=== PATIENT | female | born 1985 | race Caucasian/White ===

== ENCOUNTER 2023-02-15 17:43 | Emergency (ER) | payer SELFPAY ==
[2023-02-15 18:12] VITALS: BP 106/70; PULSE 81; RESP 18; TEMP 36.6; O2SAT 98; BMI 36.9
--- NOTE | 2023-02-15 18:21 | ED.GENADUL1 ---
HPI - General Adult General Chief complaint: Ear Stated complaint: SIDE OF FACE PAIN, NAUSEA Time Seen by Provider: 02/15/23 18:16 Source: patient Mode of arrival: walk-in Limitations: no limitations History of Present Illness HPI narrative: Patient is a 38-year-old female presents to the emergency department for the evaluation of left ear and left jaw pain for the last three days. She denies any mechanism of injury or trauma. She states pain radiates from the left ear to the left side of the face and head as well as to the left jaw, she is concerned that she may have a dental infection starting. She denies any drainage from the mouth. She has not had any fevers or upper respiratory symptoms. Pain is significantly worse with movement of the jaw, no swelling noted. Related Data Previous Rx's Medication Instructions Recorded amoxicillin 500 mg capsule 500 mg PO TID 10 days #30 caps 02/15/23 hydrocodone 5 mg-acetaminophen 300 1 tab PO Q6H PRN pain #10 tabs 02/15/23 mg tablet methylprednisolone 4 mg tablets in 4 mg PO DAILY #21 ea 02/15/23 a dose pack (Medrol (Ruben)) ondansetron 4 mg disintegrating 4 mg PO Q6H PRN nausea and 02/15/23 tablet vomiting #10 tabs Allergies Allergy/AdvReac Type Severity Reaction Status Date / Time methocarbamol [From Robaxin] Allergy Intermediate Verified 02/15/23 18:17 Review of Systems ROS Constitutional Denies: fever or chills Ears, nose, mouth, and throat Reports: neck pain and ear pain; Denies: throat pain Cardiovascular Denies: chest pain Respiratory Denies: shortness of breath or cough Gastrointestinal Reports: nausea; Denies: vomiting Integumentary/Breast Denies: rash Neurological Reports: headache Exam Narrative Exam Narrative: Gen.: Awake, alert, in no distress Head: Normocephalic, atraumatic ENT: Moist mucous membranes, no dental caries noted, no mandibular maxillary swelling. Left tympanic membrane is clear. Respiratory: No respiratory distress Extremities: Moves extremities equally, no injuries noted Psych: Normal mood and affect Neuro: No focal neuro deficit Skin: Warm, dry, intact Constitutional Vital Signs - 24 hr 02/15/23 18:12 Temperature 98 F Pulse Rate [Monitor] 81 Respiratory Rate 18 Blood Pressure [Left Arm] 106/70 Pulse Oximetry 98 Course Vital Signs Vital signs: Vital Signs Temperature 98 F 02/15/23 18:12 Pulse Rate 81 02/15/23 18:12 Respiratory Rate 18 02/15/23 18:12 Blood Pressure 106/70 02/15/23 18:12 Pulse Oximetry 98 02/15/23 18:12 Temperature 98 F 02/15/23 18:12 Pulse Rate 81 02/15/23 18:12 Respiratory Rate 18 02/15/23 18:12 Blood Pressure 106/70 02/15/23 18:12 Pulse Oximetry 98 02/15/23 18:12 Medical Decision Making MDM Narrative Medical decision making narrative: No evidence of acute infection at this time, patient will be treated for temporomandibular joint versus early dental infection with amoxicillin, Medrol Dosepak, Perdido, Zofran. Follow-up with dentist and PCP and return to the Emergency Room if symptoms change or worsen. She has no visible dental abscess or significant dental caries on exam, but she was instructed to finish the antibiotics as a precaution. Medical Records Medical records reviewed: Yes I reviewed the patient's medical records Discharge Plan Discharge Chief Complaint: Ear Clinical Impression: Atypical face pain Patient Disposition: Home, Self-Care Time of Disposition Decision: 18:21 Condition: Good Mode of Transportation: Private Vehicle Prescriptions / Home Meds: New amoxicillin 500 mg capsule 500 mg PO TID 10 Days Qty: 30 0RF methylprednisolone [Medrol (Ruben)] 4 mg tablets,dose pack 4 mg PO DAILY Qty: 21 0RF hydrocodone-acetaminophen 5-300 mg tablet 1 tab PO Q6H PRN (Reason: pain) Qty: 10 0RF Rx Instructions: Dx: K08.8 ondansetron 4 mg tablet,disintegrating 4 mg PO Q6H PRN (Reason: nausea and vomiting) Qty: 10 0RF Instructions: Atypical Facial Pain (ED) Stand Alone Forms: Portal Instructions Referrals: Physician,Non-Staff, MD [Primary Care Provider] - 1 week Discharge Date/Time: 02/15/23 18:37
--- NOTE | 2023-02-15 18:23 | PC.NURSE ---
Pt has left ear/tooth pain. Unsure what came first. Pt states that it feels more muscular then anything. Unsure if she has teeth grinding at night. Pt was diagnosed with TMJ in the past.
== END 2023-02-15 18:37 | disposition home or self-care (01) ==
PROVIDERS: Emergency Provider Emergency Medicine
DX: G50.1 Atypical facial pain (principal)
CPT/HCPCS: 99281

== ENCOUNTER 2023-06-07 17:36 | Emergency (ER) | payer OTHER, SELFPAY ==
[2023-06-07 17:44] VITALS: BP 144/82; PULSE 79; RESP 18; TEMP 36.8; O2SAT 98; BMI 34.7
--- NOTE | 2023-06-07 17:58 | ED.SKABFB1 ---
Documented by User: RADHIKA Vogel 06/07/23 18:11 HPI - Skin/Abscess/Foreign Bdy General Chief complaint: Skin/Abscess/Foreign Body Stated complaint: LUMP Time Seen by Provider: 06/07/23 17:58 Source: patient Mode of arrival: walk-in Limitations: no limitations History of Present Illness HPI narrative: 38-year-old female presents with a painful lump to her right axilla for the past couple of weeks. She states that it drains clear fluid and sometimes drains green fluid. She states that it comes and goes. Denies RUE swelling, temp or sensation changes. Denies fever, nausea or vomiting Related Data Previous Rx's Medication Instructions Recorded amoxicillin 500 mg capsule 500 mg PO TID 10 days #30 caps 02/15/23 hydrocodone 5 mg-acetaminophen 300 1 tab PO Q6H PRN pain #10 tabs 02/15/23 mg tablet methylprednisolone 4 mg tablets in 4 mg PO DAILY #21 ea 02/15/23 a dose pack (Medrol (Ruben)) ondansetron 4 mg disintegrating 4 mg PO Q6H PRN nausea and 02/15/23 tablet vomiting #10 tabs sulfamethoxazole 800 1 tab PO Q12H 10 days #20 tabs 06/07/23 mg-trimethoprim 160 mg tablet (Bactrim DS) Allergies Allergy/AdvReac Type Severity Reaction Status Date / Time methocarbamol [From Robaxin] Allergy Intermediate Verified 04/21/23 07:51 Review of Systems ROS Status of ROS 10 or more systems reviewed and unremarkable except as noted in history and below PFS PFS Social History (System 04/21/23 @ 07:51 by Lynette Jaramillo) Smoking status: Former smoker Exam Narrative Exam Narrative: General: alert, no distress, talking in full an complete sentences skin: warm, dry, intact, 1 x 1 cm oblong area with minimal induration that is draining minimal sanguinous fluid that is tender, no overlying or surrounding erythema, no fluctuance, no streaking head: normocephalic, atraumatic eyes: EOMI nose: nares patent mouth: mucous membranes moist neck: supple, trachea midline respiratory: non-labored extremities: FROM x 4, strength +5/5, capillary refill intact neuro: A&Ox3 psych: appropriate mood and affect, cooperative Constitutional Vital Signs, click to edit/add: Last Vital Signs Temp 98.2 F 06/07/23 17:44 Pulse 79 06/07/23 17:44 Resp 18 06/07/23 17:44 BP 144/82 H 06/07/23 17:44 Pulse Ox 98 06/07/23 17:44 O2 Del Method Room Air 06/07/23 17:44 Course Vital Signs Vital signs: Vital Signs Temperature 98.2 F 06/07/23 17:44 Pulse Rate 79 06/07/23 17:44 Respiratory Rate 18 06/07/23 17:44 Blood Pressure 144/82 H 06/07/23 17:44 Pulse Oximetry 98 06/07/23 17:44 Oxygen Delivery Method Room Air 06/07/23 17:44 Temperature 98.2 F 06/07/23 17:44 Pulse Rate 79 06/07/23 17:44 Respiratory Rate 18 06/07/23 17:44 Blood Pressure 144/82 H 06/07/23 17:44 Pulse Oximetry 98 06/07/23 17:44 Oxygen Delivery Method Room Air 06/07/23 17:44 MDM - Skin/Abscess/Foreign Bdy MDM Narrative Medical decision making narrative: No indication for I&D today. Nurse took a wound culture and pending. She will be treated for an abscess with Bactrim. F/u with PCP. afebrile, not tachypneic, not tachycardic, tolerating p.o., not hypoxic, non toxic appearing and ambulating at baseline and hemodynamically stable to be d/c. answered all questions. educated on SE of meds. pt in agreement with tx. educated when to return to ER. Discharge Plan Discharge Chief Complaint: Skin/Abscess/Foreign Body Clinical Impression: Abscess of skin or subcutaneous tissue Qualifiers: Site of cutaneous abscess: extremity Site of cutaneous abscess of extremity: axilla Laterality: right Qualified Code(s): L02.411 - Cutaneous abscess of right axilla Patient Disposition: Home, Self-Care Time of Disposition Decision: 17:59 Condition: Good Mode of Transportation: Private Vehicle Prescriptions / Home Meds: New sulfamethoxazole-trimethoprim [Bactrim DS] 800-160 mg tablet 1 tab PO Q12H 10 Days Qty: 20 0RF No Action amoxicillin 500 mg capsule 500 mg PO TID 10 Days Qty: 30 0RF methylprednisolone [Medrol (Ruben)] 4 mg tablets,dose pack 4 mg PO DAILY Qty: 21 0RF hydrocodone-acetaminophen 5-300 mg tablet 1 tab PO Q6H PRN (Reason: pain) Qty: 10 0RF Rx Instructions: Dx: K08.8 ondansetron 4 mg tablet,disintegrating 4 mg PO Q6H PRN (Reason: nausea and vomiting) Qty: 10 0RF Instructions: Abscess (ED) Stand Alone Forms: Portal Instructions Referrals: Physician,Non-Staff, [Primary Care Provider] - 1 week Discharge Date/Time: 06/07/23 18:23 Documented by User: Isael Escalona MD 06/07/23 18:31 HPI - Skin/Abscess/Foreign Bdy General Chief complaint: Skin/Abscess/Foreign Body Stated complaint: LUMP Time Seen by Provider: 06/07/23 17:58 Related Data Previous Rx's Medication Instructions Recorded amoxicillin 500 mg capsule 500 mg PO TID 10 days #30 caps 02/15/23 hydrocodone 5 mg-acetaminophen 300 1 tab PO Q6H PRN pain #10 tabs 02/15/23 mg tablet methylprednisolone 4 mg tablets in 4 mg PO DAILY #21 ea 02/15/23 a dose pack (Medrol (Ruben)) ondansetron 4 mg disintegrating 4 mg PO Q6H PRN nausea and 02/15/23 tablet vomiting #10 tabs sulfamethoxazole 800 1 tab PO Q12H 10 days #20 tabs 06/07/23 mg-trimethoprim 160 mg tablet (Bactrim DS) Allergies Allergy/AdvReac Type Severity Reaction Status Date / Time methocarbamol [From Robaxin] Allergy Intermediate Verified 04/21/23 07:51 PFSH PFSH Social History (System 04/21/23 @ 07:51 by Lynette Jaramillo) Smoking status: Former smoker Exam Narrative Exam Narrative: General: alert, no distress, talking in full an complete sentences skin: warm, dry, intact, 1 x 1 cm oblong area with minimal induration that is draining minimal sanguinous fluid that is tender, no overlying or surrounding erythema, no fluctuance, no streaking, No signs of cellulitis or secondary infection. head: normocephalic, atraumatic eyes: EOMI nose: nares patent mouth: mucous membranes moist neck: supple, trachea midline respiratory: non-labored extremities: FROM x 4, strength +5/5, capillary refill intact neuro: A&Ox3 psych: appropriate mood and affect, cooperative Constitutional Vital Signs, click to edit/add: Last Vital Signs Temp 98.2 F 06/07/23 17:44 Pulse 79 06/07/23 17:44 Resp 18 06/07/23 17:44 BP 144/82 H 06/07/23 17:44 Pulse Ox 98 06/07/23 17:44 O2 Del Method Room Air 06/07/23 17:44 Course Vital Signs Vital signs: Vital Signs Temperature 98.2 F 06/07/23 17:44 Pulse Rate 79 06/07/23 17:44 Respiratory Rate 18 06/07/23 17:44 Blood Pressure 144/82 H 06/07/23 17:44 Pulse Oximetry 98 06/07/23 17:44 Oxygen Delivery Method Room Air 06/07/23 17:44 Temperature 98.2 F 06/07/23 17:44 Pulse Rate 79 06/07/23 17:44 Respiratory Rate 18 06/07/23 17:44 Blood Pressure 144/82 H 06/07/23 17:44 Pulse Oximetry 98 06/07/23 17:44 Oxygen Delivery Method Room Air 06/07/23 17:44 MDM - Skin/Abscess/Foreign Bdy MDM Narrative Medical decision making narrative: No indication for I&D today. Nurse took a wound culture and pending. She will be treated for an abscess with Bactrim. F/u with PCP. afebrile, not tachypneic, not tachycardic, tolerating p.o., not hypoxic, non toxic appearing and ambulating at baseline and hemodynamically stable to be d/c. answered all questions. educated on SE of meds. pt in agreement with tx. educated when to return to ER. I, Dr Escalona, have reviewed the above progress note and course of action in the ER; agree with the above. I have personally seen and evaluated this patient, gone over history and physical, and discussed disposition and treatment plan with the patient. Discharge Plan Discharge Chief Complaint: Skin/Abscess/Foreign Body Clinical Impression: Abscess of skin or subcutaneous tissue Qualifiers: Site of cutaneous abscess: extremity Site of cutaneous abscess of extremity: axilla Laterality: right Qualified Code(s): L02.411 - Cutaneous abscess of right axilla Patient Disposition: Home, Self-Care Time of Disposition Decision: 17:59 Condition: Good Mode of Transportation: Private Vehicle Prescriptions / Home Meds: New sulfamethoxazole-trimethoprim [Bactrim DS] 800-160 mg tablet 1 tab PO Q12H 10 Days Qty: 20 0RF No Action amoxicillin 500 mg capsule 500 mg PO TID 10 Days Qty: 30 0RF methylprednisolone [Medrol (Ruben)] 4 mg tablets,dose pack 4 mg PO DAILY Qty: 21 0RF hydrocodone-acetaminophen 5-300 mg tablet 1 tab PO Q6H PRN (Reason: pain) Qty: 10 0RF Rx Instructions: Dx: K08.8 ondansetron 4 mg tablet,disintegrating 4 mg PO Q6H PRN (Reason: nausea and vomiting) Qty: 10 0RF Instructions: Abscess (ED) Stand Alone Forms: Portal Instructions Referrals: Physician,Non-Staff, MD [Primary Care Provider] - 1 week Discharge Date/Time: 06/07/23 18:23
== END 2023-06-07 18:23 | disposition home or self-care (01) ==
PROVIDERS: Emergency Provider Emergency Medicine
DX: L02.411 Cutaneous abscess of right axilla (principal); Z87.891 Personal history of nicotine dependence
CPT/HCPCS: 87070; 87150; 87186; 99283

== ENCOUNTER 2023-06-21 17:17 | Emergency (ER) | payer OTHER, SELFPAY ==
[2023-06-21 17:23] VITALS: BP 154/78; PULSE 80; RESP 16; TEMP 37.8; O2SAT 97; BMI 34.7
--- NOTE | 2023-06-21 17:51 | ED.GENADUL1 ---
HPI - General Adult General Chief complaint: Upper Respiratory Infection Stated complaint: prob covid Time Seen by Provider: 06/21/23 17:24 Source: patient Mode of arrival: walk-in History of Present Illness HPI narrative: Patient is a 38yo Who is presenting with flulike symptoms since yesterday. 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 Patient has been exposed to COVID and pneumonia. Patient started with symptoms yesterday of myalgia, arthralgia, chills, fever, headache, nausea. Patient's had no vomiting or diarrhea. No chest pain or shortness of breath. Patient is concerned for cocaine. Patient also has a history of headaches. Patient says she typically takes Tylenol at home for headaches and migraines. Patient's had a persistent headache since yesterday. Patient was brought to the Emergency Room by her . Patient states that she got , does not want to be checked, she due for her next menses in a week. 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 No acute complaints. . All systems are negative except as noted/marked. All systems reviewed and otherwise negative. . Nurses note and vital signs reviewed and patient is not hypoxic. General: The patient Looks ill, not toxic.. Patient is resting uncomfortably on cart. Patient is not toxic, lethargic, or listless Skin: Warm, dry, no pallor noted. There is no rash noted. No petechiae, purpura. Head: Normocephalic, atraumatic, No midline or paracervical tenderness to palpation. No nuchal rigidity, no meningeal signs or symptoms. Eye: Normal conjunctiva, no drainage, EOMI. PERRL Ears, Nose, Mouth, and Throat: oral mucosa is moist. Nares patent. Mouth without vesicles. Cardiovascular: Regular Rate and Rhythm, no murmur, gallop, rub Respiratory: Patient is in no distress, no accessory muscle use, lungs are clear to auscultation, no wheezing, rales or rhonchi Back: non-tender, no CVA tenderness bilaterally to percussion. No CT LS midline pain GI: soft, no tenderness to palpation, no masses appreciated. No rebound, guarding, or rigidity noted. No flank pain bilateral, No distention Musculoskeletal: Patient has full range of motion of all of the extremities, no motor, sensory, or focal neurological deficits Neurological: A&O x3, normal speech Psychiatric: Cooperative Related Data Previous Rx's Medication Instructions Recorded [id number] 1 cap PO Q8H PRN pain/headache #7 06/21/23 50 mg-300 mg-40 mg capsule caps (Fioricet) ondansetron 4 mg disintegrating 4 mg PO Q4H PRN nausea and 06/21/23 tablet vomiting 3 days #6 tabs Allergies Allergy/AdvReac Type Severity Reaction Status Date / Time methocarbamol [From Robaxin] Allergy Intermediate Verified 06/21/23 17:23 PFSH PFS Social History (System 04/21/23 @ 07:51 by Lynette Jaramillo) Smoking status: Former smoker Exam Constitutional Vital Signs, click to edit/add: Last Vital Signs Temp 100.1 F 06/21/23 17:23 Pulse 80 06/21/23 17:23 Resp 16 06/21/23 17:23 BP 154/78 H 06/21/23 17:23 Pulse Ox 97 06/21/23 17:23 O2 Del Method Room Air 06/21/23 17:23 Course Vital Signs Vital signs: Vital Signs Temperature 100.1 F 06/21/23 17:23 Pulse Rate 80 06/21/23 17:23 Respiratory Rate 16 06/21/23 17:23 Blood Pressure 154/78 H 06/21/23 17:23 Pulse Oximetry 97 06/21/23 17:23 Oxygen Delivery Method Room Air 06/21/23 17:23 Temperature 100.1 F 06/21/23 17:23 Pulse Rate 80 06/21/23 17:23 Respiratory Rate 16 06/21/23 17:23 Blood Pressure 154/78 H 06/21/23 17:23 Pulse Oximetry 97 06/21/23 17:23 Oxygen Delivery Method Room Air 06/21/23 17:23 Medical Decision Making MDM Narrative Medical decision making narrative: Patient's COVID test is positive. Patient Was given IV, 1 L of IV fluids and IV medication to help with her headaches. Patient feels better at discharge. Patient is discharged with medication to help with her symptoms at home. Patient will follow-up with PCP. Work note has been given as well. Education on COVID was done at bedside and on discharge paperwork. Lab Data Lab results reviewed: Yes I reviewed the patient's lab results Labs: Lab Results 06/21/23 Range/Units 17:40 SARS-CoV-2 (PCR) Positive A (NEGATIVE) Discharge Plan Discharge Chief Complaint: Upper Respiratory Infection Clinical Impression: COVID, Headache Patient Disposition: Home, Self-Care Time of Disposition Decision: 18:45 Condition: Fair Prescriptions / Home Meds: New ondansetron 4 mg tablet,disintegrating 4 mg PO Q4H PRN (Reason: nausea and vomiting) 3 Days Qty: 6 0RF [id number] [Fioricet] 50-300-40 mg capsule 1 cap PO Q8H PRN (Reason: pain/headache) Qty: 7 0RF Instructions: General Headache (ED) Additional Instructions: Increase fluids. Use DayQuil, NyQuil, Flonase as needed. Alternate Tylenol and Motrin every 4 hours to help with myalgia, arthralgia aches and pains. Use nausea medication if needed to help increase fluids. Work note has been given. Follow-up with PCP for any additional questions. Stand Alone Forms: Work/School Release, Portal Instructions Referrals: Physician,Non-Staff, MD [Primary Care Provider] - 1 week
[2023-06-21 18:05] LABS: SARS-CoV-2 Ag POSITIVE (NEGATIVE)
[2023-06-21] MEDS: ACETAMINOPHEN 325 MG TABLET 650 MG PO (18:46)
[2023-06-21] MEDS: 0.9 % SODIUM CHLORIDE 1,000 ML 999 ML IV (18:47)
[2023-06-21] MEDS: KETOROLAC TROMETHAMINE 30 MG/ML VIAL 15 MG IVP (18:47)
[2023-06-21] MEDS: PROCHLORPERAZINE 10 MG/2 ML VIAL IV (18:47)
== END 2023-06-21 19:42 | disposition home or self-care (01) ==
PROVIDERS: Emergency Provider Emergency Medicine
DX: U07.1 COVID-19 (principal); R50.9 Fever, unspecified; Z87.891 Personal history of nicotine dependence
CPT/HCPCS: 87811; 96374; 96375; 99284

== ENCOUNTER 2023-08-19 21:26 | Emergency (ER) | payer OTHER, SELFPAY ==
[2023-08-19] VITALS (12 sets, daily range): BP systolic 119–159; BP diastolic 70–106; PULSE 84–125; RESP 13–27; TEMP 37.3; O2SAT 99
--- OUTSIDE RECORDS SUMMARY | 2023-08-19 21:32 | XMS_ITS | CCD ---
Author Name Unknown Address [address] [place] [address] Organization [facility] Care Team Providers Care Limousine Driver Name Role Phone Ramone Franco Unavailable Blair Jordan [facility]ending [facility] DO Omar Pham Emergency Provider DANIEL Contreras Attending Unavailable MURPHY .RADHIKA Consulting Unavailabl e MISC, DR CORDOVA Primary Care Unavailable DANIEL VILLAGOMEZ Admitting Unavailable JENI CORDERO Consulting Unavailable KEVIN MCLAUGHLIN Consulting Unavailable BIA ., FRANK Attending Unavailable BIA ., FRANK Admitting Unavailable MISC, DR CORDOVA Primary Care Unavailable LEONA DICKENS Consulting Unavailable PAY ., DR SILVER Admitting Unavailable AGUIRRE ., MR MILLS Consulting Unavailable PAY ., DR SILVER Attending Unavailable MISC, DR CORDOVA Primary Care Unavailable BIA ., FRANK Admitting Unavailable BIA ., FRANK Consulting Unavailable BIA ., FRANK Attending Unavailable MISC, DR CORDOVA Primary Care Unavailable CRISTIANA .DAVE Consulting Unavailable BIA ., FRANK Admitting Unavailable BIA ., FRANK Attending Unavailable MISC, DR CORDOVA Primary Care Unavailable MISC, DR CORDOVA Primary Care Unavailable DIAB ., JUAN Consulting Unavailable DIAB ., JUAN Attending Unavailable DIAB ., JUAN Admitting Unavailable Blair Jordan Attending Provider [phone] [facility] Provider XIOMARA Montero Emergency Provider [phone] [facility] Unavailable Omar Pham Admitting Unavailable Omar Pham Attending Unavailable [facility] Unavailable Kimberly Rubio Admitting Unavailable Kimberly Rubio Attending Unavailable Joao oMntero Admitting Unavailable Joao Montero Attending Unavailable [facility] Unavailable Allergies Allergy Classification Reported Allergen(s) Allergy Type Date of Onset Reaction(s) Facility (4 sources) Adhesive Tape; Translations: [Adhesive tape] Allergy to substance [facility] (1 source) Methocarbamol Drug Allergy [facility] Repository Medications Current Medications Medication Drug Class(es) Dates Sig (Normalized) Sig (Original) naproxen 500 mg oral tablet (5 sources) Nonsteroidal Anti-inflammatory Drug Start: 07-10-2022 End: 04-16-2023 take 1 tablet by mouth twice daily Naproxen (Naprosyn) 500 mg tablet Active 500 MG PO Twice daily 10 April 16, 2023 12:00am take 1 tablet by mouth every twe lve hours Naproxen 250 MG 1 tablet with food or milk Orally Twice a day Active oxyCODONE hydrochloride 5 mg oral tablet (1 source) Opioid Agonist Start: 04-16-2023 take 5 mg by mouth once daily Oxycodone Active 5 MG PO Daily 5 April 16, 2023 Start: 04-16-2023 take 5 mg by mouth once daily Oxycodone Active 5 MG PO Daily 01 01April 16, 2023 predniSONE 50 mg oral tablet (13 sources) Start: 04-16-2023 take 50 mg by mouth once daily Prednisone Active 50 MG PO Daily 01 01April 16, 2023 12:00am Start: 01-30-2022 End: 02-26-2022 Prednisone Discontinued 0 MG .ROUTE .COMPLEX 39 January 30, 2022 12:00am February 26, 2022 12:26pm 6 tabs for 3 days 4 tabs for 3 days 2 tabs for 3 days 1 tabs for 3 days Start: 02-03-2021 End: 02-25-2021 take 60 mg by mouth once daily Prednisone Discontinued 60 MG PO Daily 12 February 03, 2021 12:00am February 25, 2021 1:25pm Start: 12-19-2020 End: 10-14-2021 take 40 mg by mouth once daily Prednisone Discontinued 40 MG PO Daily 10 February 25, 2021 12:00am October 14, 2021 7:51pm Start: 07-16-2019 End: 11-06-2019 take 40 mg by mouth once daily, then take 20 mg by mouth once daily, then take 10 mg by mouth once daily Prednisone Discontinued 20 MG PO Daily July 16, 2019 1:00am November 06, 2019 4:43pm 40mg orally daily for 3 days then 20mg daily for 3 days then 10mg daily for 3 days Start: 11-07-2018 End: 07-14-2019 take 40 mg by mouth once daily Prednisone Discontinued 40 MG PO Daily November 07, 2018 12:00am July 14, 2019 2:15pm Completed/Discontinued Medications Medication Drug Class(es) Dates Sig (Normalized) Sig (Original) acetaminophen 500 mg oral tablet (2 sources) Start: 09-04-2018 End: 07-14-2019 take 1000 mg by mouth every four hours Acetaminophen Discontinued 1000 MG PO Q4H September 04, 2018 1:00am July 14, 2019 2:15pm acetaminophen 325 mg / HYDROcodone bitartrate 5 mg oral tablet (4 sources) Opioid Agonist Start: 09-04-2018 End: 09-09-2018 take 1 tablet by mouth every six hours Hydrocodone-Acetami nophen ([place]) 5-325 mg tablet Discontinued 1 TAB PO Q6H 20 September 04, 2018 September 09, 2018 1:02am Start: 12-02-2017 End: 12-07-2017 take 1 tablet by mouth four times daily Hydrocodone-Acetaminophen ([place]) 5-325 mg tablet Discontinued 1 TAB PO Four times daily 14 December 02, 2017 December 07, 2017 12:01am albuterol 0.417 mg/ml inhalation solution (8 sources) beta2-Adrenergic Agonist Start: 07-16-2019 End: 02-25-2021 Albuterol Sulfate Discontinued 1 INH INHALATION EVERY 4-6 HOURS July 16, 2019 1:00am February 25, 2021 1:24pm Start: 11-07-2018 End: 02-25-2021 take 1.25 mg by inhalation every four hours Albuterol Sulfate Discontinued 1.25 MG INHALATION Q4H 75 July 16, 2019 4:23pm February 25, 2021 1:24pm Start: 01-26-2018 End: 02-08-2018 Albuterol Sulfate (Ventolin Hfa) 90 mcg/actuation HFA aerosol inhaler Discontinued 2 INH INHALATION Four times daily January 26, 2018 12:00am February 08, 2018 12:13am azithromycin 250 mg oral tablet (2 sources) Macrolide Antimicrobial Start: 07-16-2019 End: 11-06-2019 take 500 mg by mouth once daily Azithromycin Discontinued 500 MG PO Daily 4 2 July 16, 2019 1:00am November 06, 2019 4:43pm cephalexin 500 mg oral capsule (5 sources) Cephalosporin Antibacterial Start: 01-09-2023 End: 04-16-2023 take 500 mg by mouth every six hours Cephalexin Discontinued 500 MG PO Q6H 40 January 09, 2023 12:00am April 16, 2023 1:49am Start: 08-19-2018 End: 08-26-2018 take 500 mg by mouth twice daily Cephalexin Discontinu ed 500 MG PO Twice daily 14 August 19, 2018 1:00am August 26, 2018 1:01am Start: 02-08-2018 End: 03-06-2018 take 2 capsules by mouth every twelve hours Cephalexin (Keflex) 500 mg Capsule Discontinued 1000 MG PO Q12H 40 February 08, 2018 12:00am March 06, 2018 4:41pm diphenhydrAMINE hydrochloride 25 mg oral capsule (2 sources) Histamine-1 Receptor Antagonist Start: 01-30-2022 End: 02-26-2022 Diphenhydramine Hcl Discontinued 50 MG PO every 6 to 8 hours January 30, 2022 12:00am February 26, 2022 12:26pm docusate sodium 100 mg oral capsule (2 sources) Start: 09-04-2018 End: 11-07-2018 take 100 mg by mouth once daily at bedtime Docusate Sodium Discontinued 100 MG PO Daily at bedtime September 04, 2018 1:00am November 07, 2018 3:36pm doxycycline hyclate 100 mg oral tablet (2 sources) Tetracycline-clas s Drug Start: 02-02-2022 End: 02-26-2022 take 100 mg by mouth twice daily Doxycycline Hyclate Discontinued 100 MG PO Twice daily February 02, 2022 12:00am February 26, 2022 12:26pm ferrous sulfate 325 mg oral tablet (2 sources) Start: 07-26-2018 End: 11-07-2018 take 325 mg by mouth once daily Ferrous Sulfate Discontinued 325 MG PO Daily July 26, 2018 1:00am November 07, 2018 3:36pm ibuprofen 600 mg oral tablet (4 sources) Nonsteroidal Anti-inflammatory Drug Start: 09-04-2018 End: 07-14-2019 take 600 mg by mouth every six hours Ibuprofen Discontinued 600 MG PO Every 6 hours 60 September 04, 2018 1:00am July 14, 2019 2:15pm Start: 12-02-2017 End: 02-08-2018 take 800 mg by mouth three times daily Ibuprofen Discontinued 800 MG PO Three times daily December 02, 2017 1:40pm February 08, 2018 12:13am loratadine 10 mg oral tablet (2 sources) Start: 10-14-2021 End: 01-30-2022 take 1 tablet by mouth once daily Loratadine (Claritin) 10 mg tablet Discontinued 10 MG PO Daily October 14, 2021 1:00am January 30, 2022 5:46pm methocarbamol 750 mg oral tablet (2 sources) Muscle Relaxant Start: 02-25-2021 End: 10-14-2021 take 750 mg by mouth every eight hours Methocarbamol Discontinued 750 MG PO Q8H 11 01February 25, 2021 12:00am October 14, 2021 7:51pm metoclopramide 10 mg oral tablet (2 sources) Dopamine-2 Receptor Antagonist Start: 02-08-2018 End: 03-06-2018 take 10 mg by mouth every eight hours Metoclopramide Hcl Discontinued 10 MG PO Q8H February 08, 2018 12:00am March 06, 2018 4:41pm ondansetron 4 mg disintegrating oral tablet (2 sources) Serotonin-3 Receptor Antagonist Start: 01-26-2018 End: 02-08-2018 take 1 tablet by mouth three times daily Ondansetron (Zofran Odt) 4 mg tablet,disintegratin g Discontinued 4 MG PO Three times daily January 26, 2018 12:00am February 08, 2018 12:13am [id number] Fumarate-Fa () 28-800 mg-mcg Tablet (2 sources) Start: 01-26-2018 End: 11-07-2018 take 1 tablet by mouth once daily [id number]-Naokguu Fumarate-Fa () 28-800 mg-mcg Tablet Discontinued 1 TAB PO Daily January 26, 2018 12:00am November 07, 2018 3:36pm Start: 01-26-2018 End: 11-07-2018 take 1 tablet by mouth once daily [id number] Fumarate-Fa () 28-800 mg-mcg Tablet Discontinued 1 TAB PO Daily January 25, 2018 11:00pm November 07, 2018 2:36pm promethazine hydrochloride 25 mg oral tablet (4 sources) Phenothiazine Start: 03-03-2020 End: 12-19-2020 take 25 mg by mouth three times daily Promethazine Discontinued 25 MG PO Three times daily March 03, 2020 12:00am December 19, 2020 4:06pm Start: 01-26-2018 End: 02-08-2018 take 25 mg by mouth three times daily Promethazine Discontinued 25 MG PO Three times daily January 26, 2018 12:00am February 08, 2018 12:13am topiramate 50 mg oral tablet (2 sources) Start: 07-14-2019 End: 12-19-2020 take 1 tablet by mouth twice daily Topiramate (Topamax) 50 mg Tablet Discontinued 50 MG PO Twice daily July 14, 2019 1:00am December 19, 2020 4:06pm traMADol hydrochloride 50 mg oral tablet (2 sources) Opioid Agonist take 1 tablet by mouth every twenty-four hours traMADol HCl 50 MG 1 tablet as needed Orally Once a day Not-Taking Problems Active Problems Problem Classification Problem Date Documented Da te Episodic/Chronic Allergic reactions (2 sources) Contact dermatitis due to poison ofzia; Translations: [Allergic contact dermatitis due to plants, except food] 01-30-2022 Episodic Asthma (2 sources) Asthma 07-14-2019 Chronic obstructive pulmonary disease and bronchiectasis (2 sources) Bronchitis; Translations: [Bronchitis, not specified as acute or chronic] 02-03-2021 Episodic Fluid and electrolyte disorders (4 sources) Metabolic acidosis; Translations: [Metabolic acidosis] 07-14-2019 Episodic Headache; including migraine (3 sources) Migraine; Translations: [Migraine, unspecified, not intractable, without status migrainosus] Onset: 3 12-19-2020 Chronic Headache; including migraine (2 sources) Headache; Translations: [Headache] 03-03-2020 Episodic Headache; including migraine (3 sources) Headache; including migraine; Translations: [HEADACHE UNSPECIFIED] Onset: 3 Other gastrointestinal disorders (1 source) Constipation; Translations: [Constipation, unspecified] 01-09-2023 Episodic Other nervous system disorders (2 sources) Chronic pain; Translations: [Other chronic pain] Chronic Other nervous system disorders (1 source) Other chronic pain; Translations: [Chronic pain G89.29] Onset: 1 Resolved: 1 Chronic Other non-traumatic joint disorders (2 sources) Pain in unspecified knee; Translations: [Acute knee pain] 12-02-2017 Episodic Other skin disorders (2 sources) Eruption; Translations: [Rash and other nonspecific skin eruption] 02-02-2022 Episodic Other upper respiratory infections (3 sources) Upper respiratory infection; Translations: [Acute upper respiratory infection, unspecified] Onset: 3 01-23-2020 Episodic Phlebitis; thrombophlebitis and thromboembolism (2 sources) Superficial thrombophlebitis; Translations: [Phlebitis and thrombophlebitis of unspecified site] 11-06-2019 Episodic Spondylosis; intervertebral disc disorders; other back problems (10 sources) Solitary sacroiliitis; Translations: [Sacroiliitis, not elsewhere classified] Onset: 1 Resolved: 1 Chronic Spondylosis; intervertebral disc disorders; other back problems (1 source) Backache; Translations: [Dorsalgia, unspecified] 04-16-2023 Episodic Sprains and strains (5 sources) Sprain of knee; Translations: [Sprain of unspecified site of unspecified knee, initial encounter] Onset: 2 12-07-2017 Episodic Substance-related disorders (1 source) Nicotine dependence, cigarettes, uncomplicated; Translations: [NICOTINE DEPEND CIGARETTES UNCOMP] Onset: 3 Chronic Superficial injury; contusion (3 sources) Contusion of hand; Translations: [Contusion of unspecified hand, initial encounter] Onset: 2 07-10-2022 Episodic Unclassified (3 sources) COUGH, UNSPECIFIED; Translations: [COUGH, UNSPECIFIED] Onset: 3 Unclassified (1 source) CONTACT W/AND (SUSP) EXPOS COVID-19; Translations: [CONTACT W/AND (SUSP) EXPOS COVID-19] Onset: 3 Unclassified (1 source) Low back pain, unspecified; Translations: [Low back pain, unspecified] Onset: 3 Unclassified (1 source) Pain in right hand; Translations: [Pain in right hand] Onset: 2 Urinary tract infections (1 source) Urinary tract infectious disease; Translations: [Urinary tract infection, site not specified] 01-09-2023 Episodic Viral infection (4 sources) Viral disease; Translations: [Viral infection, unspecified] 02-26-2022 Episodic Past or Other Problems Problem Classification Problem Date Documented Da te Episodic/Chronic Abdominal pain (1 source) Unspecified abdominal pain; Translations: [Unspecified abdominal pain] Onset: 01-09-2023 Episodic E Codes: Struck by; against (1 source) Walked into wall, initial encounter; Translations: [WALKED INTO WALL INITIAL ENCOUNTER] Onset: 07-27-2022 Episodic Inflammation; infection of eye (except that caused by tuberculosis or sexually transmitteddisease) (1 source) Unspecified conjunctivitis; Translations: [UNSPECIFIED CONJUNCTIVITIS] Onset: 07-01-2022 Episodic Other aftercare (1 source) Other superintendent [employer] (current) drug therapy; Translations: [OTH MCC CURRENT DRUG THERAPY] Onset: 02-18-2022 Episodic Other connective tissue disease (3 sources) Pain in right hand; Translations: [PAIN IN RIGHT HAND] Onset: 07-21-2022 Episodic Other eye disorders (3 sources) Other specified disorders of eye and adnexa; Translations: [OTHER SPEC DISORDERS EYE AND ADNEXA] Onset: 06-30-2022 Episodic Screening and history of mental health and substance abuse codes (1 source) Personal history of nicotine dependence; Translations: [PERSONAL HISTORY OF NICOTINE DEPEND] Onset: 02-18-2022 Episodic Unclassified (1 source) COUGH, UNSPECIFIED; Translations: [COUGH, UNSPECIFIED] Onset: 09-21-2022 Results Test Name Value Interpretation Reference Range Facility Basic Metabolic Panelon 03-30 Anion gap [Moles/Vol] 11.9 mmol/L Normal 6.0-15.0 [facility] Comment on above: Performed By: #### C BC, BMP ####[facility] [place] [address] [facility] Calcium [Mass/Vol] 9.4 mg/dL Normal 8.6-10.3 [facility] Comment on above: Performed By: #### C BC, BMP ####[facility] [place] [address] [facility] Chloride [Moles/Vol] 104 mmol/L Normal 98-[address] [facility] Comment on above: Performed By: #### C BC, BMP ####[place] [address] [place] [address] [facility] CO2 [Moles/Vol] 27.7 mmol/L Normal 21.0-31.0 [facility] Comment on above: Performed By: #### C BC, BMP ####[place] [id number] [place] [id number] [facility] Creatinine [Mass/Vol] 0.78 mg/dL Normal 0.60-1.20 [facility] Comment on above: Performed By: #### C BC, BMP ####[place] [id number] [place] [id number] [place] Creatinine Clr Calc Pharmacy 130.11 [facility] Comment on above: Result Comment: PERF ORMED BY: [facility] [address] [place] [id number] PATHOLOGIST SAP TECHNICAL ARCHITECT MCKENZIE HERNÁNDEZ M.D. Performed By: #### C BC, BMP ####[place] [address] [place] [id number] [facility] GFR/1.73 sq M.predicted MDRD (S/P/Bld) [Vol rate/Area] mL/min/{1.73_m2} [facility] Comment on above: Performed By: #### C BC, BMP ####[place] [address] [place] [id number] [facility] Glucose [Mass/Vol] 104 mg/dL High 70-100 [facility] Comment on above: Result Comment: [place] Glucose Reference Range is dependent on time and content of last meal. Glucose of more than 200 mg/dL in a nonstressed, ambulatory subject supports the diagnosis of Diabetes Mellitus. ADA recommended reference range Performed By: #### C BC, BMP ####[facility] [id number] [place] [id number] [facility] Potassium [Moles/Vol] 3.6 mmol/L Normal 3.5-5.1 [facility] Comment on above: Performed By: #### C BC, BMP ####[facility] [id number] [place] [id number] [facility] Sodium [Moles/Vol] 140 mmol/L Normal 136-145 [facility] Comment on above: Performed By: #### C BC, BMP ####[facility] [id number] Urea nitrogen [Mass/Vol] 12 mg/dL Normal 7-25 [facility] Comment on above: Performed By: #### C BC, BMP ####[facility] Basophils Auto (Bld) [#/Vol] Ordered By: Omar Pham on 04-16-2023 Basophils (Bld) [#/Vol] 0.0 10*3/uL 0.0-0.2 [facility] Basophils/100 WBC Auto (Bld) Ordered By: Omar Pham on 04-16-2023 Basophils/100 WBC (Bld) 0.5 % . F [facility] CT lumbar spine wo conon CT lumbar spine wo con [facility] [address] [place] [address] [place] [address] CT Scan Report Signed Patient: Hellen Bledsoe MR#: [id number] : 1985 Acct:[id number] Age/Sex: 38 / F ADM Date: 04/15/23 Loc: ER Room: Type: [facility] ER Attending Dr: Copies to: Joao Montero PA-C Ordering Provider: Joao Montero PA-C Date of Service: 04/15/23 CT/CT lumbar spine wo con: back CT LUMBAR SPINE WITHOUT CONTRAST WITH 3-D RECONSTRUCTIONS COMPARISON: CT abdomen 01/09/2023 CLINICAL DATA: Low back pain radiating down the legs. No injury. Spiral axial unenhanced images were obtained through the lumbar spine. Sagittal, coronal and 3-D volume rendered reconstructions were reviewed. This CT exam was performed using one or more following dose reduction techniques: Automated exposure control, adjustment of the mA and/or kV according to patient size, or use of iterative reconstruction technique. There is partial lumbarization of S1 on the right. There is slight levoscoliotic curvature. There is subtle retrolisthesis of L5 on the transitional vertebra where there is also slight disc space narrowing. There are no acute compression fractures. There are tiny thoracolumbar endplate spurs. Short pedicles are seen. There is mild annular disc bulging at L4-5 with mild inferior foraminal encroachment. There is a central/left parasagittal broad-based disc protrusion at L5 - transitional with mild associated thecal sac effacement. Mild facet disease is also seen. There is moderate left and mild to moderate right foraminal impingement. No paraspinal soft tissue abnormalities are identified. There are no contributory findings involving the imaged portions of the abdomen or pelvis. CT/CT lumbar spine wo con IMPRESSION: MILD DEXTROSCOLIOTIC CURVATURE. NO ACUTE COMPRESSION FRACTURES. TRANSITIONAL VERTEBRA. DISC PROTRUSION AT L5 - TRANSITIONAL WITH ASSOCIATED CENTRAL AND FORAMINAL STENOSIS, DESCRIBED. Impression dictated by: Rebecca Medley M.D.04/16/2023 9:11 AM Dictation Location: [place] [address] Transcribed By: [facility] 04/16/23 0911 Dictated By: Rebecca Medley MD 04/16/23 0902 Signed By: 04/16/23 09 Normal [facility] Calcium [Mass/volume] in Ser um or PlasmaOrdered By: Omar Pham on 04-16-2023 Calcium [Mass/Vol] 9.4 mg/dL 8.6-10.3 [facility] Carbon dioxide, total [Moles /volume] in Serum or PlasmaOrdered By: Omar Pham on 04-16-2023 CO2 [Moles/Vol] 27.7 mmol/L 21.0-31.0 [facility] Chloride [Moles/volume] in S lupe or PlasmaOrdered By: Omar Pham on 04-16-2023 Chloride [Moles/Vol] 104 mmol/L 98-[address] [facility] Complete Blood Count Auto Di ffon 04-16-2023 Basophils (Bld) [#/Vol] 0.0 10*3/uL Normal 0.0-0.2 [facility] Comment on above: Result Comment: PERF ORMED BY: [place] [address] PATHOLOGIST SAP TECHNICAL ARCHITECT MCKENZIE HERNÁNDEZ M.D. Performed By: #### C BC, BMP #### [facility] [address] Basophils/100 WBC (Bld) 0.5 % Normal . F [facility] Comment on above: Performed By: #### C BC, BMP #### [facility] [address] Eosinophils (Bld) [#/Vol] 0.1 10*3/uL Normal 0.0-0.45 [facility] Comment on above: Performed By: #### C BC, BMP #### [facility] [address] Eosinophils/100 WBC (Bld) 1.5 % Normal . [facility] Comment on above: Performed By: #### C BC, BMP #### [facility] [address] Erythrocyte distribution width (RBC) [Ratio] 13.8 % Normal 11.9-15.3 [facility] Comment on above: Performed By: #### C BC, BMP #### [facility] [address] [place] [address] [place] Hematocrit (Bld) [Volume fraction] 37.5 % Normal 34.0-46.4 [facility] Comment on above: Performed By: #### C BC, BMP #### [facility] [address] Hemoglobin (Bld) [Mass/Vol] 12.9 g/dL Normal 11.8-15.4 [facility] Comment on above: Performed By: #### C BC, BMP #### [facility] [address] [place] [address] [place] Lymphocytes (Bld) [#/Vol] 1.3 10*3/uL Normal 1.00-4.8 [facility] Comment on above: Performed By: #### C BC, BMP #### [facility] [address] Lymphocytes/100 WBC (Bld) 14.8 % Normal . [facility] Comment on above: Performed By: #### C BC, BMP #### [facility] [address] MCH (RBC) [Entitic mass] 30.8 pg Normal 24.7-34.3 [facility] Comment on above: Performed By: #### C BC, BMP #### [address] MCV (RBC) [Entitic vol] 89.5 fL Normal 80-100 F [facility] Comment on above: Performed By: #### C BC, BMP #### [address] Mean Corpuscular HGB Conc 34.4 g/dL Normal 32.0-35.0 [facility] Comment on above: Performed By: #### C BC, BMP #### [address] Monocytes (Bld) [#/Vol] 0.5 10*3/uL Normal 0.0-0.8 [facility] Comment on above: Performed By: #### C BC, BMP #### [place] [address] [place] Monocytes/100 WBC (Bld) 17.20 % Normal 0.00-20.00 F [facility] Comment on above: Performed By: #### C BC, BMP #### [address] Monocytes/100 WBC (Bld) 6.0 % Normal . F [facility] Comment on above: Performed By: #### C BC, BMP #### [place] [id number] [place] Neutrophils (Bld) [#/Vol] 7.0 10*3/uL Normal 1.8-7.7 [facility] Comment on above: Performed By: #### C BC, BMP #### [address] Neutrophils/100 WBC (Bld) 77.2 % Normal . [facility] Comment on above: Performed By: #### C BC, BMP #### [facility] [address] NRBC% 0.2 /100{WBC} Normal 0-0.5 [facility] Comment on above: Performed By: #### C DANE, BMP #### [address] Platelet mean volume (Bld) [Entitic vol] 8.0 fL Normal 6.3-10.7 [facility] Comment on above: Performed By: #### C DANE, BMP #### [address] Platelets (Bld) [#/Vol] 200 10*3/uL Normal 150-450 [facility] Comment on above: Performed By: #### C DANE, BMP #### [address] RBC (Bld) [#/Vol] 4.19 10*6/uL Normal 3.60-5.00 [facility] Comment on above: Performed By: #### C DANE, BMP #### [address] WBC (Bld) [#/Vol] 9.1 10*3/uL Normal 3.8-11.6 [facility] Comment on above: Performed By: #### C DANE, BMP #### [address] Creatinine [Mass/volume] in Serum or PlasmaOrdered By: Omar Pham on 04-16-2023 Creatinine [Mass/Vol] 0.78 mg/dL 0.60-1.20 [facility] ECG 12 lead ECGon 04-16-2023 ECG 12 lead ECG [facility] [address] Electrocardiograph Report Signed Patient: Hellen Bledsoe MR#: [id number] : 1985 Acct:[id number] Age/Sex: 38 / F ADM Date: 04/15/23 Loc: ER Room: Type: [facility] ER Attending Dr: Ordering Provider: Joao Montero PA-C Date of Service: 04/16/23 ECG/ECG 12 lead ECG: Back Pain/Injury Copies to: Test Reason : Blood Pressure : 110/062 mmHG Vent. Rate : 040 BPM Atrial Rate : 040 BPM P-R Int : 124 ms QRS Dur : 088 ms QT Int : 566 ms P-R-T Axes : 019 063 030 degrees QTc Int : 461 ms Marked sinus bradycardia Abnormal ECG nonspecific ST findings Confirmed by Omar Pham DO ([id number]) on 04/16/2023 7:10:39 AM Referred By: Electronically Signed By:Omar Pham DO Transcribed By: MUS Signed By Omar Pham DO 0710 [facility] Eosinophils Auto (Bld) [#/Vo l]Ordered By: Omar Pham on 04-16-2023 Eosinophils (Bld) [#/Vol] 0.1 10*3/uL 0.0-0.45 [facility] Eosinophils/100 WBC Auto (Bl d)Ordered By: Omar Pham on 04-16-2023 Eosinophils/100 WBC (Bld) 1.5 % . [facility] Erythrocyte distribution wid th Auto (RBC) [Ratio]Ordered By: Omar Pham on 04-16-2023 Erythrocyte distribution width (RBC) [Ratio] 13.8 % 11.9-15.3 [facility] Glucose [Mass/volume] in Ser um or PlasmaOrdered By: Omar Pham on 04-16-2023 Glucose [Mass/Vol] 104 mg/dL 70-100 [facility] Comment on above: ADA recommended refe rence rangeRandom Glucose Reference Range is dependent on time and content of last meal. Glucose of more than 200 mg/dL in a nonstressed, ambulatory subject supports the diagnosis of Diabetes Mellitus. Hematocrit Auto (Bld) [Volum e fraction]Ordered By: Omar Pham on 04-16-2023 Hematocrit (Bld) [Volume fraction] 37.5 % 34.0-46.4 [facility] Hemoglobin [Mass/volume] in BloodOrdered By: Omar Pham on 04-16-2023 Hemoglobin (Bld) [Mass/Vol] 12.9 g/dL 11.8-15.4 [facility] Leukocytes [#/volume] correc jose francisco for nucleated erythrocytes in Blood by Automated counOrdered By: Omar Pham on 04-16-2023 WBC corrected for nucl RBC Auto (Bld) [#/Vol] 9.1 10*3/uL 3.8-11.6 [facility] Lymphocytes Auto (Bld) [#/Vo l]Ordered By: Omar Pham on 04-16-2023 Lymphocytes (Bld) [#/Vol] 1.3 10*3/uL 1.00-4.8 [facility] Lymphocytes/100 WBC Auto (Bl d)Ordered By: Omar Pham on 04-16-2023 Lymphocytes/100 WBC (Bld) 14.8 % . [facility] MCH Auto (RBC) [Entitic mass ]Ordered By: Omar Pham on 04-16-2023 MCH (RBC) [Entitic mass] 30.8 pg 24.7-34.3 [facility] MCHC Auto (RBC) [Mass/Vol]Or dered By: Omar Pham on 04-16-2023 MCHC (RBC) [Mass/Vol] 34.4 g/dL 32.0-35.0 [facility] MCV Auto (RBC) [Entitic vol] Ordered By: Omar Pham on 04-16-2023 MCV (RBC) [Entitic vol] 89.5 fL 80-100 [facility] Monocyte distribution width [Entitic volume] in Blood by AutomatedOrdered By: Omar Pham on 04-16-2023 Monocyte distribution width Auto (Bld) [Entitic vol] 17.20 % 0.00-20.00 [facility] Monocytes Auto (Bld) [#/Vol] Ordered By: Omar Pham on 04-16-2023 Monocytes (Bld) [#/Vol] 0.5 10*3/uL 0.0-0.8 [facility] Monocytes/100 WBC Auto (Bld) Ordered By: Omar Pham on 04-16-2023 Monocytes/100 WBC (Bld) 6.0 % . [facility] Neutrophils Auto (Bld) [#/Vo l]Ordered By: Omar Pham on 04-16-2023 Neutrophils (Bld) [#/Vol] 7.0 10*3/uL 1.8-7.7 [facility] Neutrophils/100 WBC Auto (Bl d)Ordered By: Omar Pham on 04-16-2023 Neutrophils/100 WBC (Bld) 77.2 % . [facility] No Panel InformationOrdered By: Omar Pham on 04-16-2023 Estimated GFR (CKD-EPI) > 60.0 mL/Min [facility] Creatinine Clearance (Chem 130.11 [facility] Nucleated erythrocytes [Pres ence] in Blood by Automated countOrdered By: Omar Pham on 04-16-2023 Nucleated RBC Auto Ql (Bld) 0.2 /100{WBC} 0-0.5 [facility] Platelet mean volume Auto (B ld) [Entitic vol]Ordered By: Omar Pham on 04-16-2023 Platelet mean volume (Bld) [Entitic vol] 8.0 fL 6.3-10.7 [facility] Platelets Auto (Bld) [#/Vol] Ordered By: Omar Pham on 04-16-2023 Platelets (Bld) [#/Vol] 200 10*3/uL 150-450 [facility] Potassium [Moles/volume] in Serum or PlasmaOrdered By: Omar Pham on 04-16-2023 Potassium [Moles/Vol] 3.6 mmol/L 3.5-5.1 [facility] RBC Auto (Bld) [#/Vol]Ordere d By: Omar Pham on 04-16-2023 RBC (Bld) [#/Vol] 4.19 10*6/uL 3.60-5.00 [facility] Serum or plasma anion gap de terminationOrdered By: Omar Pham on 04-16-2023 Anion gap [Moles/Vol] 11.9 mmol/L 6.0-15.0 [facility] Sodium [Moles/volume] in Ser um or PlasmaOrdered By: Omar Pham on 04-16-2023 Sodium [Moles/Vol] 140 mmol/L 136-145 [facility] Urea nitrogen [Mass/volume] in Serum or PlasmaOrdered By: Omar Pham on 04-16-2023 Urea nitrogen [Mass/Vol] 12 mg/dL 7-25 [facility] WBC Auto (Bld) [#/Vol]Ordere d By: Oamr Pham on 04-16-2023 WBC (Bld) [#/Vol] 9.1 10*3/uL 3.8-11.6 [facility] CT abdomen pelvis w conon CT abdomen pelvis w con [facility] [place] [address] CT Scan Report Signed Patient: Hellen Bledsoe MR#: [id number] : 1985 Acct:[id number] Age/Sex: 37 / F ADM Date: 01/09/23 Loc: ER Room: Type: [facility] ER Attending Dr: Copies to: Kimberly Rubio APRN Ordering Provider: Kimberly Rubio APRN Date of Service: 01/09/23 CT/CT abdomen pelvis w con: Abdominal Pain CT abdomen pelvis w con 01/09/2023 7:54 PM SIGNS AND SYMPTOMS: Generalized weakness, fever, chills, abdominal pain, nausea and vomiting TECHNIQUE: Multidetector ct axial images of the abdomen and pelvis were obtained with IV contrast. Multiplanar reformats were performed and reviewed to further define anatomy and possible pathology. CT was performed with one or more of the following dose reduction techniques: Automated exposure control, adjustment of the mA and/or kV according to patient size, or use of iterative reconstruction technique. COMPARISON: None. FINDINGS: Lower Chest: Within normal limits. ABDOMEN: Liver: Within normal limits. Bile Ducts: Normal caliber. Gallbladder: Previously removed Pancreas: Within normal limits. Spleen: Within normal limits. Adrenals: Within normal limits. Kidneys: Within normal limits. Pelvis: Reproductive Organs: No pelvic masses. Ureters: Within normal limits. Bladder: Within normal limits. Bowel: Normal caliber. Mesenteric Lymph Nodes: No enlarged mesenteric lymph nodes. Peritoneum: No ascites or free air, no fluid collection. Vessels: within normal limits Retroperitoneum: Within normal limits. Abdominal Wall: Within normal limits. Bones: Degenerative changes are noted in the sacroiliac joints. CT/CT abdomen pelvis w con IMPRESSION: No acute intra-abdominal pathology. No bowel obstruction or obstructive uropathy. Impression dictated by: Marcio Garces M.D.01/10/2023 10:28 AM Dictation Location: [place] [address] Transcribed By: [facility] 01/10/23 1028 Dictated By: Marcio Garces II, MD 01/10/23 1024 Signed By: 01/10/23 1028 [facility] Basic Metabolic Panelon 05- Anion gap [Moles/Vol] 8.9 mmol/L Normal 6.0-15.0 [facility] Comment on above: Performed By: #### B MP, LIPASE, CBC, HEPATIC ####[facility] [id number] [place] [address] [facility] Calcium [Mass/Vol] 8.6 mg/dL Normal 8.6-10.3 [facility] Comment on above: Performed By: #### B MP, LIPASE, CBC, HEPATIC ####[facility] [address] [place] [address] [place] Chloride [Moles/Vol] 105 mmol/L Normal 98-[address] [facility] Comment on above: Performed By: #### B MP, LIPASE, CBC, HEPATIC ####[facility] [address] [place] [address] [facility] CO2 [Moles/Vol] 24.7 mmol/L Normal 21.0-31.0 [facility] Comment on above: Performed By: #### B MP, LIPASE, CBC, HEPATIC ####[facility] [place] [address] [facility] Creatinine [Mass/Vol] 0.64 mg/dL Normal 0.60-1.20 [facility] Comment on above: Performed By: #### B MP, LIPASE, CBC, HEPATIC ####[place] [address] [place] [address] [facility] Creatinine Clr Calc Pharmacy 163.85 [facility] Comment on above: Performed By: #### B MP, LIPASE, CBC, HEPATIC ####[place] [address] [place] [id number] [facility] GFR/1.73 sq M.predicted MDRD (S/P/Bld) [Vol rate/Area] mL/min/{1.73_m2} [facility] Comment on above: Performed By: #### B MP, LIPASE, CBC, HEPATIC ####[address] Glucose [Mass/Vol] 89 mg/dL Normal 70-100 [facility] Comment on above: Result Comment: [facility] Glucose Reference Range is dependent on time and content of last meal. Glucose of more than 200 mg/dL in a nonstressed, ambulatory subject supports the diagnosis of Diabetes Mellitus. ADA recommended reference range Performed By: #### B MP, LIPASE, CBC, HEPATIC ####[place] [id number] [facility] Potassium [Moles/Vol] 3.6 mmol/L Normal 3.5-5.1 [facility] Comment on above: Performed By: #### B MP, LIPASE, CBC, HEPATIC ####[place] [id number] [facility] Sodium [Moles/Vol] 135 mmol/L Low 136-145 [facility] Comment on above: Performed By: #### B MP, LIPASE, CBC, HEPATIC ####[place] [address] [place] [id number] [facility] Urea nitrogen [Mass/Vol] 10 mg/dL Normal 7-25 [facility] Comment on above: Performed By: #### B MP, LIPASE, CBC, HEPATIC ####[facility] [address] [place] [id number] [facility] COVID-19 / Flu A/B / RSV PCR on 01-09-2023 SARS-CoV-2 (COVID-19) RNA AFSHAN+probe Ql (Unsp spec) COVID-19 Cepheid Result Negative for SARS-CoV-2 RNA by RT-PCR Flu A Cepheid Result Negative for Flu A RNA by RT-PCR Flu B Cepheid Result Negative for Flu B RNA by RT-PCR RSV Cepheid Result Negative for RSV RNA by RT-PCR COVID19 Blank Space Reference: Negative COVID19 Blank Space Cepheid Disclaimer The Cepheid Xpert Xpress CoV-2/Flu/RSV Plus has Cepheid Disclaimer not been FDA cleared or approved; this test has Cepheid Disclaimer been authorized by FDA under an EUA for use by Cepheid Disclaimer authorized laboratories; this test has been Cepheid Disclaimer authorized only for the simultaneous qualitative Cepheid Disclaimer detection and differentiation of nucleic acids from Cepheid Disclaimer SARS-CoV-2, influenza A, influenza B, and Cepheid Disclaimer respiratory syncytial virus (RSV), and not for any Cepheid Disclaimer other viruses or pathogens; and this test is only Cepheid Disclaimer authorized for the duration of the declaration that Cepheid Disclaimer circumstances exist justifying the authorization of Cepheid Disclaimer emergency use of in vitro diagnostic tests for Cepheid Disclaimer detection and/or diagnosis of COVID-19 under Cepheid Disclaimer Section 564(b)(1) of the Act, 21 U.S.C. 360bbb- Cepheid Disclaimer 3(b)(1), unless the authorization is terminated or Cepheid Disclaimer revoked sooner. PERFORMED BY: [place] [address] PATHOLOGIST SAP TECHNICAL ARCHITECT MCKENZIE HERNÁNDEZ M.D. [facility] Comment on above: Performed By: #### C OVID19 FLU RSV, CEPHEID NEG #### [address] Cepheid COVID PCR Negativeon 01-09-2023 SARS-CoV-2 (COVID-19) RNA AFSHAN+probe Ql (Unsp spec) Negative Normal Negative [facility] Comment on above: Result Comment: This is a duplicate Cepheid Xpert Xpress CoV-2/Flu/RSV Plus RNA by RT-PCR result to be used for statistical tracking purpose only. PERFORMED BY: [place] [address] PATHOLOGIST SAP TECHNICAL ARCHITECT MCKENZIE HERNÁNDEZ M.D. Performed By: #### C OVID19 FLU RSV, CEPHEID NEG #### [address] Complete Blood Count Auto Di ffon 01-09-2023 Basophils (Bld) [#/Vol] 0.0 10*3/uL Normal 0.0-0.2 [facility] Comment on above: Result Comment: PERF ORMED BY: [place] [address] PATHOLOGIST SAP TECHNICAL ARCHITECT MCKENZIE HERNÁNDEZ M.D. Performed By: #### B MP, LIPASE, CBC, HEPATIC ####[address] Basophils/100 WBC (Bld) 0.2 % Normal . [facility] Comment on above: Performed By: #### B MP, LIPASE, CBC, HEPATIC ####[address] Eosinophils (Bld) [#/Vol] 0.1 10*3/uL Normal 0.0-0.45 [facility] Comment on above: Performed By: #### B MP, LIPASE, CBC, HEPATIC ####[address] Eosinophils/100 WBC (Bld) 1.5 % Normal . [facility] Comment on above: Performed By: #### B MP, LIPASE, CBC, HEPATIC ####[address] Erythrocyte distribution width (RBC) [Ratio] 13.9 % Normal 11.9-15.3 [facility] Comment on above: Performed By: #### B MP, LIPASE, CBC, HEPATIC ####[address] Hematocrit (Bld) [Volume fraction] 38.6 % Normal 34.0-46.4 [facility] Comment on above: Performed By: #### B MP, LIPASE, CBC, HEPATIC ####[address] Hemoglobin (Bld) [Mass/Vol] 13.1 g/dL Normal 11.8-15.4 [facility] Comment on above: Performed By: #### B MP, LIPASE, CBC, HEPATIC ####[address] Lymphocytes (Bld) [#/Vol] 0.8 10*3/uL Low 1.00-4.8 [facility] Comment on above: Performed By: #### B MP, LIPASE, CBC, HEPATIC ####[address] Lymphocytes/100 WBC (Bld) 9.5 % Normal . [facility] Comment on above: Performed By: #### B MP, LIPASE, CBC, HEPATIC ####[address] MCH (RBC) [Entitic mass] 30.7 pg Normal 24.7-34.3 [facility] Comment on above: Performed By: #### B MP, LIPASE, CBC, HEPATIC ####[place] [id number] [facility] MCV (RBC) [Entitic vol] 90.7 fL Normal 80-100 F [facility] Comment on above: Performed By: #### B MP, LIPASE, CBC, HEPATIC ####[address] Mean Corpuscular HGB Conc 33.8 g/dL Normal 32.0-35.0 [facility] Comment on above: Performed By: #### B MP, LIPASE, CBC, HEPATIC ####[address] Monocytes (Bld) [#/Vol] 0.4 10*3/uL Normal 0.0-0.8 [facility] Comment on above: Performed By: #### B MP, LIPASE, CBC, HEPATIC ####[address] Monocytes/100 WBC (Bld) 18.87 % Normal 0.00-20.00 [facility] Comment on above: Performed By: #### B MP, LIPASE, CBC, HEPATIC ####[address] Monocytes/100 WBC (Bld) 5.1 % Normal . [facility] Comment on above: Performed By: #### B MP, LIPASE, CBC, HEPATIC ####[address] Neutrophils (Bld) [#/Vol] 7.0 10*3/uL Normal 1.8-7.7 [facility] Comment on above: Performed By: #### B MP, LIPASE, CBC, HEPATIC ####[address] Neutrophils/100 WBC (Bld) 83.7 % Normal . [facility] Comment on above: Performed By: #### B MP, LIPASE, CBC, HEPATIC ####[address] NRBC% 0.0 /100{WBC} Normal 0-0.5 [facility] Comment on above: Performed By: #### B MP, LIPASE, CBC, HEPATIC ####[place] [address] [place] Platelet mean volume (Bld) [Entitic vol] 7.7 fL Normal 6.3-10.7 [facility] Comment on above: Performed By: #### B MP, LIPASE, CBC, HEPATIC ####[facility] Platelets (Bld) [#/Vol] 225 10*3/uL Normal 150-450 [facility] Comment on above: Performed By: #### B MP, LIPASE, CBC, HEPATIC ####[facility] RBC (Bld) [#/Vol] 4.25 10*6/uL Normal 3.60-5.00 [facility] Comment on above: Performed By: #### B MP, LIPASE, CBC, HEPATIC ####[address] WBC (Bld) [#/Vol] 8.3 10*3/uL Normal 3.8-11.6 [facility] Comment on above: Performed By: #### B MP, LIPASE, CBC, HEPATIC ####[place] [id number] Dipstick and Microscopicon 0 01-09-2023 Appearance (U) Cloudy Critically abnormal Clear [facility] Comment on above: Order Comment: Name Collection Type:: Clean-Voided Midstream Performed By: #### C UU, ADDONUAPLUS, UHCG #### [facility] [address] Bacteria,Urine 2+ High None Seen [facility] Comment on above: Order Comment: Name Collection Type:: Clean-Voided Midstream Performed By: #### C UU, ADDONUAPLUS, UHCG #### [facility] [address] Bilirubin,Urine Negative Normal Negative [facility] Comment on above: Order Comment: Name Collection Type:: Clean-Voided Midstream Performed By: #### C UU, ADDONUAPLUS, UHCG #### [facility] [address] [place] [address] Color (U) [place] Critically abnormal Yellow [facility] Comment on above: Order Comment: Name Collection Type:: Clean-Voided Midstream Performed By: #### C UU, ADDONUAPLUS, UHCG #### [facility] [address] [place] [address] Glucose Ql (U) Normal Normal Normal [facility] Comment on above: Order Comment: Name Collection Type:: Clean-Voided Midstream Performed By: #### C UU, ADDONUAPLUS, UHCG #### [facility] [address] [place] [address] Hyaline Casts,Urine 10-19 Normal 0-8 [facility] Comment on above: Order Comment: Name Collection Type:: Clean-Voided Midstream Performed By: #### C UU, ADDONUAPLUS, UHCG #### [facility] [address] [place] [address] Ketones Ql (U) Trace High Negative [facility] Comment on above: Order Comment: Name Collection Type:: Clean-Voided Midstream Performed By: #### C UU, ADDONUAPLUS, UHCG #### [facility] [address] [place] [address] Leukocyte esterase Test strip Ql (U) 1+ High Negative [facility] Comment on above: Order Comment: Name Collection Type:: Clean-Voided Midstream Performed By: #### C UU, ADDONUAPLUS, UHCG #### [facility] [address] [place] [address] [place] Nitrite,Urine Negative Normal Negative [facility] Comment on above: Order Comment: Name Collection Type:: Clean-Voided Midstream Performed By: #### C UU, ADDONUAPLUS, UHCG #### [facility] [address] [place] [address] [place] Occult Blood,Urine Negative Normal Negative [facility] Comment on above: Order Comment: Name Collection Type:: Clean-Voided Midstream Performed By: #### C UU, ADDONUAPLUS, UHCG #### [facility] [address] [place] [address] Other Casts,Urine None Seen Normal None Seen [facility] Comment on above: Order Comment: Name Collection Type:: Clean-Voided Midstream Performed By: #### C UU, ADDONUAPLUS, UHCG #### [facility] [address] [place] [address] pH (U) 8.0 [pH] Normal 5.0-9.0 [facility] Comment on above: Order Comment: Name Collection Type:: Clean-Voided Midstream Performed By: #### C UU, ADDONUAPLUS, UHCG #### [facility] [address] [place] [address] Protein,Urine Trace High Negative [facility] Comment on above: Order Comment: Name Collection Type:: Clean-Voided Midstream Performed By: #### C UU, ADDONUAPLUS, UHCG #### [address] RBC,Urine 10-19 High 0-4 [facility] Comment on above: Order Comment: Name Collection Type:: Clean-Voided Midstream Performed By: #### C UU, ADDONUAPLUS, UHCG #### [address] Specificy [place],Urine 1.026 Normal 1.001-1.030 [facility] Comment on above: Order Comment: Name Collection Type:: Clean-Voided Midstream Performed By: #### C UU, ADDONUAPLUS, UHCG #### [facility] [address] [place] [address] Squamous Epithelial Cell,Urine Innumerable High 0-2 [facility] Comment on above: Order Comment: Name Collection Type:: Clean-Voided Midstream Performed By: #### C UU, ADDONUAPLUS, UHCG #### [facility] [address] [place] [address] Urobilinogen,Urine >=2 High Normal [facility] Comment on above: Order Comment: Name Collection Type:: Clean-Voided Midstream Performed By: #### C UU, ADDONUAPLUS, UHCG #### [facility] [address] [place] [address] WBC,Urine 5-9 High 0-4 [facility] Comment on above: Order Comment: Name Collection Type:: Clean-Voided Midstream Performed By: #### C UU, ADDONUAPLUS, UHCG #### [facility] [address] [place] [address] HCG,Urineon 01-09-2023 Beta HCG ( test) Ql (U) Negative Normal [facility] Comment on above: Order Comment: Name Collection Type:: Clean-Voided Midstream Result Comment: PERF ORMED BY: [place] [address] PATHOLOGIST SAP TECHNICAL ARCHITECT MCKENZIE HERNÁNDEZ M.D. Performed By: #### C UU, ADDONUAPLUS, UHCG #### [facility] [address] [place] [address] Hepatic Panelon 01-09-2023 Albumin [Mass/Vol] 3.9 g/dL Normal 3.5-5.7 [facility] Comment on above: Performed By: #### B MP, LIPASE, CBC, HEPATIC ####[address] Albumin/Globulin [Mass ratio] 1.3 {ratio} [facility] Comment on above: Performed By: #### B MP, LIPASE, CBC, HEPATIC ####[address] ALP [Catalytic activity/Vol] 56 U/L Normal 34-104 [facility] Comment on above: Performed By: #### B MP, LIPASE, CBC, HEPATIC ####[address] ALT [Catalytic activity/Vol] 13 U/L Normal 7-52 [facility] Comment on above: Performed By: #### B MP, LIPASE, CBC, HEPATIC ####[address] [place] [address] [facility] AST [Catalytic activity/Vol] 14 U/L Normal 13-39 [facility] Comment on above: Performed By: #### B MP, LIPASE, CBC, HEPATIC ####[place] [id number] [facility] Bilirubin [Mass/Vol] 0.9 mg/dL Normal 0.3-1.[address] [facility] Comment on above: Performed By: #### B MP, LIPASE, CBC, HEPATIC ####[address] Bilirubin,Indirect 0.7 mg/dL Normal [facility] Comment on above: Performed By: #### B MP, LIPASE, CBC, HEPATIC ####[address] Bilirubin.indirect [Mass/Vol] 0.20 mg/dL High 0.03-0.18 [facility] Comment on above: Performed By: #### B MP, LIPASE, CBC, HEPATIC ####[address] Globulin (S) [Mass/Vol] 3.0 g/dL Normal [facility] Comment on above: Performed By: #### B MP, LIPASE, CBC, HEPATIC ####[address] Protein [Mass/Vol] 6.9 g/dL Normal 6.4-8.9 [facility] Comment on above: Performed By: #### B MP, LIPASE, CBC, HEPATIC ####[place] [id number] [facility] Lipaseon 01-09-2023 Lipase [Catalytic activity/Vol] 5.0 U/L Low 11.0-82.0 [facility] Comment on above: Result Comment: PERF ORMED BY: [facility] [address] [place] [address] PATHOLOGIST SAP TECHNICAL ARCHITECT MCKENZIE HERNÁNDEZ M.D. Performed By: #### B MP, LIPASE, CBC, HEPATIC ####[address] [place] [address] [facility] Urine Cultureon 01-09-2023 Bacteria identified Cx Nom (U) 25,000 colonies/ml mixed bacterial skin contaminants 2 Days PERFORMED BY: [facility] [address] [place] [address] PATHOLOGIST SAP TECHNICAL ARCHITECT MCKENZIE HERNÁNDEZ M.D. [facility] Comment on above: Performed By: #### C UU, JUANITA CG #### [facility] [address] [place] [id number] [facility] Covid-19 PCR (CVDTBH)on 08-31 SARS-CoV-2 (COVID-19) RNA AFSHAN+probe Ql (Unsp spec) Not detected Normal NOT DETECTED [facility] Comment on above: Result Comment: When diagnostic testing is negative, the possibility of a false negative should be considered in the context of a patient's recent exposures and the presence of clinical signs and symptoms consistent with SARS-CoV-2. This test is not yet approved or cleared by the [place] FDA. When there are no FDA-approved or cleared tests available, and other criteria are met, FDA can make tests available under an emergency access mechanism called an Emergency Use Authorization (EUA). The EUA for this test is supported by the [place] of Health and Human Service's declaration that circumstances exist to justify the emergency use of in vitro diagnostics for the detection and/or diagnosis of the virus that causes COVID-19. This EUA will remain in effect for the duration of the COVID-19 declaration justifying emergency of IVDs, unless it is terminated or revoked by the FDA (after which the test may no longer be used). Performed By: #### C VDTBH #### [facility] [address] [place] [address] Dr. Ping Hernandez GROUP A STREP CULTUREon 08-31 S. pyogenes Ag Ql (Unsp spec) Culture Observations: NEGATIVE FOR GROUP A STREPTOCOCCUS. Normal [facility] Comment on above: Performed By: #### S SCRN, GRASTCX #### [facility] [address] [address] [address] Ping Hernandez INFLUENZA A AND B AGon 09-21 INFLUANEGH SEE BELOW Normal [facility] Comment on above: Result Comment: Nega tive for Flu A protein angiten. Infection due to Flu A cannot be ruled out. Flu A angiten in the sample may be below the detection limit of the test. Performed By: #### I NFLUAB #### [facility] [address] [place] [address] Dr. Ping Hernandez INFLUBNEGH SEE BELOW Normal [facility] Comment on above: Result Comment: Nega tive for Flu B protein antigen. Infection due to Flu B cannot be ruled out. Flu B antigen in the sample may be below the detection limit of the test. Performed By: #### I NFLUAB #### [facility] [address] [place] [address] Dr. Ping Hernandez INFLUENZA A AG Negative Normal NEGATIVE SEE COMMENT [facility] Comment on above: Performed By: #### I NFLUAB #### [facility] [address] [place] [address] Dr. Ping Hernandez INFLUENZA B AG Negative Normal NEGATIVE SEE COMMENT [facility] Comment on above: Performed By: #### I NFLUAB #### [facility] [address] [place] [address] Dr. Ping Hernandez STREPT SCREENon 09-21-2022 STREP SCREEN A Negative Normal NEGATIVE [facility] Comment on above: Performed By: #### S SCRN, GRASTCX #### [facility] [address] [place] [address] Dr. Ping Hernandez XR CHEST 1 Von 09-21-2022 XR CHEST 1 V EXAM: XR CHEST 1 V at 1919 hours HISTORY: COUGH COMPARISON: None. TECHNIQUE: AP upright portable chest x-ray FINDINGS: The heart is not enlarged and the vasculature is not distended. No acute infiltrate, effusion or pneumothorax is identified. The osseous structures are grossly intact. IMPRESSION: No acute infiltrate or evidence of cardiac decompensation. Direct comparison with a previous study would be helpful in determining the chronicity of these findings. Electronically authenticated by: JENI CORDERO Date: 2022-09-21 19:[address] [facility] XR HAND RT MIN 3Von 07-21-20 22 XR HAND RT MIN 3V IMAGES REVIEWED: XR HAND RT MIN 3V COMPARISON: None available. CLINICAL INDICATION: Acute pain due to injury FINDINGS/IMPRESSION : Questionable small focus of intramedullary curvilinear lucency overlying the proximal fifth metacarpal shaft on the frontal view without cortical breakthrough, and with no adjacent periosteal reaction to suggest fracture healing given that the injury was 7-10 days ago, favor bony vascular channel as opposed to nondisplaced fracture. No definite evidence of acute osseous abnormality of the right hand. Electronically authenticated by: LEONA DICKENS Date: 2022-07-21 19:26 Normal [facility] Automated erythrocytes count in urine sediment (number/area)Ordered By: Omar Pham on 07-10-2022 RBC Auto (Urine sed) [#/Area] 10-19 [HPF] 0-4 [facility] Automated leukocytes count i n urine sediment (number/area)Ordered By: Omar Pham on 07-10-2022 WBC Auto (Urine sed) [#/Area] 10-19 [HPF] 0-4 [facility] Bilirubin Test strip Ql (U)O rdered By: Omar Pham on 07-10-2022 Bilirubin Ql (U) Negative Negative [facility] Color Auto (U)Ordered By: Mandy Pham on 07-10-2022 Color (U) Yellow Yellow [facility] Dipstick and Microscopicon 1 09-09-2021 Appearance (U) Cloudy Critically abnormal Clear [facility] Comment on above: Order Comment: Name Collection Type:: Clean-Voided Midstream Performed By: #### U HCG, CUU, ADDONUAPLUS ####[facility] [id number] [place] [address] [facility] Bacteria,Urine 1+ High None Seen [facility] Comment on above: Order Comment: Name Collection Type:: Clean-Voided Midstream Performed By: #### U HCG, CUU, ADDONUAPLUS ####[facility] [id number] [place] [address] [place] Bilirubin,Urine Negative Normal Negative [facility] Comment on above: Order Comment: Name Collection Type:: Clean-Voided Midstream Performed By: #### U HCG, CUU, ADDONUAPLUS ####[address] [address] [facility] Color (U) Yellow Normal Yellow [facility] Comment on above: Order Comment: Name Collection Type:: Clean-Voided Midstream Performed By: #### U HCG, CUU, ADDONUAPLUS ####[address] [address] [facility] Glucose Ql (U) Normal Normal Normal [facility] Comment on above: Order Comment: Name Collection Type:: Clean-Voided Midstream Performed By: #### U HCG, CUU, ADDONUAPLUS ####[id number] [facility] Hyaline Casts,Urine 0-8 Normal 0-8 [facility] Comment on above: Order Comment: Name Collection Type:: Clean-Voided Midstream Performed By: #### U HCG, CUU, ADDONUAPLUS ####[address] Ketones Ql (U) Negative Normal Negative [facility] Comment on above: Order Comment: Name Collection Type:: Clean-Voided Midstream Performed By: #### U HCG, CUU, ADDONUAPLUS ####[id number] [facility] Leukocyte esterase Test strip Ql (U) 1+ High Negative [facility] Comment on above: Order Comment: Name Collection Type:: Clean-Voided Midstream Performed By: #### U HCG, CUU, ADDONUAPLUS ####[id number] [facility] Nitrite,Urine Negative Normal Negative [facility] Comment on above: Order Comment: Name Collection Type:: Clean-Voided Midstream Performed By: #### U HCG, CUU, ADDONUAPLUS ####[id number] [facility] Occult Blood,Urine 3+ High Negative [facility] Comment on above: Order Comment: Name Collection Type:: Clean-Voided Midstream Performed By: #### U HCG, CUU, ADDONUAPLUS ####[address] [address] [facility] pH (U) 5.5 [pH] Normal 5.0-9.0 [facility] Comment on above: Order Comment: Name Collection Type:: Clean-Voided Midstream Performed By: #### U HCG, CUU, ADDONUAPLUS ####[address] [address] [facility] Protein,Urine Negative Normal Negative [facility] Comment on above: Order Comment: Name Collection Type:: Clean-Voided Midstream Performed By: #### U HCG, CUU, ADDONUAPLUS ####[address] [address] [facility] RBC,Urine 10-19 High 0-4 [facility] Comment on above: Order Comment: Name Collection Type:: Clean-Voided Midstream Performed By: #### U HCG, CUU, ADDONUAPLUS ####[id number] [facility] Specificy [place],Urine 1.010 Normal 1.001-1.030 [facility] Comment on above: Order Comment: Name Collection Type:: Clean-Voided Midstream Performed By: #### U HCG, CUU, ADDONUAPLUS ####[address] [address] [facility] Squamous Epithelial Cell,Urine 10-19 High 0-2 [facility] Comment on above: Order Comment: Name Collection Type:: Clean-Voided Midstream Performed By: #### U HCG, CUU, ADDONUAPLUS ####[address] [address] [facility] Urobilinogen,Urine Normal Normal Normal [facility] Comment on above: Order Comment: Name Collection Type:: Clean-Voided Midstream Performed By: #### U HCG, CUU, ADDONUAPLUS ####[address] [address] [facility] WBC,Urine 10-19 High 0-4 [facility] Comment on above: Order Comment: Name Collection Type:: Clean-Voided Midstream Performed By: #### U HCG, CUU, ADDONUAPLUS ####[id number] [place] [address] [facility] HCG ( test) IA.rapi d Ql (U)Ordered By: Omar Pham on 07-10-2022 HCG ( test) Ql (U) Negative [facility] HCG,Urineon 07-10-2022 Beta HCG ( test) Ql (U) Negative Normal [facility] Comment on above: Order Comment: Name Collection Type:: Clean-Voided Midstream Result Comment: PERF ORMED BY: [facility] [address] [place] [id number] PATHOLOGIST [employer] TECHNICAL ARCHITECT MCKENZIE HERNÁNDEZ M.D. Performed By: #### U HCG, CUU, ADDONUAPLUS ####[id number] [place] [address] [facility] Ketones Auto test strip (U) [Mass/Vol]Ordered By: Omar Pham on 07-10-2022 Ketones (U) [Mass/Vol] Negative Negative [facility] - UrinalysisOrder ed By: Omar Pham on 07-10-2022 Hyaline casts LM Ql (Urine sed) 0-8 [LPF] 0-8 [facility] Nitrite Test strip Ql (U)Ord ered By: Omar Pham on 07-10-2022 Nitrite Ql (U) Negative Negative [facility] Protein Auto test strip (U) [Mass/Vol]Ordered By: Omar Pham on 07-10-2022 Protein (U) [Mass/Vol] Negative Negative [facility] Specific gravity Auto test s trip (U) [Rel density]Ordered By: Omar Pham on 07-10-2022 Specific gravity (U) [Rel density] 1.010 1.001-1.030 [facility] Squamous epithelial cells de tection in urine sediment by light microscopyOrdered By: Omar Pham on 07-10-2022 Epithelial cells.squamous LM Ql (Urine sed) 10-19 [HPF] 0-2 [facility] Urine Cultureon 07-10-2022 Bacteria identified Cx Nom (U) >100,000 colonies/ml mixed bacterial skin contaminants 2 Days PERFORMED BY: [place] [address] PATHOLOGIST [employer] TECHNICAL ARCHITECT MCKENZIE HERNÁNDEZ M.D. [facility] Comment on above: Performed By: #### U HCG, CUU, ADDONUAPLUS ####[facility] [id number] [facility] Urine bacteria detection by automated methodOrdered By: Omar Pham on 07-10-2022 Bacteria Auto Ql (U) 1+ None Seen [facility] Urine clarity by refractomet ry automatedOrdered By: Omar Pham on 07-10-2022 Clarity Refractometry automated (U) Cloudy Clear [facility] Urine glucose measurement by automated test strip (mass/volume)Ordered By: Omar Pham on 07-10-2022 Glucose Auto test strip (U) [Mass/Vol] Normal mg/dL Normal [facility] Urine hemoglobin detection b y automated test stripOrdered By: Omar Pham on 07-10-2022 Hemoglobin Auto test strip Ql (U) 3+ Negative [facility] Urine leukocyte esterase det ection by automated test stripOrdered By: Omar Pham on 07-10-2022 Leukocyte esterase Auto test strip Ql (U) 1+ Negative [facility] Urobilinogen Auto test strip (U) [Mass/Vol]Ordered By: Omar Pham on 07-10-2022 Urobilinogen (U) [Mass/Vol] Normal mg/dL Normal [facility] XR hand RT 2Von 07-10-2022 XR hand RT 2V [facility] [id number] XRay Report Signed Patient: Hellen Bledsoe MR#: [id number] : 1985 Acct:[id number] Age/Sex: 37 / F ADM Date: 07/10/22 Loc: ER Room: Type: [facility] ER Attending Dr: Copies to: Omar Pham DO Ordering Provider: Omar Pham DO Date of Service: 07/10/22 XR/XR hand RT 2V: Extremity Injury, Upper RIGHT HAND - 2 views REASON FOR EXAM: Right hand and wrist pain after punching a wall today. COMPARISON: None FINDINGS: Suboptimal positioning. No focal soft tissue abnormality is seen. No acute fracture. No significant degenerative change. No bony erosions. XR/XR hand RT 2V IMPRESSION: NO ACUTE BONY PROCESS. Impression dictated by: Mannie Franco Jr., Ap07/10/2022 8:40 AM Dictation Location: [place] [address] Transcribed By: [facility] 07/10/22839 Dictated By: Mannie Franco Jr DO 07/10/22837 Signed By: 07/10/22839 Normal [facility] pH Auto test strip (U)Ordere d By: Omar Pham on 07-10-2022 pH (U) 5.5 [pH] 5.0-9.0 [facility] ER URINE PROFILEon Bilirubin Ql (U) Negative Normal NEGATIVE [facility] Comment on above: Performed By: #### U MICRO, PREGU, ERUR #### [facility] [address] [place] [address] Dr. Ping Hernandez Clarity (U) CLEAR Normal CLEAR [facility] Comment on above: Performed By: #### U MICRO, PREGU, ERUR #### [facility] [address] [address] [address] Ping Hernandez Color (U) YELLOW Normal YELLOW [facility] Comment on above: Performed By: #### U MICRO, PREGU, ERUR #### [facility] [address] [address] [address] Ping MANN A micrscopic examination will be performed if indicated. Normal [facility] Comment on above: Performed By: #### U MICRO, PREGU, ERUR #### [facility] [address] [address] [address] Ping Hernandez Glucose Ql (U) Negative Normal NEGATIVE [facility] Comment on above: Performed By: #### U MICRO, PREGU, ERUR #### [facility] [address] [address] [address] Ping Hernandez Hemoglobin Ql (U) TRACE-INTACT Abnormal NEGATIVE [facility] Comment on above: Performed By: #### U MICRO, PREGU, ERUR #### [facility] [address] [place] [address] Dr. Ping Hernandez Ketones Ql (U) Negative Normal NEGATIVE [facility] Comment on above: Performed By: #### U MICRO, PREGU, ERUR #### [facility] [address] [address] [address] Ping Hernandez LEUKOCYTES Negative Normal NEGATIVE [facility] Comment on above: Performed By: #### U MICRO, PREGU, ERUR #### [facility] [address] [address] [address] Ping Hernandez Nitrite Ql (U) Negative Normal NEGATIVE [facility] Comment on above: Performed By: #### U MICRO, PREGU, ERUR #### [facility] [address] [address] [address] Ping Hernandez pH (U) 6.5 [pH] Normal 5-9 [facility] Comment on above: Performed By: #### U MICRO, PREGU, ERUR #### [facility] [address] [place] [address] Dr. Ping Hernandez SPEC GRAVITY 1.020 Normal 1.005-<=1.02 5 [facility] Comment on above: Performed By: #### U MICRO, PREGU, ERUR #### [facility] [address] [address] [address] Ping Hernandez UA PROTEIN Negative Normal NEGATIVE/ TRACE [facility] Comment on above: Performed By: #### U MICRO, PREGU, ERUR #### [facility] [address] [place] [address] Dr. Ping Hernandez UR MICRO IND INDICATED Normal [facility] Comment on above: Performed By: #### U MICRO, PREGU, ERUR #### [facility] [address] [place] [address] Dr. Ping Hernandez Urobilinogen Qn (U) 0.2 {Brian'U}/dL Normal 0.2 - 1. [address] [facility] Comment on above: Performed By: #### U MICRO, PREGU, ERUR #### [facility] [address] [address] [address] Ping Hernandez URon 02-16-2022 , QUAL Negative Normal NEGATIVE [facility] Comment on above: Performed By: #### U MICRO, PREGU, ERUR #### [facility] [address] [address] [address] Ping Hernandez URINE MICROSCOPIC ONLYon BACTERIA TRACE Abnormal NONE SEEN [facility] Comment on above: Performed By: #### U MICRO, PREGU, ERUR #### [facility] [address] [address] [address] Ping Hernandez Bacteria identified Cx Nom (U) NOT INDICATED Normal [facility] Comment on above: Performed By: #### U MICRO, PREGU, ERUR #### [facility] [address] [address] [address] Ping Hernandez CAST NONE SEEN Normal NONE SEEN [facility] Comment on above: Performed By: #### U MICRO, PREGU, ERUR #### [facility] [address] [address] [address] Ping Hernandez Crystals LM Nom (Urine sed) SEEN Abnormal NONE SEEN [facility] Comment on above: Performed By: #### U MICRO, PREGU, ERUR #### [facility] [address] [address] [address] Ping Hernandez Epithelial cells LM Ql (Urine sed) RARE Normal NONE SEEN /RARE [facility] Comment on above: Performed By: #### U MICRO, PREGU, ERUR #### [facility] [address] [address] [address] Ping Hernandez MUCOUS TRACE Abnormal NONE SEEN [facility] Comment on above: Performed By: #### U MICRO, PREGU, ERUR #### [facility] [address] [place] [address] Dr. Ping Hernandez RBC 0-2 Normal 0-[address] [facility] Comment on above: Performed By: #### U MICRO, PREGU, ERUR #### [facility] [address] [address] [address] Ping Hernandez WBC NONE SEEN Normal NONE SEEN [facility] Comment on above: Performed By: #### U MICRO, PREGU, ERUR #### [facility] [address] [address] [address] Ping Hernandez Vital Signs Date Time Vital Sign Value Performing Clinician Facility 04-16-2023 05:00-0400 Diastolic blood pressure 56 mm[Hg] [facility] Work Phone: [facility] 04-16-2023 05:00-0400 Heart rate 51 /min [facility] Work Phone: [phone] [place] [address] 04-16-2023 05:00-0400 Respiratory rate 19 /min [facility] Work Phone: [facility] 04-16-2023 05:00-0400 SaO2% (BldA) [Mass fraction] 97 % [facility] Work Phone: [facility] 04-16-2023 05:00-0400 Systolic blood pressure 100 mm[Hg] [facility] Work Phone: [facility] 04-15-2023 21:02-0400 Body height 175.26 cm [facility] Work Phone: [facility] 04-15-2023 21:02-0400 Body temperature 98.2 [degF] [facility] Work Phone: [facility] 04-15-2023 21:02-0400 Body weight 111.4 kg [facility] Work Phone: [facility] 07-10-2022 00:48-0500 Body height 175.26 cm [facility] Work Phone: [facility] 07-10-2022 00:48-0500 Body weight 120.2 kg [facility] Work Phone: [facility] 07-10-2022 00:47-0500 Body temperature 98.4 [degF] [facility] Work Phone: [facility] 07-10-2022 00:47-0500 Diastolic blood pressure 100 mm[Hg] [facility] Work Phone: [facility] 07-10-2022 00:47-0500 Heart rate 131 /min [facility] Work Phone: [facility] 07-10-2022 00:47-0500 Respiratory rate 20 /min [facility] Work Phone: [facility] 07-10-2022 00:47-0500 SaO2% (BldA) [Mass fraction] 99 % [facility] Work Phone: [facility] 07-10-2022 00:47-0500 Systolic blood pressure 138 mm[Hg] [facility] Work Phone: [facility] 05-26-2021 14:00-0400 Body height Ramone Franco Other [facility] [employer] Other 05-26-2021 14:00-0400 Body mass index (BMI) [Ratio] 42.17 kg/m2 Ramone Franco Other [employer] Other 05-26-2021 14:00-0400 Body weight 129.55 kg Ramone Franco Other [employer] Other 05-26-2021 14:00-0400 Diastolic blood pressure 64 mm[Hg] Ramone Franco Other [employer] Other 05-26-2021 14:00-0400 SaO2% (BldA) [Mass fraction] 98 % Ramone Franco Other [email or web address] [facility] [employer] Other 05-26-2021 14:00-0400 Systolic blood pressure 116 mm[Hg] Ramone Franco Other [facility] [employer] Other Encounters Encounter Date Encounter Type Care Provider Facility Start: 04-15-2023 End: 04-16-2023 Emergency department patient visit Joao Montero [facility] Start: 04-15-2023 End: 04-16-2023 Emergency department patient visit [facility] Work Phone: [facility] Work Phone: Start: 01-09-2023 End: 01-10-2023 [facility] Start: 12-05-2022 End: 12-05-[address] DOCTOR LOCKE Facility:[facility] Start: 09-21-2022 End: 09-21-2022 ambulatory DANIEL VILLAGOMEZ Facility:[facility] Start: 07-21-2022 End: 07-21-2022 ambulatory KEVIN MCLAUGHLIN Facility:[facility] Start: 07-10-2022 End: 07-10-[address] NADEEM THURMAN . Facility:[facility] Start: 07-10-2022 End: 07-10-2022 [facility] Start: 07-10-2022 End: 07-10-2022 Emergency department patient visit [facility] Work Phone: [facility] Start: 06-30-2022 End: 06-30-2022 ambulatory FRANK AMEZQUITA . Facility:[facility] Start: 02-16-2022 End: 02-16-2022 ambulatory DAVE ZENDEJAS . Facility:[facility] Start: 06-02-2021 Telephone encounter Ramone Franco [facility] Start: 05-26-2021 Office consultation new/estab patient 60 min Ramone Franco [facility] Start: 01-25-2004 Evaluation and management of inpatient [facility] Work Phone: [facility] [address] Procedures Date Procedure Procedure Detail Performing Clinician H/O: section Status post cesarea n delivery [facility] Work Phone: Plan of Treatment Date Care Activity Detail Author Start: 04-15-2023 CT Lumbar spine WO contrast [facility] Start: 04-15-2023 CT of lumbar spine without contrast CT lumbar spine wo con [facility] Start: 07-10-2022 Plain X-ray of right hand XR hand RT 2V [facility] Start: 07-10-2022 XR Hand - right 2 Views [facility] Bacteria identified in Urine by Culture Urine Culture [facility] Patient Education [facility] Work Phone: Patient referral [facility] Work Phone: Payers Date Payer Category Payer Unknown [id number] 1985 Unknown [id number] 1985 Unknown [id number] 1985 Unknown [id number] 1985 Unknown [id number] 1985 Unknown [id number] 1959 Self-pay [id number] 1959 Self-pay [id number] Private Health Insurance [facility] [id number] Unknown [id number] Unknown [id number] Unknown [id number] Unknown [id number] Social History Date Type Detail Facility Unknown if ever smoked [facility] [employer] Other Sex Assigned At Sex Assigned At Bir th [employer] Other Start: 07-10-2022 Tobacco smoking status [facility] Sm[facility]finding) [facility] Start: 1985 Sex Assigned At Female F [facility] Start: 04-15-2023 Tobacco smoking status [facility] Ex-smoker (finding) [facility] Evaluation note 05-26-2021 Note Date & Type Note Facility 05-26-2021 Evaluation note Encounter Date Diagnosis Assessment Notes Apr, Degenerative lumbar disc (ICD-10 - M51.36) 36 year old female presents with complaints of low back pain with radiation down the posterior aspect of bilateral lower extremities to the feet. She also voices complaints of numbness/tingling to the bilateral lower extremities. She states pain has been a present for 2-3 months and is a constant aching pain. She notes previous physical therapy with minimal relief, but states she continues exercises learned at home. She feels pain can negatively impact her ADLs and sleeping pattern. Prior to examining the patient, I reviewed her progress notes from her referring physician Dr Celeste. I also independently reviewed previous imaging of the lumbar spine and agree with radiology interpretation. Anatomy of spine discussed in detail with patient in regards to patients condition. Patient is a candidate for a L5-S1 epidural steroid injection under fluoroscopic guidance. Risks and benefits of procedure explained to patient; patient verbalizes understanding. Apr, Sacroiliitis (ICD-10 - M46.1) If her pain persists or worsens, we can consider proceeding with a sacroiliac joint injection under fluoroscopic guidance in the future Apr, Chronic pain (ICD-10 - G89.29) Patient is encouraged to hold Naproxen/Ibuprofe n for 5 days prior to injection. Continue all other injections as prescribed Apr, Other Medical decision making shows a new problem to me with further workup planned or suggested with the potential for extensive treatment options that were considered with the most applicable given this patient's situation as noted above. Treatment options considered include a combination of physical therapy approaches, pharmacologic management, and interventional procedures. Those most applicable to the patient were discussed at this time. Risk of complications and/or morbidity and mortality is high given that acute and chronic pain poses a threat to life and bodily function if undertreated, poorly treated or with failure to maintain adequate treatment and timely followup. Given the serious and fluctuating nature of pain with extensive consideration for whenever pain changes, there always remains the possibility of prolonged functional impairment requiring constant patient reassessment and high-level medical decision making. The amount and complexity of data reviewed is high given that patient labs, radiology reports, and other test were obtained, reviewed and summarized as applicable from the physician portal and/or outside medical records. Pertinent positive and negative findings were considered in medical decision-making. [employer] Other Evaluation note Note Date & Type Note Facility Evaluation note No Information [employer] Other Evaluation note Note Date & Type Note Facility Evaluation note No assessment information availa ble [facility] Work Phone: History general Narrative - Reported Note Date & Type Note Facility History general Narrative - Reported Type Medical History asthma Surgical History gall bladder removal 2010 Surgical History c Section 2008 Surgical History bellybutton 2002 [employer] Other Hospital Discharge instructions Note Date & Type Note Facility Hospital Discharge instructions Additional Instructions Take Naprosyn as prescribed for mild to moderate pain. Take oxycodone as prescribed for severe pain. Take prednisone daily for your radiculopathy. Follow-up with the neurosurgeon listed below for ongoing management. [facility] Work Phone: Chief Complaint and Reason for Visit Chief Complaint ^ Rt hand/wrist injury Chief Complaint ^ Back pain NKI Advance Directives No Advanced Directives Records Found Advance Directive Response Recorded Date/ Time Advance Directives No June 8:55pm Advance Directive Response Recorded Date/ Time Advance Directives No June 9:55pm Summary Purpose Family History No Family History Records Found Additional Source Comments REASON FOR VISIT (unrecogniz ed section and content) REF BY DR CELESTE FOR LUMBAR DEGENERATIVE DISCPain management consult Care Teams (unrecognized sec tion and content) Team Status: Inactive Member Role Status Dates [facility] Dept Primary Care Provider Active Diogenes Sanchez , DO Family Provider Active Omar Pham , DO Emergency Provider Active Team Status: Active Member Role Status Dates [facility] Jordan Attending Provider Active Team Status: Active Member Role Status Dates Diogenes Sanchez , DO Family Provider [facility] Active Team Status: Inactive Member Role Status Dates [facility] Active Diogenes Sanchez , DO Family Provider Active Joao Montero PA-C Emergency Provider Active Goals (unrecognized section and content) Goals may be documented in a n alternate section INFORMATION SOURCE (unrecogn ized section and content) DATE CREATED AUTHOR 12/08/2022 [facility] DATE CREATED AUTHOR AUTHOR'S ORGANIZ ATION 04/27/2023 [facility] FOR RECORDS PERTAINING TO PATIENTS WHO ARE OR HAVE BEEN ENROLLED IN A CHEMICAL DEPENDENCY/SUBSTANCEABUSE PROGRAM, SOME INFORMATION MAY BE OMITTED. This clinical summary was aggregated from multiple sources. Caution should be exercised in using it in the provision of clinical care. This summary normalizes information from multiple sources, and as a consequence, information in this document may materially change the coding, format and clinical context of patient data. In addition, data may be omitted in some cases. CLINICAL DECISIONS SHOULD BE BASED ON THE PRIMARY CLINICAL RECORDS. [employer] provides no warranty or guarantee of the accuracy or completeness of information in this document.
--- NOTE | 2023-08-19 21:41 | ECG_ITS ---
[facility] Test Date: 2023-08-19 Pat Name: ALICJA HANSEN Department: Room: - Gender: Female Cra Officer: : 1985 Requested By: Charles Carrasco Order Number: [id number] Reading MD: ARTEM ZAVALETA Measurements Intervals [place] Rate: 113 P: 72 AL: 136 QRS: 68 QRSD: 84 T: 61 QT: 338 QTc: 405 Interpretive Statements 1120 Sinus tachycardia 9140 abnormal rhythm ECG No previous ECG available for comparison Electronically Signed On 08-20-2023 7:11:54 EST by ARTEM ZAVALETA
--- NOTE | 2023-08-19 21:42 | ED_ITS ---
HPI - General Adult General Chief complaint: Extremity Injury, Lower Stated complaint: R LEG 2X SIZE OF LEFT WITH BLOTCHES Time Seen by Provider: 08/19/23 21:27 Source: patient Mode of arrival: walk-in Limitations: no limitations History of Present Illness HPI narrative: Over the last few days the patient developed swelling to the right lower leg - it is almost twice the size of the left lower leg. The patient admits to dull, achy pain to the right lower leg including the calf and popliteal areas. She also developed some areas of ecchymosis which she described as blotches . No recent injury to the right LE. On questioning she said that she previously had been diagnosed with areas of superficial thrombophlebitis but never with DVT or PE. She denied any kidney or liver failure history. She was diagnosed with Covid in May 2023. No current or recent chest pain or shortness of breath. No redness to the right LE ti suggest cellulitis. No systemic symptoms such as fever or vomiting. Related Data Previous Rx's Medication Instructions Recorded fztrixjiob-oewyyhfnhxtsn-gdyohkfi 1 cap PO Q8H PRN pain/headache #7 06/21/23 50 mg-300 mg-40 mg capsule caps (Fioricet) ondansetron 4 mg disintegrating 4 mg PO Q4H PRN nausea and 06/21/23 tablet vomiting 3 days #6 tabs apixaban 5 mg (74 tabs) tablets in 5 mg PO BID DVT #74 ea 08/19/23 a dose pack (Eliquis DVT-PE Treat 30D Start) Allergies Allergy/AdvReac Type Severity Reaction Status Date / Time methocarbamol [From Robaxin] Allergy Intermediate Verified 08/19/23 21:[address] [facility] Social History (System 04/21/23 @ 07:51 by Lynette Jaramillo) Smoking status: Former smoker Exam Narrative Exam Narrative: Nurses notes and vital signs reviewed and patient is not hypoxic. afebrile General: Well-appearing and in no apparent distress. Skin: Warm, dry, no pallor noted. No diffuse rash. Eye: Pupils are equal, round and EOMI. No scleral icterus. Ears, Nose, Mouth, and Throat: Oral mucosa is moist Cardiovascular: Tachycardia. Respiratory: No accessory muscle use or respiratory distress. Lungs are clear to auscultation, no wheezing, rales or rhonchi Musculoskeletal: Right LE with normal right thigh but marked swelling of the right lower leg. She has associated popliteal and right calf tenderness. Juliet's negative. Left LE with anteromedial thigh tenderness without palpable mass, with normal ROM, no left calf or popliteal tenderness, no left lower extremity edema/swelling Neurological: A&O x4. No cranial nerve dysfunction observed. No truncal ataxia. Moves all extremities. Sensation intact. Psychiatric: Cooperative and interactive. Normal mood and affect. Constitutional Vital Signs, click to edit/add: Last Vital Signs Temp 99.2 F 08/19/23 21:36 Pulse 94 H 08/19/23 22:20 Resp 19 08/19/23 22:20 BP 159/106 H 08/19/23 21:36 Pulse Ox 99 08/19/23 21:36 O2 Del Method Room Air 08/19/23 21:36 Course Vital Signs Vital signs: Vital Signs Temperature 99.2 F 08/19/23 21:36 Pulse Rate 125 H 08/19/23 21:36 Respiratory Rate 20 08/19/23 21:36 Blood Pressure 159/106 H 08/19/23 21:36 Pulse Oximetry 99 08/19/23 21:36 Oxygen Delivery Method Room Air 08/19/23 21:36 Temperature 99.2 F 08/19/23 21:36 Pulse Rate 94 H 08/19/23 22:20 Respiratory Rate 19 08/19/23 22:20 Blood Pressure 159/106 H 08/19/23 21:36 Pulse Oximetry 99 08/19/23 21:36 Oxygen Delivery Method Room Air 08/19/23 21:36 Medical Decision Making [facility] Narrative Medical decision making narrative: Patient was placed on engine monitor and EKG obtained. Blood drawn and sent for evaluation, including d-dimer. Patient is tachycardic. NS IVF bolus given. I called radiology suite and the US tech is not in-house at this time. EKG does not have [id number] pattern. The patient's d-dimer is elevated at 1.57 Normal WBC. Negative coags. CMP notable for normal renal function and slightly elevated LFTs. Patient given SQ dose of Lovenox tonight and scheduled for right LE Venous Doppler US tomorrow at 8am at [facility]. I suspect she has a DVT and prescribed Eliquis starter pack for her but want her to get the confirmatory US before starting that. She will get information on DVT and I encouraged her to contact her PCP for vascular referral in [place] or call [facility] to schedule follow up. Lab Data Lab results reviewed: Yes I reviewed the patient's lab results Labs: Lab Results 08/19/23 Range/Units 21:51 WBC 7.6 (4.0-11.0) 10^3/uL RBC 3.44 L (4.20-5.40) 10^6/uL Hgb 10.4 L (12.0-16.0) g/dL Hct 31.4 L (36.0-48.0) % MCV 91.3 (81.0-99.0) fL MCH 30.2 (26.7-34.0) pg MCHC 33.1 (29.9-35.2) g/dL RDW 13.9 (11.0-15.0) % Plt Count 137 L (150-450) 10^3/uL MPV 10.0 (9.5-13.5) fL Neut % (Auto) 27.1 L (43.0-75.0) % Lymph % (Auto) 64.2 H (20.5-60.0) % Ellis % (Auto) 5.4 (1.7-12.0) % Eos % (Auto) 2.1 (0.9-7.0) % Baso % (Auto) 0.9 (0.2-2.0) % Neut # (Auto) 2.0 (1.4-6.5) 10^3/uL Lymph # (Auto) 4.9 H (1.2-3.8) 10^3/uL Ellis # (Auto) 0.4 (0.3-0.8) 10^3/uL Eos # (Auto) 0.2 (0.0-0.7) 10^3/uL Baso # (Auto) 0.1 (0.0-0.1) 10^3/uL Abs Immat Gran (auto) 0.02 (0.00-0.03) 10^3/uL Imm/Tot Granulo (auto) 0.3 (0.0-0.5) % PT 11.6 (9.0-11.6) sec INR 1.10 APTT 31.9 (22.3-36.2) sec D-Dimer 1.57 H* (<=0.59) mg/L FEU Sodium 134 L (136-145) mmol/L Potassium 3.7 (3.5-5.1) mmol/L Chloride 101 (98-107) mmol/L Carbon Dioxide 29.0 (21.0-32.0) mmol/L Anion Gap 7.7 BUN 14.0 (7.0-18.0) mg/dL Creatinine 0.88 (0.55-1.02) mg/dL Est GFR ( Amer) >60 (>=60) Est GFR (Non-Af Amer) >60 (>=60) BUN/Creatinine Ratio 15.9 Glucose 105 (74-106) mg/dL Calcium 8.9 (8.5-10.1) mg/dL Total Bilirubin 0.8 (0.2-1.0) mg/dL AST 61 H (15-37) U/L ALT 84 H (14-59) U/L Alkaline Phosphatase 105 (46-116) U/L Total Protein 7.1 (6.4-8.2) g/dL Albumin 3.1 L (3.4-5.0) g/dL Globulin 4.0 g/dL Albumin/Globulin Ratio 0.8 ECG Data Attestation: I personally reviewed and interpreted this ECG as follows: Interpretation: EKG interpretation: Emergency Department physician interpretation. Sinus tachycardia at 113bpm. Normal axis, normal intervals and no ST segment elevation or depression. Discharge Plan Discharge Chief Complaint: Extremity Injury, Lower Clinical Impression: Deep venous thrombosis Patient Disposition: Home, Self-Care Time of Disposition Decision: 23:05 Prescriptions / Home Meds: Benedict Green DVT-PE Treat 30D Start 5 mg (74 tabs) tablets,dose pack 5 mg PO BID Qty: 74 0RF Rx Instructions: 10mg PO BID for 7 days then 5mg PO BID after that No Action ondansetron 4 mg tablet,disintegrating 4 mg PO Q4H PRN (Reason: nausea and vomiting) 3 Days Qty: 6 0RF upthpxxjjb-hlarotbzeakxv-xbzs [Fioricet] 50-300-40 mg capsule 1 cap PO Q8H PRN (Reason: pain/headache) Qty: 7 0RF Instructions: Deep Vein Thrombosis (ED) Additional Instructions: Patient is scheduled for right LE venous US to rule out DVT on 08/20/23 at 8am at [facility] radiology Stand Alone Forms: Portal Instructions Referrals: [facility] [Outside] - As soon as possible Physician,Non-Staff, MD [Primary Care Provider] - 1 week
--- NOTE | 2023-08-19 22:05 | PC.NURSE ---
Pt reports RLE edema x3 days. Denies hx blood clots. RLE swelling, redness, warmth, splotchy skin pattern noted.
[2023-08-19 22:06] LABS: Basophils Absolute Auto 0.1 10^3/uL (0.0-0.1); Basophils Percent Auto 0.9 % (0.2-2.0); Eosinophils Absolute Auto 0.2 10^3/uL (0.0-0.7); Eosinophils Percent Auto 2.1 % (0.9-7.0); Hematocrit 31.4 % (36.0-48.0); Hemoglobin 10.4 g/dL (12.0-16.0); Immature Granulocytes Abs Auto 0.02 10^3/uL (0.00-0.03); Immature Granulocytes Pct Auto 0.3 % (0.0-0.5); Lymphocytes Absolute Auto 4.9 10^3/uL (1.2-3.8); Lymphocytes Percent Auto 64.2 % (20.5-60.0); Mean Corpuscular HGB Conc 33.1 g/dL (29.9-35.2); Mean Corpuscular Hemoglobin 30.2 pg (26.7-34.0); Mean Corpuscular Volume 91.3 fL (81.0-99.0); Monocytes Absolute Auto 0.4 10^3/uL (0.3-0.8); Monocytes Percent Auto 5.4 % (1.7-12.0); Neutrophils Percent Auto 27.1 % (43.0-75.0); Platelet Count 137 10^3/uL (150-450); Red Blood Count 3.44 10^6/uL (4.20-5.40); Red Cell Distribution Width 13.9 % (11.0-15.0); White Blood Count 7.6 10^3/uL (4.0-11.0)
[2023-08-19] MEDS: 0.9 % SODIUM CHLORIDE 1,000 ML 999 ML IV (22:12)
[2023-08-19 22:20] LABS: Partial Thromboplastin Time 31.9 sec (22.3-36.2); Prothrombin Time 11.6 sec (9.0-11.6)
[2023-08-19 22:22] LABS: Alanine Aminotransferase 84 U/L (14-59); Albumin Globulin Ratio 0.8; Albumin Level 3.1 g/dL (3.4-5.0); Alkaline Phosphatase 105 U/L (46-116); Anion Gap 7.7; Aspartate Amino Transferase 61 U/L (15-37); BUN Creatinine Ratio 15.9; Bilirubin Total 0.8 mg/dL (0.2-1.0); Calcium 8.9 mg/dL (8.5-10.1); Chloride 101 mmol/L (98-107); Estimated GFR (African America >60 (>=60); Estimated GFR (Non-African Ame >60 (>=60); Glucose 105 mg/dL (74-106); Potassium 3.7 mmol/L (3.5-5.1); Sodium 134 mmol/L (136-145); Total Protein 7.1 g/dL (6.4-8.2)
[2023-08-19 22:26] LABS: D Dimer 1.57 mg/L FEU (<=0.59)
[2023-08-19] MEDS: ENOXAPARIN SODIUM 100 MG/ML SYRINGE SUBQ (23:17)
--- NOTE | 2023-08-20 12:42 | CM.DCFOLLOWU ---
Person spoke with: How are you feeling? How is your pain? Did you understand your discharge instructions? Do you have any questions about your discharge instructions? Were you given any prescriptions at discharge? Were you able to get your prescriptions filled? Do you understand how to take your medications as ordered? Do you have any questions about your follow up appointment and do you plan to keep your follow up appointment? Is there anything else that you would like to discuss? Questions/Comments/Concerns/Other: Patient was called by dr. Carrasco and given her ultrasound results negative for DVT. patient also instructed by Dr. Escalona to stop the oral blood thinner that was started. patient instructed to follow up with her family doctor.
== END 2023-08-19 23:22 | disposition home or self-care (01) ==
PROVIDERS: Emergency Provider Emergency Medicine
DX: I82.401 Acute embolism and thrombosis of unspecified deep veins of right lower extremity (principal); Z86.16 Personal history of COVID-19; Z87.891 Personal history of nicotine dependence
CPT/HCPCS: 36415; 80053; 85025; 85378; 85610; 85730; 93005; 96372; 99285

== ENCOUNTER 2023-08-20 07:43 | Outpatient (OUT) | payer OTHER, SELFPAY ==
--- OUTSIDE RECORDS SUMMARY | 2023-08-20 07:46 | XMS_ITS | CCD ---
Author Name Unknown Address [address] [facility] [address] [place] [address] Organization [facility] Care Team Providers Care Scowman Name Role Phone Ramone Franco Unavailable Blair Jordan Attending Provider [facility] DO Omar Pham [...] JUAN Admitting Unavailable Blair Jordan Attending Provider [phone] [facility] Provider XIOMARA Montero Emergency Provider [facility] Unavailable Omar Pham Admitting Unavailable Omar Pham Attending Unavailable [facility] Unavailable Kimberly Rubio Admitting Unavailable Kimberly Rubio Attending Unavailable Joao Montero Admitting Unavailable Joao Montero Attending [facility]available [facility] Unavailable Allergies Allergy Classification Reported Allergen(s) Allergy Type Date of Onset Reaction(s) Facility (4 sources) Adhesive Tape; Translations: [Adhesive tape] Allergy to substance [facility] (1 source) Methocarbamol Drug Allergy [facility] Repository Medications Current Medications Medication Drug Class(es) [...] by mouth every six hours Hydrocodone-Acetami nophen ([place]) 5-325 mg tablet Discontinued 1 TAB PO Q6H 20 September 04, 2018 September 09, 2018 1:02am Start: 12-02-2017 End: 12-07-2017 take 1 tablet by mouth four times daily Hydrocodone-Acetaminophen ([place]) 5-325 mg tablet Discontinued 1 TAB PO [...] 26, 2018 12:00am February 08, 2018 12:13am Chs265-Rupvaxo Fumarate-Fa () 28-800 mg-mcg Tablet (2 sources) Start: 01-26-2018 End: 11-07-2018 take 1 tablet by mouth once daily Xgh903-Zsqnhpf Fumarate-Fa () 28-800 mg-mcg Tablet Discontinued 1 TAB PO Daily January 26, 2018 12:00am November 07, 2018 3:36pm Start: 01-26-2018 End: 11-07-2018 take 1 tablet by mouth once daily Tan487-Wefwwvo Fumarate-Fa () 28-800 mg-mcg Tablet Discontinued 1 [...] (2 sources) Contact dermatitis due to poison fozia; Translations: [Allergic contact dermatitis due to plants, [...] 07-01-2022 Episodic Other aftercare (1 source) Other long term acute care registered nurse (current) drug therapy; Translations: [OTH HALF-WAY CURRENT DRUG THERAPY] Onset: 02-18-2022 Episodic Other [...] Anion gap [Moles/Vol] 11.9 mmol/L Normal 6.0-15.0 [facility] Comment on above: Performed By: #### C BC, BMP ####[facility] [place] [address] [facility] Calcium [Mass/Vol] 9.4 mg/dL Normal 8.6-10.3 [facility] Comment on above: Performed By: #### C BC, BMP ####[facility] [place] [address] [facility] Chloride [Moles/Vol] 104 mmol/L Normal 98-107 [facility] Comment on above: Performed By: #### C BC, BMP ####[place] [address] [place] [address] [facility] CO2 [Moles/Vol] 27.7 mmol/L Normal 21.0-31.0 [facility] Comment on above: Performed By: #### C BC, BMP ####[place] [address] [place] [phone] [facility] Creatinine [Mass/Vol] 0.78 mg/dL Normal 0.60-1.20 [facility] Comment on above: Performed By: #### C BC, BMP ####[place] [address] [place] [phone] [place] Creatinine Clr Calc Pharmacy 130.11 [facility] Comment on above: Result Comment: PERF ORMED BY: [facility] [address] [place] [id number] PATHOLOGIST CRAB PICKER MCKENZIE HERNÁNDEZ M.D. Performed By: #### C BC, BMP ####[place] [address] [place] [phone] [facility] GFR/1.73 sq M.predicted MDRD (S/P/Bld) [Vol rate/Area] mL/min/{1.73_m2} [facility] Comment on above: Performed By: #### C BC, BMP ####[place] [address] [place] [phone] [facility] Glucose [Mass/Vol] 104 mg/dL High 70-100 [facility] Comment on above: Result Comment: [place] Glucose Reference Range is dependent on time and content of last meal. Glucose of more than 200 mg/dL in a nonstressed, ambulatory subject supports the diagnosis of Diabetes Mellitus. ADA recommended reference range Performed By: #### C BC, BMP ####[facility] [id number] [place] [phone] [facility] Potassium [Moles/Vol] 3.6 mmol/L Normal 3.5-5.1 [facility] Comment on above: Performed By: #### C BC, BMP ####[facility] [id number] [place] [phone] [facility] Sodium [Moles/Vol] 140 mmol/L Normal 136-145 [facility] Comment on above: Performed By: #### C BC, BMP ####[facility] [id number] Urea nitrogen [Mass/Vol] 12 mg/dL Normal 7-25 [facility] Comment on above: Performed By: #### C BC, BMP ####[facility] Basophils Auto (Bld) [#/Vol] Ordered By: Omar Pham on 04-16-2023 Basophils (Bld) [#/Vol] 0.0 10*3/uL 0.0-0.2 [facility] Basophils/100 WBC Auto (Bld) Ordered By: Omar Pham on 04-16-2023 Basophils/100 WBC (Bld) 0.5 % . F [facility] CT lumbar spine wo conon CT lumbar spine wo con [facility] Main [place] [address] [place] [address] CT Scan Report Signed Patient: Hellen Bledsoe MR#: [id number] : 1985 Acct:[id number] Age/Sex: 38 / F ADM Date: 04/15/23 Loc: ER Room: Type: [facility] ER Attending Dr: Copies to: [...] Rebecca Medley M.D.04/16/2023 9:11 AM Dictation Location: [place] [address] Transcribed By: [facility] 04/16/23 0911 Dictated By: Rebecca Medley MD 04/16/23 0902 Signed By: 04/16/23 09 Normal [facility] Calcium [Mass/volume] in Ser um or PlasmaOrdered By: Omar Pham on 04-16-2023 Calcium [Mass/Vol] 9.4 mg/dL 8.6-10.3 [facility] Carbon dioxide, total [Moles /volume] in Serum or PlasmaOrdered By: Omar Pham on 04-16-2023 CO2 [Moles/Vol] 27.7 mmol/L 21.0-31.0 [facility] Chloride [Moles/volume] in S lupe or PlasmaOrdered By: Omar Pham on 04-16-2023 Chloride [Moles/Vol] 104 mmol/L 98-107 [facility] Complete Blood Count Auto Di ffon 04-16-2023 Basophils (Bld) [#/Vol] 0.0 10*3/uL Normal 0.0-0.2 [facility] Comment on above: Result Comment: PERF ORMED BY: [place] [address] PATHOLOGIST CRAB PICKER MCKENZIE HERNÁNDEZ M.D. Performed By: #### C BC, BMP #### [facility] [address] Basophils/100 WBC (Bld) 0.5 % Normal . [facility] Comment on above: Performed By: #### C BC, BMP #### [facility] [address] Eosinophils (Bld) [#/Vol] 0.1 10*3/uL Normal 0.0-0.45 [facility] Comment on above: Performed By: #### C BC, BMP #### [facility] [address] Eosinophils/100 WBC (Bld) 1.5 % Normal . [facility] Comment on above: Performed By: #### C BC, BMP #### [facility] [address] Erythrocyte distribution width (RBC) [Ratio] 13.8 % Normal 11.9-15.3 [facility] Comment on above: Performed By: #### C BC, BMP #### [facility] [address] [place] [address] [place] Hematocrit (Bld) [Volume fraction] 37.5 % Normal 34.0-46.4 [facility] Comment on above: Performed By: #### C BC, BMP #### [facility] [address] Hemoglobin (Bld) [Mass/Vol] 12.9 g/dL Normal 11.8-15.4 [facility] Comment on above: Performed By: #### C BC, BMP #### [facility] [address] [place] [address] [place] Lymphocytes (Bld) [#/Vol] 1.3 10*3/uL Normal 1.00-4.8 [facility] Comment on above: Performed By: #### C BC, BMP #### [facility] [address] Lymphocytes/100 WBC (Bld) 14.8 % Normal . [facility] Comment on above: Performed By: #### C BC, BMP #### [facility] [address] MCH (RBC) [Entitic mass] 30.8 pg Normal 24.7-34.3 [facility] Comment on above: Performed By: #### C BC, BMP #### [address] MCV (RBC) [Entitic vol] 89.5 fL Normal 80-100 [facility] Comment on above: Performed By: #### C BC, BMP #### [address] Mean Corpuscular HGB Conc 34.4 g/dL Normal 32.0-35.0 [facility] Comment on above: Performed By: #### C BC, BMP #### [address] Monocytes (Bld) [#/Vol] 0.5 10*3/uL Normal 0.0-0.8 [facility] Comment on above: Performed By: #### C BC, BMP #### [place] [address] [place] Monocytes/100 WBC (Bld) 17.20 % Normal 0.00-20.00 [facility] Comment on above: Performed By: #### C BC, BMP #### [address] Monocytes/100 WBC (Bld) 6.0 % Normal . [facility] Comment on above: Performed By: #### C BC, BMP #### [place] [phone] [place] Neutrophils (Bld) [#/Vol] 7.0 10*3/uL Normal 1.8-7.7 [facility] Comment on above: Performed By: #### C BC, BMP #### [address] Neutrophils/100 WBC (Bld) 77.2 % Normal . [facility] Comment on above: Performed By: #### C BC, BMP #### [facility] [address] NRBC% 0.2 /100{WBC} Normal 0-0.5 [facility] Comment on above: Performed By: #### C DANE, BMP #### [address] Platelet mean volume (Bld) [Entitic vol] 8.0 fL Normal 6.3-10.7 [facility] Comment on above: Performed By: #### C DANE, BMP #### [address] Platelets (Bld) [#/Vol] 200 10*3/uL Normal 150-450 [facility] Comment on above: Performed By: #### C DANE, BMP #### [address] RBC (Bld) [#/Vol] 4.19 10*6/uL Normal 3.60-5.00 [facility] Comment on above: Performed By: #### C DANE, BMP #### [address] WBC (Bld) [#/Vol] 9.1 10*3/uL Normal 3.8-11.6 [facility] Comment on above: Performed By: #### C DANE, BMP #### [address] Creatinine [Mass/volume] in Serum or PlasmaOrdered By: Omar Pham on 04-16-2023 Creatinine [Mass/Vol] 0.78 mg/dL 0.60-1.20 [facility] ECG 12 lead ECGon 04-16-2023 ECG 12 lead ECG [place] [address] Electrocardiograph Report Signed Patient: Hellen Bledsoe MR#: [id number] : 1985 Acct:[id number] Age/Sex: 38 / F ADM Date: 04/15/23 Loc: ER Room: Type: [facility] ER Attending Dr: Ordering Provider: [...] ST findings Confirmed by Omar Pham DO ([id number]) on 04/16/2023 7:10:39 AM Referred By: Electronically Signed By:Omar Pham DO Transcribed By: MUS Signed By Omar Pham DO 0710 Normal [facility] Eosinophils Auto (Bld) [#/Vo l]Ordered By: Omar Pham on 04-16-2023 Eosinophils (Bld) [#/Vol] 0.1 10*3/uL 0.0-0.45 [facility] Eosinophils/100 WBC Auto (Bl d)Ordered By: Omar Pham on 04-16-2023 Eosinophils/100 WBC (Bld) 1.5 % . [facility] Erythrocyte distribution wid th Auto (RBC) [Ratio]Ordered By: Omar Pham on 04-16-2023 Erythrocyte distribution width (RBC) [Ratio] 13.8 % 11.9-15.3 [facility] Glucose [Mass/volume] in Ser um or PlasmaOrdered By: Omar Pham on 04-16-2023 Glucose [Mass/Vol] 104 mg/dL 70-100 [facility] Comment on above: ADA recommended refe rence rangeRandom Glucose Reference Range is dependent on time and content of last meal. Glucose of more than 200 mg/dL in a nonstressed, ambulatory subject supports the diagnosis of Diabetes Mellitus. Hematocrit Auto (Bld) [Volum e fraction]Ordered By: Omar Pham on 04-16-2023 Hematocrit (Bld) [Volume fraction] 37.5 % 34.0-46.4 [facility] Hemoglobin [Mass/volume] in BloodOrdered By: Omar Pham on 04-16-2023 Hemoglobin (Bld) [Mass/Vol] 12.9 g/dL 11.8-15.4 [facility] Leukocytes [#/volume] correc jose francisco for nucleated erythrocytes in Blood by Automated counOrdered By: Omar Pham on 04-16-2023 WBC corrected for nucl RBC Auto (Bld) [#/Vol] 9.1 10*3/uL 3.8-11.6 [facility] Lymphocytes Auto (Bld) [#/Vo l]Ordered By: Omar Pham on 04-16-2023 Lymphocytes (Bld) [#/Vol] 1.3 10*3/uL 1.00-4.8 [facility] Lymphocytes/100 WBC Auto (Bl d)Ordered By: Omar Pham on 04-16-2023 Lymphocytes/100 WBC (Bld) 14.8 % . [facility] MCH Auto (RBC) [Entitic mass ]Ordered By: Omar Pham on 04-16-2023 MCH (RBC) [Entitic mass] 30.8 pg 24.7-34.3 [facility] MCHC Auto (RBC) [Mass/Vol]Or dered By: Omar Pham on 04-16-2023 MCHC (RBC) [Mass/Vol] 34.4 g/dL 32.0-35.0 [facility] MCV Auto (RBC) [Entitic vol] Ordered By: Omar Pham on 04-16-2023 MCV (RBC) [Entitic vol] 89.5 fL 80-100 [facility] Monocyte distribution width [Entitic volume] in Blood by AutomatedOrdered By: Omar Pham on 04-16-2023 Monocyte distribution width Auto (Bld) [Entitic vol] 17.20 % 0.00-20.00 [facility] Monocytes Auto (Bld) [#/Vol] Ordered By: Omar Pham on 04-16-2023 Monocytes (Bld) [#/Vol] 0.5 10*3/uL 0.0-0.8 [facility] Monocytes/100 WBC Auto (Bld) Ordered By: Omar Pham on 04-16-2023 Monocytes/100 WBC (Bld) 6.0 % . F [facility] Neutrophils Auto (Bld) [#/Vo l]Ordered By: Omar Pham on 04-16-2023 Neutrophils (Bld) [#/Vol] 7.0 10*3/uL 1.8-7.7 [facility] Neutrophils/100 WBC Auto (Bl d)Ordered By: Omar Pham on 04-16-2023 Neutrophils/100 WBC (Bld) 77.2 % . [facility] No Panel InformationOrdered By: Omar Pham on 04-16-2023 Estimated GFR (CKD-EPI) > 60.0 mL/Min [facility] Pharmacy Creatinine Clearance (Chem 130.11 [facility] Nucleated erythrocytes [Pres ence] in Blood by Automated countOrdered By: Omar Pham on 04-16-2023 Nucleated RBC Auto Ql (Bld) 0.2 /100{WBC} 0-0.5 [facility] Platelet mean volume Auto (B ld) [Entitic vol]Ordered By: Omar Pham on 04-16-2023 Platelet mean volume (Bld) [Entitic vol] 8.0 fL 6.3-10.7 [facility] Platelets Auto (Bld) [#/Vol] Ordered By: Omar Pham on 04-16-2023 Platelets (Bld) [#/Vol] 200 10*3/uL 150-450 [facility] Potassium [Moles/volume] in Serum or PlasmaOrdered By: Omar Pham on 04-16-2023 Potassium [Moles/Vol] 3.6 mmol/L 3.5-5.1 [facility] RBC Auto (Bld) [#/Vol]Ordere d By: Omar Pham on 04-16-2023 RBC (Bld) [#/Vol] 4.19 10*6/uL 3.60-5.00 [facility] Serum or plasma anion gap de terminationOrdered By: Omar Pham on 04-16-2023 Anion gap [Moles/Vol] 11.9 mmol/L 6.0-15.0 [facility] Sodium [Moles/volume] in Ser um or PlasmaOrdered By: Omar Pham on 04-16-2023 Sodium [Moles/Vol] 140 mmol/L 136-145 [facility] Urea nitrogen [Mass/volume] in Serum or PlasmaOrdered By: Omar Pham on 04-16-2023 Urea nitrogen [Mass/Vol] 12 mg/dL 7-25 [facility] WBC Auto (Bld) [#/Vol]Ordere d By: Omar Pham on 04-16-2023 WBC (Bld) [#/Vol] 9.1 10*3/uL 3.8-11.6 [facility] CT abdomen pelvis w conon CT abdomen pelvis w con [facility] [address] CT Scan Report Signed Patient: Hellen Bledsoe MR#: [id number] 695 : 1985 Acct:[id number] Age/Sex: 37 / F ADM Date: 01/09/23 Loc: ER Room: Type: [facility] ER Attending Dr: Copies to: [...] Marcio Garces M.D.01/10/2023 10:28 AM Dictation Location: [place] [address] Transcribed By: [facility] 01/10/23 1028 Dictated By: Marcio Garces II, MD 01/10/23 1024 Signed By: 01/10/23 1028 [facility] Basic Metabolic Panelon 05- Anion gap [Moles/Vol] 8.9 mmol/L Normal 6.0-15.0 [facility] Comment on above: Performed By: #### B MP, LIPASE, CBC, HEPATIC ####[facility] [id number] [place] [address] [facility] Calcium [Mass/Vol] 8.6 mg/dL Normal 8.6-10.3 [facility] Comment on above: Performed By: #### B MP, LIPASE, CBC, HEPATIC ####[facility] [id number] [place] [address] [place] Chloride [Moles/Vol] 105 mmol/L Normal 98-107 [facility] Comment on above: Performed By: #### B MP, LIPASE, CBC, HEPATIC ####[facility] [id number] [place] [address] [facility] CO2 [Moles/Vol] 24.7 mmol/L Normal 21.0-31.0 [facility] Comment on above: Performed By: #### B MP, LIPASE, CBC, HEPATIC ####[facility] [place] [address] [facility] Creatinine [Mass/Vol] 0.64 mg/dL Normal 0.60-1.20 [facility] Comment on above: Performed By: #### B MP, LIPASE, CBC, HEPATIC ####[place] [address] [place] [address] [facility] Creatinine Clr Calc Pharmacy 163.85 [facility] Comment on above: Performed By: #### B MP, LIPASE, CBC, HEPATIC ####[place] [address] [place] [phone] [facility] GFR/1.73 sq M.predicted MDRD (S/P/Bld) [Vol rate/Area] mL/min/{1.73_m2} [facility] Comment on above: Performed By: #### B MP, LIPASE, CBC, HEPATIC ####[address] Glucose [Mass/Vol] 89 mg/dL Normal 70-100 [facility] Comment on above: Result Comment: [facility] Glucose Reference Range is dependent on time and content of last meal. Glucose of more than 200 mg/dL in a nonstressed, ambulatory subject supports the diagnosis of Diabetes Mellitus. ADA recommended reference range Performed By: #### B MP, LIPASE, CBC, HEPATIC ####[place] [id number] [facility] Potassium [Moles/Vol] 3.6 mmol/L Normal 3.5-5.1 [facility] Comment on above: Performed By: #### B MP, LIPASE, CBC, HEPATIC ####[place] [id number] [facility] Sodium [Moles/Vol] 135 mmol/L Low 136-145 [facility] Comment on above: Performed By: #### B MP, LIPASE, CBC, HEPATIC ####[place] [address] [place] [phone] [facility] Urea nitrogen [Mass/Vol] 10 mg/dL Normal 7-25 [facility] Comment on above: Performed By: #### B MP, LIPASE, CBC, HEPATIC ####[facility] [id number] [place] [phone] [facility] COVID-19 / Flu A/B / RSV PCR [...] or Cepheid Disclaimer revoked sooner. PERFORMED BY: [place] [address] PATHOLOGIST CRAB PICKER MCKENZIE HERNÁNDEZ M.D. Normal [facility] Comment on above: Performed By: #### C OVID19 FLU RSV, CEPHEID NEG #### [address] Cepheid COVID PCR Negativeon 01-09-2023 SARS-CoV-2 (COVID-19) RNA AFSHAN+probe Ql (Unsp spec) Negative Normal Negative [facility] Comment on above: Result Comment: This is a duplicate Cepheid Xpert Xpress CoV-2/Flu/RSV Plus RNA by RT-PCR result to be used for statistical tracking purpose only. PERFORMED BY: [place] [address] PATHOLOGIST CRAB PICKER MCKENZIE HERNÁNDEZ M.D. Performed By: #### C OVID19 FLU RSV, CEPHEID NEG #### [address] Complete Blood Count Auto Di ffon 01-09-2023 Basophils (Bld) [#/Vol] 0.0 10*3/uL Normal 0.0-0.2 [facility] Comment on above: Result Comment: PERF ORMED BY: [place] [address] PATHOLOGIST CRAB PICKER MCKENZIE HERNÁNDEZ M.D. Performed By: #### B MP, LIPASE, CBC, HEPATIC ####[address] Basophils/100 WBC (Bld) 0.2 % Normal . [facility] Comment on above: Performed By: #### B MP, LIPASE, CBC, HEPATIC ####[address] Eosinophils (Bld) [#/Vol] 0.1 10*3/uL Normal 0.0-0.45 [facility] Comment on above: Performed By: #### B MP, LIPASE, CBC, HEPATIC ####[address] Eosinophils/100 WBC (Bld) 1.5 % Normal . [facility] Comment on above: Performed By: #### B MP, LIPASE, CBC, HEPATIC ####[address] Erythrocyte distribution width (RBC) [Ratio] 13.9 % Normal 11.9-15.3 [facility] Comment on above: Performed By: #### B MP, LIPASE, CBC, HEPATIC ####[address] Hematocrit (Bld) [Volume fraction] 38.6 % Normal 34.0-46.4 [facility] Comment on above: Performed By: #### B MP, LIPASE, CBC, HEPATIC ####[address] Hemoglobin (Bld) [Mass/Vol] 13.1 g/dL Normal 11.8-15.4 [facility] Comment on above: Performed By: #### B MP, LIPASE, CBC, HEPATIC ####[address] Lymphocytes (Bld) [#/Vol] 0.8 10*3/uL Low 1.00-4.8 [facility] Comment on above: Performed By: #### B MP, LIPASE, CBC, HEPATIC ####[address] Lymphocytes/100 WBC (Bld) 9.5 % Normal . [facility] Comment on above: Performed By: #### B MP, LIPASE, CBC, HEPATIC ####[address] MCH (RBC) [Entitic mass] 30.7 pg Normal 24.7-34.3 [facility] Comment on above: Performed By: #### B MP, LIPASE, CBC, HEPATIC ####[place] [phone] [facility] MCV (RBC) [Entitic vol] 90.7 fL Normal 80-100 F [facility] Comment on above: Performed By: #### B MP, LIPASE, CBC, HEPATIC ####[address] Mean Corpuscular HGB Conc 33.8 g/dL Normal 32.0-35.0 [facility] Comment on above: Performed By: #### B MP, LIPASE, CBC, HEPATIC ####[address] Monocytes (Bld) [#/Vol] 0.4 10*3/uL Normal 0.0-0.8 [facility] Comment on above: Performed By: #### B MP, LIPASE, CBC, HEPATIC ####[address] Monocytes/100 WBC (Bld) 18.87 % Normal 0.00-20.00 [facility] Comment on above: Performed By: #### B MP, LIPASE, CBC, HEPATIC ####[address] Monocytes/100 WBC (Bld) 5.1 % Normal . [facility] Comment on above: Performed By: #### B MP, LIPASE, CBC, HEPATIC ####[address] Neutrophils (Bld) [#/Vol] 7.0 10*3/uL Normal 1.8-7.7 [facility] Comment on above: Performed By: #### B MP, LIPASE, CBC, HEPATIC ####[address] Neutrophils/100 WBC (Bld) 83.7 % Normal . [facility] Comment on above: Performed By: #### B MP, LIPASE, CBC, HEPATIC ####[address] NRBC% 0.0 /100{WBC} Normal 0-0.5 [facility] Comment on above: Performed By: #### B MP, LIPASE, CBC, HEPATIC ####[place] [address] [place] Platelet mean volume (Bld) [Entitic vol] 7.7 fL Normal 6.3-10.7 [facility] Comment on above: Performed By: #### B MP, LIPASE, CBC, HEPATIC ####[facility] Platelets (Bld) [#/Vol] 225 10*3/uL Normal 150-450 [facility] Comment on above: Performed By: #### B MP, LIPASE, CBC, HEPATIC ####[facility] RBC (Bld) [#/Vol] 4.25 10*6/uL Normal 3.60-5.00 [facility] Comment on above: Performed By: #### B MP, LIPASE, CBC, HEPATIC ####[address] WBC (Bld) [#/Vol] 8.3 10*3/uL Normal 3.8-11.6 [facility] Comment on above: Performed By: #### B MP, LIPASE, CBC, HEPATIC ####[place] [id number] [address] Dipstick and Microscopicon 0 01-09-2023 Appearance (U) Cloudy Critically abnormal Clear [facility] Comment on above: Order Comment: Name Collection Type:: Clean-Voided Midstream Performed By: #### C UU, ADDONUAPLUS, UHCG #### [facility] [address] Bacteria,Urine 2+ High None Seen [facility] Comment on above: Order Comment: Name Collection Type:: Clean-Voided Midstream Performed By: #### C UU, ADDONUAPLUS, UHCG #### [facility] [address] Bilirubin,Urine Negative Normal Negative [facility] Comment on above: Order Comment: Name Collection Type:: Clean-Voided Midstream Performed By: #### C UU, ADDONUAPLUS, UHCG #### [facility] [address] [place] [address] Color (U) [place] Critically abnormal Yellow [facility] Comment on above: Order Comment: Name Collection Type:: Clean-Voided Midstream Performed By: #### C UU, ADDONUAPLUS, UHCG #### [facility] [address] [place] [address] Glucose Ql (U) Normal Normal Normal [facility] Comment on above: Order Comment: Name Collection Type:: Clean-Voided Midstream Performed By: #### C UU, ADDONUAPLUS, UHCG #### [facility] [address] [place] [address] Hyaline Casts,Urine 10-19 Normal 0-8 [facility] Comment on above: Order Comment: Name Collection Type:: Clean-Voided Midstream Performed By: #### C UU, ADDONUAPLUS, UHCG #### [facility] [address] [place] [address] Ketones Ql (U) Trace High Negative [facility] Comment on above: Order Comment: Name Collection Type:: Clean-Voided Midstream Performed By: #### C UU, ADDONUAPLUS, UHCG #### [facility] [address] [place] [address] Leukocyte esterase Test strip Ql (U) 1+ High Negative [facility] Comment on above: Order Comment: Name Collection Type:: Clean-Voided Midstream Performed By: #### C UU, ADDONUAPLUS, UHCG #### [facility] [address] [place] [address] [place] Nitrite,Urine Negative Normal Negative [facility] Comment on above: Order Comment: Name Collection Type:: Clean-Voided Midstream Performed By: #### C UU, ADDONUAPLUS, UHCG #### [facility] [address] [place] [address] [place] Occult Blood,Urine Negative Normal Negative [facility] Comment on above: Order Comment: Name Collection Type:: Clean-Voided Midstream Performed By: #### C UU, ADDONUAPLUS, UHCG #### [facility] [address] [place] [address] Other Casts,Urine None Seen Normal None Seen [facility] Comment on above: Order Comment: Name Collection Type:: Clean-Voided Midstream Performed By: #### C UU, ADDONUAPLUS, UHCG #### [facility] [address] [place] [address] pH (U) 8.0 [pH] Normal 5.0-9.0 [facility] Comment on above: Order Comment: Name Collection Type:: Clean-Voided Midstream Performed By: #### C UU, ADDONUAPLUS, UHCG #### [facility] [address] [place] [address] Protein,Urine Trace High Negative [facility] Comment on above: Order Comment: Name Collection Type:: Clean-Voided Midstream Performed By: #### C UU, ADDONUAPLUS, UHCG #### [address] RBC,Urine 10-19 High 0-4 [facility] Comment on above: Order Comment: Name Collection Type:: Clean-Voided Midstream Performed By: #### C UU, ADDONUAPLUS, UHCG #### [address] Specificy [place],Urine 1.026 Normal 1.001-1.030 [facility] Comment on above: Order Comment: Name Collection Type:: Clean-Voided Midstream Performed By: #### C UU, ADDONUAPLUS, UHCG #### [facility] [address] [place] [address] Squamous Epithelial Cell,Urine Innumerable High 0-2 [facility] Comment on above: Order Comment: Name Collection Type:: Clean-Voided Midstream Performed By: #### C UU, ADDONUAPLUS, UHCG #### [facility] [address] [place] [address] Urobilinogen,Urine >=2 High Normal [facility] Comment on above: Order Comment: Name Collection Type:: Clean-Voided Midstream Performed By: #### C UU, ADDONUAPLUS, UHCG #### [facility] [address] [place] [address] WBC,Urine 5-9 High 0-4 [facility] Comment on above: Order Comment: Name Collection Type:: Clean-Voided Midstream Performed By: #### C UU, ADDONUAPLUS, UHCG #### [facility] [address] [place] [address] HCG,Urineon 01-09-2023 Beta HCG ( test) Ql (U) Negative Normal [facility] Comment on above: Order Comment: Name Collection Type:: Clean-Voided Midstream Result Comment: PERF ORMED BY: [place] [address] PATHOLOGIST CRAB PICKER MCKENZIE HERNÁNDEZ M.D. Performed By: #### C UU, ADDONUAPLUS, UHCG #### [facility] [address] [place] [address] Hepatic Panelon 01-09-2023 Albumin [Mass/Vol] 3.9 g/dL Normal 3.5-5.7 [facility] Comment on above: Performed By: #### B MP, LIPASE, CBC, HEPATIC ####[address] Albumin/Globulin [Mass ratio] 1.3 {ratio} [facility] Comment on above: Performed By: #### B MP, LIPASE, CBC, HEPATIC ####[address] ALP [Catalytic activity/Vol] 56 U/L Normal 34-104 [facility] Comment on above: Performed By: #### B MP, LIPASE, CBC, HEPATIC ####[address] ALT [Catalytic activity/Vol] 13 U/L Normal 7-52 [facility] Comment on above: Performed By: #### B MP, LIPASE, CBC, HEPATIC ####[address] [place] [address] [facility] AST [Catalytic activity/Vol] 14 U/L Normal 13-39 [facility] Comment on above: Performed By: #### B MP, LIPASE, CBC, HEPATIC ####[place] [id number] [facility] Bilirubin [Mass/Vol] 0.9 mg/dL Normal 0.3-1.0 [facility] Comment on above: Performed By: #### B MP, LIPASE, CBC, HEPATIC ####[address] Bilirubin,Indirect 0.7 mg/dL Normal [facility] Comment on above: Performed By: #### B MP, LIPASE, CBC, HEPATIC ####[address] Bilirubin.indirect [Mass/Vol] 0.20 mg/dL High 0.03-0.18 [facility] Comment on above: Performed By: #### B MP, LIPASE, CBC, HEPATIC ####[address] Globulin (S) [Mass/Vol] 3.0 g/dL Normal [facility] Comment on above: Performed By: #### B MP, LIPASE, CBC, HEPATIC ####[address] Protein [Mass/Vol] 6.9 g/dL Normal 6.4-8.9 [facility] Comment on above: Performed By: #### B MP, LIPASE, CBC, HEPATIC ####[place] [id number] [facility] Lipaseon 01-09-2023 Lipase [Catalytic activity/Vol] 5.0 U/L Low 11.0-82.0 [facility] Comment on above: Result Comment: PERF ORMED BY: [facility] [address] [place] [address] PATHOLOGIST CRAB PICKER MCKENZIE HERNÁNDEZ M.D. Performed By: #### B MP, LIPASE, CBC, HEPATIC ####[address] [place] [address] [facility] Urine Cultureon 01-09-2023 Bacteria identified Cx Nom (U) 25,000 colonies/ml mixed bacterial skin contaminants 2 Days PERFORMED BY: [facility] [address] [place] [address] PATHOLOGIST CRAB PICKER MCKENZIE HERNÁNDEZ M.D. Normal [facility] Comment on above: Performed By: #### C UU, JUANITA CG #### [facility] [address] [place] [id number] [facility] Covid-19 PCR (CVDTBH)on 08-31 SARS-CoV-2 (COVID-19) RNA AFSHAN+probe Ql (Unsp spec) Not detected Normal NOT DETECTED [facility] Comment on above: Result Comment: When diagnostic [...] for this test is supported by the Grants of [employer] and Human Service's declaration that [...] used). Performed By: #### C VDTBH #### [facility] [address] [place] [address] Dr. Ping Hernandez GROUP A STREP CULTUREon 08-31 S. pyogenes Ag Ql (Unsp spec) Culture Observations: NEGATIVE FOR GROUP A STREPTOCOCCUS. Normal [facility] Comment on above: Performed By: #### S SCRN, GRASTCX #### [facility] [address] [place] [address] [address] Ping Hernandez INFLUENZA A AND B AGon 09-21 INFLUANEGH SEE BELOW Normal [facility] Comment on above: Result Comment: Nega tive for Flu A protein angiten. Infection due to Flu A cannot be ruled out. Flu A angiten in the sample may be below the detection limit of the test. Performed By: #### I NFLUAB #### [facility] [address] [place] [address] Dr. Ping Hernandez INFLUBNEGH SEE BELOW Normal [facility] Comment on above: Result Comment: Nega tive for Flu B protein antigen. Infection due to Flu B cannot be ruled out. Flu B antigen in the sample may be below the detection limit of the test. Performed By: #### I NFLUAB #### [facility] [address] [place] [address] Dr. Ping Hernandez INFLUENZA A AG Negative Normal NEGATIVE SEE COMMENT [facility] Comment on above: Performed By: #### I NFLUAB #### [facility] [address] [place] [address] Dr. Ping Hernandez INFLUENZA B AG Negative Normal NEGATIVE SEE COMMENT [facility] Comment on above: Performed By: #### I NFLUAB #### [facility] [address] [place] [address] Dr. Ping Hernandez STREPT SCREENon 09-21-2022 STREP SCREEN A Negative Normal NEGATIVE [facility] Comment on above: Performed By: #### S SCRN, GRASTCX #### [facility] [address] [place] [address] Dr. Ping Hernandez XR CHEST 1 Von [...] JENI CORDERO Date: 2022-09-21 19:52 Normal [facility] XR HAND RT MIN 3Von 07-21-20 22 [...] by: LEONA DICKENS Date: 2022-07-21 19:26 Normal [facility] Automated erythrocytes count in urine sediment (number/area)Ordered By: Omar Pham on 07-10-2022 RBC Auto (Urine sed) [#/Area] 10-19 [HPF] 0-4 [facility] Automated leukocytes count i n urine sediment (number/area)Ordered By: Omar Pham on 07-10-2022 WBC Auto (Urine sed) [#/Area] 10-19 [HPF] 0-4 [facility] Bilirubin Test strip Ql (U)O rdered By: Omar Pham on 07-10-2022 Bilirubin Ql (U) Negative Negative [facility] Color Auto (U)Ordered By: Mandy Pham on 07-10-2022 Color (U) Yellow Yellow [facility] Dipstick and Microscopicon 1 09-09-2021 Appearance (U) Cloudy Critically abnormal Clear [facility] Comment on above: Order Comment: Name Collection Type:: Clean-Voided Midstream Performed By: #### U HCG, CUU, ADDONUAPLUS ####[facility] [id number] [place] [address] [facility] Bacteria,Urine 1+ High None Seen [facility] Comment on above: Order Comment: Name Collection Type:: Clean-Voided Midstream Performed By: #### U HCG, CUU, ADDONUAPLUS ####[facility] [id number] [place] [address] [place] Bilirubin,Urine Negative Normal Negative [facility] Comment on above: Order Comment: Name Collection Type:: Clean-Voided Midstream Performed By: #### U HCG, CUU, ADDONUAPLUS ####[address] [address] [facility] Color (U) Yellow Normal Yellow [facility] Comment on above: Order Comment: Name Collection Type:: Clean-Voided Midstream Performed By: #### U HCG, CUU, ADDONUAPLUS ####[address] [address] [facility] Glucose Ql (U) Normal Normal Normal [facility] Comment on above: Order Comment: Name Collection Type:: Clean-Voided Midstream Performed By: #### U HCG, CUU, ADDONUAPLUS ####[place] [id number] [facility] Hyaline Casts,Urine 0-8 Normal 0-8 [facility] Comment on above: Order Comment: Name Collection Type:: Clean-Voided Midstream Performed By: #### U HCG, CUU, ADDONUAPLUS ####[address] Ketones Ql (U) Negative Normal Negative [facility] Comment on above: Order Comment: Name Collection Type:: Clean-Voided Midstream Performed By: #### U HCG, CUU, ADDONUAPLUS ####[place] [id number] [facility] Leukocyte esterase Test strip Ql (U) 1+ High Negative [facility] Comment on above: Order Comment: Name Collection Type:: Clean-Voided Midstream Performed By: #### U HCG, CUU, ADDONUAPLUS ####[place] [id number] [facility] Nitrite,Urine Negative Normal Negative [facility] Comment on above: Order Comment: Name Collection Type:: Clean-Voided Midstream Performed By: #### U HCG, CUU, ADDONUAPLUS ####[place] [id number] [facility] Occult Blood,Urine 3+ High Negative [facility] Comment on above: Order Comment: Name Collection Type:: Clean-Voided Midstream Performed By: #### U HCG, CUU, ADDONUAPLUS ####[address] [address] [facility] pH (U) 5.5 [pH] Normal 5.0-9.0 [facility] Comment on above: Order Comment: Name Collection Type:: Clean-Voided Midstream Performed By: #### U HCG, CUU, ADDONUAPLUS ####[address] [address] [facility] Protein,Urine Negative Normal Negative [facility] Comment on above: Order Comment: Name Collection Type:: Clean-Voided Midstream Performed By: #### U HCG, CUU, ADDONUAPLUS ####[address] [address] [facility] RBC,Urine 10-19 High 0-4 [facility] Comment on above: Order Comment: Name Collection Type:: Clean-Voided Midstream Performed By: #### U HCG, CUU, ADDONUAPLUS ####[place] [id number] [facility] Specificy [place],Urine 1.010 Normal 1.001-1.030 [facility] Comment on above: Order Comment: Name Collection Type:: Clean-Voided Midstream Performed By: #### U HCG, CUU, ADDONUAPLUS ####[address] [address] [facility] Squamous Epithelial Cell,Urine 10-19 High 0-2 [facility] Comment on above: Order Comment: Name Collection Type:: Clean-Voided Midstream Performed By: #### U HCG, CUU, ADDONUAPLUS ####[address] [address] [facility] Urobilinogen,Urine Normal Normal Normal [facility] Comment on above: Order Comment: Name Collection Type:: Clean-Voided Midstream Performed By: #### U HCG, CUU, ADDONUAPLUS ####[address] [address] [facility] WBC,Urine 10-19 High 0-4 [facility] Comment on above: Order Comment: Name Collection Type:: Clean-Voided Midstream Performed By: #### U HCG, CUU, ADDONUAPLUS ####[place] [address] [place] [address] [facility] HCG ( test) IA.rapi d Ql (U)Ordered By: Omar Pham on 07-10-2022 HCG ( test) Ql (U) Negative [facility] HCG,Urineon 07-10-2022 Beta HCG ( test) Ql (U) Negative Normal [facility] Comment on above: Order Comment: Name Collection Type:: Clean-Voided Midstream Result Comment: PERF ORMED BY: [facility] [address] [place] [id number] PATHOLOGIST CRAB PICKER MCKENZIE HERNÁNDEZ M.D. Performed By: #### U HCG, CUU, ADDONUAPLUS ####[place] [address] [place] [address] [facility] Ketones Auto test strip (U) [Mass/Vol]Ordered By: Omar Pham on 07-10-2022 Ketones (U) [Mass/Vol] Negative Negative [facility] - UrinalysisOrder ed By: Omar Pham on 07-10-2022 Hyaline casts LM Ql (Urine sed) 0-8 [LPF] 0-8 [facility] Nitrite Test strip Ql (U)Ord ered By: Omar Pham on 07-10-2022 Nitrite Ql (U) Negative Negative [facility] Protein Auto test strip (U) [Mass/Vol]Ordered By: Omar Pham on 07-10-2022 Protein (U) [Mass/Vol] Negative Negative [facility] Specific gravity Auto test s trip (U) [Rel density]Ordered By: Omar Pham on 07-10-2022 Specific gravity (U) [Rel density] 1.010 1.001-1.030 [facility] Squamous epithelial cells de tection in urine sediment by light microscopyOrdered By: Omar Pham on 07-10-2022 Epithelial cells.squamous LM Ql (Urine sed) 10-19 [HPF] 0-2 [facility] Urine Cultureon 07-10-2022 Bacteria identified Cx Nom (U) >100,000 colonies/ml mixed bacterial skin contaminants 2 Days PERFORMED BY: [place] [address] PATHOLOGIST CRAB PICKER MCKENZIE HERNÁNDEZ M.D. [facility] Comment on above: Performed By: #### U HCG, CUU, ADDONUAPLUS ####[facility] [id number] [place] [id number] [facility] Urine bacteria detection by automated methodOrdered By: Omar Pham on 07-10-2022 Bacteria Auto Ql (U) 1+ None Seen [facility] Urine clarity by refractomet ry automatedOrdered By: Omar Pham on 07-10-2022 Clarity Refractometry automated (U) Cloudy Clear [facility] Urine glucose measurement by automated test strip (mass/volume)Ordered By: Omar Pham on 07-10-2022 Glucose Auto test strip (U) [Mass/Vol] Normal mg/dL Normal [facility] Urine hemoglobin detection b y automated test stripOrdered By: Omar Pham on 07-10-2022 Hemoglobin Auto test strip Ql (U) 3+ Negative [facility] Urine leukocyte esterase det ection by automated test stripOrdered By: Omar Pham on 07-10-2022 Leukocyte esterase Auto test strip Ql (U) 1+ Negative [facility] Urobilinogen Auto test strip (U) [Mass/Vol]Ordered By: Omar Pham on 07-10-2022 Urobilinogen (U) [Mass/Vol] Normal mg/dL Normal [facility] XR hand RT 2Von 07-10-2022 XR hand RT 2V [facility] [place] [id number] XRay Report Signed Patient: Hellen Bledsoe MR#: [id number] : 1985 Acct:[id number] Age/Sex: 37 / F ADM Date: 07/10/22 Loc: ER Room: Type: [facility] ER Attending Dr: Copies to: [...] Franco Jr., Ap07/10/2022 8:40 AM Dictation Location: [place] [address] Transcribed By: [facility] 07/10/22839 Dictated By: Mannie Franco Jr DO 07/10/22837 Signed By: 07/10/22839 Normal [facility] pH Auto test strip (U)Ordere d By: Omar Pham on 07-10-2022 pH (U) 5.5 [pH] 5.0-9.0 [facility] ER URINE PROFILEon Bilirubin Ql (U) Negative Normal NEGATIVE [facility] Comment on above: Performed By: #### U MICRO, PREGU, ERUR #### [facility] [address] [place] [address] Dr. Ping Hernandez Clarity (U) CLEAR Normal CLEAR [facility] Comment on above: Performed By: #### U MICRO, PREGU, ERUR #### [facility] [address] [place] [address] [address] Ping Hernandez Color (U) YELLOW Normal YELLOW [facility] Comment on above: Performed By: #### U MICRO, PREGU, ERUR #### [facility] [address] [place] [address] [address] Ping MANN A micrscopic examination will be performed if indicated. Normal [facility] Comment on above: Performed By: #### U MICRO, PREGU, ERUR #### [facility] [address] [place] [address] [address] Ping Hernandez Glucose Ql (U) Negative Normal NEGATIVE [facility] Comment on above: Performed By: #### U MICRO, PREGU, ERUR #### [facility] [address] [place] [address] [address] Ping Hernandez Hemoglobin Ql (U) TRACE-INTACT Abnormal NEGATIVE [facility] Comment on above: Performed By: #### U MICRO, PREGU, ERUR #### [facility] [address] [place] [address] Dr. Ping Hernandez Ketones Ql (U) Negative Normal NEGATIVE [facility] Comment on above: Performed By: #### U MICRO, PREGU, ERUR #### [facility] [address] [place] [address] [address] Ping Hernandez LEUKOCYTES Negative Normal NEGATIVE [facility] Comment on above: Performed By: #### U MICRO, PREGU, ERUR #### [facility] [address] [place] [address] [address] Ping Hernandez Nitrite Ql (U) Negative Normal NEGATIVE [facility] Comment on above: Performed By: #### U MICRO, PREGU, ERUR #### [facility] [address] [address] [address] Ping Hernandez pH (U) 6.5 [pH] Normal 5-9 [facility] Comment on above: Performed By: #### U MICRO, PREGU, ERUR #### [facility] [address] [place] [address] Dr. Ping Hernandez SPEC GRAVITY 1.020 Normal 1.005-<=1.02 5 [facility] Comment on above: Performed By: #### U MICRO, PREGU, ERUR #### [facility] [address] [address] [address] Ping Hernandez UA PROTEIN Negative Normal NEGATIVE/ TRACE [facility] Comment on above: Performed By: #### U MICRO, PREGU, ERUR #### [facility] [address] [place] [address] Dr. Ping Hernandez UR MICRO IND INDICATED Normal [facility] Comment on above: Performed By: #### U MICRO, PREGU, ERUR #### [facility] [address] [place] [address] Dr. Ping Hernandez Urobilinogen Qn (U) 0.2 {Brian'U}/dL Normal 0.2 - 1. 0 [facility] Comment on above: Performed By: #### U MICRO, PREGU, ERUR #### [facility] [address] [address] [address] Ping Hernandez URon 02-16-2022 , QUAL Negative Normal NEGATIVE [facility] Comment on above: Performed By: #### U MICRO, PREGU, ERUR #### [facility] [address] [address] [address] Ping Hernandez URINE MICROSCOPIC ONLYon BACTERIA TRACE Abnormal NONE SEEN [facility] Comment on above: Performed By: #### U MICRO, PREGU, ERUR #### [facility] [address] [address] [address] Ping Hernandez Bacteria identified Cx Nom (U) NOT INDICATED Normal [facility] Comment on above: Performed By: #### U MICRO, PREGU, ERUR #### [facility] [address] [address] [address] Ping Hernandez CAST NONE SEEN Normal NONE SEEN [facility] Comment on above: Performed By: #### U MICRO, PREGU, ERUR #### [facility] [address] [address] [address] Ping Hernandez Crystals LM Nom (Urine sed) SEEN Abnormal NONE SEEN [facility] Comment on above: Performed By: #### U MICRO, PREGU, ERUR #### [facility] [address] [address] [address] Ping Hernandez Epithelial cells LM Ql (Urine sed) RARE Normal NONE SEEN /RARE [facility] Comment on above: Performed By: #### U MICRO, PREGU, ERUR #### [facility] [address] [address] [address] Ping Hernandez MUCOUS TRACE Abnormal NONE SEEN [facility] Comment on above: Performed By: #### U MICRO, PREGU, ERUR #### [facility] [address] [place] [address] Dr. Ping Hernandez RBC 0-2 Normal 0-2 [facility] Comment on above: Performed By: #### U MICRO, PREGU, ERUR #### [facility] [address] [address] [address] Ping Hernandez WBC NONE SEEN Normal NONE SEEN [facility] [facility] Comment on above: Performed By: #### U MICRO, PREGU, ERUR #### [facility] [address] [address] [address] Ping Hernandez Vital Signs Date Time Vital Sign Value Performing Clinician Facility 04-16-2023 05:00-0400 Diastolic blood pressure 56 mm[Hg] [facility] Work Phone: [facility] 04-16-2023 05:00-0400 Heart rate 51 /min [facility] Work Phone: [phone] [place] [address] 04-16-2023 05:00-0400 Respiratory rate 19 /min [facility] Work Phone: [facility] 04-16-2023 05:00-0400 SaO2% (BldA) [Mass fraction] 97 % [facility] Work Phone: [facility] 04-16-2023 05:00-0400 Systolic blood pressure 100 mm[Hg] [facility] Work Phone: [facility] 04-15-2023 21:02-0400 Body height 175.26 cm [facility] Work Phone: [facility] 04-15-2023 21:02-0400 Body temperature 98.2 [degF] [facility] Work Phone: [facility] 04-15-2023 21:02-0400 Body weight 111.4 kg [facility] Work Phone: [facility] 07-10-2022 00:48-0500 Body height 175.26 cm [facility] Work Phone: [facility] 07-10-2022 00:48-0500 Body weight 120.2 kg [facility] Work Phone: [facility] 07-10-2022 00:47-0500 Body temperature 98.4 [degF] [facility] Work Phone: [facility] 07-10-2022 00:47-0500 Diastolic blood pressure 100 mm[Hg] [facility] Work Phone: [facility] 07-10-2022 00:47-0500 Heart rate 131 /min [facility] Work Phone: [facility] 07-10-2022 00:47-0500 Respiratory rate 20 /min [facility] Work Phone: [facility] 07-10-2022 00:47-0500 SaO2% (BldA) [Mass fraction] 99 % [facility] Work Phone: [facility] 07-10-2022 00:47-0500 Systolic blood pressure 138 mm[Hg] [facility] Work Phone: [facility] 05-26-2021 14:00-0400 Body height Ramone Franco Other [facility] Other 05-26-2021 14:00-0400 Body mass index (BMI) [Ratio] 42.17 kg/m2 Ramone Franco Other [facility] Other 05-26-2021 14:00-0400 Body weight 129.55 kg Ramone Franco Other [facility] Other 05-26-2021 14:00-0400 Diastolic blood pressure 64 mm[Hg] Ramone Franco Other [facility] Other 05-26-2021 14:00-0400 SaO2% (BldA) [Mass fraction] 98 % Ramone Franco Other [facility] Other 05-26-2021 14:00-0400 Systolic blood pressure 116 mm[Hg] Ramone Franco Other [facility] Other Encounters Encounter Date Encounter Type Care Provider Facility Start: 04-15-2023 End: 04-16-2023 Emergency department patient visit Joao Montero Facility:[facility] Start: 04-15-2023 End: 04-16-2023 Emergency department patient visit [facility] Work Phone: [facility] Work Phone: Start: 01-09-2023 End: 01-10-2023 [facility] Start: 12-05-2022 End: 12-05-[address] DOCTOR LOCKE Facility:[facility] Start: 09-21-2022 End: 09-21-2022 ambulatory DANIEL VILLAGOMEZ Facility:[facility] Start: 07-21-2022 End: 07-21-2022 ambulatory KEVIN MCLAUGHLIN Facility:[facility] Start: 07-10-2022 End: 07-10-[address] NADEEM THURMAN . Facility:[facility] Start: 07-10-2022 End: 07-10-2022 [facility] Start: 07-10-2022 End: 07-10-2022 Emergency department patient visit [facility] Work Phone: [facility] Start: 06-30-2022 End: 06-30-2022 ambulatory FRANK AMEZQUITA . Facility:[facility] Start: 02-16-2022 End: 02-16-2022 ambulatory DAVE ZENDEJAS . Facility:[facility] Start: 06-02-2021 Telephone encounter Ramone Franco [facility] Start: 05-26-2021 Office consultation new/estab patient 60 min Ramone Franco [facility] Start: 01-25-2004 Evaluation and management of inpatient [facility] Work Phone: [facility] [address] Procedures Date Procedure Procedure Detail Performing Clinician H/O: section Status post cesarea n delivery [facility] Work Phone: Plan of Treatment Date Care Activity Detail Author Start: 04-15-2023 CT Lumbar spine WO contrast [facility] Start: 04-15-2023 CT of lumbar spine without contrast CT lumbar spine wo con [facility] Start: 07-10-2022 Plain X-ray of right hand XR hand RT 2V [facility] Start: 07-10-2022 XR Hand - right 2 Views [facility] Bacteria identified in Urine by Culture Urine Culture [facility] Patient Education [facility] Work Phone: Patient referral [facility] Work Phone: Payers Date Payer Category Payer Unknown [id number] 1985 Unknown [id number] 1985 Unknown [id number] 1985 Unknown [id number] 1985 Unknown [id number] 1985 Unknown [id number] 1959 Self-pay [id number] 1959 Self-pay [id number] Private Health Insurance [facility] [id number] Unknown [id number] Unknown [id number] Unknown [id number] Unknown [id number] Social History Date Type Detail Facility Unknown if ever smoked [facility] Other Sex Assigned At Sex Assigned At Bir th [facility] Other Start: 07-10-2022 Tobacco smoking status [facility] Smoker (finding) [facility] Start: 1985 Sex Assigned At Female F [facility] Start: 04-15-2023 Tobacco smoking status [facility] Ex-smoker (finding) [facility] Evaluation note 05-26-2021 Note Date & [...] negative findings were considered in medical decision-making. [facility] Other Evaluation note Note Date & Type Note Facility Evaluation note No Information [facility] Other Evaluation note Note Date & Type Note Facility Evaluation note No assessment information availa ble [facility] Work Phone: History general Narrative - Reported Note Date & Type Note Facility History general Narrative - Reported Type Medical History asthma Surgical History gall bladder removal 2010 Surgical History c Section 2008 Surgical History bellybutton 2002 [facility] Other Hospital Discharge instructions Note Date & Type Note Facility Hospital Discharge instructions Additional Instructions Take Naprosyn as prescribed for mild to moderate pain. Take oxycodone as prescribed for severe pain. Take prednisone daily for your radiculopathy. Follow-up with the neurosurgeon listed below for ongoing management. [facility] Work Phone: Chief Complaint and [...] Team Status: Inactive Member Role Status Dates [facility] Primary Care Provider Active Diogenes Sanchez , DO Family Provider Active Omar Pham , DO Emergency Provider Active Team Status: Active Member Role Status Dates [facility] Jordan Attending Provider Active Team Status: Active Member Role Status Dates Diogenes Sanchez , DO Family Provider Active [facility] Active Team Status: Inactive Member Role Status Dates [facility] Primary [facility] Provider Active Diogenes Sanchez , DO Family Provider Active Joao Montero PA-C Emergency Provider Active Goals (unrecognized section and content) Goals may be documented in a n alternate section INFORMATION SOURCE (unrecogn ized section and content) DATE CREATED AUTHOR 12/08/2022 [facility] DATE CREATED AUTHOR AUTHOR'S ORGANIZ ATION 04/27/2023 [facility] FOR RECORDS PERTAINING TO PATIENTS WHO [...] BE BASED ON THE PRIMARY CLINICAL RECORDS. [employer] provides no warranty or guarantee of the accuracy or completeness of information in this document.
--- NOTE | 2023-08-20 07:49 | US_ITS ---
The [address] [address] Patient Name: ALICJA HANSEN MRN: [id number] date: 1985 Sex: F Assigned Patient Location: Current Patient Location: Accession/Order Number: [id number] Exam Date: 08/20/2023 08:00 Report Date: 08/20/2023 09:53 At the request of: ALONSO MCCULLOUGH Procedure: US venous doppler LE RT EXAMINATION: US venous doppler LE RT HISTORY: right le dvt COMPARISON: No relevant comparison available. FINDINGS: REGION: Right lower extremity THROMBI: None. COMPRESSIBILITY: Normal compressibility. FLOW: Normal waveform and antegrade flow between 5 and 20 cm/s. OTHER: None. US/US venous doppler LE RT IMPRESSION: 1. No deep vein thrombus within the right lower extremity. Electronically authenticated by: IVANIA WESTFALL Date: 08/20/2023 09:53
== END 2023-08-20 07:44 | disposition home or self-care (01) ==
LOC: US 07:44
PROVIDERS: Visit Provider Emergency Medicine
DX: I82.491 Acute embolism and thrombosis of other specified deep vein of right lower extremity (principal)
CPT/HCPCS: 93971

== ENCOUNTER 2024-07-31 08:16 | Emergency (ER) | payer OTHER, SELFPAY ==
[2024-07-31 08:20] VITALS: BP 146/73; PULSE 72; TEMP 36.4; O2SAT 100; BMI 35.2
--- NOTE | 2024-07-31 08:35 | XR_ITS ---
The [address] [address] Patient Name: ALICJA HANSEN MRN: [id number] date: 1985 Sex: F Assigned Patient Location: ER Current Patient Location: ER Accession/Order Number: [id number] Exam Date: 07/31/2024 08:45 Report Date: 07/31/2024 09:25 At the request of: FRANKLIN AMBROSIO Procedure: XR lumbar spine 2-3V EXAMINATION: XR thoracic spine 2V, XR lumbar spine 2-3V HISTORY: fall COMPARISON: No relevant comparison available. FINDINGS: BONES: Slight left convex curvature lumbar spine. No fracture, spondylolisthesis, bone lesion. Mild degenerative facet arthropathy L4-5, L5-S1. DISC SPACES: Marked narrowing L5-S1. Mild narrowing L4-5. PARASPINOUS: Negative. No paraspinous abnormality is seen. OTHER: Negative. XR/XR lumbar spine 2-3V IMPRESSION: 1. No acute abnormality the thoracic or lumbar spine. 2. Degenerative disc disease of lower lumbar spine; marked at L5-S1. Electronically authenticated by: IVANIA WESTFALL Date: 07/31/2024 09:25
--- NOTE | 2024-07-31 08:35 | XR_ITS ---
The [address] [address] Patient Name: ALICJA HANSEN MRN: [id number] date: 1985 Sex: F Assigned Patient Location: ER Current Patient Location: ER Accession/Order Number: [id number] Exam Date: 07/31/2024 08:45 Report Date: 07/31/2024 09:25 At the request of: FRANKLIN AMBROSIO Procedure: XR thoracic spine 2V EXAMINATION: XR thoracic spine 2V, XR lumbar spine 2-3V HISTORY: fall COMPARISON: No relevant comparison available. FINDINGS: BONES: Slight left convex curvature lumbar spine. No fracture, spondylolisthesis, bone lesion. Mild degenerative facet arthropathy L4-5, L5-S1. DISC SPACES: Marked narrowing L5-S1. Mild narrowing L4-5. PARASPINOUS: Negative. No paraspinous abnormality is seen. OTHER: Negative. XR/XR thoracic spine 2V IMPRESSION: 1. No acute abnormality the thoracic or lumbar spine. 2. Degenerative disc disease of lower lumbar spine; marked at L5-S1. Electronically authenticated by: IVANIA WESTFALL Date: 07/31/2024 09:25
--- NOTE | 2024-07-31 08:36 | ED.BACK1 ---
HPI HPI - Back Pain/Injury General Chief Complaint: Back Pain/Injury Stated Complaint: BACK PAIN/FALL Time Seen by Provider: 07/31/24 08:33 Source: patient Mode of arrival: Wheelchair Limitations: no limitations History of Present Illness HPI Narrative: 39-year-old female presents for lower back pain. 2 days ago she fell and landed on her lower back when she lost her balance. She does not seem to have hit her head. No weakness or numbness in her legs. The pain is moderate and worse when she moves. Related Data Previous Rx's ?Medication ?Instructions ?Recorded acetaminophen 300 mg-codeine 30 mg 1 tab PO Q6H PRN pain 5 days #20 07/31/24 tablet tabs ibuprofen 800 mg tablet 800 mg PO Q8H PRN pain #20 tabs 07/31/24 Allergies Allergy/AdvReac Type Severity Reaction Status Date / Time methocarbamol (From Robaxin) Allergy Intermediate Verified 08/19/23 21:42 Opioid HPI Opioid Management Most Recent Opioid Data: No Data to Display Review of Systems ROS Narrative A ten point review of systems is negative except as noted above. PFSH PFSH Social History (System 04/21/23 @ 07:51 by Lynette Jaramillo) Smoking status: Former smoker Little interest or pleasure in doing things: not at all Feeling down, depressed, or hopeless: not at all Exam Narrative Exam Narrative: Nurses note and vital signs reviewed and patient is not hypoxic. General: The patient appears well and in no apparent distress. Skin: Warm, dry, no pallor noted. There is no rash noted. Head: Normocephalic, atraumatic Eye: Normal conjunctiva, no drainage Ears, Nose, Mouth, and Throat: oral mucosa is moist. Nares patent. Cardiovascular: Regular Rate and Rhythm Respiratory: Patient is in no distress, no accessory muscle use, lungs are clear to auscultation, no wheezing, rales or rhonchi Back: No bruise or rash. She has tenderness from the lower thoracic area through the lumbar spine region. GI: Soft and nontender Musculoskeletal: The patient has no evidence of calf tenderness, no pitting edema, symmetrical pulses noted bilaterally Neurological: A&O, normal speech Psychiatric: Cooperative Constitutional Vital Signs, click to edit/add: Last Vital Signs Temp 97.6 F 07/31/24 08:20 Pulse 72 07/31/24 08:20 Resp 18 07/31/24 08:20 BP 146/73 H 07/31/24 08:20 Pulse Ox 100 07/31/24 08:20 O2 Del Method Room Air 07/31/24 08:20 Course Vital Signs Vital signs: Vital Signs Temperature 97.6 F 07/31/24 08:20 Pulse Rate 72 07/31/24 08:20 Respiratory Rate 18 07/31/24 08:20 Blood Pressure 146/73 H 07/31/24 08:20 Pulse Oximetry 100 07/31/24 08:20 Oxygen Delivery Method Room Air 07/31/24 08:20 Temperature 97.6 F 07/31/24 08:20 Pulse Rate 72 07/31/24 08:20 Respiratory Rate 18 07/31/24 08:20 Blood Pressure 146/73 H 07/31/24 08:20 Pulse Oximetry 100 07/31/24 08:20 Oxygen Delivery Method Room Air 07/31/24 08:20 MDM - Back Pain/Injury MDM Narrative Medical decision making narrative: X-rays are negative per radiologist and she is being treated symptomatically. Treatment diagnosis and follow-up were discussed with the patient. Differential Diagnosis Differential diagnosis: Likely other (Fall, contusion, fracture) Imaging Data Thoracic and lumbar x-rays: Radiologist's impression: ITS Impressions Lumbar Spine X-Ray 07/31/24 08:35 IMPRESSION: 1. No acute abnormality the thoracic or lumbar spine. 2. Degenerative disc disease of lower lumbar spine; marked at L5-S1. Electronically authenticated by: IVANIA WESTFALL Date: 07/31/2024 09:25 Thoracic Spine X-Ray 07/31/24 08:35 IMPRESSION: 1. No acute abnormality the thoracic or lumbar spine. 2. Degenerative disc disease of lower lumbar spine; marked at L5-S1. Electronically authenticated by: IVANIA WESTFALL Date: 07/31/2024 09:25 Discharge Plan Discharge Chief Complaint: Back Pain/Injury Clinical Impression: Back contusion Patient Disposition: Home, Self-Care Time of Disposition Decision: 09:45 Condition: Good Mode of Transportation: Private Vehicle Prescriptions / Home Meds: New acetaminophen-codeine 300-30 mg tablet 1 tab PO Q6H PRN (Reason: pain) 5 Days Qty: 20 0RF ibuprofen 800 mg tablet 800 mg PO Q8H PRN (Reason: pain) Qty: 20 0RF Print Language: Yoruba Instructions: Contusion in Adults (ED) Referrals: Physician,Non-Staff, MD [Primary Care Provider] - 1 week
--- OUTSIDE RECORDS SUMMARY | 2024-07-31 08:49 | XMS_ITS | CCD ---
Author Organization [facility] Care Team Providers Care Clerk Supervisor Name Role Phone Ramone Franco Unavailable Blair Jordan Attending Provider [phone] [facility], [facility] Primary Care Provider [phone] DO Omar Pham Emergency Provider UnaDANIEL Meehan Attending Unavailable MURPHY .RADHIKA Consulting Unavailabl e [...] JUAN Admitting Unavailable Blair Jordan Attending Provider [facility] Primary Care Provider XIOMARA [facility]tero [facility] [phone] MD Milana Gonazlez Jr Emergency Provider [facility] Primary Care Provider MD Milana Gonzalez Jr Emergency Provider DO Juan Angelo Attending Provider [phone] [facility], [facility] Primary Care Provider [phone] [facility] Primary Care Provider DO Pinky Bocanegra Emergency Provider XIOMARA Montero Emergency Provider Joao Montero Admitting Unavailable Joao Montero Attending Unavailable [facility], [facility] Unavailable Juan Angelo Admitting Unavailable Juan Angelo Attending Unavailable [facility], [facility] Unavailable Milana Gonzalez Jr Admitting Unavailable Milana Gonzalez Jr Attending Unavailable [facility], [facility] Unavailable Milana Gonzalez Jr Admitting Unavailable Milana Gonzalez Jr Attending Unavailable [facility], [facility] Unavailable Pinky Bocanegra Admitting Unavailable Pinky Bocanegra Attending Unavailable [facility], [facility] Unavailable Allergies Allergy Classification Reported Allergen(s) Allergy Type Date of Onset Reaction(s) Facility (4 sources) Adhesive Tape; Translations: [Adhesive tape] Allergy to substance 2 [facility] (1 source) Methocarbamol Drug Allergy [facility] Medications Current Medications Medication Drug Class(es) Dates Sig (Normalized) Sig (Original) azithromycin 250 mg oral tablet (9 sources) Macrolide Antimicrobial Start: 06-06-2024 Azithromycin Active 0 PO .COMPLEX June 06, 2024 12:00am take 500 mg today (day 1), then 250 mg for 4 days (days 2-5) Start: 07-16-2019 End: 11-06-2019 take 500 mg by mouth once daily Azithromycin Discontinued 500 MG PO Daily 4 2 July 16, 2019 1:00am November 06, 2019 4:43pm benzonatate 200 mg oral capsule (1 source) Non-narcotic Antitussive Start: 06-06-2024 take 200 mg by mouth three times daily Benzonatate Active 200 MG PO Three times daily June 06, 2024 12:00am brompheniramine maleate 0.4 mg/ml / dextromethorphan hydrobromide 2 mg/ml / pseudoephedrine hydrochloride 6 mg/ml oral solution (1 source) alpha-Adrenergic Agonist, Uncompetitive T-nmhnio-O-aspartat e Receptor Antagonist, Sigma-1 Agonist Start: 06-06-2024 take 1 mL by mouth four times daily Brompheniramine-P seudoeph-Dm (Bromfed Dm) 2-30-10 mg/5 mL syrup Active 5 ML PO Four times daily June 06, 2024 12:00am ondansetron 4 mg oral tablet (10 sources) Serotonin-3 Receptor Antagonist Start: 06-05-2024 take 4 mg by mouth every eight hours Ondansetron Hcl Active 4 MG PO Q8H 15 June 05, 2024 12:00am Start: 01-26-2018 End: 02-08-2018 take 1 tablet by mouth three times daily Ondansetron (Zofran Odt) 4 mg tablet,disintegrating Discontinued 4 MG PO Three times daily January 26, 2018 12:00am February 08, 2018 12:13am predniSONE 20 mg oral tablet (20 sources) Start: 06-06-2024 Prednisone Act dania 0 .ROUTE .COMPLEX 18 9 June 06, 2024 12:00am 3 tabs a day for 3 days, 2 tabs a day for 3 days, 1 tab a day for 3 days Start: 10-28-2023 End: 03-23-2024 take 40 mg by mouth once daily in the morning Prednisone Discontinued 40 MG PO Every morning 6 3 December 19, 2023 12:00am March 23, 2024 1:32pm Start: 04-16-2023 End: 10-28-2023 take 50 mg by mouth once daily Prednisone Discontinued 50 MG PO Daily 5 5 April 16, 2023 12:00am October 28, 2023 3:53am Start: 01-30-2022 End: 02-26-2022 Prednisone Discontinued 0 MG .ROUTE .COMPLEX 39 January 30, 2022 12:00am February 26, 2022 12:26pm 6 tabs for 3 days 4 tabs for 3 days 2 tabs for 3 days 1 tabs for 3 days Start: 02-03-2021 End: 02-25-2021 take 60 mg by mouth once daily Prednisone Discontinued 60 MG PO Daily 12 4 February 03, 2021 12:00am February 25, 2021 1:25pm Start: 12-19-2020 End: 10-14-2021 take 40 mg by mouth once daily Prednisone Discontinued 40 MG PO Daily 06 03February 25, 2021 12:00am October 14, 2021 7:51pm [...] Sig (Original) acetaminophen 500 mg oral tablet (8 sources) Start: 09-04-2018 End: 07-14-2019 take 1000 mg by mouth every four hours Acetaminophen Discontinued 1000 MG PO Q4H September 04, 2018 1:00am July 14, 2019 2:15pm acetaminophen 325 mg / HYDROcodone bitartrate 5 mg oral tablet (16 sources) Opioid Agonist Start: 09-04-2018 End: 09-09-2018 take 1 tablet by mouth every six hours Hydrocodone-Acetami nophen ([place]) 5-325 mg tablet Discontinued 1 TAB PO Q6H 20 September 04, 2018 September 09, 2018 1:02am Start: 12-02-2017 End: 12-07-2017 take 1 tablet by mouth four times daily Hydrocodone-Acetaminophen ([place]) 5-325 mg tablet Discontinued 1 TAB PO Four times daily 14 December 02, 2017 December 07, 2017 12:01am acetaminophen 325 mg / oxyCODONE hydrochloride 5 mg oral tablet (6 sources) Opioid Agonist Start: 12-19-2023 End: 06-05-2024 take 1 tablet by mouth every six hours Oxycodone-Acetaminophen (Percocet) 5-325 mg tablet Discontinued 1 - 2 TAB PO Every 6 hours 21 01December 19, 2023 June 05, 2024 7:25am [id number] 200 actuat albuterol 0.09 mg/actuat metered dose inhaler (20 sources) beta2-Adrene rgic Agonist Start: 10-28-2023 End: 06-05-2024 Albuterol Sulfate Discontinued 2 INH INHALATION EVERY 4-6 HOURS October 28, 2023 1:00am June 05, 2024 7:25am administer with spacer Start: 07-16-2019 End: 02-25-2021 Albuterol Sulfate Discontinu ed 1 INH INHALATION EVERY 4-6 HOURS July [...] 26, 2018 12:00am February 08, 2018 12:13am cephalexin 500 mg oral capsule (20 sources) Cephalosporin Antibacterial Start: 01-09-2023 End: 04-16-2023 [...] 4:41pm diphenhydrAMINE hydrochloride 25 mg oral capsule (8 sources) Histamine-1 Receptor Antagonist Start: 01-30-2022 End: 02-26-2022 Diphenhydramine Hcl Discontinued 50 MG PO every 6 to 8 hours January 30, 2022 12:00am February 26, 2022 12:26pm docusate sodium 100 mg oral capsule (8 sources) Start: 09-04-2018 End: 11-07-2018 take 100 mg by mouth once daily at bedtime Docusate Sodium Discontinued 100 MG PO Daily at bedtime September 04, 2018 1:00am November 07, 2018 3:36pm docusate sodium 50 mg / sennosides, penitent[facility] 8.6 mg oral tablet (6 sources) Start: 12-19-2023 End: 06-05-2024 take 2 tablets by mouth once daily at bedtime Sennosides-Docusate Sodium (Senna Plus) 8.6-50 mg tablet Discontinued 2 TAB PO Daily at bedtime December 19, 2023 12:00am June 05, 2024 7:25am doxycycline hyclate 100 mg oral tablet (8 sources) Tetracycline-clas s Drug Start: 02-02-2022 End: 02-26-2022 take 100 mg by mouth twice daily Doxycycline Hyclate Discontinued 100 MG PO Twice daily February 02, 2022 12:00am February 26, 2022 12:26pm ferrous sulfate 325 mg oral tablet (8 sources) Start: 07-26-2018 End: 11-07-2018 take 325 mg by mouth once daily Ferrous Sulfate Discontinued 325 MG PO Daily July 26, 2018 1:00am November 07, 2018 3:36pm ibuprofen 600 mg oral tablet (16 sources) Nonsteroidal Anti-inflammatory Drug Start: 09-04-2018 End: 07-14-2019 take 600 mg by mouth every six hours Ibuprofen Discontinued 600 MG PO Every 6 hours September 04, 2018 1:00am July 14, 2019 2:15pm Start: 12-02-2017 End: 02-08-2018 take 800 mg by mouth three times daily Ibuprofen Discontinued 800 MG PO Three times daily December 02, 2017 1:40pm February 08, 2018 12:13am loratadine 10 mg oral tablet (8 sources) Start: 10-14-2021 End: 01-30-2022 take 1 tablet by mouth once daily Loratadine (Claritin) 10 mg tablet Discontinued 10 MG PO Daily October 14, 2021 1:00am January 30, 2022 5:46pm meloxicam 7.5 mg oral tablet (6 sources) Nonsteroidal Anti-inflammatory Drug Start: 12-19-2023 End: 06-05-2024 take 7.5 mg by mouth once daily Meloxicam Discontinued 7.5 MG PO Daily December 19, 2023 12:00am June 05, 2024 7:25am methocarbamol 750 mg oral tablet (8 sources) Muscle Relaxant Start: 02-25-2021 End: 10-14-2021 take 750 mg by mouth every eight hours Methocarbamol Discontinued 750 MG PO Q8H 15 February 25, 2021 12:00am October 14, 2021 7:51pm metoclopramide 10 mg oral tablet (8 sources) Dopamine-2 Receptor Antagonist Start: 02-08-2018 End: 03-06-2018 take 10 mg by mouth every eight hours Metoclopramide Hcl Discontinued 10 MG PO Q8H February 08, 2018 12:00am March 06, 2018 4:41pm naproxen 500 mg oral tablet (17 sources) Nonsteroidal Anti-inflammatory Drug Start: 07-10-2022 End: 10-28-2023 take 1 tablet by mouth twice daily Naproxen (Naprosyn) 500 mg tablet Discontinued 500 MG PO Twice daily 10 April 16, 2023 12:00am October 28, 2023 3:52am take 1 tablet by mouth every twe lve hours Naproxen 250 MG 1 tablet with food or milk Orally Twice a day Active oseltamivir 75 mg oral capsule (6 sources) Neuraminidase Inhibitor Start: 10-28-2023 End: 12-19-2023 take 1 capsule by mouth every twelve hours Oseltamivir (Tamiflu) 75 mg capsule Discontinued 75 MG PO Q12H 10 October 28, 2023 1:00am December 19, 2023 11:13pm oxyCODONE hydrochloride 5 mg oral tablet (7 sources) Opioid Agonist Start: 04-16-2023 End: 10-28-2023 take 5 mg by mouth once daily Oxycodone Discontinued 5 MG PO Daily 5 April 16, 2023 October 28, 2023 3:52am [id number] Fumarate-Fa () 28-800 mg-mcg Tablet (8 sources) Start: 01-26-2018 End: 11-07-2018 take 1 tablet by mouth once daily [id number] Fumarate-Fa () 28-800 mg-mcg Tablet Discontinued 1 TAB PO Daily January 26, 2018 12:00am November 07, 2018 3:36pm Start: 01-26-2018 End: 11-07-2018 take 1 tablet by mouth once daily [id number] Fumarate-Fa () 28-800 mg-mcg Tablet Discontinued 1 TAB PO Daily January 25, 2018 11:00pm November 07, 2018 2:36pm promethazine hydrochloride 25 mg oral tablet (16 sources) Phenothiazine Start: 03-03-2020 End: 12-19-2020 take 25 mg by mouth three times daily Promethazine Discontinued 25 MG PO Three times daily March 03, 2020 12:00am December 19, 2020 4:06pm Start: 01-26-2018 End: 02-08-2018 take 25 mg by mouth three times daily Promethazine Discontinued 25 MG PO Three times daily January 26, 2018 12:00am February 08, 2018 12:13am topiramate 50 mg oral tablet (8 sources) Start: 07-14-2019 End: 12-19-2020 take 1 [...] Da te Episodic/Chronic Abdominal pain (1 source) Epigastric pain; Translations: [Epigastric pain] Onset: 4 Episodic Allergic reactions (8 sources) Contact dermatitis due to poison fozia; Translations: [Allergic contact dermatitis due to plants, except food] 01-30-2022 Episodic Asthma (8 sources) Asthma 07-14-2019 Chronic obstructive pulmonary disease and bronchiectasis (8 sources) Bronchitis; Translations: [Bronchitis, not specified as acute or chronic] 02-03-2021 Episodic Fluid and electrolyte disorders (16 sources) Metabolic acidosis; Translations: [Metabolic acidosis] 07-14-2019 Episodic Headache; including migraine (9 sources) Migraine; Translations: [Migraine, unspecified, not intractable, without status migrainosus] Onset: 3 12-19-2020 Chronic Headache; including migraine (8 sources) Headache; Translations: [Headache] 03-03-2020 Episodic Headache; including migraine (3 sources) Headache; including migraine; Translations: [HEADACHE UNSPECIFIED] Onset: 3 Influenza (6 sources) Influenza due to Influenza B virus; Translations: [Influenza due to other identified influenza virus with other respiratory manifestations] 11-05-2023 Episodic Nausea and vomiting (2 sources) Nausea and vomiting; Translations: [Nausea with vomiting, unspecified] 06-05-2024 Episodic Other gastrointestinal disorders (7 sources) Constipation; Translations: [Constipation, unspecified] 01-09-2023 Episodic Other lower respiratory disease (1 source) Wheezing; Translations: [Wheezing] Onset: 4 Episodic Other nervous system disorders (2 sources) Chronic pain; Translations: [Other chronic pain] Chronic Other nervous system disorders (1 source) Other chronic pain; Translations: [Chronic pain G89.29] Onset: 1 Resolved: 1 Chronic Other non-traumatic joint disorders (8 sources) Pain in unspecified knee; Translations: [Acute knee pain] 12-02-2017 Episodic Other skin disorders (8 sources) Eruption; Translations: [Rash and other nonspecific skin eruption] 02-02-2022 Episodic Other upper respiratory infections (1 source) Sinusitis; Translations: [Chronic sinusitis, unspecified] 06-06-2024 Chronic Other upper respiratory infections (9 sources) Upper respiratory infection; Translations: [Acute upper respiratory infection, unspecified] Onset: 3 01-23-2020 Episodic Phlebitis; thrombophlebitis and thromboembolism (8 sources) Superficial thrombophlebitis; Translations: [Phlebitis and thrombophlebitis of unspecified site] 11-06-2019 Episodic Spondylosis; intervertebral disc disorders; other back problems (20 sources) Solitary sacroiliitis; Translations: [Sacroiliitis, not elsewhere classified] Onset: 1 Resolved: 1 Chronic Sprains and strains (17 sources) Sprain of knee; Translations: [Sprain of unspecified site of unspecified knee, initial encounter] Onset: 2 12-07-2017 Episodic Substance-related disorders (1 source) Nicotine dependence, cigarettes, uncomplicated; Translations: [NICOTINE DEPEND CIGARETTES UNCOMP] Onset: 3 Chronic Superficial injury; contusion (9 sources) Contusion of hand; Translations: [Contusion of unspecified hand, initial encounter] Onset: 2 07-10-2022 Episodic Unclassified (3 sources) COUGH, UNSPECIFIED; Translations: [COUGH, UNSPECIFIED] Onset: 3 Unclassified (1 source) CONTACT W/AND (SUSP) EXPOS COVID-19; Translations: [CONTACT W/AND (SUSP) EXPOS COVID-19] Onset: 3 Urinary tract infections (7 sources) Urinary tract infectious disease; Translations: [Urinary tract infection, site not specified] 01-09-2023 Episodic Viral infection (16 sources) Viral disease; Translations: [Viral infection, unspecified] 02-26-2022 Episodic Past or Other Problems Problem Classification Problem Date Documented Da te Episodic/Chronic E Codes: Struck by; against (1 source) Walked into wall, initial encounter; Translations: [WALKED INTO WALL INITIAL ENCOUNTER] Onset: 07-27-2022 Episodic Inflammation; infection of eye (except that caused by tuberculosis or sexually transmitteddisease) (1 source) Unspecified conjunctivitis; Translations: [UNSPECIFIED CONJUNCTIVITIS] Onset: 07-01-2022 Episodic Other aftercare (1 source) Other senior care (current) drug therapy; Translations: [OTH FCI CURRENT DRUG THERAPY] Onset: 02-18-2022 Episodic Other connective tissue disease (3 sources) Pain in right hand; Translations: [PAIN IN RIGHT HAND] Onset: 07-21-2022 Episodic Other eye disorders (3 sources) Other specified disorders of eye and adnexa; Translations: [OTHER SPEC DISORDERS EYE AND ADNEXA] Onset: 06-30-2022 Episodic Other lower respiratory disease (1 source) Shortness of breath; Translations: [Shortness of breath] Onset: 10-28-2023 Episodic Screening and history of mental health and substance abuse codes (1 source) Personal history of nicotine dependence; Translations: [PERSONAL HISTORY OF NICOTINE DEPEND] Onset: 02-18-2022 Episodic Spondylosis; intervertebral disc disorders; other back problems (20 sources) Backache; Translations: [Dorsalgia, unspecified] Onset: 12-19-2023 04-16-2023 Episodic Unclassified (1 source) COUGH, UNSPECIFIED; Translations: [COUGH, UNSPECIFIED] Onset: 09-21-2022 Results Test Name Value Interpretation Reference Range Facility COVID CepheidOrdered By: Chad Montero on 06-06-2024 SARS-CoV-2 (COVID-19) Ab IA Ql Negative Negative [facility] Comment on above: This is a duplicate Cepheid Xpert Xpress CoV-2/Flu/RSV Plus RNA by RT-PCR result to be used for statistical tracking purpose only. SARS-CoV-2 (COVID-19) RNA AFSHAN+probe Ql (Unsp spec) [facility] COVID-19 / Flu A/B / RSV PCR on 06-06-2024 SARS-CoV-2 (COVID-19) RNA AFSHAN+probe Ql (Unsp spec) [...] or Cepheid Disclaimer revoked sooner. PERFORMED BY: [place] [address] PATHOLOGIST MEDICAL RECORDS CODER MCKENZIE HERNÁNDEZ M.D. Normal [facility] Comment on above: Performed By: #### C EPHEID NEG, COVID19 FLU RSV #### [address] [address] [facility] Cepheid COVID PCR Negativeon 06-06-2024 SARS-CoV-2 (COVID-19) RNA AFSHAN+probe Ql (Unsp spec) Negative Normal Negative [facility] Comment on above: Result Comment: This is a duplicate Cepheid Xpert Xpress CoV-2/Flu/RSV Plus RNA by RT-PCR result to be used for statistical tracking purpose only. PERFORMED BY: [place] [address] PATHOLOGIST MEDICAL RECORDS CODER MCKENZIE HERNÁNDEZ M.D. Performed By: #### C EPHEID NEG, COVID19 FLU RSV #### [place] [id number] [facility] Alanine aminotransferase [En zymatic activity/volume] in Serum or PlasmaOrdered By: Pinky Bocanegra on 06-05-2024 ALT [Catalytic activity/Vol] 53 U/L High 7-52 [facility] Comment on above: Performed By: #### L IPASE, CMP, CBC, HCGQUAL #### [facility] [address] [place] [id number] [place] Albumin [Mass/volume] in Ser um or Plasma by Bromocresol green (BCG) dye binding methoOrdered By: Pinky Bocanegra on 06-05-2024 Albumin BCG dye [Mass/Vol] 3.9 g/dL 3.5-5.7 [facility] Alkaline phosphatase [Enzyma tic activity/volume] in Serum or PlasmaOrdered By: Pinky Bocanegra on 06-05-2024 ALP [Catalytic activity/Vol] 48 U/L Normal 34-104 [facility] Comment on above: Performed By: #### L IPASE, CMP, CBC, HCGQUAL #### [address] Aspartate aminotransferase [ Enzymatic activity/volume] in Serum or PlasmaOrdered By: Pinky Bocanegra on 06-05-2024 AST [Catalytic activity/Vol] 55 U/L High 13-39 [facility] Comment on above: Performed By: #### L IPASE, CMP, CBC, HCGQUAL #### [address] Automated basophil %Ordered By: Pinky Bocanegra on 06-05-2024 Basophils/100 WBC (Bld) 0.5 % Normal . [facility] Comment on above: Performed By: #### L IPASE, CMP, CBC, HCGQUAL #### [address] Automated basophil countOrde red By: Pinky Bocanegra on 06-05-2024 Basophils (Bld) [#/Vol] 0.0 10*3/uL Normal 0.0-0.2 [facility] Comment on above: Result Comment: PERF ORMED BY: [address] [place] [address] PATHOLOGIST MEDICAL RECORDS CODER MCKENZIE HERNÁNDEZ M.D. Performed By: #### L IPASE, CMP, CBC, HCGQUAL #### [address] Automated blood monocyte cou ntOrdered By: Pinky Bocanegra on 06-05-2024 Monocytes (Bld) [#/Vol] 0.3 10*3/uL Normal 0.0-0.8 [facility] Comment on above: Performed By: #### L IPASE, CMP, CBC, HCGQUAL #### [address] Automated eosinophil %Ordere d By: Pinky Bocanegra on 06-05-2024 Eosinophils/100 WBC (Bld) 1.4 % Normal . [facility] Comment on above: Performed By: #### L IPASE, CMP, CBC, HCGQUAL #### [facility] [address] [place] [address] [place] Automated eosinophil countOr dered By: Pinky Bocanegra on 06-05-2024 Eosinophils (Bld) [#/Vol] 0.1 10*3/uL Normal 0.0-0.45 [facility] Comment on above: Performed By: #### L IPASE, CMP, CBC, HCGQUAL #### [address] Automated monocyte %Ordered By: Pinky Bocanegra on 06-05-2024 Monocytes/100 WBC (Bld) 5.5 % Normal . [facility] Comment on above: Performed By: #### L IPASE, CMP, CBC, HCGQUAL #### [address] Automated neutrophil %Ordere d By: Pinky Bocanegra on 06-05-2024 Neutrophils/100 WBC (Bld) 67.6 % Normal . [facility] Comment on above: Performed By: #### L IPASE, CMP, CBC, HCGQUAL #### [address] Bacteria [Presence] in Urine by AutomatedOrdered By: Pinky Bocanegra on 06-05-2024 Bacteria Auto Ql (U) None seen [HPF] None Seen [facility] Bilirubin Test strip Ql (U)O rdered By: Pinky Bocanegra on 06-05-2024 Bilirubin Ql (U) Negative Negative [facility] Bilirubin.total [Mass/volume ] in Serum or PlasmaOrdered By: Pinky Bocanegra on 06-05-2024 Bilirubin [Mass/Vol] 0.4 mg/dL Normal 0.3-1.0 [facility] Comment on above: Performed By: #### L IPASE, CMP, CBC, HCGQUAL #### [facility] [address] [place] [address] [place] Calcium [Mass/volume] in Ser um or PlasmaOrdered By: Pinky Bocanegra on 06-05-2024 Calcium [Mass/Vol] 8.7 mg/dL Normal 8.6-10.3 [facility] Comment on above: Performed By: #### L IPASE, CMP, CBC, HCGQUAL #### [facility] [address] Carbon dioxide, total [Moles /volume] in Serum or PlasmaOrdered By: Pinky Bocanegra on 06-05-2024 CO2 [Moles/Vol] 27.4 mmol/L Normal 21.0-31.0 [facility] Comment on above: Performed By: #### L IPASE, CMP, CBC, HCGQUAL #### [facility] [address] [place] [address] [place] Chloride [Moles/volume] in S lupe or PlasmaOrdered By: Pinky Bocanegra on 06-05-2024 Chloride [Moles/Vol] 108 mmol/L High 98-107 [facility] Comment on above: Performed By: #### L IPASE, CMP, CBC, HCGQUAL #### [address] Choriogonadotropin.beta subu nit [Units/volume] in Serum or PlasmaOrdered By: Pinky Bocanegra on 06-05-2024 HCG.beta subunit Qn Negative [facility] Color of Urine by AutoOrdere d By: Pinky Bocanegra on 06-05-2024 Color (U) Yellow Normal Yellow [facility] Comment on above: Order Comment: Name Collection Type:: Clean-Voided Midstream Performed By: #### C EPHEID NEG, COVID19 FLU RSV #### [place] [address] [place] Complete Blood Count Auto Di ffon 06-05-2024 Mean Corpuscular HGB Conc 35.1 g/dL High 32.0-35.0 [facility] Comment on above: Performed By: #### L IPASE, CMP, CBC, HCGQUAL #### [facility] [address] [place] [address] [place] Monocytes/100 WBC (Bld) 15.64 % Normal 0.00-20.00 [facility] Comment on above: Performed By: #### L IPASE, CMP, CBC, HCGQUAL #### [address] NRBC% 0.0 /100{WBC} Normal 0-0.5 [facility] Comment on above: Performed By: #### L IPASE, CMP, CBC, HCGQUAL #### [address] Comprehensive Metabolic Pane jaylin 06-05-2024 Albumin [Mass/Vol] 3.9 g/dL Normal 3.5-5.7 [facility] Comment on above: Performed By: #### L IPASE, CMP, CBC, HCGQUAL #### [address] Creatinine Clr Calc Pharmacy 133.29 Normal [facility] Comment on above: Performed By: #### L IPASE, CMP, CBC, HCGQUAL #### [address] GFR/1.73 sq M.predicted MDRD (S/P/Bld) [Vol rate/Area] mL/min/{1.73_m2} Normal [facility] Comment on above: Performed By: #### L IPASE, CMP, CBC, HCGQUAL #### [address] Creatinine [Mass/volume] in Serum or PlasmaOrdered By: Pinky Bocanegra on 06-05-2024 Creatinine [Mass/Vol] 0.74 mg/dL Normal 0.60-1.20 [facility] Comment on above: Performed By: #### L IPASE, CMP, CBC, HCGQUAL #### [address] Dipstick and Microscopicon 1 Bacteria,Urine None Seen Normal None Seen [facility] Comment on above: Order Comment: Name Collection Type:: Clean-Voided Midstream Performed By: #### C EPHEID NEG, COVID19 FLU RSV #### [address] Bilirubin,Urine Negative Normal Negative [facility] Comment on above: Order Comment: Name Collection Type:: Clean-Voided Midstream Performed By: #### C EPHEID NEG, COVID19 FLU RSV #### [address] Glucose Ql (U) Normal Normal Normal [facility] Comment on above: Order Comment: Name Collection Type:: Clean-Voided Midstream Performed By: #### C EPHEID NEG, COVID19 FLU RSV #### [place] [address] [place] Hyaline Casts,Urine None Normal 0-8 [facility] Comment on above: Order Comment: Name Collection Type:: Clean-Voided Midstream Performed By: #### C EPHEID NEG, COVID19 FLU RSV #### [place] [address] [place] Mucus,Urine Rare Normal [facility] Comment on above: Order Comment: Name Collection Type:: Clean-Voided Midstream Result Comment: PERF ORMED BY: [place] [address] PATHOLOGIST MEDICAL RECORDS CODER MCKENZIE HERNÁNDEZ M.D. Performed By: #### C EPHEID NEG, COVID19 FLU RSV #### [address] Nitrite,Urine Negative Normal Negative [facility] Comment on above: Order Comment: Name Collection Type:: Clean-Voided Midstream Performed By: #### C EPHEID NEG, COVID19 FLU RSV #### [place] [address] [place] Occult Blood,Urine 3+ High Negative [facility] Comment on above: Order Comment: Name Collection Type:: Clean-Voided Midstream Result Comment: PERF ORMED BY: [place] [address] PATHOLOGIST MEDICAL RECORDS CODER MCKENZIE HERNÁNDEZ M.D. Performed By: #### C EPHEID NEG, COVID19 FLU RSV #### [address] RBC,Urine Innumerable High 0-4 [facility] Comment on above: Order Comment: Name Collection Type:: Clean-Voided Midstream Performed By: #### C EPHEID NEG, COVID19 FLU RSV #### [address] Specificy [place],Urine 1.023 Normal 1.001-1.030 [facility] Comment on above: Order Comment: Name Collection Type:: Clean-Voided Midstream Performed By: #### C EPHEID NEG, COVID19 FLU RSV #### [address] Squamous Epithelial Cell,Urine 10-19 High 0-2 [facility] Comment on above: Order Comment: Name Collection Type:: Clean-Voided Midstream Performed By: #### C EPHEID NEG, COVID19 FLU RSV #### [address] Urobilinogen,Urine 4 mg/dL High Normal [facility] Comment on above: Order Comment: Name Collection Type:: Clean-Voided Midstream Performed By: #### C EPHEID NEG, COVID19 FLU RSV #### [address] WBC [place], Urine Occasional High None Seen [facility] Comment on above: Order Comment: Name Collection Type:: Clean-Voided Midstream Performed By: #### C EPHEID NEG, COVID19 FLU RSV #### [address] WBC,Urine 20-49 High 0-4 [facility] Comment on above: Order Comment: Name Collection Type:: Clean-Voided Midstream Performed By: #### C EPHEID NEG, COVID19 FLU RSV #### [address] ECG 12 lead ECGon 06-05-2024 ECG 12 lead ECG [facility] Main [place] [address] [place] [address] Electrocardiograph Report Signed Patient: Hellen Mcgill MR#: [id number] 5 : 1985 Acct:[id number] Age/Sex: 39 / F ADM Date: 06/05/24 Loc: ER Room: Type: [facility] ER Attending Dr: Ordering Provider: Pinky Bocanegra DO Date of Service: 06/05/2403/22/811 ECG/ECG 12 lead ECG: Nausea/Vomiting/Lissette rrhea Copies to: Test Reason : Blood Pressure : 151/81 mmHG Vent. Rate : 42 BPM Atrial Rate : 42 BPM P-R Int : 140 ms QRS Dur : 76 ms QT Int : 496 ms P-R-T Axes : 27 67 54 degrees QTcB Int : 414 ms Marked sinus bradycardia Confirmed by Omar Pham DO ([id number]) on 06/05/2024 8:26:52 PM Referred By: Electronically Signed By: Omar Pham DO Transcribed By: MUS Signed By Omar Pham DO 2025 Normal [facility] Epithelial cells.squamous [# /area] in Urine sediment by Automated countOrdered By: Pinky Bocanegra on 06-05-2024 Epithelial cells.squamous Auto (Urine sed) [#/Area] 10-19 [HPF] High 0-2 [facility] Erythrocyte distribution wid th [Ratio] by Automated countOrdered By: Pinky Bocanegra on 06-05-2024 Erythrocyte distribution width (RBC) [Ratio] 13.6 % Normal 11.9-15.3 [facility] Comment on above: Performed By: #### L IPASE, CMP, CBC, HCGQUAL #### [facility] [address] [place] [address] Erythrocytes [#/area] in Uri ne sediment by Automated countOrdered By: Pinky Bocanegra on 06-05-2024 RBC Auto (Urine sed) [#/Area] Innumerable [HPF] High 0-4 [facility] Erythrocytes [#/volume] in B lood by Automated countOrdered By: Pinky Bocanegra on 06-05-2024 RBC (Bld) [#/Vol] 3.88 10*6/uL Normal 3.60-5.00 [facility] Comment on above: Performed By: #### L IPASE, CMP, CBC, HCGQUAL #### [facility] [address] [place] [address] [place] Glucose [Mass/volume] in Ser um or PlasmaOrdered By: Pinky Bocanegra on 06-05-2024 Glucose [Mass/Vol] 99 mg/dL Normal 70-100 [facility] Comment on above: ADA recommended refe rence rangeRandom Glucose Reference Range is dependent on time and content of last meal. Glucose of more than 200 mg/dL in a nonstressed, ambulatory subject supports the diagnosis of Diabetes Mellitus. Result Comment: [place] om Glucose Reference Range is dependent on time and content of last meal. Glucose of more than 200 mg/dL in a nonstressed, ambulatory subject supports the diagnosis of Diabetes Mellitus. ADA recommended reference range Performed By: #### L IPASE, CMP, CBC, HCGQUAL #### [place] [address] [place] Glucose [Mass/volume] in Uri ne by Test stripOrdered By: Pinky Bocanegra on 06-05-2024 Glucose Test strip (U) [Mass/Vol] Normal mg/dL Normal [facility] HCG,Qualitative Serumon HCG,Qualitative Serum Negative Normal [facility] Comment on above: Result Comment: PERF ORMED BY: [place] [address] PATHOLOGIST MEDICAL RECORDS CODER MCKENZIE HERNÁNDEZ M.D. Performed By: #### C EPHEID NEG, COVID19 FLU RSV #### [place] [address] [place] Hematocrit [Volume Fraction] of Blood by Automated countOrdered By: Pinky Bocanegra on 06-05-2024 Hematocrit (Bld) [Volume fraction] 35.3 % Normal 34.0-46.4 [facility] Comment on above: Performed By: #### L IPASE, CMP, CBC, HCGQUAL #### [address] Hemoglobin Test strip Ql (U) Ordered By: Pinky Bocanegra on 06-05-2024 Hemoglobin Ql (U) 3+ High Negative [facility] Hemoglobin [Mass/volume] in BloodOrdered By: Pinky Bocanegra on 06-05-2024 Hemoglobin (Bld) [Mass/Vol] 12.4 g/dL Normal 11.8-15.4 [facility] Comment on above: Performed By: #### L IPASE, CMP, CBC, HCGQUAL #### [facility] [address] [place] [address] [place] Hyaline casts [#/area] in Ur ine sediment by Automated countOrdered By: Pinky Bocanegra on 06-05-2024 Hyaline casts Auto (Urine sed) [#/Area] None [LPF] 0-8 [facility] Ketones [Presence] in Urine by Test stripOrdered By: Pinky Bocanegra on 06-05-2024 Ketones Ql (U) Negative Normal Negative [facility] Comment on above: Order Comment: Name Collection Type:: Clean-Voided Midstream Performed By: #### C EPHEID NEG, COVID19 FLU RSV #### [place] [address] [place] Leukocyte clumps [Presence] in Urine by AutomatedOrdered By: Pinky Bocanegra on 06-05-2024 Leukocyte clumps Auto Ql (U) Occasional [LPF] High None Seen [facility] Leukocyte esterase [Presence ] in Urine by Test stripOrdered By: Pinky Bocanegra on 06-05-2024 Leukocyte esterase Test strip Ql (U) 2+ High Negative [facility] Comment on above: Order Comment: Name Collection Type:: Clean-Voided Midstream Performed By: #### C EPHEID NEG, COVID19 FLU RSV #### [place] [address] [place] Leukocytes [#/area] in Urine sediment by Automated countOrdered By: Pinky Bocanegra on 06-05-2024 WBC Auto (Urine sed) [#/Area] 20-49 [HPF] High 0-4 [facility] Leukocytes [#/volume] correc jose francisco for nucleated erythrocytes in Blood by Automated counOrdered By: Pinky Bocanegra on 06-05-2024 WBC corrected for nucl RBC Auto (Bld) [#/Vol] 5.9 10*3/uL 3.8-11.6 [facility] Leukocytes [#/volume] in Blo od by Automated countOrdered By: Pinky Bocanegra on 06-05-2024 WBC (Bld) [#/Vol] 5.9 10*3/uL Normal 3.8-11.6 [facility] Comment on above: Performed By: #### L IPASE, CMP, CBC, HCGQUAL #### [facility] [address] [place] [address] [place] Lipase [Enzymatic activity/v olume] in Serum or PlasmaOrdered By: Pinky Bocanegra on 06-05-2024 Lipase [Catalytic activity/Vol] 18.0 U/L Normal 11.0-82.0 [facility] Comment on above: Performed By: #### C EPHEID NEG, COVID19 FLU RSV #### [facility] [address] [place] [address] [place] Lymphocytes [#/volume] in Bl ood by Automated countOrdered By: Pinky Bocanegra on 06-05-2024 Lymphocytes (Bld) [#/Vol] 1.5 10*3/uL Normal 1.00-4.8 [facility] Comment on above: Performed By: #### L IPASE, CMP, CBC, HCGQUAL #### [place] [address] [place] Lymphocytes/100 leukocytes i n Blood by Automated countOrdered By: Pinky Bocanegra on 06-05-2024 Lymphocytes/100 WBC (Bld) 25.0 % Normal . [facility] Comment on above: Performed By: #### L IPASE, CMP, CBC, HCGQUAL #### [facility] [address] [place] [address] [place] MCH [Entitic mass] by Automa jose francisco countOrdered By: Pinky Bocanegra on 06-05-2024 MCH (RBC) [Entitic mass] 31.9 pg Normal 24.7-34.3 [facility] Comment on above: Performed By: #### L IPASE, CMP, CBC, HCGQUAL #### [place] [id number] [place] MCHC Auto (RBC) [Mass/Vol]Or dered By: Pinky Bocanegra on 06-05-2024 MCHC (RBC) [Mass/Vol] 35.1 g/dL High 32.0-35.0 [facility] MCV [Entitic volume] by Auto mated countOrdered By: Pinky Bocanegra on 06-05-2024 MCV (RBC) [Entitic vol] 91.0 fL Normal 80-100 [facility] Comment on above: Performed By: #### L IPASE, CMP, CBC, HCGQUAL #### [facility] [address] [place] [address] Monocyte distribution width [Entitic volume] in Blood by AutomatedOrdered By: Pinky Bocanegra on 06-05-2024 Monocyte distribution width Auto (Bld) [Entitic vol] 15.64 % 0.00-20.00 [facility] Mucus [Presence] in Urine by AutomatedOrdered By: Pinky Bocanegra on 06-05-2024 Mucus Auto Ql (U) Rare [LPF] [facility] Neutrophils [#/volume] in Bl ood by Automated countOrdered By: Pinky Bocanegra on 06-05-2024 Neutrophils (Bld) [#/Vol] 4.0 10*3/uL Normal 1.8-7.7 [facility] Comment on above: Performed By: #### L IPASE, CMP, CBC, HCGQUAL #### [facility] [address] [place] [address] Nitrite Test strip Ql (U)Ord ered By: Pinky Bocanegra on 06-05-2024 Nitrite Ql (U) Negative Negative [facility] No Panel InformationOrdered By: Pinky Bocanegra on 06-05-2024 Estimated GFR (CKD-EPI) > 60.0 mL/Min [facility] Creatinine Clearance (Chem 133.29 [facility] Nucleated erythrocytes [Pres ence] in Blood by Automated countOrdered By: Pinky Bocanegra on 06-05-2024 Nucleated RBC Auto Ql (Bld) 0.0 /100{WBC} 0-0.5 [facility] Platelet mean volume [Entiti c volume] in Blood by Automated countOrdered By: Pinky Bocanegra on 06-05-2024 Platelet mean volume (Bld) [Entitic vol] 7.7 fL Normal 6.3-10.7 [facility] Comment on above: Performed By: #### L IPASE, CMP, CBC, HCGQUAL #### [facility] [address] [place] [address] [place] Platelets [#/volume] in Bloo d by Automated countOrdered By: Pinky Bocanegra on 06-05-2024 Platelets (Bld) [#/Vol] 201 10*3/uL Normal 150-450 [facility] Comment on above: Performed By: #### L IPASE, CMP, CBC, HCGQUAL #### [place] [address] [place] Potassium [Moles/volume] in Serum or PlasmaOrdered By: Pinky Bocanegra on 06-05-2024 Potassium [Moles/Vol] 4.0 mmol/L Normal 3.5-5.1 [facility] Comment on above: Performed By: #### L IPASE, CMP, CBC, HCGQUAL #### [place] [address] [place] Protein [Mass/volume] in Ser um or PlasmaOrdered By: Pinky Bocanegra on 06-05-2024 Protein [Mass/Vol] 6.8 g/dL Normal 6.4-8.9 [facility] Comment on above: Performed By: #### L IPASE, CMP, CBC, HCGQUAL #### [place] [address] [place] Protein [Mass/volume] in Uri ne by Test stripOrdered By: Pinky Bocanegra on 06-05-2024 Protein (U) [Mass/Vol] 20 mg/dL High Negative [facility] Comment on above: Order Comment: Name Collection Type:: Clean-Voided Midstream Performed By: #### C EPHEID NEG, COVID19 FLU RSV #### [address] Serum globulin measurement b y calculation (mass/volume)Ordered By: Pinky Bocanegra on 06-05-2024 Globulin (S) [Mass/Vol] 2.9 g/dL Normal [facility] Comment on above: Performed By: #### L IPASE, CMP, CBC, HCGQUAL #### [facility] [address] Serum or plasma albumin/glob ulin mass ratioOrdered By: Pinky Boacnegra on 06-05-2024 Albumin/Globulin [Mass ratio] 1.3 {ratio} Normal [facility] Comment on above: Performed By: #### L IPASE, CMP, CBC, HCGQUAL #### [facility] [address] [place] [address] Serum or plasma anion gap de terminationOrdered By: Pinky Bocanegra on 06-05-2024 Anion gap [Moles/Vol] 8.6 mmol/L Normal 6.0-15.0 [facility] Comment on above: Performed By: #### L IPASE, CMP, CBC, HCGQUAL #### [facility] [address] [place] [address] Sodium [Moles/volume] in Ser um or PlasmaOrdered By: Pinky Bocanegra on 06-05-2024 Sodium [Moles/Vol] 140 mmol/L Normal 136-145 [facility] Comment on above: Performed By: #### L IPASE, CMP, CBC, HCGQUAL #### [facility] [address] [place] [address] Specific gravity Test strip (U) [Rel density]Ordered By: Pinky Bocanegra on 06-05-2024 Specific gravity (U) [Rel density] 1.023 1.001-1.030 [facility] Urea nitrogen [Mass/volume] in Serum or PlasmaOrdered By: Pinky Bocanegra on 06-05-2024 Urea nitrogen [Mass/Vol] 17 mg/dL Normal 7-25 [facility] Comment on above: Performed By: #### L IPASE, CMP, CBC, HCGQUAL #### [facility] [address] [place] [address] Urine Cultureon 10-07-2024 Bacteria identified Cx Nom (U) 75,000 colonies/ml mixed bacterial skin contaminants 2 Days PERFORMED BY: [place] [address] PATHOLOGIST MEDICAL RECORDS CODER MCKENZIE HERNÁNDEZ M.D. Normal [facility] Comment on above: Performed By: #### C EPHEID NEG, COVID19 FLU RSV #### [facility] [address] [place] [address] Urine appearanceOrdered By: Pinky Bocanegra on 06-05-2024 Appearance (U) Cloudy Critically abnormal Clear [facility] Comment on above: Order Comment: Name Collection Type:: Clean-Voided Midstream Performed By: #### C EPHEID NEG, COVID19 FLU RSV #### [address] Urobilinogen Test strip (U) [Mass/Vol]Ordered By: Pinky Bocanegra on 06-05-2024 Urobilinogen (U) [Mass/Vol] 4 mg/dL High Normal [facility] pH of Urine by Test stripOrd ered By: Pinky Bocanegra on 06-05-2024 pH (U) 8.0 [pH] Normal 5.0-9.0 [facility] Comment on above: Order Comment: Name Collection Type:: Clean-Voided Midstream Performed By: #### C EPHEID NEG, COVID19 FLU RSV #### [address] MR lumbar spine wo conon MR lumbar spine wo con [facility] [place] [address] MRI Report Signed Patient: Hellen Mcgill MR#: [id number] 5 : 1985 Acct:[id number] Age/Sex: 39 / F ADM Date: 02/16/24 Loc: Room: Type: [facility] Attending Dr: Juan Angelo DO Copies to: Juan Angelo DO Ordering Provider: Juan Angelo DO Date of Service: 02/16/24 MR/MR lumbar spine wo con: M51.06 MRI lumbar spine without IV contrast. Reason for exam: Low back pain for one year with bilateral leg pain. COMPARISON: CT lumbar spine 04/15/2023. TECHNIQUE: Multisequence, multiplanar imaging of the lumbar spine was obtained without the use of IV contrast. FINDINGS: Vertebral body heights appear maintained. Scattered presumed hemangiomas are seen. Spinal cord terminates in normal position. No abnormal cord signal is seen. No paraspinal mass. Because retroperitoneum demonstrates no acute findings. Next L1-L2: Facet joint degenerative changes. No posterior disc pathology. No significant canal or neural foraminal stenosis. L2-L3: Facet joint degenerative changes. No posterior disc pathology. Findings are causing mild canal and left-sided mild foraminal stenosis. L3-L4: Facet joint degenerative changes. Mild broad-based disc bulge. Findings are causing mild canal and bilateral neural foraminal stenosis. L4-L5: Facet joint degenerative changes. Diffuse broad-based disc bulge with focal protrusion-type disc herniation present. Findings are causing mild canal as well as mild right and moderate left- sided neural foraminal stenosis. L5-S1: Facet joint degenerative changes. No posterior disc pathology. No canal or neural foraminal stenosis. MR/MR lumbar spine wo con Impression: Multilevel degenerative disease as described above worst at L4-L5. Impression dictated by: Mannie Franco Jr., D.O.02/16/2024 8:55 PM Dictation Location: [place] [address] Transcribed By: [facility] 02/16/242054 Dictated By: Mannie Franco Jr, DO 02/16/242049 Signed By: 02/16/242054 Normal [facility] COVID CepheidOrdered By: Arya Gonzalez on 10-28-2023 SARS-CoV-2 (COVID-19) Ab IA Ql Negative Negative [facility] Comment on above: This is a duplicate Cepheid Xpert Xpress CoV-2/Flu/RSV Plus RNA by RT-PCR result to be used for statistical tracking purpose only. SARS-CoV-2 (COVID-19) RNA AFSHAN+probe Ql (Unsp spec) [facility] COVID-19 / Flu A/B / RSV PCR on 10-28-2023 SARS-CoV-2 (COVID-19) RNA AFSHAN+probe Ql (Unsp spec) COVID-19 Cepheid Result Negative for SARS-CoV-2 RNA by RT-PCR Flu A Cepheid Result Negative for Flu A RNA by RT-PCR Flu B Cepheid Result Positive for Flu B RNA by RT-PCR RSV [...] or Cepheid Disclaimer revoked sooner. PERFORMED BY: [facility] [place] [address] PATHOLOGIST MEDICAL RECORDS CODER MCKENZIE HERNÁNDEZ M.D. Normal [facility] Comment on above: Performed By: #### C EPHEID NEG, COVID19 FLU RSV #### [facility] [address] [place] [address] Cepheid COVID PCR Negativeon 10-28-2023 SARS-CoV-2 (COVID-19) RNA AFSHAN+probe Ql (Unsp spec) Negative Normal Negative [facility] Comment on above: Result Comment: This is a duplicate Cepheid Xpert Xpress CoV-2/Flu/RSV Plus RNA by RT-PCR result to be used for statistical tracking purpose only. PERFORMED BY: [place] [address] PATHOLOGIST MEDICAL RECORDS CODER MCKENZIE HERNÁNDEZ M.D. Performed By: #### C EPHEID NEG, COVID19 FLU RSV #### [address] ECG 12 lead ECGon 10-28-2023 ECG 12 lead ECG [facility] [place] [address] [place] [address] Electrocardiograph Report Signed Patient: Hellen Mcgill MR#: [id number] 5 : 1985 Acct:[id number] Age/Sex: 38 / F ADM Date: 10/28/23 Loc: ER Room: Type: [facility] ER Attending Dr: Ordering Provider: Milana Gonzalez Jr, MD Date of Service: 10/28/23 ECG/ECG 12 lead ECG: Shortness of Breath/Dyspnea Copies to: Test Reason : Blood Pressure : 156/078 mmHG Vent. Rate : 092 BPM Atrial Rate : 092 BPM P-R Int : 148 ms QRS Dur : 082 ms QT Int : 384 ms P-R-T Axes : 074 068 038 degrees QTc Int : 474 ms Normal sinus rhythm Nonspecific ST abnormality Abnormal ECG When compared with ECG of 16-APR-2023 02:06, Vent. rate has increased BY 52 BPM Confirmed by MILANA GONZALEZ MD ([id number]) on 10/28/2023 5:27:33 AM Referred By: Electronically Signed By:MILANA GONZALEZ MD Transcribed By: MUS Signed By Milana Gonzalez Jr, MD 0527 Normal [facility] XR chest 1V portableon XR chest 1V portable [facility] [place] [address] XRay Report Signed Patient: Hellen Mcgill MR#: [id number] 5 : 1985 Acct:[id number] Age/Sex: 38 / F ADM Date: 10/28/23 Loc: ER Room: Type: [facility] Attending Dr: Copies to: Milana Gonzalez Jr, MD Ordering Provider: Milana Gonzalez Jr, MD Date of Service: 10/28/23 XR/XR chest 1V portable: Shortness of Breath/Dyspnea XR chest 1V portable 10/28/2023 2:03 AM SIGNS AND SYMPTOMS: Cough, shortness of breath PROTOCOL: Frontal radiograph of the chest COMPARISON: 02/03/2021 FINDINGS: The trachea is midline. The heart and mediastinal structures are within normal limits. The lung parenchyma is clear. The bony thorax is intact. Degenerative changes are noted in the shoulders. XR/XR chest 1V portable IMPRESSION: No acute cardiopulmonary pathology. Impression dictated by: Marcio Garces M.D.10/28/2023 9:05 AM Dictation Location: [place] [address] Transcribed By: [facility] 10/28/23904 Dictated By: Marcio Garces II, MD 10/28/23903 Signed By: 10/28/23904 Normal [facility] Basophils Auto (Bld) [#/Vol] Ordered By: Omar Pham on 04-16-2023 Basophils (Bld) [#/Vol] 0.0 10*3/uL 0.0-0.2 [facility] Basophils/100 WBC Auto (Bld) Ordered By: Omar Pham on 04-16-2023 Basophils/100 WBC (Bld) 0.5 % . [facility] Calcium [Mass/volume] in Ser um or PlasmaOrdered By: Omar Pham on 04-16-2023 Calcium [Mass/Vol] 9.4 mg/dL 8.6-10.3 [facility] Carbon dioxide, total [Moles /volume] in Serum or PlasmaOrdered By: Omar Pham on 04-16-2023 CO2 [Moles/Vol] 27.7 mmol/L 21.0-31.0 [facility] Chloride [Moles/volume] in S lupe or PlasmaOrdered By: Omar Pham on 04-16-2023 Chloride [Moles/Vol] 104 mmol/L 98-107 [facility] Creatinine [Mass/volume] in Serum or PlasmaOrdered By: Omar Pham on 04-16-2023 Creatinine [Mass/Vol] 0.78 mg/dL 0.60-1.20 [facility] Eosinophils Auto (Bld) [#/Vo l]Ordered By: Omar Pham on 04-16-2023 Eosinophils (Bld) [#/Vol] 0.1 10*3/uL 0.0-0.45 [facility] Eosinophils/100 WBC Auto (Bl d)Ordered By: Omar Pham on 04-16-2023 Eosinophils/100 WBC (Bld) 1.5 % . [facility] Erythrocyte distribution wid th Auto (RBC) [Ratio]Ordered By: Omar Pham on 04-16-2023 Erythrocyte distribution width (RBC) [Ratio] 13.8 % 11.9-15.3 [facility] Glucose [Mass/volume] in Ser um or PlasmaOrdered By: Omar Pham on 04-16-2023 Glucose [Mass/Vol] 104 mg/dL 70-100 [facility] Comment on above: ADA recommended refe rence rangeRandom Glucose Reference Range is dependent on time and content of last meal. Glucose of more than 200 mg/dL in a nonstressed, ambulatory subject supports the diagnosis of Diabetes Mellitus. Hematocrit Auto (Bld) [Volum e fraction]Ordered By: Omar Pham on 04-16-2023 Hematocrit (Bld) [Volume fraction] 37.5 % 34.0-46.4 [facility] Hemoglobin [Mass/volume] in BloodOrdered By: Omar Pham on 04-16-2023 Hemoglobin (Bld) [Mass/Vol] 12.9 g/dL 11.8-15.4 [facility] Leukocytes [#/volume] correc jose francisco for nucleated erythrocytes in Blood by Automated counOrdered By: Omar Pham on 04-16-2023 WBC corrected for nucl RBC Auto (Bld) [#/Vol] 9.1 10*3/uL 3.8-11.6 [facility] Lymphocytes Auto (Bld) [#/Vo l]Ordered By: Omar Pham on 04-16-2023 Lymphocytes (Bld) [#/Vol] 1.3 10*3/uL 1.00-4.8 [facility] Lymphocytes/100 WBC Auto (Bl d)Ordered By: Omar Pham on 04-16-2023 Lymphocytes/100 WBC (Bld) 14.8 % . [facility] MCH Auto (RBC) [Entitic mass ]Ordered By: Omar Pham on 04-16-2023 MCH (RBC) [Entitic mass] 30.8 pg 24.7-34.3 [facility] MCHC Auto (RBC) [Mass/Vol]Or dered By: Omar Pham on 04-16-2023 MCHC (RBC) [Mass/Vol] 34.4 g/dL 32.0-35.0 [facility] MCV Auto (RBC) [Entitic vol] Ordered By: Omar Pham on 04-16-2023 MCV (RBC) [Entitic vol] 89.5 fL 80-100 [facility] Monocyte distribution width [Entitic volume] in Blood by AutomatedOrdered By: Omar Pham on 04-16-2023 Monocyte distribution width Auto (Bld) [Entitic vol] 17.20 % 0.00-20.00 [facility] Monocytes Auto (Bld) [#/Vol] Ordered By: Omar Pham on 04-16-2023 Monocytes (Bld) [#/Vol] 0.5 10*3/uL 0.0-0.8 [facility] Monocytes/100 WBC Auto (Bld) Ordered By: Omar Pham on 04-16-2023 Monocytes/100 WBC (Bld) 6.0 % . [facility] Neutrophils Auto (Bld) [#/Vo l]Ordered By: Omar Pham on 04-16-2023 Neutrophils (Bld) [#/Vol] 7.0 10*3/uL 1.8-7.7 [facility] Neutrophils/100 WBC Auto (Bl d)Ordered By: Omar Pham on 04-16-2023 Neutrophils/100 WBC (Bld) 77.2 % . [facility] No Panel InformationOrdered By: Omar Pham on 04-16-2023 Estimated GFR (CKD-EPI) > 60.0 mL/Min [facility] Creatinine Clearance (Chem 130.11 [facility] Nucleated erythrocytes [Pres ence] in Blood by Automated countOrdered By: Omar Pham on 04-16-2023 Nucleated RBC Auto Ql (Bld) 0.2 /100{WBC} 0-0.5 [facility] Platelet mean volume Auto (B ld) [Entitic vol]Ordered By: Omar Pham on 04-16-2023 Platelet mean volume (Bld) [Entitic vol] 8.0 fL 6.3-10.7 [facility] Platelets Auto (Bld) [#/Vol] Ordered By: Omar Pham on 04-16-2023 Platelets (Bld) [#/Vol] 200 10*3/uL 150-450 [facility] Potassium [Moles/volume] in Serum or PlasmaOrdered By: Omar Pham on 04-16-2023 Potassium [Moles/Vol] 3.6 mmol/L 3.5-5.1 [facility] RBC Auto (Bld) [#/Vol]Ordere d By: Omar Pham on 04-16-2023 RBC (Bld) [#/Vol] 4.19 10*6/uL 3.60-5.00 [facility] Serum or plasma anion gap de terminationOrdered By: Omar Pham on 04-16-2023 Anion gap [Moles/Vol] 11.9 mmol/L 6.0-15.0 [facility] Sodium [Moles/volume] in Ser um or PlasmaOrdered By: Omar Pham on 04-16-2023 Sodium [Moles/Vol] 140 mmol/L 136-145 [facility] Urea nitrogen [Mass/volume] in Serum or PlasmaOrdered By: Omar Pham on 04-16-2023 Urea nitrogen [Mass/Vol] 12 mg/dL 03-23 [facility] WBC Auto (Bld) [#/Vol]Ordere d By: Omar Pham on 04-16-2023 WBC (Bld) [#/Vol] 9.1 10*3/uL 3.8-11.6 [facility]31 SARS-CoV-2 (COVID-19) RNA AFSHAN+probe Ql (Unsp spec) Not detected Normal NOT DETECTED [facility] Comment on above: Result Comment: When diagnostic [...] for this test is supported by the Bul[employer] of Health and Human Service's declaration that [...] used). Performed By: #### C VDTBH #### [facility] [address] [place] [address] Dr. Ping Hernandez GROUP A STREP CULTUREon 08-31 S. pyogenes Ag Ql (Unsp spec) Culture Observations: NEGATIVE FOR GROUP A STREPTOCOCCUS. Normal [facility] Comment on above: Performed By: #### S SCRN, GRASTCX #### [facility] [address] [place] [address] Dr. Ping Hernandez INFLUENZA A AND B AGon 09-21 INFLUANEGH SEE BELOW Normal [facility] Comment on above: Result Comment: Nega tive for Flu A protein angiten. Infection due to Flu A cannot be ruled out. Flu A angiten in the sample may be below the detection limit of the test. Performed By: #### I NFLUAB #### [facility] [address] [place] [address] Dr. Ping Hernandez INFLUBNEGH SEE BELOW Normal [facility] Comment on above: Result Comment: Nega tive for Flu B protein antigen. Infection due to Flu B cannot be ruled out. Flu B antigen in the sample may be below the detection limit of the test. Performed By: #### I NFLUAB #### [facility] [address] [place] [address] Dr. Ping Hernandez INFLUENZA A AG Negative Normal NEGATIVE SEE COMMENT [facility] Comment on above: Performed By: #### I NFLUAB #### [facility] [address] [place] [address] Dr. Ping Hernandez INFLUENZA B AG Negative Normal NEGATIVE SEE COMMENT [place] Comment on above: Performed By: #### I NFLUAB #### [facility] [address] [place] [address] Dr. Ping Hernandez STREPT SCREENon 09-21-2022 STREP SCREEN A Negative Normal NEGATIVE [facility] Comment on above: Performed By: #### S SCRN, GRASTCX #### [facility] [address] [place] [address] Dr. Ping Hernandez XR CHEST 1 Von [...] JENI CORDERO Date: 2022-09-21 19:52 Normal [facility] XR HAND RT MIN 3Von 07-21-20 22 [...] LEONA DICKENS Date: 2022-07-21 19:26 Normal [facility] Automated erythrocytes count in urine sediment (number/area)Ordered By: Omar Pham on 07-10-2022 RBC Auto (Urine sed) [#/Area] 10-19 [HPF] 0-4 [facility] Automated leukocytes count i n urine sediment (number/area)Ordered By: Omar Pham on 07-10-2022 WBC Auto (Urine sed) [#/Area] 10-19 [HPF] 0-4 [facility] Bilirubin Test strip Ql (U)O rdered By: Omar Pham on 07-10-2022 Bilirubin Ql (U) Negative Negative [facility] Color Auto (U)Ordered By: Mandy Pham on 07-10-2022 Color (U) Yellow Yellow [facility] HCG ( test) IA.rapi d Ql (U)Ordered By: Omar Pham on 07-10-2022 HCG ( test) Ql (U) Negative [facility] Ketones Auto test strip (U) [Mass/Vol]Ordered By: Omar Pham on 07-10-2022 Ketones (U) [Mass/Vol] Negative Negative [facility] - UrinalysisOrder ed By: Omar Pham on 07-10-2022 Hyaline casts LM Ql (Urine sed) 0-8 [LPF] 0-8 [facility] Nitrite Test strip Ql (U)Ord ered By: Omar Pham on 07-10-2022 Nitrite Ql (U) Negative Negative [facility] Protein Auto test strip (U) [Mass/Vol]Ordered By: Omar Pham on 07-10-2022 Protein (U) [Mass/Vol] Negative Negative [facility] Specific gravity Auto test s trip (U) [Rel density]Ordered By: Omar Pham on 07-10-2022 Specific gravity (U) [Rel density] 1.010 1.001-1.030 [facility] Squamous epithelial cells de tection in urine sediment by light microscopyOrdered By: Omar Pham on 07-10-2022 Epithelial cells.squamous LM Ql (Urine sed) 10-19 [HPF] 0-2 [facility] Urine bacteria detection by automated methodOrdered By: Omar Pham on 07-10-2022 Bacteria Auto Ql (U) 1+ None Seen [facility] Urine clarity by refractomet ry automatedOrdered By: Omar Pham on 07-10-2022 Clarity Refractometry automated (U) Cloudy Clear [facility] Urine glucose measurement by automated test strip (mass/volume)Ordered By: Omar Pham on 07-10-2022 Glucose Auto test strip (U) [Mass/Vol] Normal mg/dL Normal [facility] Urine hemoglobin detection b y automated test stripOrdered By: Omar Pham on 07-10-2022 Hemoglobin Auto test strip Ql (U) 3+ Negative [facility] Urine leukocyte esterase det ection by automated test stripOrdered By: Omar Pham on 07-10-2022 Leukocyte esterase Auto test strip Ql (U) 1+ Negative [facility] Urobilinogen Auto test strip (U) [Mass/Vol]Ordered By: mOar Pham on 07-10-2022 Urobilinogen (U) [Mass/Vol] Normal mg/dL Normal [facility] pH Auto test strip (U)Ordere d By: Omar Pham on 07-10-2022 pH (U) 5.5 [pH] 5.0-9.0 [facility] ER URINE PROFILEon 2 Bilirubin Ql (U) Negative Normal NEGATIVE [facility] Comment on above: Performed By: #### U MICRO, PREGU, ERUR #### [facility] [address] [place] [address] Dr. Ping Hernandez Clarity (U) CLEAR Normal CLEAR [facility] Comment on above: Performed By: #### U MICRO, PREGU, ERUR #### [facility] [address] [address] [address] Ping Hernandez Color (U) YELLOW Normal YELLOW [facility] Comment on above: Performed By: #### U MICRO, PREGU, ERUR #### [facility] [address] [address] [address] Ping MANN A micrscopic examination will be performed if indicated. Normal [place] Comment on above: Performed By: #### U MICRO, PREGU, ERUR #### [facility] [address] [address] [address] Ping Hernandez Glucose Ql (U) Negative Normal NEGATIVE [facility] Comment on above: Performed By: #### U MICRO, PREGU, ERUR #### [facility] [address] [address] [address] Ping Hernandez Hemoglobin Ql (U) TRACE-INTACT Abnormal NEGATIVE [facility] Comment on above: Performed By: #### U MICRO, PREGU, ERUR #### [facility] [address] [address] [address] Ping Hernandez Ketones Ql (U) Negative Normal NEGATIVE [facility] Comment on above: Performed By: #### U MICRO, PREGU, ERUR #### [facility] [address] [address] [address] Ping Hernandez LEUKOCYTES Negative Normal NEGATIVE [place] Comment on above: Performed By: #### U MICRO, PREGU, ERUR #### [facility] [address] [address] [address] Ping Hernandez Nitrite Ql (U) Negative Normal NEGATIVE [facility] Comment on above: Performed By: #### U MICRO, PREGU, ERUR #### [facility] [address] [address] [address] Ping Hernandez pH (U) 6.5 [pH] Normal 5-9 [place] Comment on above: Performed By: #### U MICRO, PREGU, ERUR #### [facility] [address] [address] [address] Ping Hernandez SPEC GRAVITY 1.020 Normal 1.005-<=1.02 5 [place] Comment on above: Performed By: #### U MICRO, PREGU, ERUR #### [facility] [address] [address] [address] Ping Hernandez UA PROTEIN Negative Normal NEGATIVE/ TRACE [facility] Comment on above: Performed By: #### U MICRO, PREGU, ERUR #### [facility] [address] [address] [address] Ping Hernandez UR MICRO IND INDICATED Normal [facility] Comment on above: Performed By: #### U MICRO, PREGU, ERUR #### [facility] [address] [address] [address] Ping Hernandez Urobilinogen Qn (U) 0.2 {Brian'U}/dL Normal 0.2 - 1. 0 [facility] Comment on above: Performed By: #### U MICRO, PREGU, ERUR #### [facility] [address] [place] [address] Dr. Ping Hernandez URon 02-16-2022 , QUAL Negative Normal NEGATIVE [facility] Comment on above: Performed By: #### U MICRO, PREGU, ERUR #### [facility] [address] [address] [address] Ping Hernandez URINE MICROSCOPIC ONLYon BACTERIA TRACE Abnormal NONE SEEN [facility] Comment on above: Performed By: #### U MICRO, PREGU, ERUR #### [facility] [address] [address] [address] Ping Hernandez Bacteria identified Cx Nom (U) NOT INDICATED Normal [facility] Comment on above: Performed By: #### U MICRO, PREGU, ERUR #### [facility] [address] [address] [address] Ping Hernandez CAST NONE SEEN Normal NONE SEEN [facility] Comment on above: Performed By: #### U MICRO, PREGU, ERUR #### [facility] [address] [address] [address] Ping Hernandez Crystals LM Nom (Urine sed) SEEN Abnormal NONE SEEN [facility] Comment on above: Performed By: #### U MICRO, PREGU, ERUR #### [facility] [address] [address] [address] Ping Hernandez Epithelial cells LM Ql (Urine sed) RARE Normal NONE SEEN /RARE [facility] Comment on above: Performed By: #### U MICRO, PREGU, ERUR #### [facility] [address] [address] [address] Ping Hernandez MUCOUS TRACE Abnormal NONE SEEN [facility] Comment on above: Performed By: #### U MICRO, PREGU, ERUR #### [facility] [address] [address] [address] Ping Hernandez RBC 0-2 Normal 0-2 [facility] Comment on above: Performed By: #### U MICRO, PREGU, ERUR #### [facility] [address] [address] [address] Ping Hernandez WBC NONE SEEN Normal NONE SEEN [facility] Comment on above: Performed By: #### U MICRO, PREGU, ERUR #### [facility] [address] [address] [address] Ping Hernandez Vital Signs Date Time Vital Sign Value Performing Clinician Facility 06-06-2024 20:14-0400 Diastolic blood pressure 71 mm[Hg] [facility] Work Phone: [facility] 06-06-2024 20:14-0400 Heart rate 50 /min [facility] Work Phone: [facility] 06-06-2024 20:14-0400 Respiratory rate 16 /min [facility] Work Phone: [facility] 06-06-2024 20:14-0400 SaO2% (BldA) [Mass fraction] 99 % [facility] Work Phone: [facility] 06-06-2024 20:14-0400 Systolic blood pressure 125 mm[Hg] [employer] Work Phone: [facility] 06-06-2024 18:02-0400 Body height 175.26 cm [facility] Work Phone: [facility] 06-06-2024 18:02-0400 Body temperature 98.1 [degF] [facility] Work Phone: [facility] 06-06-2024 18:02-0400 Body weight 109 kg [facility] Work Phone: [facility] 06-05-2024 09:33-0400 Diastolic blood pressure 81 mm[Hg] [facility] Work Phone: [facility] 06-05-2024 09:33-0400 Heart rate 60 /min [facility] Work Phone: [facility] 06-05-2024 09:33-0400 Respiratory rate 14 /min [facility] Work Phone: [facility] 06-05-2024 09:33-0400 SaO2% (BldA) [Mass fraction] 97 % [facility] Work Phone: [facility] 06-05-2024 09:33-0400 Systolic blood pressure 151 mm[Hg] [facility] Work Phone: [facility] 06-05-2024 07:27-0400 Body height 175.26 cm [facility] Work Phone: [facility] 06-05-2024 07:27-0400 Body temperature 97.8 [degF] [facility] Work Phone: [facility] 06-05-2024 07:27-0400 Body weight 107.5 kg [facility] Work Phone: [facility] 04-20-2024 09:29-0400 Body height 175.26 cm [facility] Work Phone: [facility] 04-20-2024 09:29-0400 Body mass index (BMI) [Ratio] 32.5 kg/m2 [facility] Work Phone: [facility] 04-20-2024 09:29-0400 Body weight 99.9 kg [facility] Work Phone: [facility] 03-23-2024 13:28-0400 Body weight 102.96 kg [facility] Work Phone: [facility] 12-19-2023 22:43-0400 Body height 175.26 cm [facility] Work Phone: [facility] 12-19-2023 22:43-0400 Body weight 107.2 kg [facility] Work Phone: [facility] 12-19-2023 22:40-0400 Body temperature 97.8 [degF] [facility] Work Phone: [facility] 12-19-2023 22:40-0400 Diastolic blood pressure 87 mm[Hg] [facility] Work Phone: [facility] 12-19-2023 22:40-0400 Heart rate 84 /min [facility] Work Phone: [facility] 12-19-2023 22:40-0400 Respiratory rate 18 /min [facility] Work Phone: [facility] 12-19-2023 22:40-0400 SaO2% (BldA) [Mass fraction] 97 % [facility] Work Phone: [facility] 12-19-2023 22:40-0400 Systolic blood pressure 149 mm[Hg] [facility] Work Phone: [facility] 10-28-2023 02:42-0500 Heart rate 108 /min [facility] Work Phone: [facility] 10-28-2023 02:42-0500 Respiratory rate 26 /min [facility] Work Phone: [facility] 10-28-2023 02:42-0500 SaO2% (BldA) [Mass fraction] 98 % [facility] Work Phone: [facility] 10-28-2023 01:25-0500 Body height 175.26 cm [facility] Work Phone: [facility] 10-28-2023 01:25-0500 Body temperature 98 [degF] [facility] Work Phone: [facility] 10-28-2023 01:25-0500 Body weight 106.7 kg [facility] Work Phone: [facility] 10-28-2023 01:25-0500 Diastolic blood pressure 78 mm[Hg] [facility] Work Phone: [facility] 10-28-2023 01:25-0500 Systolic blood pressure 156 mm[Hg] [facility] Work Phone: [facility] 04-16-2023 05:00-0400 Diastolic blood pressure 56 mm[Hg] [facility] Work Phone: [facility] 04-16-2023 05:00-0400 Heart rate 51 /min [facility] Work Phone: [facility] 04-16-2023 05:00-0400 Respiratory rate 19 /min [facility] Work Phone: [facility] 04-16-2023 05:00-0400 SaO2% (BldA) [Mass fraction] 97 % [facility] Work Phone: [facility] 04-16-2023 05:00-0400 Systolic blood pressure 100 mm[Hg] [facility] Work Phone: [facility] 04-15-2023 21:02-0400 Body height 175.26 cm [facility] Work Phone: [facility] 04-15-2023 21:02-0400 Body temperature 98.2 [degF] [facility] Work Phone: [facility] 04-15-2023 21:02-0400 Body weight 111.4 kg [facility] Work Phone: [facility] 07-10-2022 00:48-0500 Body height 175.26 cm [facility] Work Phone: [facility] 07-10-2022 00:48-0500 Body weight 120.2 kg [facility] Work Phone: [facility] 07-10-2022 00:47-0500 Body temperature 98.4 [degF] [facility] Work Phone: [facility] 07-10-2022 00:47-0500 Diastolic blood pressure 100 mm[Hg] [facility] Work Phone: [facility] 07-10-2022 00:47-0500 Heart rate 131 /min [facility] Work Phone: [facility] 07-10-2022 00:47-0500 Respiratory rate 20 /min [facility] Work Phone: [facility] 07-10-2022 00:47-0500 SaO2% (BldA) [Mass fraction] 99 % [facility] Work Phone: [facility] 07-10-2022 00:47-0500 Systolic blood pressure 138 mm[Hg] [facility] Work Phone: [facility] 05-26-2021 14:00-0400 Body height Ramone Franco Other [facility] Other 05-26-2021 14:00-0400 Body mass index (BMI) [Ratio] 42.17 kg/m2 Ram[facility] Other [facility] Other 05-26-2021 14:00-0400 Body weight 129.55 kg Ramone Franco Other [facility] Other 05-26-2021 14:00-0400 Diastolic blood pressure 64 mm[Hg] Ramone Franco Other [facility] Other 05-26-2021 14:00-0400 SaO2% (BldA) [Mass fraction] 98 % Ramone Franco Other [facility] Other 05-26-2021 14:00-0400 Systolic blood pressure 116 mm[Hg] Ramone Franco Other [facility] Other Encounters Encounter Date Encounter Type Care Provider Facility Start: 06-06-2024 End: 06-06-2024 Emergency department patient visit [facility] Work Phone: [facility] Work Phone: Start: 06-05-2024 End: 06-05-2024 Emergency department patient visit [facility] Work Phone: [facility] Work Phone: Start: 04-20-2024 End: 04-20-2024 ambulatory [facility] Work Phone: [facility] Work Phone: Start: 04-20-2024 End: 04-20-2024 Patient encounter procedure [facility] Work Phone: [facility] Work Phone: Start: 03-23-2024 End: 03-23-2024 ambulatory [facility] Work Phone: [facility] Work Phone: Start: 03-23-2024 End: 03-23-2024 Patient encounter procedure [facility] Work Phone: [facility] Work Phone: Start: 02-16-2024 End: 02-16-2024 Patient encounter procedure [facility] Work Phone: [facility] [place] Work Phone: Start: 02-16-2024 End: 02-16-2024 ambulatory [facility] Work Phone: [facility] Work Phone: Start: 12-19-2023 End: 12-19-2023 Emergency department patient visit [facility] Work Phone: [facility] Work Phone: Start: 10-28-2023 End: 10-28-2023 Emergency department patient visit [facility] Work Phone: [facility] Work Phone: Start: 04-15-2023 End: 04-16-2023 Emergency department patient visit [facility] Work Phone: [facility] Work Phone: Start: 12-05-2022 End: 12-05-[address] DOCTOR LOCKE Facility:[facility] Start: 09-21-2022 End: 09-21-2022 ambulatory DANIEL VILLAGOMEZ Facility:[facility] Start: 07-21-2022 End: 07-21-2022 ambulatory KEVIN MCLAUGHLIN Facility:[facility] Start: 07-10-2022 End: 07-10-[address] NADEEM Myers Facility:[facility] Start: 07-10-2022 End: 07-10-2022 Emergency department patient visit [facility] Work Phone: [facility] Start: 06-30-2022 End: 06-30-2022 ambulatory FRANK AMEZQUITA . Facility:[facility] Start: 02-16-2022 End: 02-16-2022 ambulatory DAVE ZENDEJAS . Facility:[facility] Start: 06-02-2021 Telephone encounter Ramone Franco [facility] Start: 05-26-2021 Office consultation new/estab patient 60 min Ramone Franco [facility] Start: 01-25-2004 Evaluation and management of inpatient [facility] Work Phone: [facility] [place] Procedures Date Procedure Procedure Detail Performing Clinician Start: 06-06-2024 SARS-CoV-2, Influenz a & RSV (PCR) [facility] Work Phone: Start: 02-16-2024 MR lumbar spine wo con [facility] Work Phone: Start: 10-28-2023 SARS-CoV-2, Influenz a & RSV (PCR) [facility] Work Phone: Start: 10-28-2023 Plain [facility]-ray [facility] Work Phone: H/O: section Status pos t delivery [facility] Work Phone: Plan of Treatment Date Care Activity Detail Author Start: 06-05-2024 Bacteria identified in Urine by Culture Urine Culture [facility] Start: 06-05-2024 Urine culture [facility] Start: 03-23-2024 Patient referral [facility] Work Phone: Start: 04-15-2023 CT Lumbar spine WO contrast [facility] Start: 04-15-2023 CT of lumbar spine without contrast CT lumbar spine wo con [facility] Start: 07-10-2022 Plain X-ray of right hand XR hand RT 2V [facility] Start: 07-10-2022 XR Hand - right 2 Views [facility] Bacteria identified in Urine by Culture Urine Culture [facility] Patient Education [facility] Work Phone: Patient referral [facility] Work Phone: XR Lumbar spine 4 Views [facility] Payers Date Payer Category Payer Unknown [id number] 1985 Unknown [id number] 2.16.84 [id number] 1985 Unknown [id number] 2.16.84 [id number] 1985 Unknown [id number] 2.16.84 [id number] 1985 Unknown [id number] [id number] 1985 Unknown [id number] 2.16.84 [id number] 1985 Unknown [id number] 2.16.84 [id number] 1959 Self-pay [id number] 1959 Self-pay [id number] Private Health Insurance [id number] Unknown [id number] Unknown [id number] 2.16.8 [id number] Unknown [id number] 2.16.8 [id number] Unknown [id number] 2.16.8 [id number] Unknown [id number] 2.16.8 [id number] Unknown [id number] 2.16.8 [id number] Social History Date Type Detail Facility Unknown if ever smoked [facility] [employer] Other Sex Assigned At Sex Assigned At [facility] Other Start: 07-10-2022 End: 06-06-2024 Tobacco smoking status [facility] Smoker (finding) [facility] Start: 1985 Sex Assigned At Female [facility] Start: 04-15-2023 Tobacco smoking status [facility] Ex-smoker (finding) [facility] NEGATED: Highlighted row [facility] Evaluation note 05-26-2021 Note Date & [...] negative findings were considered in medical decision-making. [facility] Other Evaluation note Note Date & Type Note Facility Evaluation note No Information [employer] Other Evaluation note Note Date & Type Note Facility Evaluation note No assessment information availa ble [facility] Work Phone: Evaluation note Note Date & Type Note Facility Evaluation note Diagnosis Onset Date Left lumbar radiculopathy ac soumya Degenerative disc disease, lumbar acute Low back pain acute [facility] Work Phone: History general Narrative - Reported Note Date & Type Note Facility History general Narrative - Reported Type Medical History asthma Surgical History gall bladder removal 2010 Surgical History c Section 2008 Surgical History bellybutton 2001 [facility] Other Hospital Discharge instructions Note Date & Type Note Facility Hospital Discharge instructions Additional Instructions Take Naprosyn as prescribed for mild to moderate pain. Take oxycodone as prescribed for severe pain. Take prednisone daily for your radiculopathy. Follow-up with the neurosurgeon listed below for ongoing management. [facility] Work Phone: Hospital Discharge instructions Note Date & Type Note Facility Hospital Discharge instructions Additional Instructions As we discussed, Dr. Varner would like your primary care doctor to order a new MRI. He wants to make sure there is no new or worsening problem other than the known herniated disc. It may be sometime before he can see you, as he is the only neurosurgeon at [facility] right now. He would like to get the MRI done before he sees you so it does not delay treatment once you are seen. I am going to prescribe steroids as well as pain medicine and muscle relaxers. Follow-up with your doctor in the next week. We are happy to see you anytime if there are significant problems or concerns. The meloxicam is a strong NSAID. You should not take Motrin, Aleve, or other similar medications. Tylenol is fine, though if you take the Percocet there is Tylenol in that, and you should not take additional Tylenol with Percocet. Gentle laxative has been prescribed because opiate pain medicines like Percocet can be constipating. [facility] Work Phone: Hospital Discharge instructions Note Date & Type Note Facility Hospital Discharge instructions Ambulatory OrdersReferral to Speech/PT/OT (PT/OT/SP) Location: None Selected [facility] Work Phone: Hospital Discharge instructions Note Date & Type Note Facility Hospital Discharge instructions Additional Instructions We evaluated you for your symptoms. Your workup here was unremarkable, you felt much improved. Please use the Zofran as needed for nausea. These follow closely with your primary doctor. Please return to the emergency department if you develop any worsening or concerning symptoms. [facility] Work Phone: Chief Complaint and Reason for Visit Chief Complaint ^ Rt hand/wrist injury Chief Complaint ^ Back pain NKI Chief Complaint ^ Cough Lower Back Pain, NKI Chief Complaint ^ Lower Back Pain, NKI m51.06 Chief Complaint ^ m51.06 mri in chart Chief Complaint ^ m51.06 mri in chart surgical consult Reason for Visit Left lumbar radiculo joe Degenerative disc disease, lumbar Low back pain Chief Complaint ^ mri in chart surgical consult vomiting, abd pain Reason for Visit Left lumbar radiculo joe Degenerative disc disease, lumbar Low back pain Chief Complaint ^ mri in chart surgical consult vomiting, abd pain body aches, coughing Reason for Visit Left lumbar radiculo joe Degenerative disc disease, lumbar Low back pain Advance Directives No Advanced Directives Records Found Advance Directive Response Recorded Date/ Time Advance Directives No June 8:55pm Advance Directive Response Recorded Date/ Time Advance Directives No June 9:55pm Summary Purpose Family History Relationship Condition Age at Onset Recorded Date/T bonnie Not Specified Asthma Unknown father Unknown grandparent Diabetes mellitus Unknown Not Specified Diabetes mellitus Unknown No Family History Records Found Additional Source Comments REASON FOR VISIT (unrecogniz ed section and content) REF BY DR CELESTE FOR LUMBAR DEGENERATIVE DISCPain management consult Care Teams (unrecognized sec tion and content) Team Status: Inactive Member Role Status Dates [facility] Active Diogenes Sanchez DO Family Provider Active Omar Pham DO Emergency Provider Active Team Status: Active Member Role Status Dates Blair Jordan Attending Provider Active Team Status: Active Member Role Status Dates Diogenes Sanchez , Family Provider [facility] Active Team Status: Inactive Member Role Status Dates [facility] Active Diogenes Sanchez DO Family Provider Active Joao Montero PA-C Emergency Provider Active Team Status: Active Member Role Status Dates Blair Jordan Attending Provider Active Start : January 25, 2004 Team Status: Inactive Member Role Status Dates [facility] Active Start: October 28, 2023 End: October 28, 2023 Milana Gonzalez Jr, MD Emergency Provider Active Start: October 28, 2023 End: October 28, 2023 Team Status: Inactive Member Role Status Dates [facility] Primary Care Provider Active Start: December 19, 2023 End: December 19, 2023 Milana Gonzalez Jr, MD Emergency Provider Active Start: December 19, 2023 End: December 19, 2023 Team Status: Inactive Member Role Status Dates [facility] Primary Care Provider Active Start: February 16, 2024 End: February 16, 2024 Juan Angelo DO Attending Provider Active Sta rt: February 16, 2024 End: February 16, 2024 Team Status: Inactive Member Role Status Dates [facility] Active Start: March 23, 2024 End: March 23, 2024 Dolly Flowers APRN Attending Provider Active Start: March 23, 2024 End: March 23, 2024 Team Status: Inactive Member Role Status Dates [facility] Primary Care Provider Active Start: April 20, 2024 End: April 20, 2024 Rom Varner MD Attending Provider Active Star t: April 20, 2024 End: April 20, 2024 Team Status: Inactive Member Role Status Dates [facility] Primary Care Provider Active Start: June 05, 2024 End: June 05, 2024 Pinky Bocanegra DO Emergency Provider Active Start: June 05, 2024 End: June 05, 2024 Team Status: Inactive Member Role Status Dates [facility] Primary Care Provider Active Start: June 06, 2024 End: June 06, 2024 Joao Montero PA-C Emergency Provider Active Start: June 06, 2024 End: June 06, 2024 Goals (unrecognized section and content) Goals may be documented in a n alternate section INFORMATION SOURCE (unrecogn ized section and content) DATE CREATED AUTHOR 12/08/2022 [facility] DATE CREATED AUTHOR 'S YAHAIRA CASTRO 06/18/2024 [facility] FOR RECORDS PERTAINING TO PATIENTS WHO ARE [...] BE BASED ON THE PRIMARY CLINICAL RECORDS. [facility] [employer] provides no warranty or guarantee of the accuracy or completeness of information in this document.
[2024-07-31] MEDS: KETOROLAC TROMETHAMINE 60 MG/2 ML VIAL IM (09:51)
== END 2024-07-31 09:57 | disposition home or self-care (01) ==
PROVIDERS: Emergency Provider Emergency Medicine
DX: S30.0XXA Contusion of lower back and pelvis, initial encounter (principal); W19.XXXA Unspecified fall, initial encounter; M51.379 Other intervertebral disc degeneration, lumbosacral region without mention of lumbar back pain or lower extremity pain; Z87.891 Personal history of nicotine dependence
CPT/HCPCS: 72070; 72100; 96372; 99284; J1885

== ENCOUNTER 2024-08-06 16:16 | Emergency (ER) | payer OTHER, SELFPAY ==
[2024-08-06 16:29] VITALS: BP 110/70; PULSE 99; TEMP 36.7; O2SAT 100; BMI 33.2
[2024-08-06] MEDS: ORPHENADRINE 60 MG/ 2 ML VIAL IM (17:00)
[2024-08-06] MEDS: KETOROLAC TROMETHAMINE 60 MG/2 ML VIAL IM (17:01)
--- NOTE | 2024-08-06 17:13 | ED_ITS ---
HPI HPI - Back Pain/Injury General Chief Complaint: Back Pain/Injury Stated Complaint: BACK PAIN Time Seen by Provider: 08/06/24 16:29 Source: patient Mode of arrival: walk-in Limitations: no limitations History of Present Illness HPI Narrative: 39-year-old female presents for lower back pain. She had fallen about a week ago and she was here few days later. She had negative x-rays and was prescribed Tylenol 3. She continues to have pain in the lower back, mostly to the right of midline. No weakness or numbness in her legs. No new injury. Related Data Previous Rx's ?Medication ?Instructions ?Recorded acetaminophen 300 mg-codeine 30 mg 1 tab PO Q6H PRN pain 5 days #20 07/31/24 tablet tabs ibuprofen 800 mg tablet 800 mg PO Q8H PRN pain #20 tabs 07/31/24 oxycodone-acetaminophen 5 mg-325 1 tab PO Q6H PRN pain 5 days #20 08/06/24 mg tablet (Percocet) tabs Allergies Allergy/AdvReac Type Severity Reaction Status Date / Time methocarbamol (From Robaxin) Allergy Severe Swelling Verified 08/06/24 16:29 of Lip/Tongue/Throat Opioid HPI Opioid Management Most Recent Opioid Data: Last Pain Scale 8 07/31/24 09:51 07/31/24 Review of Systems ROS Narrative A ten point review of systems is negative except as noted above. PFSH PFSH Social History (System 04/21/23 @ 07:51 by Lynette Jaramillo) Smoking status: Former smoker Little interest or pleasure in doing things: not at all Feeling down, depressed, or hopeless: not at all Exam Narrative Exam Narrative: Nurses note and vital signs reviewed and patient is not hypoxic. General: The patient appears well and in no apparent distress. Patient is resting comfortably on cart. Skin: Warm, dry, no pallor noted. There is no rash noted. Head: Normocephalic, atraumatic Eye: Normal conjunctiva, no drainage Ears, Nose, Mouth, and Throat: oral mucosa is moist. Nares patent. Cardiovascular: Regular Rate and Rhythm Respiratory: Patient is in no distress, no accessory muscle use, lungs are tarik ar to auscultation, no wheezing, rales or rhonchi Back: Yellow bruising present in the very low back right of the midline. GI: Soft and nontender Musculoskeletal: The patient has no evidence of calf tenderness, no pitting edema, symmetrical pulses noted bilaterally Neurological: Awake and alert. Lower extremity strength intact Psychiatric: Cooperative Constitutional Vital Signs, click to edit/add: Last Vital Signs Temp 98.1 F 08/06/24 16:29 Pulse 99 H 08/06/24 16:29 Resp 16 08/06/24 16:29 BP 110/70 08/06/24 16:29 Pulse Ox 100 08/06/24 16:29 O2 Del Method Room Air 08/06/24 16:29 Course Vital Signs Vital signs: Vital Signs Temperature 98.1 F 08/06/24 16:29 Pulse Rate 99 H 08/06/24 16:29 Respiratory Rate 16 08/06/24 16:29 Blood Pressure 110/70 08/06/24 16:29 Pulse Oximetry 100 08/06/24 16:29 Oxygen Delivery Method Room Air 08/06/24 16:29 Temperature 98.1 F 08/06/24 16:29 Pulse Rate 99 H 08/06/24 16:29 Respiratory Rate 16 08/06/24 16:29 Blood Pressure 110/70 08/06/24 16:29 Pulse Oximetry 100 08/06/24 16:29 Oxygen Delivery Method Room Air 08/06/24 16:29 MDM - Back Pain/Injury MDM Narrative Medical decision making narrative: X-rays were reviewed and are negative. She was given IM Toradol and Norflex here and prescribed Percocet. Treatment diagnosis and follow-up were discussed with the patient Differential Diagnosis Differential diagnosis: Likely other (Fracture, contusion) Discharge Plan Discharge Chief Complaint: Back Pain/Injury Clinical Impression: Back contusion Patient Disposition: Home, Self-Care Time of Disposition Decision: 17:30 Condition: Good Mode of Transportation: Private Vehicle Prescriptions / Home Meds: New oxycodone-acetaminophen [Percocet] 5-325 mg tablet 1 tab PO Q6H PRN (Reason: pain) 5 Days Qty: 20 0RF No Action acetaminophen-codeine 300-30 mg tablet 1 tab PO Q6H PRN (Reason: pain) 5 Days Qty: 20 0RF ibuprofen 800 mg tablet 800 mg PO Q8H PRN (Reason: pain) Qty: 20 0RF Print Language: Amharic Instructions: Contusion in Adults (ED) Referrals: Physician,Non-Staff, MD [Primary Care Provider] - 1 week
== END 2024-08-06 17:48 | disposition home or self-care (01) ==
PROVIDERS: Emergency Provider Emergency Medicine
DX: S30.0XXA Contusion of lower back and pelvis, initial encounter (principal); W19.XXXA Unspecified fall, initial encounter; Z87.891 Personal history of nicotine dependence
CPT/HCPCS: 96372; 99284; J1885; J2360

== ENCOUNTER 2024-08-28 17:27 | Emergency (ER) | payer OTHER, SELFPAY ==
[2024-08-28 17:41] VITALS: BP 130/100; PULSE 98; O2SAT 97; BMI 34.0
[2024-08-28] MEDS: ONDANSETRON 4 MG RAPDIS TABLET SL (17:45)
[2024-08-28 17:48] VITALS: TEMP 36.8
[2024-08-28] MEDS: 0.9 % SODIUM CHLORIDE 1,000 ML 1000 ML IV (18:04)
[2024-08-28 18:18] LABS: Basophils Percent Auto 0.5 % (0.2-2.0); Eosinophils Absolute Auto 0.2 10^3/uL (0.0-0.7); Eosinophils Percent Auto 2.7 % (0.9-7.0); Hematocrit 39.7 % (36.0-48.0); Hemoglobin 13.8 g/dL (12.0-16.0); Immature Granulocytes Abs Auto 0.02 10^3/uL (0.00-0.03); Immature Granulocytes Pct Auto 0.3 % (0.0-0.5); Lymphocytes Absolute Auto 3.3 10^3/uL (1.2-3.8); Lymphocytes Percent Auto 43.7 % (20.5-60.0); Mean Corpuscular HGB Conc 34.8 g/dL (29.9-35.2); Mean Corpuscular Hemoglobin 31.7 pg (26.7-34.0); Mean Corpuscular Volume 91.3 fL (81.0-99.0); Mean Platelet Volume 9.5 fL (9.5-13.5); Monocytes Absolute Auto 0.5 10^3/uL (0.3-0.8); Monocytes Percent Auto 6.4 % (1.7-12.0); Neutrophils Absolute Auto 3.5 10^3/uL (1.4-6.5); Neutrophils Percent Auto 46.4 % (43.0-75.0); Platelet Count 230 10^3/uL (150-450); Red Blood Count 4.35 10^6/uL (4.20-5.40); Red Cell Distribution Width 12.9 % (11.0-15.0); White Blood Count 7.5 10^3/uL (4.0-11.0)
[2024-08-28 18:28] LABS: HCG Qualitative NEGATIVE (NEGATIVE); Internal Control Within Normal Limits
--- NOTE | 2024-08-28 18:30 | CT_ITS ---
The [address] [address] Patient Name: ALICJA HANSEN MRN: [id number] date: 1985 Sex: F Assigned Patient Location: ED.MAIN Current Patient Location: ED.MAIN Accession/Order Number: [id number] Exam Date: 08/28/2024 19:19 Report Date: 08/28/2024 21:04 At the request of: JUAN JOSEPH Procedure: CT head/brain wo con EXAM: CT head/brain wo con HISTORY: headache nausea and vomiting COMPARISON: None. TECHNIQUE: CT head noncontrast. FINDINGS: No hemorrhage, mass, edema or other acute abnormality seen. Ventricles without dilatation, slight asymmetry frontal horns felt to be normal variant. No mass effect or midline shift. No skull lesion. Mastoid and middle ear cavities clear. Sinus density including left frontal, ethmoid and sphenoid sinus, correlate for sinusitis CT/CT head/brain wo con IMPRESSION: 1. Brain negative without hemorrhage or other acute abnormality 2. Abnormal sinus density, correlate for sinusitis Electronically authenticated by: SUAD MONTANA Date: 08/28/2024 21:04
--- NOTE | 2024-08-28 18:33 | ED_ITS ---
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 But the patient is not expressing any symptoms of fever chills or any body aches except for the severe headache Related Data Previous Rx's ?Medication ?Instructions ?Recorded acetaminophen 300 mg-codeine 30 mg 1 tab PO Q6H PRN pain 5 days #20 07/31/24 tablet tabs ibuprofen 800 mg tablet 800 mg PO Q8H PRN pain #20 tabs 07/31/24 oxycodone-acetaminophen 5 mg-325 1 tab PO Q6H PRN pain 5 days #20 08/06/24 mg tablet (Percocet) tabs Allergies Allergy/AdvReac Type Severity Reaction Status Date / Time methocarbamol (From Robaxin) Allergy Severe Swelling Verified 08/06/24 16:29 of Lip/Tongue/Throat Review of Systems ROS Status of ROS 10 or more systems reviewed and unremark able except as noted in history and below [facility] Social History (System 04/21/23 @ 07:51 by Lynette Jaramillo) Smoking status: Former smoker Little interest or pleasure in doing things: not at all Feeling down, depressed, or hopeless: not at all Exam Narrative Exam Narrative: Nurses notes and vital signs reviewed and patient is not hypoxic. General: Well-appearing and in no apparent distress. Skin: Warm, dry, no pallor noted. No rash. Head: Normocephalic, atraumatic. Neck: Supple, non-tender. Cardiovascular: Regular Rate and Rhythm without murmur, gallop or rub. Respiratory: No accessory muscle use or respiratory distress. Lungs are clear to auscultation, no wheezing, rales or rhonchi Chest Wall: no tenderness Back: No midline thoracic or lumbar vertebral tenderness. No CVA tenderness Musculoskeletal: normal ROM, no calf or popliteal tenderness, no lower extremity edema/swelling GI: Abdomen is soft, non-distended. Normal bowel sounds. No masses appreciated. No tenderness to palpation. No rebound, guarding, or rigidity noted. Neurological: A&O x4. No cranial nerve dysfunction observed. No truncal ataxia. Moves all extremities. Sensation intact. Psychiatric: Cooperative and interactive. Normal mood and affect. Constitutional Vital Signs, click to edit/add: Last Vital Signs Temp 98.2 F 08/28/24 17:48 Pulse 98 H 08/28/24 17:41 Resp 18 08/28/24 17:41 BP 130/100 H 08/28/24 17:41 Pulse Ox 97 08/28/24 17:41 O2 Del Method Room Air 08/28/24 17:41 Course Vital Signs Vital signs: Vital Signs Pulse Rate 98 H 08/28/24 17:41 Respiratory Rate 18 08/28/24 17:41 Blood Pressure 130/100 H 08/28/24 17:41 Pulse Oximetry 97 08/28/24 17:41 Oxygen Delivery Method Room Air 08/28/24 17:41 Temperature 98.2 F 08/28/24 17:48 Pulse Rate 98 H 08/28/24 17:41 Respiratory Rate 18 08/28/24 17:41 Blood Pressure 130/100 H 08/28/24 17:41 Pulse Oximetry 97 08/28/24 17:41 Oxygen Delivery Method Room Air 08/28/24 17:41 MDM - Nausea/Vomiting/Diarrhea MDM Narrative Medical decision making narrative: The patient CBC and chemistry as well as COVID-[address] head are pending She also had a IV fluids started with Toradol and Zofran 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 Lab Data Labs: Lab Results 08/28/24 Range/Units 17:58 WBC 7.5 (4.0-11.0) 10^3/uL RBC 4.35 (4.20-5.40) 10^6/uL Hgb 13.8 (12.0-16.0) g/dL Hct 39.7 (36.0-48.0) % MCV 91.3 (81.0-99.0) fL MCH 31.7 (26.7-34.0) pg MCHC 34.8 (29.9-35.2) g/dL RDW 12.9 (11.0-15.0) % Plt Count 230 (150-450) 10^3/uL MPV 9.5 (9.5-13.5) fL Neut % (Auto) 46.4 (43.0-75.0) % Lymph % (Auto) 43.7 (20.5-60.0) % [place] % (Auto) 6.4 (1.7-12.0) % Eos % (Auto) 2.7 (0.9-7.0) % Baso % (Auto) 0.5 (0.2-2.0) % Neut # (Auto) 3.5 (1.4-6.5) 10^3/uL Lymph # (Auto) 3.3 (1.2-3.8) 10^3/uL [place] # (Auto) 0.5 (0.3-0.8) 10^3/uL Eos # (Auto) 0.2 (0.0-0.7) 10^3/uL Baso # (Auto) 0.0 (0.0-0.1) 10^3/uL Abs Immat Gran (auto) 0.02 (0.00-0.03) 10^3/uL Imm/Tot Granulo (auto) 0.3 (0.0-0.5) % Serum HCG, Qual Negative (NEGATIVE) Discharge Plan Discharge Patient Disposition: Still a Patient
[2024-08-28 18:36] LABS: Alanine Aminotransferase 19 U/L (14-59); Albumin Globulin Ratio 1.2; Alkaline Phosphatase 62 U/L (46-116); Anion Gap 11.9; Aspartate Amino Transferase 15 U/L (15-37); BUN Creatinine Ratio 13.4; Bilirubin Total 0.4 mg/dL (0.2-1.0); Calcium 8.6 mg/dL (8.5-10.1); Carbon Dioxide 28.9 mmol/L (21.0-32.0); Chloride 105 mmol/L (98-107); Estimated GFR (African America >60 (>=60 mL/min/1.73m^2); Estimated GFR (Non-African Ame >60 (>=60 mL/min/1.73m^2); Globulin 3.4 g/dL; Glucose 104 mg/dL (74-106); Potassium 3.8 mmol/L (3.5-5.1); Sodium 142 mmol/L (136-145); Total Protein 7.4 g/dL (6.4-8.2)
[2024-08-28] MEDS: KETOROLAC TROMETHAMINE 30 MG/ML VIAL 15 MG IVP (18:41)
[2024-08-28] MEDS: ONDANSETRON PF 4 MG/2 ML VIAL IV (18:42)
[2024-08-28 19:10] LABS: Influenza Virus A Antigen Negative; Influenza Virus B Antigen Negative; Internal Control Within Normal Limits; SARS-CoV-2 Ag NEGATIVE (NEGATIVE)
--- NOTE | 2024-08-28 19:46 | ED.NAVMDI1 ---
HPI - Nausea/Vomiting/Diarrhea General Chief complaint: Nausea/Vomiting/Diarrhea Stated complaint: headache, abdomen pain Time Seen by Provider: 08/28/24 17:48 Mode of arrival: walk-in History of Present Illness HPI Narrative: 39-year-old female was signed out to me at shift change. She presents for evaluation of a headache with nausea vomiting. The symptoms started earlier today. 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 She is having chills but has not had a fever. She is feeling better after IV fluids Zofran and Toradol. She is negative for COVID-19 and influenza. Labs are reviewed and are normal. CT scan of the brain is pending at the time of this dictation. She feels that she can tolerate some ice chips at this point and was given ice chips and Tylenol because she is still having chills. On reevaluation she is feeling better and request to be discharged home. She will be discharged home with a prescription for Zofran and a note for work for the next several days. Related Data Previous Rx's ?Medication ?Instructions ?Recorded acetaminophen 300 mg-codeine 30 mg 1 tab PO Q6H PRN pain 5 days #20 07/31/24 tablet tabs ibuprofen 800 mg tablet 800 mg PO Q8H PRN pain #20 tabs 07/31/24 oxycodone-acetaminophen 5 mg-325 1 tab PO Q6H PRN pain 5 days #20 08/06/24 mg tablet (Percocet) tabs Allergies Allergy/AdvReac Type Severity Reaction Status Date / Time methocarbamol (From Robaxin) Allergy Severe Swelling Verified 08/06/24 16:29 of Lip/Tongue/Throat PFSH [facility] Social History (System 04/21/23 @ 07:51 by Lynette Jaramillo) Smoking status: Former smoker Little interest or pleasure in doing things: not at all Feeling down, depressed, or hopeless: not at all Exam Constitutional Vital Signs, click to edit/add: Last Vital Signs Temp 98.2 F 08/28/24 17:48 Pulse 98 H 08/28/24 17:41 Resp 18 08/28/24 17:41 BP 130/100 H 08/28/24 17:41 Pulse Ox 97 08/28/24 17:41 O2 Del Method Room Air 08/28/24 17:41 Course Vital Signs Vital signs: Vital Signs Pulse Rate 98 H 08/28/24 17:41 Respiratory Rate 18 08/28/24 17:41 Blood Pressure 130/100 H 08/28/24 17:41 Pulse Oximetry 97 08/28/24 17:41 Oxygen Delivery Method Room Air 08/28/24 17:41 Temperature 98.2 F 08/28/24 17:48 Pulse Rate 98 H 08/28/24 17:41 Respiratory Rate 18 08/28/24 17:41 Blood Pressure 130/100 H 08/28/24 17:41 Pulse Oximetry 97 08/28/24 17:41 Oxygen Delivery Method Room Air 08/28/24 17:41 MDM - Nausea/Vomiting/Diarrhea MDM Narrative Medical decision making narrative: Please see my transfer of care note in HPI Lab Data Labs: Lab Results 08/28/24 08/28/24 Range/Units 17:58 18:45 WBC 7.5 (4.0-11.0) 10^3/uL RBC 4.35 (4.20-5.40) 10^6/uL Hgb 13.8 (12.0-16.0) g/dL Hct 39.7 (36.0-48.0) % MCV 91.3 (81.0-99.0) fL MCH 31.7 (26.7-34.0) pg MCHC 34.8 (29.9-35.2) g/dL RDW 12.9 (11.0-15.0) % Plt Count 230 (150-450) 10^3/uL MPV 9.5 (9.5-13.5) fL Neut % (Auto) 46.4 (43.0-75.0) % Lymph % (Auto) 43.7 (20.5-60.0) % [place] % (Auto) 6.4 (1.7-12.0) % Eos % (Auto) 2.7 (0.9-7.0) % Baso % (Auto) 0.5 (0.2-2.0) % Neut # (Auto) 3.5 (1.4-6.5) 10^3/uL Lymph # (Auto) 3.3 (1.2-3.8) 10^3/uL [place] # (Auto) 0.5 (0.3-0.8) 10^3/uL Eos # (Auto) 0.2 (0.0-0.7) 10^3/uL Baso # (Auto) 0.0 (0.0-0.1) 10^3/uL Abs Immat Gran (auto) 0.02 (0.00-0.03) 10^3/uL Imm/Tot Granulo (auto) 0.3 (0.0-0.5) % Sodium 142 (136-145) mmol/L Potassium 3.8 (3.5-5.1) mmol/L Chloride 105 (98-107) mmol/L Carbon Dioxide 28.9 (21.0-32.0) mmol/L Anion Gap 11.9 BUN 11.0 (7.0-18.0) mg/dL Creatinine 0.82 (0.55-1.02) mg/dL Est GFR ( Amer) >60 (>=60 mL/min/1.73m^2) Est GFR (Non-Af Amer) >60 (>=60 mL/min/1.73m^2) BUN/Creatinine Ratio 13.4 Glucose 104 (74-106) mg/dL Calcium 8.6 (8.5-10.1) mg/dL Total Bilirubin 0.4 (0.2-1.0) mg/dL AST 15 (15-37) U/L ALT 19 (14-59) U/L Alkaline Phosphatase 62 (46-116) U/L Total Protein 7.4 (6.4-8.2) g/dL Albumin 4.0 (3.4-5.0) g/dL Globulin 3.4 g/dL Albumin/Globulin Ratio 1.2 Serum HCG, Qual Negative (NEGATIVE) Influenza Type A Ag Negative Influenza Type B Ag Negative SARS-CoV-2 Ag (CV2AG) Negative (NEGATIVE) Discharge Plan Discharge Chief Complaint: Nausea/Vomiting/Diarrhea Clinical Impression: Acute viral syndrome Patient Disposition: Home, Self-Care Time of Disposition Decision: 21:05 Condition: Good Prescriptions / Home Meds: No Action oxycodone-acetaminophen [Percocet] 5-325 mg tablet 1 tab PO Q6H PRN (Reason: pain) 5 Days Qty: 20 0RF acetaminophen-codeine 300-30 mg tablet 1 tab PO Q6H PRN (Reason: pain) 5 Days Qty: 20 0RF ibuprofen 800 mg tablet 800 mg PO Q8H PRN (Reason: pain) Qty: 20 0RF Print Language: Bruneian Instructions: Viral Syndrome (ED) Referrals: Physician,Non-Staff, MD [Primary Care Provider] - 1 week
[2024-08-28] MEDS: ACETAMINOPHEN 325 MG TABLET 650 MG PO (20:09)
[2024-08-28 21:21] VITALS: BP 109/69; PULSE 50; O2SAT 98
== END 2024-08-28 21:21 | disposition home or self-care (01) ==
PROVIDERS: Emergency Medicine; Emergency Provider Emergency Medicine
DX: B34.9 Viral infection, unspecified (principal); Z87.891 Personal history of nicotine dependence; R51.9 Headache, unspecified
CPT/HCPCS: 36415; 70450; 80053; 84703; 85025; 87804; 87811; 96361; 96374; 96375; 99285; J1885; J2405; Q0162

== ENCOUNTER 2025-01-17 17:32 | Emergency (ER) | payer SELFPAY ==
[2025-01-17 17:42] VITALS: BP 125/80; PULSE 100; TEMP 36.9; O2SAT 98; BMI 29.5
--- OUTSIDE RECORDS SUMMARY | 2025-01-17 17:46 | XMS_ITS | CCD ---
Author Organization [facility] CliniSyin Care Team Providers Care Plush Brusher Name Role Phone Ramone Franco Unavailable Blair Jordan Attending Provider [phone] [facility] Jack Downs Primary Care Provider DO Omar Pham [...] Primary Care Unavailable CRISTIANA .DAVE Consulting Unavailable IBA ., FRANK Admitting Unavailable BIA ., FRANK Attending Unavailable MISC, DR CORDOVA Primary Care Unavailable MISC, DR CORDOVA Primary Care Unavailable DIAB ., JUAN Consulting Unavailable DIAB ., JUAN Attending Unavailable DIAB ., JUAN Admitting Unavailable Blair Jordan Attending Provider [facility] Jack Downs Primary Care Provider [phone] XIOMARA Montero Emergency [facility] Provider MD Milana Gonzalez Jr Emergency Provider [facility] Jack Downs Primary Care Provider MD Milana Gonzalez Jr Emergency Provider DO Juan Angelo Attending Provider [facility] Primary Care Provider [phone] [facility], [facility] Primary Care Provider [phone] DO Pinky Bocanegra Emergency Provider XIOMARA Montero Emergency Provider Joao Montero Admitting Unavailable Joao Montero Attending Unavailable [facility] [place] [facility] Primary [facility] Unavailable Juan Angelo Admitting Unavailable Juan Angelo Attending Unavailable [facility], [facility] Primary Care Unavailable Milana Gonzalez Jr Admitting Unavailable Milana Gonzalez Jr Attending Unavailable [facility] [place] Him[facility]hu Primary Care Unavailable Milana Gonzalez Jr Admitting Unavailable Milana Gonzalez Jr Attending Unavailable [facility] [place] [facility] Primary Care Unavailable Pinky Bocanegra Admitting Unavailable Pinky Bocanegra Attending Unavailable [facility] [place] [facility] Primary Care Unavailable Unavailable Primary Care Provider Unavailabl e Unavailable Primary Care Provider Unavailabl e Allergies Allergy Classification Reported Allergen(s) Allergy Type Date of Onset Reaction(s) Facility (4 sources) Adhesive Tape; Translations: [Adhesive tape] Allergy to substance 2 [facility] (1 source) Methocarbamol Drug Allergy [facility] Repository Medications Current Medications Medication Drug Class(es) Dates Sig (Normalized) Sig (Original) azithromycin 250 mg oral tablet (10 sources) Macrolide Antimicrobial Start: 11-29-2024 End: 12-04-2024 take 2 tablets by mouth once daily, then take 1 tablet by mouth once daily azithromycin (Zithromax) 250 MG tablet Indications: Acute non-recurrent pansinusitis Take 2 tablets (500 mg) by mouth Daily for 1 day, THEN 1 tablet (250 mg) Daily for 4 days. 6 tablet 11/29/2024 12/04/2024 Active Start: 06-06-2024 Azithromycin A ctive 0 PO .COMPLEX June 06, 2024 12:00am [...] oral solution (1 source) alpha-Adrenergic Agonist, Uncompetitive C-pzuixo-P-aspartat e Receptor Antagonist, Sigma-1 Agonist Start: 06-06-2024 [...] Prednisone Act dania 0 .ROUTE .COMPLEX 18 June 06, 2024 12:00am 3 tabs a [...] October 28, 2023 3:53am Start: 01-30-2022 End: 06-30-2022 Prednisone Discontinued 0 MG .ROUTE .COMPLEX 39 [...] by mouth every six hours Hydrocodone-Acetami nophen ([place]) 5-325 mg tablet Discontinued 1 TAB PO Q6H 20 September 04, 2018 September 09, 2018 1:02am Start: 12-02-2017 End: 12-07-2017 take 1 tablet by mouth four times daily Hydrocodone-Acetaminophen ([place]) 5-325 mg tablet Discontinued 1 TAB PO Four times daily 14 December 02, 2017 December 07, 2017 12:01am acetaminophen 325 mg / oxyCODONE hydrochloride 5 mg oral tablet (6 sources) Opioid Agonist Start: 12-19-2023 End: 06-05-2024 take 1 tablet by mouth every six hours Oxycodone-Acetaminophen (Percocet) 5-325 mg tablet Discontinued 1 - 2 TAB PO Every 6 hours 25 December 19, 2023 June 05, 2024 7:25am [id number] 200 actuat albuterol 0.09 mg/actuat metered dose [...] 3:36pm docusate sodium 50 mg / sennosides, [facility] 8.6 mg oral tablet (6 sources) Start: [...] April 16, 2023 October 28, 2023 3:52am [id number] Fumarate-Fa () 28-800 mg-mcg Tablet (8 sources) Start: 01-26-2018 End: 11-07-2018 take 1 tablet by mouth once daily Ccw289-Wunmhca Fumarate-Fa () 28-800 mg-mcg Tablet Discontinued 1 TAB PO Daily January 26, 2018 12:00am November 07, 2018 3:36pm Start: 01-26-2018 End: 11-07-2018 take 1 tablet by mouth once daily Ors233-Tffcrcq Fumarate-Fa () 28-800 mg-mcg Tablet Discontinued 1 [...] source) Epigastric pain; Translations: [Epigastric pain] Onset: Episodic Allergic reactions (8 sources) Contact dermatitis [...] unspecified] 06-06-2024 Chronic Other upper respiratory infections (10 sources) Upper respiratory infection; Translations: [Acute upper [...] 07-01-2022 Episodic Other aftercare (1 source) 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 SARS-CoV-2 (COVID-19) RNA AFSHAN+probe Ql (Unsp spec) [facility] COVID-19 / Flu A/B / RSV PCR [...] or Cepheid Disclaimer revoked sooner. PERFORMED BY: [place] [address] PATHOLOGIST RESEARCH PROFESSIONAL MCKENZIE HERNÁNDEZ M.D. Normal [facility] Comment on above: Performed By: #### C EPHEID NEG, COVID19 FLU RSV #### [facility] [address] [place], [place] [id number] [facility] Cepheid COVID PCR Negativeon 06-06-2024 SARS-CoV-2 (COVID-19) RNA AFSHAN+probe Ql (Unsp spec) Negative Normal Negative [facility] Comment on above: Result Comment: This is a duplicate Cepheid Xpert Xpress CoV-2/Flu/RSV Plus RNA by RT-PCR result to be used for statistical tracking purpose only. PERFORMED BY: [place] [address] PATHOLOGIST RESEARCH PROFESSIONAL MCKENZIE HERNÁNDEZ M.D. Performed By: #### C EPHEID NEG, COVID19 FLU RSV #### [facility] [address] [place], [place] [id number] [facility] Alanine aminotransferase [En zymatic activity/volume] in Serum or PlasmaOrdered By: Pinky Bocanegra on 06-05-2024 ALT [Catalytic activity/Vol] 53 U/L High 7-52 [facility] Comment on above: Performed By: #### L IPASE, CMP, CBC, HCGQUAL #### [facility] [address] [place] [address] Albumin [Mass/volume] in Ser um or Plasma by Bromocresol green (BCG) dye binding methoOrdered By: Pinky Bocanegra on 06-05-2024 Albumin BCG dye [Mass/Vol] 3.9 g/dL 3.5-5.7 [facility] Alkaline phosphatase [Enzyma tic activity/volume] in Serum or PlasmaOrdered By: Pinky Bocanegra on 06-05-2024 ALP [Catalytic activity/Vol] 48 U/L Normal 34-104 [facility] Comment on above: Performed By: #### L IPASE, CMP, CBC, HCGQUAL #### [address] Aspartate aminotransferase [ Enzymatic activity/volume] in Serum or PlasmaOrdered By: Pinky Bocanegra on 06-05-2024 AST [Catalytic activity/Vol] 55 U/L High 13-39 [facility] Comment on above: Performed By: #### L IPASE, CMP, CBC, HCGQUAL #### [address] Automated basophil %Ordered By: Pinky Bocanegra on 06-05-2024 Basophils/100 WBC (Bld) 0.5 % Normal . [facility] Comment on above: Performed By: #### L IPASE, CMP, CBC, HCGQUAL #### [address] Automated basophil countOrde red By: Pinky Bocanegra on 06-05-2024 Basophils (Bld) [#/Vol] 0.0 10*3/uL Normal 0.0-0.2 [facility] Comment on above: Result Comment: PERF ORMED BY: [place] [address] PATHOLOGIST RESEARCH PROFESSIONAL MCKENZIE HERNÁNDEZ M.D. Performed By: #### L IPASE, CMP, CBC, HCGQUAL #### [address] Automated blood monocyte cou ntOrdered By: Pinky Bocanegra on 06-05-2024 Monocytes (Bld) [#/Vol] 0.3 10*3/uL Normal 0.0-0.8 [facility] Comment on above: Performed By: #### L IPASE, CMP, CBC, HCGQUAL #### [facility] [address] Automated eosinophil %Ordere d By: Pinky Bocanegra on 06-05-2024 Eosinophils/100 WBC (Bld) 1.4 % Normal . [facility] Comment on above: Performed By: #### L IPASE, CMP, CBC, HCGQUAL #### [facility] [address] [place] [address] Automated eosinophil countOr dered By: Pinky Bocanegra on 06-05-2024 Eosinophils (Bld) [#/Vol] 0.1 10*3/uL Normal 0.0-0.45 [facility] Comment on above: Performed By: #### L IPASE, CMP, CBC, HCGQUAL #### [facility] [address] [place] [address] Automated monocyte %Ordered By: Pinky Bocanegra on 06-05-2024 Monocytes/100 WBC (Bld) 5.5 % Normal . [facility] Comment on above: Performed By: #### L IPASE, CMP, CBC, HCGQUAL #### [facility] [address] [place] [address] Automated neutrophil %Ordere d By: Pinky Bocanegra on 06-05-2024 Neutrophils/100 WBC (Bld) 67.6 % Normal . [facility] Comment on above: Performed By: #### L IPASE, CMP, CBC, HCGQUAL #### [facility] [address] [place] [address] Bacteria [Presence] in Urine by AutomatedOrdered By: Pinky Bocanegra on 06-05-2024 Bacteria Auto Ql (U) None seen [HPF] None Seen [facility] Bilirubin Test strip Ql (U)O rdered By: Pinky Bocanegra on 06-05-2024 Bilirubin Ql (U) Negative Negative [facility] Bilirubin.total [Mass/volume ] in Serum or PlasmaOrdered By: Pinky Bocanegra on 06-05-2024 Bilirubin [Mass/Vol] 0.4 mg/dL Normal 0.3-1.0 [facility] Comment on above: Performed By: #### L IPASE, CMP, CBC, HCGQUAL #### [facility] [address] Calcium [Mass/volume] in Ser um or PlasmaOrdered By: Pinky Bocanegra on 06-05-2024 Calcium [Mass/Vol] 8.7 mg/dL Normal 8.6-10.3 [facility] Comment on above: Performed By: #### L IPASE, CMP, CBC, HCGQUAL #### [facility] [address] [place] [address] Carbon dioxide, total [Moles /volume] in Serum or PlasmaOrdered By: Pinky Bocanegra on 06-05-2024 CO2 [Moles/Vol] 27.4 mmol/L Normal 21.0-31.0 [facility] Comment on above: Performed By: #### L IPASE, CMP, CBC, HCGQUAL #### [facility] [address] [place] [address] [place] Chloride [Moles/volume] in S lupe or PlasmaOrdered By: Pinky Bocanegra on 06-05-2024 Chloride [Moles/Vol] 108 mmol/L High 98-107 [facility] Comment on above: Performed By: #### L IPASE, CMP, CBC, HCGQUAL #### [facility] [address] [place] [address] [place] Choriogonadotropin.beta subu nit [Units/volume] in Serum or PlasmaOrdered By: Pinky Bocanegra on 06-05-2024 HCG.beta subunit Qn Negative [facility] Color of Urine by AutoOrdere d By: Pinky Bocanegra on 06-05-2024 Color (U) Yellow Normal Yellow [facility] Comment on above: Order Comment: Name Collection Type:: Clean-Voided Midstream Performed By: #### C EPHEID NEG, COVID19 FLU RSV #### [facility] [address] [place] [address] Complete Blood Count Auto Di ffon 06-05-2024 Mean Corpuscular HGB Conc 35.1 g/dL High 32.0-35.0 [facility] Comment on above: Performed By: #### L IPASE, CMP, CBC, HCGQUAL #### [address] Monocytes/100 WBC (Bld) 15.64 % Normal 0.00-20.00 [facility] Comment on above: Performed By: #### L IPASE, CMP, CBC, HCGQUAL #### [address] NRBC% 0.0 /100{WBC} Normal 0-0.5 [facility] Comment on above: Performed By: #### L IPASE, CMP, CBC, HCGQUAL #### [address] Comprehensive Metabolic Pane jaylin 06-05-2024 Albumin [Mass/Vol] 3.9 g/dL Normal 3.5-5.7 [facility] Comment on above: Performed By: #### L IPASE, CMP, CBC, HCGQUAL #### [address] Creatinine Clr Calc Pharmacy 133.29 Normal [facility] Comment on above: Performed By: #### L IPASE, CMP, CBC, HCGQUAL #### [address] GFR/1.73 sq M.predicted MDRD (S/P/Bld) [Vol rate/Area] mL/min/{1.73_m2} Normal [facility] Comment on above: Performed By: #### L IPASE, CMP, CBC, HCGQUAL #### [address] Creatinine [Mass/volume] in Serum or PlasmaOrdered By: Pinky Bocanegra on 06-05-2024 Creatinine [Mass/Vol] 0.74 mg/dL Normal 0.60-1.20 [facility] Comment on above: Performed By: #### L IPASE, CMP, CBC, HCGQUAL #### [address] Dipstick and Microscopicon 1 Bacteria,Urine None Seen Normal None Seen [facility] Comment on above: Order Comment: Name Collection Type:: Clean-Voided Midstream Performed By: #### C EPHEID NEG, COVID19 FLU RSV #### [address] Bilirubin,Urine Negative Normal Negative [facility] Comment on above: Order Comment: Name Collection Type:: Clean-Voided Midstream Performed By: #### C EPHEID NEG, COVID19 FLU RSV #### [address] Glucose Ql (U) Normal Normal Normal [facility] Comment on above: Order Comment: Name Collection Type:: Clean-Voided Midstream Performed By: #### C EPHEID NEG, COVID19 FLU RSV #### [place] [address] [place] Hyaline Casts,Urine None Normal 0-8 [facility] Comment on above: Order Comment: Name Collection Type:: Clean-Voided Midstream Performed By: #### C EPHEID NEG, COVID19 FLU RSV #### [place] [address] [place] Mucus,Urine Rare Normal [facility] Comment on above: Order Comment: Name Collection Type:: Clean-Voided Midstream Result Comment: PERF ORMED BY: [place] [address] PATHOLOGIST RESEARCH PROFESSIONAL MCKENZIE HERNÁNDEZ M.D. Performed By: #### C EPHEID NEG, COVID19 FLU RSV #### [place] [address] [place] Nitrite,Urine Negative Normal Negative [facility] Comment on above: Order Comment: Name Collection Type:: Clean-Voided Midstream Performed By: #### C EPHEID NEG, COVID19 FLU RSV #### [address] Occult Blood,Urine 3+ High Negative [facility] Comment on above: Order Comment: Name Collection Type:: Clean-Voided Midstream Result Comment: PERF ORMED BY: [place] [address] PATHOLOGIST RESEARCH PROFESSIONAL MCKENZIE HERNÁNDEZ M.D. Performed By: #### C EPHEID NEG, COVID19 FLU RSV #### [address] RBC,Urine Innumerable High 0-4 [facility] Comment on above: Order Comment: Name Collection Type:: Clean-Voided Midstream Performed By: #### C EPHEID NEG, COVID19 FLU RSV #### [address] Specificy [place],Urine 1.023 Normal 1.001-1.030 [facility] Comment on above: Order Comment: Name Collection Type:: Clean-Voided Midstream Performed By: #### C EPHEID NEG, COVID19 FLU RSV #### [address] Squamous Epithelial Cell,Urine 10-19 High 0-2 [facility] Comment on above: Order Comment: Name Collection Type:: Clean-Voided Midstream Performed By: #### C EPHEID NEG, COVID19 FLU RSV #### [address] Urobilinogen,Urine 4 mg/dL High Normal [facility] Comment on above: Order Comment: Name Collection Type:: Clean-Voided Midstream Performed By: #### C EPHEID NEG, COVID19 FLU RSV #### [address] WBC CLUMP, Urine Occasional High None Seen [facility] Comment on above: Order Comment: Name Collection Type:: Clean-Voided Midstream Performed By: #### C EPHEID NEG, COVID19 FLU RSV #### [place] [address] [place] WBC,Urine 20-49 High 0-4 [facility] Comment on above: Order Comment: Name Collection Type:: Clean-Voided Midstream Performed By: #### C EPHEID NEG, COVID19 FLU RSV #### [facility] [address] [place] [address] ECG 12 lead ECGon 06-05-2024 ECG 12 lead ECG [facility] [place] [address] [place] [address] Electrocardiograph Report Signed Patient: Hellen Mcgill MR#: [id number] 5 : 1985 Acct:[id number] Age/Sex: 39 / F ADM Date: 06/05/24 Loc: ER Room: Type: [facility] ER Attending Dr: Ordering Provider: Pinky [...] sinus bradycardia Confirmed by Omar Pham DO ([id number]) on 06/05/2024 8:26:52 PM Referred By: Electronically Signed By: Omar Pham DO Transcribed By: MUS Signed By Omar Pham DO 2025 Normal [facility] Epithelial cells.squamous [# /area] in Urine sediment by Automated countOrdered By: Pinky Bocanegra on 06-05-2024 Epithelial cells.squamous Auto (Urine sed) [#/Area] 10-19 [HPF] High 0-2 [facility] Erythrocyte distribution wid th [Ratio] by Automated countOrdered By: Pinky Bocanegra on 06-05-2024 Erythrocyte distribution width (RBC) [Ratio] 13.6 % Normal 11.9-15.3 [facility] Comment on above: Performed By: #### L IPASE, CMP, CBC, HCGQUAL #### [facility] [address] [place] [address] Erythrocytes [#/area] in Uri ne sediment by Automated countOrdered By: Pinky Bocanegra on 06-05-2024 RBC Auto (Urine sed) [#/Area] Innumerable [HPF] High 0-4 [facility] Erythrocytes [#/volume] in B lood by Automated countOrdered By: Pinky Bocanegra on 06-05-2024 RBC (Bld) [#/Vol] 3.88 10*6/uL Normal 3.60-5.00 [facility] Comment on above: Performed By: #### L IPASE, CMP, CBC, HCGQUAL #### [facility] [address] [place] [address] [place] Glucose [Mass/volume] in Ser um or PlasmaOrdered By: Pinky Bocanegra on 06-05-2024 Glucose [Mass/Vol] 99 mg/dL Normal 70-100 [facility] Comment on above: ADA recommended refe rence rangeRandom Glucose Reference Range is dependent on time and content of last meal. Glucose of more than 200 mg/dL in a nonstressed, ambulatory subject supports the diagnosis of Diabetes Mellitus. Result Comment: [place] om Glucose Reference Range is dependent on time and content of last meal. Glucose of more than 200 mg/dL in a nonstressed, ambulatory subject supports the diagnosis of Diabetes Mellitus. ADA recommended reference range Performed By: #### L IPASE, CMP, CBC, HCGQUAL #### [facility] [address] [place] [id number] [place] Glucose [Mass/volume] in Uri ne by Test stripOrdered By: Pinky Bocanegra on 06-05-2024 Glucose Test strip (U) [Mass/Vol] Normal mg/dL Normal [facility] HCG,Qualitative Serumon 10-0 HCG,Qualitative Serum Negative Normal [facility] Comment on above: Result Comment: PERF ORMED BY: [place] [address] PATHOLOGIST RESEARCH PROFESSIONAL MCKENZIE HERNÁNDEZ M.D. Performed By: #### C EPHEID NEG, COVID19 FLU RSV #### [facility] [address] [place] [id number] [place] Hematocrit [Volume Fraction] of Blood by Automated countOrdered By: Pinky Bocanegra on 06-05-2024 Hematocrit (Bld) [Volume fraction] 35.3 % Normal 34.0-46.4 [facility] Comment on above: Performed By: #### L IPASE, CMP, CBC, HCGQUAL #### [address] Hemoglobin Test strip Ql (U) Ordered By: Pinky Bocanegra on 06-05-2024 Hemoglobin Ql (U) 3+ High Negative [facility] Hemoglobin [Mass/volume] in BloodOrdered By: Pinky Bocanegra on 06-05-2024 Hemoglobin (Bld) [Mass/Vol] 12.4 g/dL Normal 11.8-15.4 [facility] Comment on above: Performed By: #### L IPASE, CMP, CBC, HCGQUAL #### [address] Hyaline casts [#/area] in Ur ine sediment by Automated countOrdered By: Pinky Bocanegra on 06-05-2024 Hyaline casts Auto (Urine sed) [#/Area] None [LPF] 0-8 [facility] Ketones [Presence] in Urine by Test stripOrdered By: Pinky Bocanegra on 06-05-2024 Ketones Ql (U) Negative Normal Negative [facility] Comment on above: Order Comment: Name Collection Type:: Clean-Voided Midstream Performed By: #### C EPHEID NEG, COVID19 FLU RSV #### [place] [address] [place] Leukocyte clumps [Presence] in Urine by AutomatedOrdered By: Pinky Bocanegra on 06-05-2024 Leukocyte clumps Auto Ql (U) Occasional [LPF] High None Seen [facility] Leukocyte esterase [Presence ] in Urine by Test stripOrdered By: Pinky Bocanegra on 06-05-2024 Leukocyte esterase Test strip Ql (U) 2+ High Negative [facility] Comment on above: Order Comment: Name Collection Type:: Clean-Voided Midstream Performed By: #### C EPHEID NEG, COVID19 FLU RSV #### [address] [place] [address] [place] Leukocytes [#/area] in Urine sediment by Automated countOrdered By: Pinky Bocanegra on 06-05-2024 WBC Auto (Urine sed) [#/Area] 20-49 [HPF] High 0-4 [facility] Leukocytes [#/volume] correc jose francisco for nucleated erythrocytes in Blood by Automated counOrdered By: Pinky Bocanegra on 06-05-2024 WBC corrected for nucl RBC Auto (Bld) [#/Vol] 5.9 10*3/uL 3.8-11.6 [facility] Leukocytes [#/volume] in Blo od by Automated countOrdered By: Pinky Bocanegra on 06-05-2024 WBC (Bld) [#/Vol] 5.9 10*3/uL Normal 3.8-11.6 [facility] Comment on above: Performed By: #### L IPASE, CMP, CBC, HCGQUAL #### [place] [address] [place] Lipase [Enzymatic activity/v olume] in Serum or PlasmaOrdered By: Pinky Bocanegra on 06-05-2024 Lipase [Catalytic activity/Vol] 18.0 U/L Normal 11.0-82.0 [facility] Comment on above: Performed By: #### C EPHEID NEG, COVID19 FLU RSV #### [facility] [address] [place] [address] [place] Lymphocytes [#/volume] in Bl ood by Automated countOrdered By: Pinky Bocanegra on 06-05-2024 Lymphocytes (Bld) [#/Vol] 1.5 10*3/uL Normal 1.00-4.8 [facility] Comment on above: Performed By: #### L IPASE, CMP, CBC, HCGQUAL #### [place] [address] [place] Lymphocytes/100 leukocytes i n Blood by Automated countOrdered By: Pinky Bocanegra on 06-05-2024 Lymphocytes/100 WBC (Bld) 25.0 % Normal . [facility] Comment on above: Performed By: #### L IPASE, CMP, CBC, HCGQUAL #### [facility] [address] MCH [Entitic mass] by Automa jose francisco countOrdered By: Pinky Bocanegra on 06-05-2024 MCH (RBC) [Entitic mass] 31.9 pg Normal 24.7-34.3 [facility] Comment on above: Performed By: #### L IPASE, CMP, CBC, HCGQUAL #### [facility] [address] [place] [address] MCHC Auto (RBC) [Mass/Vol]Or dered By: Pinky Bocanegra on 06-05-2024 MCHC (RBC) [Mass/Vol] 35.1 g/dL High 32.0-35.0 [facility] MCV [Entitic volume] by Auto mated countOrdered By: Pinky Bocanegra on 06-05-2024 MCV (RBC) [Entitic vol] 91.0 fL Normal 80-100 [facility] Comment on above: Performed By: #### L IPASE, CMP, CBC, HCGQUAL #### [address] Monocyte distribution width [Entitic volume] in Blood by AutomatedOrdered By: Pinky Bocanegra on 06-05-2024 Monocyte distribution width Auto (Bld) [Entitic vol] 15.64 % 0.00-20.00 [facility] Mucus [Presence] in Urine by AutomatedOrdered By: Pinky Bocanegra on 06-05-2024 Mucus Auto Ql (U) Rare [LPF] [facility] Neutrophils [#/volume] in Bl ood by Automated countOrdered By: Pinky Bocanegra on 06-05-2024 Neutrophils (Bld) [#/Vol] 4.0 10*3/uL Normal 1.8-7.7 [facility] Comment on above: Performed By: #### L IPASE, CMP, CBC, HCGQUAL #### [address] Nitrite Test strip Ql (U)Ord ered By: Pinky Bocanegra on 06-05-2024 Nitrite Ql (U) Negative Negative [facility] No Panel InformationOrdered By: Pinky Bocanegra on 06-05-2024 Estimated GFR (CKD-EPI) > 60.0 mL/Min [facility] Creatinine Clearance (Chem 133.29 [facility] Nucleated erythrocytes [Pres ence] in Blood by Automated countOrdered By: Pinky Bocanegra on 06-05-2024 Nucleated RBC Auto Ql (Bld) 0.0 /100{WBC} 0-0.5 [facility] Platelet mean volume [Entiti c volume] in Blood by Automated countOrdered By: Pinky Bocanegra on 06-05-2024 Platelet mean volume (Bld) [Entitic vol] 7.7 fL Normal 6.3-10.7 [facility] Comment on above: Performed By: #### L IPASE, CMP, CBC, HCGQUAL #### [facility] [address] [place] [address] [place] Platelets [#/volume] in Bloo d by Automated countOrdered By: Pinky Bocanegra on 06-05-2024 Platelets (Bld) [#/Vol] 201 10*3/uL Normal 150-450 [facility] Comment on above: Performed By: #### L IPASE, CMP, CBC, HCGQUAL #### [facility] [address] [place] [address] [place] Potassium [Moles/volume] in Serum or PlasmaOrdered By: Pinky Bocanegra on 06-05-2024 Potassium [Moles/Vol] 4.0 mmol/L Normal 3.5-5.1 [facility] Comment on above: Performed By: #### L IPASE, CMP, CBC, HCGQUAL #### [facility] [address] [place] [address] [place] Protein [Mass/volume] in Ser um or PlasmaOrdered By: Pinky Bocanegra on 06-05-2024 Protein [Mass/Vol] 6.8 g/dL Normal 6.4-8.9 [facility] Comment on above: Performed By: #### L IPASE, CMP, CBC, HCGQUAL #### [facility] [address] [place] [address] [place] Protein [Mass/volume] in Uri ne by Test stripOrdered By: Pinky Bocanegra on 06-05-2024 Protein (U) [Mass/Vol] 20 mg/dL High Negative [facility] Comment on above: Order Comment: Name Collection Type:: Clean-Voided Midstream Performed By: #### C EPHEID NEG, COVID19 FLU RSV #### [address] Serum globulin measurement b y calculation (mass/volume)Ordered By: Pinky Bocanegra on 06-05-2024 Globulin (S) [Mass/Vol] 2.9 g/dL Normal [facility] Comment on above: Performed By: #### L IPASE, CMP, CBC, HCGQUAL #### [address] Serum or plasma albumin/glob ulin mass ratioOrdered By: Pinky Bocanegra on 06-05-2024 Albumin/Globulin [Mass ratio] 1.3 {ratio} Normal [facility] Comment on above: Performed By: #### L IPASE, CMP, CBC, HCGQUAL #### [address] Serum or plasma anion gap de terminationOrdered By: Pinky Bocanegra on 06-05-2024 Anion gap [Moles/Vol] 8.6 mmol/L Normal 6.0-15.0 [facility] Comment on above: Performed By: #### L IPASE, CMP, CBC, HCGQUAL #### [address] Sodium [Moles/volume] in Ser um or PlasmaOrdered By: Pinky Bocanegra on 06-05-2024 Sodium [Moles/Vol] 140 mmol/L Normal 136-145 [facility] Comment on above: Performed By: #### L IPASE, CMP, CBC, HCGQUAL #### [address] Specific gravity Test strip (U) [Rel density]Ordered By: Pinky Bocanegra on 06-05-2024 Specific gravity (U) [Rel density] 1.023 1.001-1.030 [facility] Urea nitrogen [Mass/volume] in Serum or PlasmaOrdered By: Pinky Bocanegra on 06-05-2024 Urea nitrogen [Mass/Vol] 17 mg/dL Normal 7-25 [facility] Comment on above: Performed By: #### L IPASE, CMP, CBC, HCGQUAL #### [facility] [address] [place] [address] Urine Cultureon 06-05-2024 Bacteria identified Cx Nom (U) 75,000 colonies/ml mixed bacterial skin contaminants 2 Days PERFORMED BY: [place] [address] PATHOLOGIST [employer]EARCH PROFESSIONAL MCKENZIE HERNÁNDEZ M.D. Normal [facility] Comment on above: Performed By: #### C EPHEID NEG, COVID19 FLU RSV #### [address] Urine appearanceOrdered By: Pinky Bocanegra on 06-05-2024 Appearance (U) Cloudy Critically abnormal Clear [facility] Comment on above: Order Comment: Name Collection Type:: Clean-Voided Midstream Performed By: #### C EPHEID NEG, COVID19 FLU RSV #### [address] Urobilinogen Test strip (U) [Mass/Vol]Ordered By: Pinky Bocanegra on 06-05-2024 Urobilinogen (U) [Mass/Vol] 4 mg/dL High Normal [facility] pH of Urine by Test stripOrd ered By: Pinky Bocanegra on 06-05-2024 pH (U) 8.0 [pH] Normal 5.0-9.0 [facility] Comment on above: Order Comment: Name Collection Type:: Clean-Voided Midstream Performed By: #### C EPHEID NEG, COVID19 FLU RSV #### [address] MR lumbar spine wo conon MR lumbar spine wo con [facility] Main [place] [address] [place] [address] MRI Report Signed Patient: Hellen Mcgill MR#: [id number] 5 : 1985 Acct:[id number] Age/Sex: 39 / F ADM Date: 02/16/24 Loc: MR Room: Type: [facility] Attending Dr: Juan Angelo DO Copies to: [...] Franco Jr., D.O.02/16/2024 8:55 PM Dictation Location: [place] [address] Transcribed By: [facility] 02/16/242054 Dictated By: Mannie Franco Jr, DO 02/16/242049 Signed By: 02/16/242054 Normal [facility] COVID CepheidOrdered By: Arya Gonzalez on 10-28-2023 SARS-CoV-2 (COVID-19) Ab [place] Ql Negative Negative [facility] Comment on above: This is a duplicate Cepheid Xpert Xpress CoV-2/Flu/RSV Plus RNA by RT-PCR result to be used for statistical tracking purpose only. SARS-CoV-2 (COVID-19) RNA AFSHAN+probe Ql (Unsp spec) [facility] COVID-19 / Flu A/B / RSV PCR [...] or Cepheid Disclaimer revoked sooner. PERFORMED BY: [place] [address] PATHOLOGIST RESEARCH PROFESSIONAL MCKENZIE HERNÁNDEZ M.D. Normal [facility] Comment on above: Performed By: #### C EPHEID NEG, COVID19 FLU RSV #### [address] Cepheid COVID PCR Negativeon 10-28-2023 SARS-CoV-2 (COVID-19) RNA AFSHAN+probe Ql (Unsp spec) Negative Normal Negative [facility] Comment on above: Result Comment: This is a duplicate Cepheid Xpert Xpress CoV-2/Flu/RSV Plus RNA by RT-PCR result to be used for statistical tracking purpose only. PERFORMED BY: [place] [address] PATHOLOGIST RESEARCH PROFESSIONAL MCKENZIE HERNÁNDEZ M.D. Performed By: #### C EPHEID NEG, COVID19 FLU RSV #### [address] ECG 12 lead ECGon 10-28-2023 ECG 12 lead ECG [facility] Main [place] [address] [place] [address] Electrocardiograph Report Signed Patient: Hellen Mcgill MR#: [id number] 5 : 1985 Acct:[id number] Age/Sex: 38 / F ADM Date: 10/28/23 Loc: ER Room: Type: [facility] ER Attending Dr: Ordering Provider: Milana [...] 52 BPM Confirmed by MILANA GONZALEZ MD ([id number]) on 10/28/2023 5:27:33 AM Referred By: Electronically Signed By:MILANA GONZALEZ MD Transcribed By: MUS Signed By Milana Gonzalez Jr, MD 0527 Normal [facility] XR chest 1V portableon XR chest 1V portable [facility] [address] XRay Report Signed Patient: Hellen Mcgill MR#: [id number] 5 : 1985 Acct:[id number] Age/Sex: 38 / F ADM Date: 10/28/23 Loc: ER Room: Type: [facility] ER Attending Dr: Copies to: Milana Gonzalez Jr, [...] Marcio Garces M.D.10/28/2023 9:05 AM Dictation Location: [place] [address] Transcribed By: [facility] 10/28/23904 Dictated By: Marcio Garces II, MD 10/28/23903 Signed By: 10/28/23904 Normal [facility] Basophils Auto (Bld) [#/Vol] Ordered By: Omar Pham on 04-16-2023 Basophils (Bld) [#/Vol] 0.0 10*3/uL 0.0-0.2 [facility] Basophils/100 WBC Auto (Bld) Ordered By: Omar Pham on 04-16-2023 Basophils/100 WBC (Bld) 0.5 % . [facility] Calcium [Mass/volume] in Ser um or PlasmaOrdered By: Omar Pham on 04-16-2023 Calcium [Mass/Vol] 9.4 mg/dL 8.6-10.3 [facility] Carbon dioxide, total [Moles /volume] in Serum or PlasmaOrdered By: Omar Pham on 04-16-2023 CO2 [Moles/Vol] 27.7 mmol/L 21.0-31.0 [facility] Chloride [Moles/volume] in S lupe or PlasmaOrdered By: Omar Pham on 04-16-2023 Chloride [Moles/Vol] 104 mmol/L 98-107 [facility] Creatinine [Mass/volume] in Serum or PlasmaOrdered By: Omar Pham on 04-16-2023 Creatinine [Mass/Vol] 0.78 mg/dL 0.60-1.20 [facility] Eosinophils Auto (Bld) [#/Vo l]Ordered By: Omar Pham on 04-16-2023 Eosinophils (Bld) [#/Vol] 0.1 10*3/uL 0.0-0.45 [facility] Eosinophils/100 WBC Auto (Bl d)Ordered By: Omar Pham on 04-16-2023 Eosinophils/100 WBC (Bld) 1.5 % . [facility] Erythrocyte distribution wid th Auto (RBC) [Ratio]Ordered By: Omar Pham on 04-16-2023 Erythrocyte distribution width (RBC) [Ratio] 13.8 % 11.9-15.3 [facility] Glucose [Mass/volume] in Ser um or PlasmaOrdered [...] Hematocrit (Bld) [Volume fraction] 37.5 % 34.0-46.4 [facility] Hemoglobin [Mass/volume] in BloodOrdered By: Omar Pham on 04-16-2023 Hemoglobin (Bld) [Mass/Vol] 12.9 g/dL 11.8-15.4 [facility] Leukocytes [#/volume] correc jose francisco for nucleated erythrocytes in Blood by Automated counOrdered By: Omar Pham on 04-16-2023 WBC corrected for nucl RBC Auto (Bld) [#/Vol] 9.1 10*3/uL 3.8-11.6 [facility] Lymphocytes Auto (Bld) [#/Vo l]Ordered By: Omar Pham on 04-16-2023 Lymphocytes (Bld) [#/Vol] 1.3 10*3/uL 1.00-4.8 [facility] Lymphocytes/100 WBC Auto (Bl d)Ordered By: Omar Pham on 04-16-2023 Lymphocytes/100 WBC (Bld) 14.8 % . [facility] MCH Auto (RBC) [Entitic mass ]Ordered By: Omar Pham on 04-16-2023 MCH (RBC) [Entitic mass] 30.8 pg 24.7-34.3 [facility] MCHC Auto (RBC) [Mass/Vol]Or dered By: Omar Pham on 04-16-2023 MCHC (RBC) [Mass/Vol] 34.4 g/dL 32.0-35.0 [facility] MCV Auto (RBC) [Entitic vol] Ordered By: Omar Pham on 04-16-2023 MCV (RBC) [Entitic vol] 89.5 fL 80-100 [facility] Monocyte distribution width [Entitic volume] in Blood by AutomatedOrdered By: Omar Pham on 04-16-2023 Monocyte distribution width Auto (Bld) [Entitic vol] 17.20 % 0.00-20.00 [facility] Monocytes Auto (Bld) [#/Vol] Ordered By: Omar Pham on 04-16-2023 Monocytes (Bld) [#/Vol] 0.5 10*3/uL 0.0-0.8 [facility] Monocytes/100 WBC Auto (Bld) Ordered By: Omar Pham on 04-16-2023 Monocytes/100 WBC (Bld) 6.0 % . [facility] Neutrophils Auto (Bld) [#/Vo l]Ordered By: Omar Pham on 04-16-2023 Neutrophils (Bld) [#/Vol] 7.0 10*3/uL 1.8-7.7 [facility] Neutrophils/100 WBC Auto (Bl d)Ordered By: Omar Pham on 04-16-2023 Neutrophils/100 WBC (Bld) 77.2 % . [facility] No Panel InformationOrdered By: Omar Pham on 04-16-2023 Estimated GFR (CKD-EPI) > 60.0 mL/Min [facility] Creatinine Clearance (Chem 130.11 [facility] Nucleated erythrocytes [Pres ence] in Blood by Automated countOrdered By: Omar Pham on 04-16-2023 Nucleated RBC Auto Ql (Bld) 0.2 /100{WBC} 0-0.5 [facility] Platelet mean volume Auto (B ld) [Entitic vol]Ordered By: Omar Pham on 04-16-2023 Platelet mean volume (Bld) [Entitic vol] 8.0 fL 6.3-10.7 [facility] Platelets Auto (Bld) [#/Vol] Ordered By: Omar Pham on 04-16-2023 Platelets (Bld) [#/Vol] 200 10*3/uL 150-450 [facility] Potassium [Moles/volume] in Serum or PlasmaOrdered By: Omar Pham on 04-16-2023 Potassium [Moles/Vol] 3.6 mmol/L 3.5-5.1 [facility] RBC Auto (Bld) [#/Vol]Ordere d By: Omar Pham on 04-16-2023 RBC (Bld) [#/Vol] 4.19 10*6/uL 3.60-5.00 [facility] Serum or plasma anion gap de terminationOrdered By: Omar Pham on 04-16-2023 Anion gap [Moles/Vol] 11.9 mmol/L 6.0-15.0 [facility] Sodium [Moles/volume] in Ser um or PlasmaOrdered By: Omar Pham on 04-16-2023 Sodium [Moles/Vol] 140 mmol/L 136-145 [facility] Urea nitrogen [Mass/volume] in Serum or PlasmaOrdered By: Omar Felixarthy on 04-16-2023 Urea nitrogen [Mass/Vol] 12 mg/dL 7-25 [facility] WBC Auto (Bld) [#/Vol]Ordere d By: Omar Felixarthy on 04-16-2023 WBC (Bld) [#/Vol] 9.1 10*3/uL 3.8-11.6 [facility] Covid-19 PCR ([facility])on 08-31 SARS-CoV-2 (COVID-19) RNA AFSHAN+probe Ql (Unsp spec) Not detected Normal NOT DETECTED [facility] Comment on above: Result Comment: When [...] for this test is supported by the [place] of Health and Human Service's declaration that [...] longer be used). Performed By: #### C VDTB #### [facility] [address] [place] [address] Dr. Ping Hernandez GROUP A STREP CULTUREon 08-31 S. pyogenes Ag Ql (Unsp spec) Culture Observations: NEGATIVE FOR GROUP A STREPTOCOCCUS. Normal [facility] Comment on above: Performed By: #### S SCRN, GRASTCX #### [facility] [address] [place] [address] Dr. Ping Hernandez INFLUENZA A AND B AGon 09-21 INFLUANEGH SEE BELOW Normal [facility] Comment on above: Result Comment: Nega tive for Flu A protein angiten. Infection due to Flu A cannot be ruled out. Flu A angiten in the sample may be below the detection limit of the test. Performed By: #### I NFLUAB #### [facility] [address] [place] [address] Dr. Ping Hernandez INFLUBNEGH SEE BELOW Normal [facility] Comment on above: Result Comment: Nega tive for Flu B protein antigen. Infection due to Flu B cannot be ruled out. Flu B antigen in the sample may be below the detection limit of the test. Performed By: #### I NFLUAB #### [facility] [address] [place] [address] Dr. Ping Hernandez INFLUENZA A AG Negative Normal NEGATIVE SEE COMMENT [facility] Comment on above: Performed By: #### I NFLUAB #### [facility] [address] [place] [address] Dr. Ping Hernandez INFLUENZA B AG Negative Normal NEGATIVE SEE COMMENT [facility] Comment on above: Performed By: #### I NFLUAB #### [facility] [address] [place] [address] Dr. Ping Hernandez STREPT SCREENon 09-21-2022 STREP SCREEN A Negative Normal NEGATIVE [facility] Comment on above: Performed By: #### S SCRN, GRASTCX #### [facility] [address] [place] [address] Dr. Ping Hernandez XR CHEST 1 Von [...] JENI CORDERO Date: 2022-09-21 19:52 Normal [facility] XR HAND RT MIN 3Von 07-21-20 XR HAND RT MIN 3V IMAGES REVIEWED: [...] LEONA DICKENS Date: 2022-07-21 19:26 Normal [facility] Automated erythrocytes count in urine sediment (number/area)Ordered By: Omar Pham on 07-10-2022 RBC Auto (Urine sed) [#/Area] 10-19 [HPF] 0-4 [facility] Automated leukocytes count i n urine sediment (number/area)Ordered By: Omar Pham on 07-10-2022 WBC Auto (Urine sed) [#/Area] 10-19 [HPF] 0-4 [facility] Bilirubin Test strip Ql (U)O rdered By: Omar Pham on 07-10-2022 Bilirubin Ql (U) Negative Negative [facility] Color Auto (U)Ordered By: Mandy Pham on 07-10-2022 Color (U) Yellow Yellow [facility] HCG ( test) IA.rapi d Ql (U)Ordered By: Omar Pham on 07-10-2022 HCG ( test) Ql (U) Negative [facility] Ketones Auto test strip (U) [Mass/Vol]Ordered By: Omar Pham on 07-10-2022 Ketones (U) [Mass/Vol] Negative [facility] - UrinalysisOrder ed By: Omar Pham on 07-10-2022 Hyaline casts LM Ql (Urine sed) 0-8 [LPF] 0-8 [facility] Nitrite Test strip Ql (U)Ord ered By: Omar Pham on 07-10-2022 Nitrite Ql (U) Negative Negative [facility] Protein Auto test strip (U) [Mass/Vol]Ordered By: Omar Pham on 07-10-2022 Protein (U) [Mass/Vol] Negative Negative [facility] Specific gravity Auto test s trip (U) [Rel density]Ordered By: Omar Pham on 07-10-2022 Specific gravity (U) [Rel density] 1.010 1.001-1.030 [facility] Squamous epithelial cells de tection in urine sediment by light microscopyOrdered By: Omar Pham on 07-10-2022 Epithelial cells.squamous LM Ql (Urine sed) 10-19 [HPF] 0-2 [facility] Urine bacteria detection by automated methodOrdered By: Omar Pham on 07-10-2022 Bacteria Auto Ql (U) 1+ None Seen [facility] Urine clarity by refractomet ry automatedOrdered By: Omar Pham on 07-10-2022 Clarity Refractometry automated (U) Cloudy Clear [facility] Urine glucose measurement by automated test strip (mass/volume)Ordered By: Omar Pham on 07-10-2022 Glucose Auto test strip (U) [Mass/Vol] Normal mg/dL Normal [facility] Urine hemoglobin detection b y automated test stripOrdered By: Omar Pham on 07-10-2022 Hemoglobin Auto test strip Ql (U) 3+ Negative [facility] Urine leukocyte esterase det ection by automated test stripOrdered By: Omar Pham on 07-10-2022 Leukocyte esterase Auto test strip Ql (U) 1+ Negative [facility] Urobilinogen Auto test strip (U) [Mass/Vol]Ordered By: Omar Pham on 07-10-2022 Urobilinogen (U) [Mass/Vol] Normal mg/dL Normal [facility] pH Auto test strip (U)Ordere d By: Omar Pham on 07-10-2022 pH (U) 5.5 [pH] 5.0-9.0 [facility] ER URINE PROFILEon 2 Bilirubin Ql (U) Negative Normal NEGATIVE [facility] Comment on above: Performed By: #### U MICRO, PREGU, ERUR #### [facility] [address] [place] [address] [address] Ping Hernandez Clarity (U) CLEAR Normal CLEAR [facility] Comment on above: Performed By: #### U MICRO, PREGU, ERUR #### [facility] [address] [place] [address] [address] Ping Hernandez Color (U) YELLOW Normal YELLOW [facility] Comment on above: Performed By: #### U MICRO, PREGU, ERUR #### [facility] [address] [place] [address] [address] Ping BARRERAD A micrscopic examination will be performed if indicated. Normal [facility] Comment on above: Performed By: #### U MICRO, PREGU, ERUR #### [facility] [address] [place] [address] [address] Ping Hernandez Glucose Ql (U) Negative Normal NEGATIVE [facility] Comment on above: Performed By: #### U MICRO, PREGU, ERUR #### [facility] [address] [place] [address] [address] Ping Hernandez Hemoglobin Ql (U) TRACE-INTACT Abnormal NEGATIVE [facility] Comment on above: Performed By: #### U MICRO, PREGU, ERUR #### [facility] [address] [place] [address] [address] Ping Hernandez Ketones Ql (U) Negative Normal NEGATIVE [facility] Comment on above: Performed By: #### U MICRO, PREGU, ERUR #### [facility] [address] [place] [address] [address] Ping Hernandez LEUKOCYTES Negative Normal NEGATIVE [facility] Comment on above: Performed By: #### U MICRO, PREGU, ERUR #### [facility] [address] [place] [address] [address] Ping Hernandez Nitrite Ql (U) Negative Normal NEGATIVE [facility] Comment on above: Performed By: #### U MICRO, PREGU, ERUR #### [facility] [address] [place] [address] [address] Ping Hernandez pH (U) 6.5 [pH] Normal 5-9 [facility] Comment on above: Performed By: #### U MICRO, PREGU, ERUR #### [facility] [address] [place] [address] [address] Ping Hernandez SPEC GRAVITY 1.020 Normal 1.005-<=1.02 5 [facility] Comment on above: Performed By: #### U MICRO, PREGU, ERUR #### [facility] [address] [place] [address] [address] Ping Hernandez UA PROTEIN Negative Normal NEGATIVE/ TRACE [facility] Comment on above: Performed By: #### U MICRO, PREGU, ERUR #### [facility] [address] [place] [address] Dr. Ping Hernandez UR MICRO IND INDICATED Normal [facility] Comment on above: Performed By: #### U MICRO, PREGU, ERUR #### [facility] [address] [place] [address] Dr. Ping Hernandez Urobilinogen Qn (U) 0.2 {Brian'U}/dL Normal 0.2 - 1. 0 [facility] Comment on above: Performed By: #### U MICRO, PREGU, ERUR #### [facility] [address] [place] [address] Dr. Ping Hernandez URon 02-16-2022 , QUAL Negative Normal NEGATIVE [facility] Comment on above: Performed By: #### U MICRO, PREGU, ERUR #### [facility] [address] [place] [address] Dr. Ping Hernandez URINE MICROSCOPIC ONLYon BACTERIA TRACE Abnormal NONE SEEN [facility] Comment on above: Performed By: #### U MICRO, PREGU, ERUR #### [facility] [address] [place] [address] Dr. Ping Hernandez Bacteria identified Cx Nom (U) NOT INDICATED Normal [facility] Comment on above: Performed By: #### U MICRO, PREGU, ERUR #### [facility] [address] [place] [address] [address] Ping Hernandez CAST NONE SEEN Normal NONE SEEN [facility] Comment on above: Performed By: #### U MICRO, PREGU, ERUR #### [facility] [address] [place] [address] [address] Ping Hernandez Crystals LM Nom (Urine sed) SEEN Abnormal NONE SEEN [facility] Comment on above: Performed By: #### U MICRO, PREGU, ERUR #### [facility] [address] [place] [address] [address] Ping Hernandez Epithelial cells LM Ql (Urine sed) RARE Normal NONE SEEN /RARE [facility] Comment on above: Performed By: #### U MICRO, PREGU, ERUR #### [facility] [address] [place] [address] [address] Ping Hernandez MUCOUS TRACE Abnormal NONE SEEN [facility] Comment on above: Performed By: #### U MICRO, PREGU, ERUR #### [facility] [address] [place] [address] [address] Ping Hernandez RBC 0-2 Normal 0-2 [facility] Comment on above: Performed By: #### U MICRO, PREGU, ERUR #### [facility] [address] [place] [address] [address] Ping Hernandez WBC NONE SEEN Normal NONE SEEN [facility] Comment on above: Performed By: #### U MICRO, PREGU, ERUR #### [facility] [address] [place] [address] [address] Ping Hernandez Vital Signs Date Time Vital Sign Value Performing Clinician Facility 06-06-2024 20:14-040 Diastolic blood pressure 71 mm[Hg] [facility] [employer] [facility] Work Phone: [facility] 06-06-2024 20:14-040 Heart rate 50 /min [facility] Work Phone: [facility] 06-06-2024 20:14-0400 Respiratory rate 16 /[facility] 06-06-2024 20:14-0400 SaO2% (BldA) [Mass fraction] 99 % [facility] Work Phone: [facility] 06-06-2024 20:14-0400 Systolic blood pressure 125 mm[Hg] [facility] Work Phone: [facility] 06-06-2024 18:02-0400 Body height 175.26 cm [facility] Work Phone: [facility] 06-06-2024 18:02-0400 Body temperature 98.1 [degF] [facility] Work Phone: [facility] 06-06-2024 18:02-0400 Body weight 109 kg [facility] Work Phone: [facility] 06-05-2024 09:33-0400 Diastolic blood pressure 81 mm[Hg] [facility] Work Phone: [facility] 06-05-2024 09:33-0400 Heart rate 60 /min [facility] Work Phone: [facility] 06-05-2024 09:33-0400 Respiratory rate 14 /min [facility] Work Phone: [facility] 06-05-2024 09:33-0400 SaO2% (BldA) [Mass fraction] 97 % [facility] Work Phone: [facility] 06-05-2024 09:33-0400 Systolic blood pressure 151 mm[Hg] [facility] Work Phone: [facility] 06-05-2024 07:27-0400 Body height 175.26 cm [facility] Work Phone: [facility] 06-05-2024 07:27-0400 Body temperature 97.8 [degF] [facility] Work Phone: [facility] 06-05-2024 07:27-0400 Body weight 107.5 kg [facility] Work Phone: [facility] 04-20-2024 09:29-0400 Body height 175.26 cm [facility] Work Phone: [facility] 04-20-2024 09:29-0400 Body mass index (BMI) [Ratio] 32.5 kg/m2 [facility] Work Phone: [facility] 04-20-2024 09:29-0400 Body weight 99.9 kg [facility] Work Phone: [facility] 03-23-2024 13:28-0400 Body weight 102.96 kg [facility] Work Phone: [facility] 12-19-2023 22:43-0400 Body height 175.26 cm [facility] Work Phone: [facility] 12-19-2023 22:43-0400 Body weight 107.2 kg [facility] Work Phone: [facility] 12-19-2023 22:40-0400 Body temperature 97.8 [degF] [facility] Work Phone: [facility] 12-19-2023 22:40-0400 Diastolic blood pressure 87 mm[Hg] [facility] Work Phone: [facility] 12-19-2023 22:40-0400 Heart rate 84 /min [facility] Work Phone: [facility] 12-19-2023 22:40-0400 Respiratory rate 18 /min [facility] Work Phone: [facility] 12-19-2023 22:40-0400 SaO2% (BldA) [Mass fraction] 97 % [facility] Work Phone: [facility] 12-19-2023 22:40-0400 Systolic blood pressure 149 mm[Hg] [facility] Work Phone: [facility] 10-28-2023 02:42-0500 Heart rate 108 /min [facility] Work Phone: [facility] 10-28-2023 02:42-0500 Respiratory rate 26 /min [facility] Work Phone: [facility] 10-28-2023 02:42-0500 SaO2% (BldA) [Mass fraction] 98 % [facility] Work Phone: [facility] 10-28-2023 01:25-0500 Body height 175.26 cm [facility] Work Phone: [facility] 10-28-2023 01:25-0500 Body temperature 98 [degF] [facility] Work Phone: [facility] 10-28-2023 01:25-0500 Body weight 106.7 kg [facility] Work Phone: [facility] 10-28-2023 01:25-0500 Diastolic blood pressure 78 mm[Hg] [facility] Work Phone: [facility] 10-28-2023 01:25-0500 Systolic blood pressure 156 mm[Hg] [facility] Work Phone: [facility] 04-16-2023 05:00-0400 Diastolic blood pressure 56 mm[Hg] [facility] Work Phone: [facility] 04-16-2023 05:00-0400 Heart rate 51 /min [facility] Work Phone: [facility] 04-16-2023 05:00-0400 Respiratory rate 19 /min [facility] Work Phone: [facility] 04-16-2023 05:00-0400 SaO2% (BldA) [Mass fraction] 97 % [facility] Work Phone: [facility] 04-16-2023 05:00-0400 Systolic blood pressure 100 mm[Hg] [facility] Work Phone: [facility] 04-15-2023 21:02-0400 Body height 175.26 cm [facility] Work Phone: [facility] 04-15-2023 21:02-0400 Body temperature 98.2 [degF] [facility] Work Phone: [facility] 04-15-2023 21:02-0400 Body weight 111.4 kg [facility] Work Phone: [facility] 07-10-2022 00:48-0500 Body height 175.26 cm [facility] Work Phone: [facility] 07-10-2022 00:48-0500 Body weight 120.2 kg [facility] Work Phone: [facility] 07-10-2022 00:47-0500 Body temperature 98.4 [degF] [facility] Work Phone: [facility] 07-10-2022 00:47-0500 Diastolic blood pressure 100 mm[Hg] [facility] Work Phone: [facility] 07-10-2022 00:47-0500 Heart rate 131 /min [facility] Work Phone: [facility] 07-10-2022 00:47-0500 Respiratory rate 20 /min [facility] Work Phone: [facility] 07-10-2022 00:47-0500 SaO2% (BldA) [Mass fraction] 99 % [facility] [employer] [employer] [facility] Work Phone: [facility] 07-10-2022 00:47-0500 Systolic blood pressure 138 mm[Hg] [facility] Work Phone: [facility] 05-26-2021 14:00-0400 Body height Ramone Franco Other [facility] Other 05-26-2021 14:00-0400 Body mass index (BMI) [Ratio] 42.17 kg/m2 Ramone Franco Other [facility] Other 05-26-2021 14:00-0400 Body weight 129.55 kg Ramone Franco Other [facility] Other 05-26-2021 14:00-0400 Diastolic blood pressure 64 mm[Hg] Ramone Franco Other [facility] Other 05-26-2021 14:00-0400 SaO2% (BldA) [Mass fraction] 98 % Ramone Franco Other [facility] Other 05-26-2021 14:00-0400 Systolic blood pressure 116 mm[Hg] Ramone Franco Other [facility] Other Encounters Encounter Date Encounter Type Care Provider Facility Start: 11-29-2024 End: 11-29-2024 Orders Only Ivy Valdez [employer] Work Phone: [facility] Comment on above: Acute non-recurrent pansinusitis (Primary Dx) Start: 06-06-2024 End: 06-06-2024 Emergency department patient visit [facility] Work Phone: [facility] Work Phone: Start: 06-05-2024 End: 06-05-2024 Emergency department patient visit [facility] Work Phone: [facility] Work Phone: Start: 04-27-2024 End: 04-27-2024 Phys/qhp telephone evaluation 11-20 min Deng Malave MD Work Phone: [facility] Comment on above: Arrived Start: 04-20-2024 End: 04-20-2024 ambulatory [facility] Work Phone: [facility] Work Phone: Start: 04-20-2024 End: 04-20-2024 Patient encounter procedure [facility] Work Phone: [facility] Work Phone: Start: 03-23-2024 End: 03-23-2024 ambulatory [facility] Work Phone: [facility] Work Phone: Start: 03-23-2024 End: 03-23-2024 Patient encounter procedure [facility] Work Phone: [facility] Work Phone: Start: 02-16-2024 End: 02-16-2024 Patient encounter procedure [facility] Work Phone: [facility] [place] Work Phone: Start: 02-16-2024 End: 02-16-2024 ambulatory [facility] Work Phone: [facility] Work Phone: Start: 12-19-2023 End: 12-19-2023 Emergency department patient visit [facility] Work Phone: [facility] Work Phone: Start: 10-28-2023 End: 10-28-2023 Emergency department patient visit [facility] Work Phone: [facility] Work Phone: Start: 04-15-2023 End: 04-16-2023 Emergency department patient visit [facility] Work Phone: [facility] Work Phone: Start: 12-05-2022 End: 12-05-[address] DOCTOR LOCKE Facility:[facility]1 Start: 09-21-2022 End: 09-21-2022 ambulatory DANIEL VILLAGOMEZ Facility:[facility] Start: 07-21-2022 End: 07-21-2022 ambulatory KEVIN MCLAUGHLIN Facility:[facility]1 Start: 07-10-2022 End: 07-10-[address] NADEEM THURMAN . Facility:[facility]1 Start: 07-10-2022 End: 07-10-2022 Emergency department patient visit [facility] Work Phone: [facility] Start: 06-30-2022 End: 06-30-2022 ambulatory FRANK AMEZQUITA . Facility:[facility]1 Start: 02-16-2022 End: 02-16-2022 ambulatory DAVE ZENDEJAS . Facility:[facility] Start: 06-02-2021 Telephone encounter Ramone Franco [facility] Start: 05-26-2021 Office consultation new/estab patient 60 min Ramone Franco [facility] Start: 01-25-2004 Evaluation and management of inpatient [facility] Work Phone: [facility] [place] Procedures Date Procedure Procedure Detail Performing Clinician Start: 06-06-2024 SARS-CoV-2, Influenz a & RSV (PCR) [facility] Work Phone: Start: 02-16-2024 MR lumbar spine wo con [facility] Work Phone: Start: 10-28-2023 SARS-CoV-2, Influenz a & RSV (PCR) [facility] Work Phone: Start: 10-28-2023 Plain [facility] Work Phone: H/O: section Status pos t delivery [facility] Work Phone: Plan of Treatment Date Care Activity Detail Author Start: 2035 Zoster Vaccines (1 of 2) Zoste r Vaccines (1 of 2) [facility] Start: 04-30-2025 Influenza vaccination Influenz a Vaccine (Season Ended) [facility] Start: 06-05-2024 Bacteria identified in Urine by Culture Urine Culture [facility] Start: 06-05-2024 Urine culture [facility] Start: 04-30-2024 Influenza vaccination Influenza Vacc ine (#1) [facility] Start: 03-23-2024 Patient referral [facility] Work Phone: Start: 04-30-2023 COVID-19 Vaccine ( season) COVID-19 Vaccine ( season) [facility] Start: 04-15-2023 CT Lumbar spine WO contrast [facility] Start: 04-15-2023 CT of lumbar spine without contrast CT lumbar spine wo con [facility] Start: 07-10-2022 Plain X-ray of right hand XR hand RT 2V [facility] Start: 07-10-2022 XR Hand - right 2 Views [facility] Start: 2015 Screening for malign ant neoplasm of cervix [facility] Start: 2007 DTaP/Tdap/Td Vaccine s (1 - Tdap) DTaP/Tdap/Td Vaccines (1 - Tdap) [facility] Start: 2006 Screening for malign ant neoplasm of cervix [facility] Start: 01-16-2004 Hepatitis B Vaccines (1 of 3 - 19+ 3-dose series) Hepatitis B Vaccines (1 of 3 - 19+ 3-dose series) [facility] Start: 2003 Hepatitis C screening Hepatitis C Sc reearmando [facility] Start: 1998 Varicella vaccination Varicell a Vaccines (1 of 2 - 13+ 2-dose series) [facility] Start: 1986 MMR Vaccines (1 of 1 - Standard series) MMR Vaccines (1 of 1 - Standard series) [facility] Start: 1985 HIV screening HIV Screening [facility] Start: 1985 Lipid panel Lipid Panel [facility] Start: 1985 Yearly Adult Physical Yearly Adult P hysical [facility] Bacteria identified in Urine by Culture Urine Culture [facility] Patient Education [facility] Work Phone: Patient referral [facility] Work Phone: XR Lumbar spine 4 Views [facility] Payers Date Payer Category Payer Unknown [id number] 2023 Private Health Insurance [employer] [place] [id number] 2023 Unknown GENERIC COMMERCI AL GENERIC COMMERCIAL [id number] 2023-Present [phone] BOX [facility] [place] [id number] 1985 Unknown [id number] .[id number] 1985 Unknown [id number] .[id number] 1985 Unknown [id number] .[id number] 1985 Unknown [id number] .[id number] 1985 Unknown [id number] [id number] .[id number] 1985 Unknown [id number] .2.593 1959 Self-pay [id number] 1959 Self-pay [id number] Private Health Insurance [id number] Unknown [id number] Unknown [id number] .[id number] Unknown [id number] .[id number] Unknown [id number] .2.531 Unknown [id number] .2.531 Unknown [id number] .[id number] Social History Date Type Detail Facility Unknown if ever smoked [facility] 2,10E+07 Other Sex Assigned At [facility] 2,10E+07 Other Start: 07-10-2022 End: 06-06-2024 Tobacco smoking status DCIS Smoker (finding) [facility] Start: 1985 Sex Assigned At Female [facility] Start: 04-15-2023 Tobacco smoking status DCIS Ex-smoker (finding) [facility] Tobacco smoking status DCIS Tobacco smoking consumption unknown [facility] Work Phone: Start: 1985 Sex assigned at Not on file [facility] Work Phone: Start: 04-16-2024 End: 04-26-2024 Exposure to SARS-CoV-2 (event) Not sure [facility] NEGATED: Highlighted row [facility] Clinical Notes 05-26-2021 to 04-27-2024 Deng Malave MD - 04/27/2024 9:00 AM EDT Note Date & Type Note Facility 04-27-2024 History of Present illness Narrative 39-year-old female with chief complaint of lower back pain. She has had pain in her lower back for at least the last 3 years. Pain began spontaneously. It is worse with physical activity, worse with prolonged sitting. She states that there are days where she cannot even get out of bed and walk because the pain is so bad. She has had to call off of work as an [employer]. She has been treated with physical therapy, multiple medications, and injections in the lumbar spine. She notes occasional numbness and tingling in the legs but for the most part this is a back pain problem not a leg pain problem. She is a former smoker, vapes daily with nicotine. Medical history is significant for weight loss of 70 pounds over the last few years intentionally. She does not describe any weakness or focal neurologic deficits. I reviewed MRI of her lumbar spine which was uploaded to our PACS system. This shows mild to moderate degenerative changes. There is no significant stenosis. 39-year-old female with chronic, axial lower back pain symptoms. I explained to her at length that this is not a problem that is amenable to surgical treatment. I do not have anything to offer her to help improve the symptoms. We discussed the importance of smoking cessation and cessation of all nicotine containing products, as well as the importance of ongoing aerobic exercise in the treatment of lower back pain. She can continue to follow-up with pain management as needed but I explained to her there is no doctor, surgery, or injection that is going to cure her pain entirely. She really needs to put in the work in terms of abstaining from nicotine and daily aerobic exercise. *This note was dictated using speech recognition software and was not corrected for spelling or grammatical errors* documented in this encounter [facility] Work Phone: 05-26-2021 Evaluation note Encounter Date Diagnosis Assessment [...] negative findings were considered in medical decision-making. [facility] Other Evaluation noteNo InformationNort [employer] Other Evaluation noteNo assessment information available [facility] Work Phone: Evaluation note* Diagnosis Onset Date Resolution Status Left lumbar radiculopathy ac [place] Degenerative disc disease, lumbar acute Low back pain acute [facility] Work Phone: Evaluation note* Diagnosis Acute non-recurrent pansinusitis- Primary documented in this encounter [facility] - Reported* Type Description Date Medical History asthma Surgical History gall bladder removal 2010 Surgical History c Section 2008 Surgical History bellybutton 2001 [facility] 2,10E+07 Other Hospital Discharge instructions Additional Instructions Take Naprosyn as prescribed for mild to moderate pain. Take oxycodone as prescribed for severe pain. Take prednisone daily for your radiculopathy. Follow-up with the neurosurgeon listed below for ongoing management.[facility] Work Phone: Hospital Discharge instructions Additional Instructions As we discussed, Dr. Varner would like your primary care doctor to order a new MRI. He wants to make sure there is no new or worsening problem other than the known herniated disc. It may be sometime before he can see you, as he is the only neurosurgeon at [facility] right now. He would like to get [...] opiate pain medicines like Percocet can be constipating.[facility] Work Phone: Hospital Discharge instructionsAmbulatory Orders* Referral to Speech/PT/OT (PT/OT/SP) Location: None Selected [facility] Work Phone: Hospital Discharge instructions Additional Instructions We evaluated you for your symptoms. Your workup here was unremarkable, you felt much improved. Please use the Zofran as needed for nausea. These follow closely with your primary doctor. Please return to the emergency department if you develop any worsening or concerning symptoms.[facility] Work Phone: Chief Complaint and Reason for [...] disease, lumbar Low back pain Advance Directives Advance Directive Response Recorded Date/ Time Advance [...] Team Status: Inactive Member Role Status Dates [facility] Primary Care Provider Active Diogenes Sanchez DO Family Provider Active Omar Pham DO Emergency Provider Active Team Status: Active Member Role Status Dates Blair Jordan Attending Provider Active Team Status: Active Member Role Status Dates Diogenes Sanchez DO Family Provider Active [facility] Primary Care Provider Active Team Status: Inactive Member Role Status Dates [facility] Primary Care Provider Active Diogenes Sanchez DO Family Provider Active Joao Montero PA-C Emergency Provider Active Team Status: Active Member Role Status Dates Blair Jordan Attending Provider Active Start : January 25, 2004 Team Status: Inactive Member Role Status Dates [facility] Primary Care Provider Active Start: October 28, 2023 End: October 28, 2023 Milana Gonzalez Jr, MD Emergency Provider Active Start: October 28, 2023 End: October 28, 2023 Team Status: Inactive Member Role Status Dates [facility] Primary Care Provider Active Start: December 19, 2023 End: December 19, 2023 Milana Gonzalez Jr, MD Emergency Provider Active Start: December 19, 2023 End: December 19, 2023 Team Status: Inactive Member Role Status Dates [facility] Primary Care Provider Active Start: February 16, 2024 End: February 16, 2024 Juan Angelo DO Attending Provider Active Sta rt: February 16, 2024 End: February 16, 2024 Team Status: Inactive Member Role Status Dates [facility] Primary Care Provider Active Start: March 23, 2024 End: March 23, 2024 Dolly Flowers APRN Attending Provider Active Start: March 23, 2024 End: March 23, 2024 Team Status: Inactive Member Role Status Dates [facility] Primary Care Provider Active Start: April 20, 2024 End: April 20, 2024 Rom Varner MD Attending Provider Active Star t: April 20, 2024 End: April 20, 2024 Team Status: Inactive Member Role Status Dates [facility] Primary Care Provider Active Start: June 05, 2024 End: June 05, 2024 Pinky Bocanegra DO Emergency Provider Active Start: June 05, 2024 End: June 05, 2024 Team Status: Inactive Member Role Status Dates [facility] Primary Care Provider Active Start: June 06, 2024 End: June 06, 2024 Joao Montero PA-C Emergency Provider Active Start: June 06, 2024 End: June 06, 2024 Goals (unrecognized section and content) Goals may be documented in a n alternate section INFORMATION SOURCE (unrecogn ized section and content) DATE CREATED AUTHOR 12/08/2022 [facility] DATE CREATED AUTHOR AUTHOR'S ORGANIZ ATION 06/18/2024 [facility] FOR RECORDS PERTAINING TO PATIENTS [...] BE BASED ON THE PRIMARY CLINICAL RECORDS. [facility]. provides no warranty or guarantee of the accuracy or completeness of information in this document.
--- NOTE | 2025-01-17 18:00 | ED.GENADUL1 ---
HPI HPI - General Adult General Chief complaint: Extremity Injury, Upper Stated complaint: PAIN IN R ARM, FLU LIKE SYMPTOMS Time Seen by Provider: 01/17/25 17:46 Source: patient Mode of arrival: walk-in Limitations: no limitations History of Present Illness HPI narrative: Patient is a 40-year-old female who presents to the emergency department today for evaluation of concerns for cough/cold symptoms and neck pain. She endorses for the past 5 to 6 days she has had a cough. No associated symptoms of fever/chills, chest pain, shortness of breath. No abdominal pain or nausea/vomiting/diarrhea. She states this morning she woke up with pain mostly to the right lateral and posterior side of her cervical region. She believes this occurred after having a coughing fit last night. She has any paresthesias, weakness, loss of movement to her right upper extremity. She denies any shoulder pain pain to be limited to her right upper extremity due to the pain in the cervical region. She took Tylenol and ibuprofen with minimal improvement in pain so proceeded to the ER. Related Data Previous Rx's ?Medication ?Instructions ?Recorded cyclobenzaprine 10 mg tablet 10 mg PO TID PRN spasms #10 tabs 01/17/25 hydrocodone 5 mg-acetaminophen 325 1 tab PO Q6H PRN pain 3 days #7 01/17/25 mg tablet tabs Allergies Allergy/AdvReac Type Severity Reaction Status Date / Time methocarbamol (From Robaxin) Allergy Severe Swelling Verified 01/17/25 17:48 of Lip/Tongue/Throat Opioid HPI Opioid Management Most Recent Opioid Data: Last Pain Scale 10 08/28/24, 18:41 Review of Systems ROS Status of ROS 10 or more systems reviewed and unremarkable except as noted in history and below [facility] [place] Social History (System 04/21/23 @ 07:51 by Lynette Jaramillo) Smoking status: Former smoker Little interest or pleasure in doing things: not at all Feeling down, depressed, or hopeless: not at all Exam Narrative Exam Narrative: Constituational: Awake/ alert, no apparent distress, well hydrated HENMT: normocephalic, external ears normal, moist oral mucous membranes and oropharynx normal Eyes: EOMI and conjunctivae normal Neck: No meningeal signs, + discomfort over R lateral cervical region Chest: inspection of chest normal Respiratory: Normal respiratory effort, clear to auscultation bilaterally with good aeration throughout Cardio: regular rate and regular rhythm GI: soft to palpation and non-tender Back: nontender MSK: ROM intact to B/L UE, +NVI Skin: no rashes or petechiae Neuro: no focal deficits Psych: mental status grossly normal Constitutional Vital Signs, click to edit/add: Last Vital Signs Temp 98.4 F 01/17/25 17:42 Pulse 100 H 01/17/25 17:42 Resp 01/17/25 17:42 BP 125/80 01/17/25 17:42 Pulse Ox 98 01/17/25 17:42 O2 Del Method Room Air 01/17/25 17:42 Course Vital Signs Vital signs: Vital Signs Temperature 98.4 F 01/17/25 17:42 Pulse Rate 100 H 01/17/25 17:42 Respiratory Rate 01/17/25 17:42 Blood Pressure 125/80 01/17/25 17:42 Pulse Oximetry 98 01/17/25 17:42 Oxygen Delivery Method Room Air 01/17/25 17:42 Temperature 98.4 F 01/17/25 17:42 Pulse Rate 100 H 01/17/25 17:42 Respiratory Rate 01/17/25 17:42 Blood Pressure 125/80 01/17/25 17:42 Pulse Oximetry 98 01/17/25 17:42 Oxygen Delivery Method Room Air 01/17/25 17:42 Medical Decision Making MDM Narrative Medical decision making narrative: The patient is a well-appearing 40-year-old female who presented to the emergency department today for evaluation concerns for a cough and cervical region pain. Initial examination without any concerning neurovascular motor findings on exam. No obvious clinical evidence concerning for infectious processes such as URI. She does not appear to be exhibiting any ischemic symptoms and does appear euvolemic on exam. No evidence of bronchitis or asthma present. Chest x-ray stable. X-ray of cervical spine additionally without critical findings. Patient received supportive measures of [place] and cyclobenzaprine. On reevaluation she reported some improvement in pain. Clinical impression likely cervical strain in the setting of a cough. Discussed these findings with the patient including recommendations for supportive care. Will discharge home with [place] for severe pain in addition to cyclobenzaprine. Advised on follow-up with patient's primary care provider for reevaluation. Discussed signs and symptoms of any worsening condition and when to consider reevaluation. Patient verbalized an understanding of this and is agreeable with the plan to be discharged home. Medical Records Medical records reviewed: Yes I reviewed the patient's medical records Imaging Data Chest x-ray: Attestation: I have reviewed the pertinent imaging results. Radiologist's impression: ITS Impressions Cervical Spine X-Ray 01/17/25 18:02 IMPRESSION: No acute cervical spine process. Impression dictated by: Isael Yepez M.D. 01/17/2025 6:25 PM Dictation Location: [facility] Electronically authenticated by: [id number] Y Date: 01/17/2025 18:25 Chest X-Ray 01/17/25 18:02 IMPRESSION: No acute process. Impression dictated by: Isael Yepez M.D. 01/17/2025 6:25 PM Dictation Location: [facility] Electronically authenticated by: [id number] Y Date: 01/17/2025 18:25 XR cervical spine: Attestation: I have reviewed the pertinent imaging results. Radiologist's impression: ITS Impressions Cervical Spine X-Ray 01/17/25 18:02 IMPRESSION: No acute cervical spine process. Impression dictated by: Isael Yepez M.D. 01/17/2025 6:25 PM Dictation Location: [facility] Electronically authenticated by: [id number] Y Date: 01/17/2025 18:25 Chest X-Ray 01/17/25 18:02 IMPRESSION: No acute process. Impression dictated by: Isael Yepez M.D. 01/17/2025 6:25 PM Dictation Location: [facility] Electronically authenticated by: [id number] Y Date: 01/17/2025 18:25 Discharge Plan Discharge Chief Complaint: Extremity Injury, Upper Clinical Impression: Cervical muscle strain, Cough Patient Disposition: Home, Self-Care Prescriptions / Home Meds: New cyclobenzaprine 10 mg tablet 10 mg PO TID PRN (Reason: spasms) Qty: 10 0RF hydrocodone-acetaminophen 5-325 mg tablet 1 tab PO Q6H PRN (Reason: pain) 3 Days Qty: 7 0RF Print Language: Tamazight Instructions: Cervical Sprain (ED) Additional Instructions: Continue to alternate Tylenol and ibuprofen as needed for any pain. May take [place] as needed for severe pain. May take cyclobenzaprine as needed for any muscle spasms. Rest, ice any sore areas. May use topical such as Bengay or IcyHot. In regards to physical activity and work this is as tolerated and only limited by pain. Otherwise may return to work and regular daily activities. Please up with your primary care provider for reevaluation as discussed. Referrals: Physician,Non-Staff, MD [Primary Care Provider] - 1 week
--- NOTE | 2025-01-17 18:02 | XR_ITS ---
[facility] [place] [id number] Patient Name: ALICJA HANSEN MRN: [id number] date: 1985 Sex: F Assigned Patient Location: ED.MAIN Current Patient Location: ED.MAIN Accession/Order Number: [id number] Exam Date: 01/17/2025 18:24 Report Date: 01/17/2025 18:25 At the request of: ERIKA ORELLANA NP Procedure: XR chest 2V Plain film chest 2 view HISTORY: Cough for one week COMPARISON: 09/21/2022 FINDINGS: SUPPORT DEVICES: None POSTSURGICAL CHANGES: None HEART: Within normal limits PULMONARY TIGRE: Within normal limits MEDIASTINUM: Unremarkable LUNGS AND PLEURA: No acute lung process, pleural effusion or pneumothorax identified. BONY STRUCTURES: Intact ADDITIONAL FINDINGS None XR/XR chest 2V IMPRESSION: No acute process. Impression dictated by: Isael Yepez M.D. 01/17/2025 6:25 PM Dictation Location: [employer] Electronically authenticated by: [id number] Y Date: 01/17/2025 18:25
--- NOTE | 2025-01-17 18:02 | XR_ITS ---
[place] [address] Patient Name: ALICJA HANSEN MRN: [id number] date: 1985 Sex: F Assigned Patient Location: ED.MAIN Current Patient Location: ED.MAIN Accession/Order Number: [id number] Exam Date: 01/17/2025 18:25 Report Date: 01/17/2025 18:25 At the request of: ERIKA ORELLANA NP Procedure: XR cervical spine 2-3V 3 viewscervical spine HISTORY: Right neck pain COMPARISON: None POSTOPERATIVE CHANGES: None BONY ALIGNMENT: Adequate HYPERMOBILITY::No bending imaging. LISTHESIS:None FRACTURE: None DISC DEGENERATION: Disc spaces are adequate. FACETS: Unremarkable FORAMEN: Unremarkable. DENS: Intact CRANIOCERVICAL JUNCTION: Unremarkable SOFT TISSUES: Unremarkable XR/XR cervical spine 2-3V IMPRESSION: No acute cervical spine process. Impression dictated by: Isael Yepez M.D. 01/17/2025 6:25 PM Dictation Location: [place] [id number] Electronically authenticated by: [id number] Y Date: 01/17/2025 18:25
[2025-01-17] MEDS: HYDROCODONE/ACET 5-325 MG TABLET 1 TAB PO (18:06)
[2025-01-17] MEDS: CYCLOBENZAPRINE HCL 10 MG TABLET PO (18:06)
== END 2025-01-17 19:04 | disposition home or self-care (01) ==
PROVIDERS: Emergency Provider Emergency Medicine
DX: S16.1XXA Strain of muscle, fascia and tendon at neck level, initial encounter (principal); X58.XXXA Exposure to other specified factors, initial encounter; R05.9 Cough, unspecified; Z87.891 Personal history of nicotine dependence
CPT/HCPCS: 71046; 72040; 99283

== ENCOUNTER 2025-03-21 19:39 | Emergency (ER) | payer SELFPAY ==
[2025-03-21 19:46] VITALS: BP 135/99; PULSE 95; TEMP 36.8; O2SAT 100; BMI 29.5
[2025-03-21 20:08] LABS: Glucose Urine UA NEGATIVE (NEGATIVE)
[2025-03-21 20:16] LABS: Cast Seen? NONE SEEN #/LPF (NONE SEEN); Crystals Seen? Seen #/HPF (None Seen); Urine Culture Indicated YES-FRMC
--- OUTSIDE RECORDS SUMMARY | 2025-03-21 20:25 | XMS_ITS | Clinical Summary ---
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 Name Role Phone Unavailable Primary Care Provider Unavailabl e Social History Tobacco Use Types Packs/Day Years Used Date Smoking Tobacco: Never Assessed Comments Unknown Sex and Gender Information Value Date Recorded Sex Assigned at Not on file Legal Sex Female 6:54 PM EDT Gender Identity Not on file Sexual Orientation Not on file Last Filed Vital Signs Vital Sign Reading Time Taken Comments Blood Pressure 130/90 09/21/2018 12:00 PM EST Pulse - - Temperature - - Respiratory Rate - - Oxygen Saturation - - Inhaled Oxygen Concentration - - Weight 119 kg (262 lb 9.6 oz) 09/21/2018 12:00 P M EST Height 175.3 cm (5' 9 ) 09/21/2018 12:00 PM EST Body Mass Index 38.78 09/21/2018 12:00 PM EST Plan of Treatment Health Maintenance Due Date Last Done Comments Pap Smear 2006 Cervical Cancer Screening 2015 HPV/Cotest 2015 Mammogram 2025 Influenza Vaccine (#1) 2025 Insurance [employer] [place] [id number]
--- OUTSIDE RECORDS SUMMARY | 2025-03-21 20:26 | XMS_ITS | CCD ---
Author Organization [facility] CliniSyut Care Team Providers Care Filling Machine Set Up Mechanic Name Role Phone Ramone Franco Unavailable Blair Jordan Attending Provider [facility] Jack Downs Primary Care Provider DO Omar [...] JUAN Admitting Unavailable Blair Jordan Attending Provider [facility] Jack Downs Primary Care Provider [phone] XIOMARA Montero Emergency Provider [phone] [facility] [phone] MD Milana Gonzalez Jr Emergency Provider [facility] Jack Downs Primary Care Provider MD Milana Gonzalez Jr Emergency Provider DO Juan Angelo Attending Provider [facility] Primary Care Provider [phone] [facility], [facility] Primary Care Provider DO Pinky Bocanegra Emergency Provider XIOMARA Montero Emergency Provider [phone] Joao Montero Admitting Unavailable Joao Montero Attending Unavailable [facility] [place] Primary Care Unavailable Juan Angelo Admitting Unavailable Juan Angelo Attending Unavailable [facility], [facility] Primary Care Unavailable Milana Gonzalez Jr Admitting Unavailable Milana Gonzalez Jr Attending Unavailable [facility], [place] [facility] Primary Care Unavailable Milana Gonzalez Jr Admitting Unavailable Milana Gonzalez Jr Attending Unavailable [facility], [place] Primary Care Unavailable Pinky Bocanegra Admitting Unavailable Pinky Bocanegra Attending Unavailable [facility], [place] [facility] Primary Care Unavailable Unavailable Primary Care Provider Unavailabl e Unavailable Primary Care Provider Unavailabl e Allergies Allergy Classification Reported Allergen(s) Allergy Type Date of Onset Reaction(s) Facility (4 sources) Adhesive Tape; Translations: [Adhesive tape] Allergy to substance 2 [facility] (1 source) Methocarbamol Drug Allergy [facility] Repository Medications Current Medications Medication Drug [...] oral solution (1 source) alpha-Adrenergic Agonist, Uncompetitive C-vxnwbi-Y-aspartat e Receptor Antagonist, Sigma-1 Agonist Start: 06-06-2024 [...] by mouth every six hours Hydrocodone-Acetami nophen ([place]sey) 5-325 mg tablet Discontinued 1 TAB PO Q6H 20 September 04, 2018 September 09, 2018 1:02am Start: 12-02-2017 End: 12-07-2017 take 1 tablet by mouth four times daily Hydrocodone-Acetaminophen ([place]) 5-325 mg tablet Discontinued 1 TAB PO [...] December 19, 2023 June 05, 2024 7:25am [id number] 200 actuat albuterol 0.09 mg/actuat metered dose [...] 3:36pm docusate sodium 50 mg / sennosides, mcc 8.6 mg oral tablet (6 sources) Start: [...] April 16, 2023 October 28, 2023 3:52am [id number]-Sblfcns Fumarate-Fa () 28-800 mg-mcg Tablet (8 sources) Start: 01-26-2018 End: 11-07-2018 take 1 tablet by mouth once daily Ysn808-Cxeeyca Fumarate-Fa () 28-800 mg-mcg Tablet Discontinued 1 TAB PO Daily January 26, 2018 12:00am November 07, 2018 3:36pm Start: 01-26-2018 End: 11-07-2018 take 1 tablet by mouth once daily Wvs915-Nioproj Fumarate-Fa () 28-800 mg-mcg Tablet Discontinued 1 [...] 07-01-2022 Episodic Other aftercare (1 source) Other director long term care (current) drug therapy; Translations: [OTH SENIOR CARE CURRENT DRUG THERAPY] Onset: 02-18-2022 Episodic Other [...] SARS-CoV-2 (COVID-19) Ab IA Ql Negative Negative [facility] Comment on above: This is a duplicate Cepheid Xpert Xpress CoV-2/Flu/RSV Plus RNA by RT-PCR result to be used for statistical tracking purpose only. SARS-CoV-2 (COVID-19) RNA AFSHAN+probe Ql (Unsp spec) [facility] COVID-19 / Flu A/B / RSV PCR on 06-06-2024 SARS-CoV-2 (COVID-19) RNA AFHSAN+probe Ql (Unsp spec) COVID-19 Cepheid Result Negative [...] or Cepheid Disclaimer revoked sooner. PERFORMED BY: [place] [address] PATHOLOGIST SOCIAL MEDIA MARKETING SPECIALIST MCKENZIE HERNÁNDEZ M.D. Normal [facility] Comment on above: Performed By: #### C EPHEID NEG, COVID19 FLU RSV #### [facility] [address] [place], [place] [id number] [facility] Cepheid COVID PCR Negativeon 06-06-2024 SARS-CoV-2 (COVID-19) RNA AFSHAN+probe Ql (Unsp spec) Negative Normal Negative [facility] Comment on above: Result Comment: This is a duplicate Cepheid Xpert Xpress CoV-2/Flu/RSV Plus RNA by RT-PCR result to be used for statistical tracking purpose only. PERFORMED BY: [place] [address] PATHOLOGIST SOCIAL MEDIA MARKETING SPECIALIST MCKENZIE HERNÁNDEZ M.D. Performed By: #### C EPHEID NEG, COVID19 FLU RSV #### [facility] [address] [place], [place] [id number] [facility] Alanine aminotransferase [En zymatic activity/volume] in Serum or PlasmaOrdered By: Pinky Bocanegra on 06-05-2024 ALT [Catalytic activity/Vol] 53 U/L High 7-52 [facility] Comment on above: Performed By: #### L IPASE, CMP, CBC, HCGQUAL #### [facility] [address] [place] [address] Albumin [Mass/volume] in Ser um or Plasma by Bromocresol green (BCG) dye binding methoOrdered By: Pinky Bocanegra on 06-05-2024 Albumin BCG dye [Mass/Vol] 3.9 g/dL 3.5-5.7 [facility] Alkaline phosphatase [Enzyma tic activity/volume] in Serum or PlasmaOrdered By: Pinky Bocanegra on 06-05-2024 ALP [Catalytic activity/Vol] 48 U/L Normal 34-104 [facility] Comment on above: Performed By: #### L IPASE, CMP, CBC, HCGQUAL #### [address] Aspartate aminotransferase [ Enzymatic activity/volume] in Serum or PlasmaOrdered By: Pinky Bocanegra on 06-05-2024 AST [Catalytic activity/Vol] 55 U/L High 13-39 [facility] Comment on above: Performed By: #### L IPASE, CMP, CBC, HCGQUAL #### [address] Automated basophil %Ordered By: Pinky Bocanegra on 06-05-2024 Basophils/100 WBC (Bld) 0.5 % Normal . [facility] Comment on above: Performed By: #### L IPASE, CMP, CBC, HCGQUAL #### [address] Automated basophil countOrde red By: Pinky Bocanegra on 06-05-2024 Basophils (Bld) [#/Vol] 0.0 10*3/uL Normal 0.0-0.2 [facility] Comment on above: Result Comment: PERF ORMED BY: [place] [address] PATHOLOGIST SOCIAL MEDIA MARKETING SPECIALIST MCKENZIE HERNÁNDEZ M.D. Performed By: #### L IPASE, CMP, CBC, HCGQUAL #### [address] Automated blood monocyte cou ntOrdered By: Pinky Bocanegra on 06-05-2024 Monocytes (Bld) [#/Vol] 0.3 10*3/uL Normal 0.0-0.8 [facility] Comment on above: Performed By: #### L IPASE, CMP, CBC, HCGQUAL #### [facility] [address] Automated eosinophil %Ordere d By: Pinky Bocanegra on 06-05-2024 Eosinophils/100 WBC (Bld) 1.4 % Normal . [facility] Comment on above: Performed By: #### L IPASE, CMP, CBC, HCGQUAL #### [facility] [address] [place] [address] Automated eosinophil countOr dered By: Pinky Bocanegra on 06-05-2024 Eosinophils (Bld) [#/Vol] 0.1 10*3/uL Normal 0.0-0.45 [facility] Comment on above: Performed By: #### L IPASE, CMP, CBC, HCGQUAL #### [facility] [address] [place] [address] Automated monocyte %Ordered By: Pinky Bocanegra on 06-05-2024 Monocytes/100 WBC (Bld) 5.5 % Normal . [facility] Comment on above: Performed By: #### L IPASE, CMP, CBC, HCGQUAL #### [facility] [address] [place] [address] Automated neutrophil %Ordere d By: Pinky Bocanegra on 06-05-2024 Neutrophils/100 WBC (Bld) 67.6 % Normal . [facility] Comment on above: Performed By: #### L IPASE, CMP, CBC, HCGQUAL #### [facility] [address] [place] [address] Bacteria [Presence] in Urine by AutomatedOrdered By: Pinky Bocanegra on 06-05-2024 Bacteria Auto Ql (U) None seen [HPF] None Seen [facility] Bilirubin Test strip Ql (U)O rdered By: Pinky Bocanegra on 06-05-2024 Bilirubin Ql (U) Negative Negative [facility] Bilirubin.total [Mass/volume ] in Serum or PlasmaOrdered By: Pinky Bocanegra on 06-05-2024 Bilirubin [Mass/Vol] 0.4 mg/dL Normal 0.3-1.0 [facility] Comment on above: Performed By: #### L IPASE, CMP, CBC, HCGQUAL #### [facility] [address] Calcium [Mass/volume] in Ser um or PlasmaOrdered By: Pinky Bocanegra on 06-05-2024 Calcium [Mass/Vol] 8.7 mg/dL Normal 8.6-10.3 [facility] Comment on above: Performed By: #### L IPASE, CMP, CBC, HCGQUAL #### [facility] [address] [place] [address] Carbon dioxide, total [Moles /volume] in Serum or PlasmaOrdered By: Pinky Bocanegra on 06-05-2024 CO2 [Moles/Vol] 27.4 mmol/L Normal 21.0-31.0 [facility] Comment on above: Performed By: #### L IPASE, CMP, CBC, HCGQUAL #### [facility] [address] [place] [address] [place] Chloride [Moles/volume] in S lupe or PlasmaOrdered By: Pinky Bocanegra on 06-05-2024 Chloride [Moles/Vol] 108 mmol/L High 98-107 [facility] Comment on above: Performed By: #### L IPASE, CMP, CBC, HCGQUAL #### [facility] [address] [place] [address] [place] Choriogonadotropin.beta subu nit [Units/volume] in Serum or PlasmaOrdered By: Pinky Bocanegra on 06-05-2024 HCG.beta subunit Qn Negative [facility] Color of Urine by AutoOrdere d By: Pinky Bocanegra on 06-05-2024 Color (U) Yellow Normal Yellow [facility] Comment on above: Order Comment: Name Collection Type:: Clean-Voided Midstream Performed By: #### C EPHEID NEG, COVID19 FLU RSV #### [facility] [address] [place] [address] Complete Blood Count Auto Di ffon 06-05-2024 Mean Corpuscular HGB Conc 35.1 g/dL High 32.0-35.0 [facility] Comment on above: Performed By: #### L IPASE, CMP, CBC, HCGQUAL #### [address] Monocytes/100 WBC (Bld) 15.64 % Normal 0.00-20.00 [facility] Comment on above: Performed By: #### L IPASE, CMP, CBC, HCGQUAL #### [address] NRBC% 0.0 /100{WBC} Normal 0-0.5 [facility] Comment on above: Performed By: #### L IPASE, CMP, CBC, HCGQUAL #### [address] Comprehensive Metabolic Pane jaylin 06-05-2024 Albumin [Mass/Vol] 3.9 g/dL Normal 3.5-5.7 [facility] Comment on above: Performed By: #### L IPASE, CMP, CBC, HCGQUAL #### [address] Creatinine Clr Calc Pharmacy 133.29 Normal [facility] Comment on above: Performed By: #### L IPASE, CMP, CBC, HCGQUAL #### [address] GFR/1.73 sq M.predicted MDRD (S/P/Bld) [Vol rate/Area] mL/min/{1.73_m2} Normal [facility] Comment on above: Performed By: #### L IPASE, CMP, CBC, HCGQUAL #### [address] Creatinine [Mass/volume] in Serum or PlasmaOrdered By: Pinky Bocanegra on 06-05-2024 Creatinine [Mass/Vol] 0.74 mg/dL Normal 0.60-1.20 [facility] Comment on above: Performed By: #### L IPASE, CMP, CBC, HCGQUAL #### [address] Dipstick and Microscopicon 1 Bacteria,Urine None Seen Normal None Seen [facility] Comment on above: Order Comment: Name Collection Type:: Clean-Voided Midstream Performed By: #### C EPHEID NEG, COVID19 FLU RSV #### [address] Bilirubin,Urine Negative Normal Negative [facility] Comment on above: Order Comment: Name Collection Type:: Clean-Voided Midstream Performed By: #### C EPHEID NEG, COVID19 FLU RSV #### [address] Glucose Ql (U) Normal Normal Normal [facility] Comment on above: Order Comment: Name Collection Type:: Clean-Voided Midstream Performed By: #### C EPHEID NEG, COVID19 FLU RSV #### [place] [address] [place] Hyaline Casts,Urine None Normal 0-8 [facility] Comment on above: Order Comment: Name Collection Type:: Clean-Voided Midstream Performed By: #### C EPHEID NEG, COVID19 FLU RSV #### [place] [address] [place] Mucus,Urine Rare Normal [facility] Comment on above: Order Comment: Name Collection Type:: Clean-Voided Midstream Result Comment: PERF ORMED BY: [place] [address] PATHOLOGIST SOCIAL MEDIA MARKETING SPECIALIST MCKENZIE HERNÁNDEZ M.D. Performed By: #### C EPHEID NEG, COVID19 FLU RSV #### [place] [address] [place] Nitrite,Urine Negative Normal Negative [facility] Comment on above: Order Comment: Name Collection Type:: Clean-Voided Midstream Performed By: #### C EPHEID NEG, COVID19 FLU RSV #### [address] Occult Blood,Urine 3+ High Negative [facility] Comment on above: Order Comment: Name Collection Type:: Clean-Voided Midstream Result Comment: PERF ORMED BY: [place] [address] PATHOLOGIST SOCIAL MEDIA MARKETING SPECIALIST MCKENZIE HERNÁNDEZ M.D. Performed By: #### C EPHEID NEG, COVID19 FLU RSV #### [address] RBC,Urine Innumerable High 0-4 [facility] Comment on above: Order Comment: Name Collection Type:: Clean-Voided Midstream Performed By: #### C EPHEID NEG, COVID19 FLU RSV #### [address] Specificy [place],Urine 1.023 Normal 1.001-1.030 [facility] Comment on above: Order Comment: Name Collection Type:: Clean-Voided Midstream Performed By: #### C EPHEID NEG, COVID19 FLU RSV #### [address] Squamous Epithelial Cell,Urine 10-19 High 0-2 [facility] Comment on above: Order Comment: Name Collection Type:: Clean-Voided Midstream Performed By: #### C EPHEID NEG, COVID19 FLU RSV #### [address] Urobilinogen,Urine 4 mg/dL High Normal [facility] Comment on above: Order Comment: Name Collection Type:: Clean-Voided Midstream Performed By: #### C EPHEID NEG, COVID19 FLU RSV #### [address] WBC CLUMP, Urine Occasional High None Seen [facility] Comment on above: Order Comment: Name Collection Type:: Clean-Voided Midstream Performed By: #### C EPHEID NEG, COVID19 FLU RSV #### [place] [address] [place] WBC,Urine 20-49 High 0-4 [facility] Comment on above: Order Comment: Name Collection Type:: Clean-Voided Midstream Performed By: #### C EPHEID NEG, COVID19 FLU RSV #### [facility] [address] [place] [address] ECG 12 lead ECGon 06-05-2024 ECG 12 lead ECG [facility] [place] [address] [place] [address] Electrocardiograph Report Signed Patient: Hlelen Mcgill MR#: [id number] 5 : 1985 Acct:[id number] Age/Sex: 39 / F ADM Date: 06/05/24 Loc: ER Room: Type: [facility] ER Attending Dr: Ordering Provider: Pinky Bocanegra [...] sinus bradycardia Confirmed by Omar Pham DO ([id number]) on 06/05/2024 8:26:52 PM Referred By: Electronically Signed By: Omar Pham DO Transcribed By: MUS Signed By Omar Pham DO 2025 Normal [facility] Epithelial cells.squamous [# /area] in Urine sediment by Automated countOrdered By: Pinky Bocanegra on 06-05-2024 Epithelial cells.squamous Auto (Urine sed) [#/Area] 10-19 [HPF] High 0-2 [facility] Erythrocyte distribution wid th [Ratio] by Automated countOrdered By: Pinky Bocanegra on 06-05-2024 Erythrocyte distribution width (RBC) [Ratio] 13.6 % Normal 11.9-15.3 [facility] Comment on above: Performed By: #### L IPASE, CMP, CBC, HCGQUAL #### [facility] [address] [place] [address] Erythrocytes [#/area] in Uri ne sediment by Automated countOrdered By: Pinky Bocanegra on 06-05-2024 RBC Auto (Urine sed) [#/Area] Innumerable [HPF] High 0-4 [facility] Erythrocytes [#/volume] in B lood by Automated countOrdered By: Pinky Bocanegra on 06-05-2024 RBC (Bld) [#/Vol] 3.88 10*6/uL Normal 3.60-5.00 [facility] Comment on above: Performed By: #### L IPASE, CMP, CBC, HCGQUAL #### [facility] [address] [place] [address] [place] Glucose [Mass/volume] in Ser um or PlasmaOrdered By: Pinky Bocanegra on 06-05-2024 Glucose [Mass/Vol] 99 mg/dL Normal 70-100 [facility] Comment on above: ADA recommended refe rence rangeRandom Glucose Reference Range is dependent on time and content of last meal. Glucose of more than 200 mg/dL in a nonstressed, ambulatory subject supports the diagnosis of Diabetes Mellitus. Result Comment: [place] om Glucose Reference Range is dependent on time and content of last meal. Glucose of more than 200 mg/dL in a nonstressed, ambulatory subject supports the diagnosis of Diabetes Mellitus. ADA recommended reference range Performed By: #### L IPASE, CMP, CBC, HCGQUAL #### [facility] [address] [place] [id number] [place] Glucose [Mass/volume] in Uri ne by Test stripOrdered By: Pinky Bocanegra on 06-05-2024 Glucose Test strip (U) [Mass/Vol] Normal mg/dL Normal [facility] HCG,Qualitative Serumon 10-0 HCG,Qualitative Serum Negative Normal [facility] Comment on above: Result Comment: PERF ORMED BY: [place] [address] PATHOLOGIST SOCIAL MEDIA MARKETING SPECIALIST MCKENZIE HERNÁNDEZ M.D. Performed By: #### C EPHEID NEG, COVID19 FLU RSV #### [facility] [address] [place] [id number] [place] Hematocrit [Volume Fraction] of Blood by Automated countOrdered By: Pinky Bocanegra on 06-05-2024 Hematocrit (Bld) [Volume fraction] 35.3 % Normal 34.0-46.4 [facility] Comment on above: Performed By: #### L IPASE, CMP, CBC, HCGQUAL #### [address] Hemoglobin Test strip Ql (U) Ordered By: Pinky Bocanegra on 06-05-2024 Hemoglobin Ql (U) 3+ High Negative [facility] Hemoglobin [Mass/volume] in BloodOrdered By: Pinky Bocanegra on 06-05-2024 Hemoglobin (Bld) [Mass/Vol] 12.4 g/dL Normal 11.8-15.4 [facility] Comment on above: Performed By: #### L IPASE, CMP, CBC, HCGQUAL #### [address] Hyaline casts [#/area] in Ur ine sediment by Automated countOrdered By: Pinky Bocanegra on 06-05-2024 Hyaline casts Auto (Urine sed) [#/Area] None [LPF] 0-8 [facility] Ketones [Presence] in Urine by Test stripOrdered By: Pinky Bocanegra on 06-05-2024 Ketones Ql (U) Negative Normal Negative [facility] Comment on above: Order Comment: Name Collection Type:: Clean-Voided Midstream Performed By: #### C EPHEID NEG, COVID19 FLU RSV #### [place] [address] [place] Leukocyte clumps [Presence] in Urine by AutomatedOrdered By: Pinky Bocanegra on 06-05-2024 Leukocyte clumps Auto Ql (U) Occasional [LPF] High None Seen [facility] Leukocyte esterase [Presence ] in Urine by Test stripOrdered By: Pinky Bocanegra on 06-05-2024 Leukocyte esterase Test strip Ql (U) 2+ High Negative [facility] Comment on above: Order Comment: Name Collection Type:: Clean-Voided Midstream Performed By: #### C EPHEID NEG, COVID19 FLU RSV #### [address] [place] [address] [place] Leukocytes [#/area] in Urine sediment by Automated countOrdered By: Pinky Bocanegra on 06-05-2024 WBC Auto (Urine sed) [#/Area] 20-49 [HPF] High 0-4 [facility] Leukocytes [#/volume] correc jose francisco for nucleated erythrocytes in Blood by Automated counOrdered By: Pinky Bocanegra on 06-05-2024 WBC corrected for nucl RBC Auto (Bld) [#/Vol] 5.9 10*3/uL 3.8-11.6 [facility] Leukocytes [#/volume] in Blo od by Automated countOrdered By: Pinky Bocanegra on 06-05-2024 WBC (Bld) [#/Vol] 5.9 10*3/uL Normal 3.8-11.6 [facility] Comment on above: Performed By: #### L IPASE, CMP, CBC, HCGQUAL #### [place] [address] [place] Lipase [Enzymatic activity/v olume] in Serum or PlasmaOrdered By: Pinky Bocanegra on 06-05-2024 Lipase [Catalytic activity/Vol] 18.0 U/L Normal 11.0-82.0 [facility] Comment on above: Performed By: #### C EPHEID NEG, COVID19 FLU RSV #### [facility] [address] [place] [address] [place] Lymphocytes [#/volume] in Bl ood by Automated countOrdered By: Pinky Bocanegra on 06-05-2024 Lymphocytes (Bld) [#/Vol] 1.5 10*3/uL Normal 1.00-4.8 [facility] Comment on above: Performed By: #### L IPASE, CMP, CBC, HCGQUAL #### [place] [address] [place] Lymphocytes/100 leukocytes i n Blood by Automated countOrdered By: Pinky Bocanegra on 06-05-2024 Lymphocytes/100 WBC (Bld) 25.0 % Normal . [facility] Comment on above: Performed By: #### L IPASE, CMP, CBC, HCGQUAL #### [facility] [address] MCH [Entitic mass] by Automa jose francisco countOrdered By: Pinky Bocanegra on 06-05-2024 MCH (RBC) [Entitic mass] 31.9 pg Normal 24.7-34.3 [facility] Comment on above: Performed By: #### L IPASE, CMP, CBC, HCGQUAL #### [facility] [address] [place] [address] MCHC Auto (RBC) [Mass/Vol]Or dered By: Pinky Bocanegra on 06-05-2024 MCHC (RBC) [Mass/Vol] 35.1 g/dL High 32.0-35.0 [facility] MCV [Entitic volume] by Auto mated countOrdered By: Pinky Bocanegra on 06-05-2024 MCV (RBC) [Entitic vol] 91.0 fL Normal 80-100 [facility] Comment on above: Performed By: #### L IPASE, CMP, CBC, HCGQUAL #### [address] Monocyte distribution width [Entitic volume] in Blood by AutomatedOrdered By: Pinky Bocanegra on 06-05-2024 Monocyte distribution width Auto (Bld) [Entitic vol] 15.64 % 0.00-20.00 [facility] Mucus [Presence] in Urine by AutomatedOrdered By: Pinky Bocanegra on 06-05-2024 Mucus Auto Ql (U) Rare [LPF] [facility] Neutrophils [#/volume] in Bl ood by Automated countOrdered By: Pinky Bocanegra on 06-05-2024 Neutrophils (Bld) [#/Vol] 4.0 10*3/uL Normal 1.8-7.7 [facility] Comment on above: Performed By: #### L IPASE, CMP, CBC, HCGQUAL #### [address] Nitrite Test strip Ql (U)Ord ered By: Pinky Bocanegra on 06-05-2024 Nitrite Ql (U) Negative Negative [facility] No Panel InformationOrdered By: Pinky Bocanegra on 06-05-2024 Estimated GFR (CKD-EPI) > 60.0 mL/Min [facility] Creatinine Clearance (Chem 133.29 [facility] Nucleated erythrocytes [Pres ence] in Blood by Automated countOrdered By: Pinky Bocanegra on 06-05-2024 Nucleated RBC Auto Ql (Bld) 0.0 /100{WBC} 0-0.5 [facility] Platelet mean volume [Entiti c volume] in Blood by Automated countOrdered By: Pinky Bocanegra on 06-05-2024 Platelet mean volume (Bld) [Entitic vol] 7.7 fL Normal 6.3-10.7 [facility] Comment on above: Performed By: #### L IPASE, CMP, CBC, HCGQUAL #### [facility] [address] [place] [address] [place] Platelets [#/volume] in Bloo d by Automated countOrdered By: Pinky Bocanegra on 06-05-2024 Platelets (Bld) [#/Vol] 201 10*3/uL Normal 150-450 [facility] Comment on above: Performed By: #### L IPASE, CMP, CBC, HCGQUAL #### [facility] [address] [place] [address] [place] Potassium [Moles/volume] in Serum or PlasmaOrdered By: Pinky Bocanegra on 06-05-2024 Potassium [Moles/Vol] 4.0 mmol/L Normal 3.5-5.1 [facility] Comment on above: Performed By: #### L IPASE, CMP, CBC, HCGQUAL #### [facility] [address] [place] [address] [place] Protein [Mass/volume] in Ser um or PlasmaOrdered By: Pinky Bocanegra on 06-05-2024 Protein [Mass/Vol] 6.8 g/dL Normal 6.4-8.9 [facility] Comment on above: Performed By: #### L IPASE, CMP, CBC, HCGQUAL #### [facility] [address] [place] [address] [place] Protein [Mass/volume] in Uri ne by Test stripOrdered By: Pinky Bocanegra on 06-05-2024 Protein (U) [Mass/Vol] 20 mg/dL High Negative [facility] Comment on above: Order Comment: Name Collection Type:: Clean-Voided Midstream Performed By: #### C EPHEID NEG, COVID19 FLU RSV #### [address] Serum globulin measurement b y calculation (mass/volume)Ordered By: Pinky Bocanegra on 06-05-2024 Globulin (S) [Mass/Vol] 2.9 g/dL Normal [facility] Comment on above: Performed By: #### L IPASE, CMP, CBC, HCGQUAL #### [address] Serum or plasma albumin/glob ulin mass ratioOrdered By: Pinky Bocanegra on 06-05-2024 Albumin/Globulin [Mass ratio] 1.3 {ratio} Normal [facility] Comment on above: Performed By: #### L IPASE, CMP, CBC, HCGQUAL #### [address] Serum or plasma anion gap de terminationOrdered By: Pinky Bocanegra on 06-05-2024 Anion gap [Moles/Vol] 8.6 mmol/L Normal 6.0-15.0 [facility] Comment on above: Performed By: #### L IPASE, CMP, CBC, HCGQUAL #### [address] Sodium [Moles/volume] in Ser um or PlasmaOrdered By: Pinky Bocanegra on 06-05-2024 Sodium [Moles/Vol] 140 mmol/L Normal 136-145 [facility] Comment on above: Performed By: #### L IPASE, CMP, CBC, HCGQUAL #### [address] Specific gravity Test strip (U) [Rel density]Ordered By: Pinky Bocanegra on 06-05-2024 Specific gravity (U) [Rel density] 1.023 1.001-1.030 [facility] Urea nitrogen [Mass/volume] in Serum or PlasmaOrdered By: Pinky Bocanegra on 06-05-2024 Urea nitrogen [Mass/Vol] 17 mg/dL Normal 7-25 [facility] Comment on above: Performed By: #### L IPASE, CMP, CBC, HCGQUAL #### [facility] [address] [place] [address] Urine Cultureon 06-05-2024 Bacteria identified Cx Nom (U) 75,000 colonies/ml mixed bacterial skin contaminants 2 Days PERFORMED BY: [place] [address] PATHOLOGIST SOCIAL [employer]IA MARKETING SPECIALIST MCKENZIE HERNÁNDEZ M.D. Normal [facility] Comment on above: Performed By: #### C EPHEID NEG, COVID19 FLU RSV #### [address] Urine appearanceOrdered By: Pinky Bocanegra on 06-05-2024 Appearance (U) Cloudy Critically abnormal Clear [facility] Comment on above: Order Comment: Name Collection Type:: Clean-Voided Midstream Performed By: #### C EPHEID NEG, COVID19 FLU RSV #### [address] Urobilinogen Test strip (U) [Mass/Vol]Ordered By: Pinky Bocanegra on 06-05-2024 Urobilinogen (U) [Mass/Vol] 4 mg/dL High Normal [facility] pH of Urine by Test stripOrd ered By: Pinky Bocanegra on 06-05-2024 pH (U) 8.0 [pH] Normal 5.0-9.0 [facility] Comment on above: Order Comment: Name Collection Type:: Clean-Voided Midstream Performed By: #### C EPHEID NEG, COVID19 FLU RSV #### [address] MR lumbar spine wo conon MR lumbar spine wo con [facility] [place] [address] [place] [address] MRI Report Signed Patient: Hellen Mcgill MR#: [id number] 5 : 1985 Acct:[id number] Age/Sex: 39 / F ADM Date: 02/16/24 Loc: MR Room: Type: [facility] Attending Dr: Juan Angelo DO Copies to: [...] Franco Jr., D.O.02/16/2024 8:55 PM Dictation Location: [place] [address] Transcribed By: [facility] 02/16/242054 Dictated By: Mannie Franco Jr, DO 02/16/242049 Signed By: 02/16/242054 Normal [facility] COVID CepheidOrdered By: Arya Gonzalez on 10-28-2023 SARS-CoV-2 (COVID-19) Ab IA Ql Negative Negative [facility] Comment on above: This is a duplicate Cepheid Xpert Xpress CoV-2/Flu/RSV Plus RNA by RT-PCR result to be used for statistical tracking purpose only. SARS-CoV-2 (COVID-19) RNA AFSHAN+probe Ql (Unsp spec) [facility] COVID-19 / Flu A/B / RSV [...] or Cepheid Disclaimer revoked sooner. PERFORMED BY: [place] [address] PATHOLOGIST SOCIAL MEDIA MARKETING SPECIALIST MCKENZIE HERNÁNDEZ M.D. Normal [facility] Comment on above: Performed By: #### C EPHEID NEG, COVID19 FLU RSV #### [address] Cepheid COVID PCR Negativeon 10-28-2023 SARS-CoV-2 (COVID-19) RNA AFSHAN+probe Ql (Unsp spec) Negative Normal Negative [facility] Comment on above: Result Comment: This is a duplicate Cepheid Xpert Xpress CoV-2/Flu/RSV Plus RNA by RT-PCR result to be used for statistical tracking purpose only. PERFORMED BY: [place] [address] PATHOLOGIST SOCIAL MEDIA MARKETING SPECIALIST MCKENZIE HERNÁNDEZ M.D. Performed By: #### C EPHEID NEG, COVID19 FLU RSV #### [address] ECG 12 lead ECGon 10-28-2023 ECG 12 lead ECG [facility] [place] [address] [place] [address] Electrocardiograph Report Signed Patient: Hellen Mcgill MR#: [id number] 5 : 1985 Acct:[id number] Age/Sex: 38 / F ADM Date: 10/28/23 Loc: ER Room: Type: [facility] Attending Dr: Ordering Provider: Milana Gonzalez [...] 52 BPM Confirmed by MILANA GONZALEZ MD ([id number]) on 10/28/2023 5:27:33 AM Referred By: Electronically Signed By:MILANA GONZALEZ MD Transcribed By: MUS Signed By Milana Gonzalez Jr, MD [id number] Normal [facility] XR chest 1V portableon XR chest 1V portable [facility] [place] [address] XRay Report Signed Patient: Hellen Mcgill MR#: [id number] 5 : 1985 Acct:[id number] Age/Sex: 38 / F ADM Date: 10/28/23 Loc: ER Room: Type: [facility] Attending Dr: Copies to: Milana Gonzalez [...] Marcio Garces M.D.10/28/2023 9:05 AM Dictation Location: [place] [address] Transcribed By: [facility] 10/28/23904 Dictated By: Marcio Garces II, MD 10/28/23903 Signed By: 10/28/23904 Normal [facility] Basophils Auto (Bld) [#/Vol] Ordered By: Omar Pham on 04-16-2023 Basophils (Bld) [#/Vol] 0.0 10*3/uL 0.0-0.2 [facility] Basophils/100 WBC Auto (Bld) Ordered By: Omar Pham on 04-16-2023 Basophils/100 WBC (Bld) 0.5 % . [facility] Calcium [Mass/volume] in Ser um or PlasmaOrdered By: Omar Pham on 04-16-2023 Calcium [Mass/Vol] 9.4 mg/dL 8.6-10.3 [facility] Carbon dioxide, total [Moles /volume] in Serum or PlasmaOrdered By: Omar Pham on 04-16-2023 CO2 [Moles/Vol] 27.7 mmol/L 21.0-31.0 [facility] Chloride [Moles/volume] in S lupe or PlasmaOrdered By: Omar Pham on 04-16-2023 Chloride [Moles/Vol] 104 mmol/L 98-107 [facility] Creatinine [Mass/volume] in Serum or PlasmaOrdered By: Omar Pham on 04-16-2023 Creatinine [Mass/Vol] 0.78 mg/dL 0.60-1.20 [facility] Eosinophils Auto (Bld) [#/Vo l]Ordered By: Omar Pham on 04-16-2023 Eosinophils (Bld) [#/Vol] 0.1 10*3/uL 0.0-0.45 [facility] Eosinophils/100 WBC Auto (Bl d)Ordered By: Omar Pham on 04-16-2023 Eosinophils/100 WBC (Bld) 1.5 % . [facility] Erythrocyte distribution wid th Auto (RBC) [Ratio]Ordered By: Omar Pham on 04-16-2023 Erythrocyte distribution width (RBC) [Ratio] 13.8 % 11.9-15.3 [facility] Glucose [Mass/volume] in Ser um or PlasmaOrdered By: Omar Pham on 04-16-2023 Glucose [Mass/Vol] 104 mg/dL 70-100 [facility] Comment on above: ADA recommended refe rence rangeRandom Glucose Reference Range is dependent on time and content of last meal. Glucose of more than 200 mg/dL in a nonstressed, ambulatory subject supports the diagnosis of Diabetes Mellitus. Hematocrit Auto (Bld) [Volum e fraction]Ordered By: Omar Pham on 04-16-2023 Hematocrit (Bld) [Volume fraction] 37.5 % 34.0-46.4 [facility] Hemoglobin [Mass/volume] in BloodOrdered By: Omar Pham on 04-16-2023 Hemoglobin (Bld) [Mass/Vol] 12.9 g/dL 11.8-15.4 [facility] Leukocytes [#/volume] correc jose francisco for nucleated erythrocytes in Blood by Automated counOrdered By: Omar Pham on 04-16-2023 WBC corrected for nucl RBC Auto (Bld) [#/Vol] 9.1 10*3/uL 3.8-11.6 [facility] Lymphocytes Auto (Bld) [#/Vo l]Ordered By: Omar Pham on 04-16-2023 Lymphocytes (Bld) [#/Vol] 1.3 10*3/uL 1.00-4.8 [facility] Lymphocytes/100 WBC Auto (Bl d)Ordered By: Omar Pham on 04-16-2023 Lymphocytes/100 WBC (Bld) 14.8 % . [facility] MCH Auto (RBC) [Entitic mass ]Ordered By: Omar Pham on 04-16-2023 MCH (RBC) [Entitic mass] 30.8 pg 24.7-34.3 [facility] MCHC Auto (RBC) [Mass/Vol]Or dered By: Omar Pham on 04-16-2023 MCHC (RBC) [Mass/Vol] 34.4 g/dL 32.0-35.0 [facility] MCV Auto (RBC) [Entitic vol] Ordered By: Omar Pham on 04-16-2023 MCV (RBC) [Entitic vol] 89.5 fL 80-100 [facility] Monocyte distribution width [Entitic volume] in Blood by AutomatedOrdered By: Omar Pham on 04-16-2023 Monocyte distribution width Auto (Bld) [Entitic vol] 17.20 % 0.00-20.00 [facility] Monocytes Auto (Bld) [#/Vol] Ordered By: Omar Pham on 04-16-2023 Monocytes (Bld) [#/Vol] 0.5 10*3/uL 0.0-0.8 [facility] Monocytes/100 WBC Auto (Bld) Ordered By: Omar Pham on 04-16-2023 Monocytes/100 WBC (Bld) 6.0 % . [facility] Neutrophils Auto (Bld) [#/Vo l]Ordered By: Omar Pham on 04-16-2023 Neutrophils (Bld) [#/Vol] 7.0 10*3/uL 1.8-7.7 [facility] Neutrophils/100 WBC Auto (Bl d)Ordered By: Omar Pham on 04-16-2023 Neutrophils/100 WBC (Bld) 77.2 % . [facility] No Panel InformationOrdered By: Omar Pham on 04-16-2023 Estimated GFR (CKD-EPI) > 60.0 mL/Min [facility] Creatinine Clearance (Chem 130.11 [facility] Nucleated erythrocytes [Pres ence] in Blood by Automated countOrdered By: Omar Pham on 04-16-2023 Nucleated RBC Auto Ql (Bld) 0.2 /100{WBC} 0-0.5 [facility] Platelet mean volume Auto (B ld) [Entitic vol]Ordered By: Omar Pham on 04-16-2023 Platelet mean volume (Bld) [Entitic vol] 8.0 fL 6.3-10.7 [facility] Platelets Auto (Bld) [#/Vol] Ordered By: Omar Pham on 04-16-2023 Platelets (Bld) [#/Vol] 200 10*3/uL 150-450 [facility] Potassium [Moles/volume] in Serum or PlasmaOrdered By: Omar Pham on 04-16-2023 Potassium [Moles/Vol] 3.6 mmol/L 3.5-5.1 [facility] RBC Auto (Bld) [#/Vol]Ordere d By: Omar Pham on 04-16-2023 RBC (Bld) [#/Vol] 4.19 10*6/uL 3.60-5.00 [facility] Serum or plasma anion gap de terminationOrdered By: Omar Pham on 04-16-2023 Anion gap [Moles/Vol] 11.9 mmol/L 6.0-15.0 [facility] Sodium [Moles/volume] in Ser um or PlasmaOrdered By: Omar Pham on 04-16-2023 Sodium [Moles/Vol] 140 mmol/L 136-145 [facility] Urea nitrogen [Mass/volume] in Serum or PlasmaOrdered By: Omar Felixarthy on 04-16-2023 Urea nitrogen [Mass/Vol] 12 mg/dL 7-25 [facility] WBC Auto (Bld) [#/Vol]Ordere d By: Omar Felixarthy on 04-16-2023 WBC (Bld) [#/Vol] 9.1 10*3/uL 3.8-11.6 [facility] Covid-19 PCR ([facility])on 08-31 SARS-CoV-2 (COVID-19) RNA AFSHAN+probe Ql (Unsp spec) Not detected Normal NOT DETECTED [facility] Comment on above: Result Comment: When [...] for this test is supported by the [place] of Health and Human Service's declaration that [...] Performed By: #### C VDTB #### [facility] [address] [place] [address] Dr. Ping Hernandez GROUP A STREP CULTUREon 08-31 S. pyogenes Ag Ql (Unsp spec) Culture Observations: NEGATIVE FOR GROUP A STREPTOCOCCUS. Normal [facility] Comment on above: Performed By: #### S SCRN, GRASTCX #### [facility] [address] [place] [address] Dr. Ping Hernandez INFLUENZA A AND B AGon 09-21 INFLUANEGH SEE BELOW Normal [facility] Comment on above: Result Comment: Nega tive for Flu A protein angiten. Infection due to Flu A cannot be ruled out. Flu A angiten in the sample may be below the detection limit of the test. Performed By: #### I NFLUAB #### [facility] [address] [place] [address] Dr. Ping Hernandez INFLUBNEGH SEE BELOW Normal [facility] Comment on above: Result Comment: Nega tive for Flu B protein antigen. Infection due to Flu B cannot be ruled out. Flu B antigen in the sample may be below the detection limit of the test. Performed By: #### I NFLUAB #### [facility] [address] [place] [address] Dr. Ping Hernandez INFLUENZA A AG Negative Normal NEGATIVE SEE COMMENT [facility] Comment on above: Performed By: #### I NFLUAB #### [facility] [address] [place] [address] Dr. Ping Hernandez INFLUENZA B AG Negative Normal NEGATIVE SEE COMMENT [facility] Comment on above: Performed By: #### I NFLUAB #### [facility] [address] [place] [address] Dr. Ping Hernandez STREPT SCREENon 09-21-2022 STREP SCREEN A Negative Normal NEGATIVE [facility] Comment on above: Performed By: #### S SCRN, GRASTCX #### [facility] [address] [place] [address] Dr. Ping Hernandez XR CHEST 1 Von [...] CORDERO Date: 2022-09-21 19:52 Normal [facility] XR HAND RT MIN 3Von 07-21-20 XR [...] DICKENS Date: 2022-07-21 19:26 Normal [facility] Automated erythrocytes count in urine sediment (number/area)Ordered By: Omar Pham on 07-10-2022 RBC Auto (Urine sed) [#/Area] 10-19 [HPF] 0-4 [facility] Automated leukocytes count i n urine sediment (number/area)Ordered By: Omar Pham on 07-10-2022 WBC Auto (Urine sed) [#/Area] 10-19 [HPF] 0-4 [facility] Bilirubin Test strip Ql (U)O rdered By: Omar Pham on 07-10-2022 Bilirubin Ql (U) Negative Negative [facility] Color Auto (U)Ordered By: Mandy Pham on 07-10-2022 Color (U) Yellow Yellow [facility] HCG ( test) IA.rapi d Ql (U)Ordered By: Omar Pham on 07-10-2022 HCG ( test) Ql (U) Negative [facility] Ketones Auto test strip (U) [Mass/Vol]Ordered By: Omar Pham on 07-10-2022 Ketones (U) [Mass/Vol] Negative [facility] - UrinalysisOrder ed By: Omar Pham on 07-10-2022 Hyaline casts LM Ql (Urine sed) 0-8 [LPF] 0-8 [facility] Nitrite Test strip Ql (U)Ord ered By: Omar Pham on 07-10-2022 Nitrite Ql (U) Negative Negative [facility] Protein Auto test strip (U) [Mass/Vol]Ordered By: Omar Pham on 07-10-2022 Protein (U) [Mass/Vol] Negative Negative [facility] Specific gravity Auto test s trip (U) [Rel density]Ordered By: Omar Pham on 07-10-2022 Specific gravity (U) [Rel density] 1.010 1.001-1.030 [facility] Squamous epithelial cells de tection in urine sediment by light microscopyOrdered By: Omar Pham on 07-10-2022 Epithelial cells.squamous LM Ql (Urine sed) 10-19 [HPF] 0-2 [facility] Urine bacteria detection by automated methodOrdered By: Omar Pham on 07-10-2022 Bacteria Auto Ql (U) 1+ None Seen [facility] Urine clarity by refractomet ry automatedOrdered By: Omar Pham on 07-10-2022 Clarity Refractometry automated (U) Cloudy Clear [facility] Urine glucose measurement by automated test strip (mass/volume)Ordered By: Omar Pham on 07-10-2022 Glucose Auto test strip (U) [Mass/Vol] Normal mg/dL Normal [facility] Urine hemoglobin detection b y automated test stripOrdered By: Omar hPam on 07-10-2022 Hemoglobin Auto test strip Ql (U) 3+ Negative [facility] Urine leukocyte esterase det ection by automated test stripOrdered By: Omar Pham on 07-10-2022 Leukocyte esterase Auto test strip Ql (U) 1+ Negative [facility] Urobilinogen Auto test strip (U) [Mass/Vol]Ordered By: Omar Pham on 07-10-2022 Urobilinogen (U) [Mass/Vol] Normal mg/dL Normal [facility] pH Auto test strip (U)Ordere d By: Omar Pham on 07-10-2022 pH (U) 5.5 [pH] 5.0-9.0 [facility] ER URINE PROFILEon 2 Bilirubin Ql (U) Negative Normal NEGATIVE [facility] Comment on above: Performed By: #### U MICRO, PREGU, ERUR #### [facility] [address] [place] [address] [address] Ping Hernandez Clarity (U) CLEAR Normal CLEAR [facility] Comment on above: Performed By: #### U MICRO, PREGU, ERUR #### [facility] [address] [place] [address] [address] Ping Hernandez Color (U) YELLOW Normal YELLOW [facility] Comment on above: Performed By: #### U MICRO, PREGU, ERUR #### [facility] [address] [place] [address] [address] Ping BARRERAD A micrscopic examination will be performed if indicated. Normal [facility] Comment on above: Performed By: #### U MICRO, PREGU, ERUR #### [facility] [address] [place] [address] [address] Ping Hernandez Glucose Ql (U) Negative Normal NEGATIVE [facility] Comment on above: Performed By: #### U MICRO, PREGU, ERUR #### [facility] [address] [place] [address] [address] Ping Hernandez Hemoglobin Ql (U) TRACE-INTACT Abnormal NEGATIVE [facility] Comment on above: Performed By: #### U MICRO, PREGU, ERUR #### [facility] [address] [place] [address] [address] Ping Hernandez Ketones Ql (U) Negative Normal NEGATIVE [facility] Comment on above: Performed By: #### U MICRO, PREGU, ERUR #### [facility] [address] [place] [address] [address] Ping Hernandez LEUKOCYTES Negative Normal NEGATIVE [facility] Comment on above: Performed By: #### U MICRO, PREGU, ERUR #### [facility] [address] [place] [address] [address] Ping Hernandez Nitrite Ql (U) Negative Normal NEGATIVE [facility] Comment on above: Performed By: #### U MICRO, PREGU, ERUR #### [facility] [address] [place] [address] [address] Ping Hernandez pH (U) 6.5 [pH] Normal 5-9 [facility] Comment on above: Performed By: #### U MICRO, PREGU, ERUR #### [facility] [address] [place] [address] [address] Ping Hernandez SPEC GRAVITY 1.020 Normal 1.005-<=1.02 5 [facility] Comment on above: Performed By: #### U MICRO, PREGU, ERUR #### [facility] [address] [place] [address] [address] Ping Hernandez UA PROTEIN Negative Normal NEGATIVE/ TRACE [facility] Comment on above: Performed By: #### U MICRO, PREGU, ERUR #### [facility] [address] [place] [address] Dr. Ping Hernandez UR MICRO IND INDICATED Normal [facility] Comment on above: Performed By: #### U MICRO, PREGU, ERUR #### [facility] [address] [place] [address] Dr. Ping Hernandez Urobilinogen Qn (U) 0.2 {Brian'U}/dL Normal 0.2 - 1. 0 [facility] Comment on above: Performed By: #### U MICRO, PREGU, ERUR #### [facility] [address] [place] [address] Dr. Ping Hernandez URon 02-16-2022 , QUAL Negative Normal NEGATIVE [facility] Comment on above: Performed By: #### U MICRO, PREGU, ERUR #### [facility] [address] [place] [address] Dr. Ping Hernandez URINE MICROSCOPIC ONLYon BACTERIA TRACE Abnormal NONE SEEN [facility] Comment on above: Performed By: #### U MICRO, PREGU, ERUR #### [facility] [address] [place] [address] Dr. Ping Hernandez Bacteria identified Cx Nom (U) NOT INDICATED Normal [facility] Comment on above: Performed By: #### U MICRO, PREGU, ERUR #### [facility] [address] [place] [address] [address] Ping Hernandez CAST NONE SEEN Normal NONE SEEN [facility] Comment on above: Performed By: #### U MICRO, PREGU, ERUR #### [facility] [address] [place] [address] [address] Ping Hernandez Crystals LM Nom (Urine sed) SEEN Abnormal NONE SEEN [facility] Comment on above: Performed By: #### U MICRO, PREGU, ERUR #### [facility] [address] [place] [address] [address] Ping Hernandez Epithelial cells LM Ql (Urine sed) RARE Normal NONE SEEN /RARE [facility] Comment on above: Performed By: #### U MICRO, PREGU, ERUR #### [facility] [address] [place] [address] [address] Ping Hernandez MUCOUS TRACE Abnormal NONE SEEN [facility] Comment on above: Performed By: #### U MICRO, PREGU, ERUR #### [facility] [address] [place] [address] [address] Ping Hernandez RBC 0-2 Normal 0-2 [facility] Comment on above: Performed By: #### U MICRO, PREGU, ERUR #### [facility] [address] [place] [address] [address] Ping Hernandez WBC NONE SEEN Normal NONE SEEN [facility] Comment on above: Performed By: #### U MICRO, PREGU, ERUR #### [facility] [address] [place] [address] [address] Ping Hernandez Vital Signs Date Time Vital Sign Value Performing Clinician Facility 06-06-2024 20:14-040 Diastolic blood pressure 71 mm[Hg] [facility] Work Phone: [facility] 06-06-2024 20:14-040 [facility] 50 [facility] 06-06-2024 20:14-0400 Respiratory rate 16 /min [facility] Work Phone: [facility] 06-06-2024 20:14-0400 SaO2% (BldA) [Mass fraction] 99 % [facility] Work Phone: [facility] 06-06-2024 20:14-0400 Systolic blood pressure 125 mm[Hg] [facility] Work Phone: [facility] 06-06-2024 18:02-0400 Body height 175.26 cm [facility] Work Phone: [facility] 06-06-2024 18:02-0400 Body temperature 98.1 [degF] [facility] Work Phone: [facility] 06-06-2024 18:02-0400 Body weight 109 kg [facility] Work Phone: [facility] 06-05-2024 09:33-0400 Diastolic blood pressure 81 mm[Hg] [facility] Work Phone: [facility] 06-05-2024 09:33-0400 Heart rate 60 /min [facility] Work Phone: [facility] 06-05-2024 09:33-0400 Respiratory rate 14 /min [facility] Work Phone: [facility] 06-05-2024 09:33-0400 SaO2% (BldA) [Mass fraction] 97 % [facility] Work Phone: [facility] 06-05-2024 09:33-0400 Systolic blood pressure 151 mm[Hg] [facility] Work Phone: [facility] 06-05-2024 07:27-0400 Body height 175.26 cm [facility] Work Phone: [facility] 06-05-2024 07:27-0400 Body temperature 97.8 [degF] [facility] Work Phone: [facility] 06-05-2024 07:27-0400 Body weight 107.5 kg [facility] Work Phone: [facility] 04-20-2024 09:29-0400 Body height 175.26 cm [facility] Work Phone: [facility] 04-20-2024 09:29-0400 Body mass index (BMI) [Ratio] 32.5 kg/m2 [facility] Work Phone: [facility] 04-20-2024 09:29-0400 Body weight 99.9 kg [facility] Work Phone: [facility] 03-23-2024 13:28-0400 Body weight 102.96 kg [facility] Work Phone: [facility] 12-19-2023 22:43-0400 Body height 175.26 cm [facility] Work Phone: [facility] 12-19-2023 22:43-0400 Body weight 107.2 kg [facility] Work Phone: [facility] 12-19-2023 22:40-0400 Body temperature 97.8 [degF] [facility] Work Phone: [facility] 12-19-2023 22:40-0400 Diastolic blood pressure 87 mm[Hg] [facility] Work Phone: [facility] 12-19-2023 22:40-0400 Heart rate 84 /min [facility] Work Phone: [facility] 12-19-2023 22:40-0400 Respiratory rate 18 /min [facility] Work Phone: [facility] 12-19-2023 22:40-0400 SaO2% (BldA) [Mass fraction] 97 % [facility] Work Phone: [facility] 12-19-2023 22:40-0400 Systolic blood pressure 149 mm[Hg] [facility] Work Phone: [facility] 10-28-2023 02:42-0500 Heart rate 108 /min [facility] Work Phone: [facility] 10-28-2023 02:42-0500 Respiratory rate 26 /min [facility] Work Phone: [facility] 10-28-2023 02:42-0500 SaO2% (BldA) [Mass fraction] 98 % [facility] Work Phone: [facility] 10-28-2023 01:25-0500 Body height 175.26 cm [facility] Work Phone: [facility] 10-28-2023 01:25-0500 Body temperature 98 [degF] [facility] Work Phone: [facility] 10-28-2023 01:25-0500 Body weight 106.7 kg [facility] Work Phone: [facility] 10-28-2023 01:25-0500 Diastolic blood pressure 78 mm[Hg] [facility] Work Phone: [facility] 10-28-2023 01:25-0500 Systolic blood pressure 156 mm[Hg] [facility] Work Phone: [facility] 04-16-2023 05:00-0400 Diastolic blood pressure 56 mm[Hg] [facility] Work Phone: [facility] 04-16-2023 05:00-0400 Heart rate 51 /min [facility] Work Phone: [facility] 04-16-2023 05:00-0400 Respiratory rate 19 /min [facility] Work Phone: [facility] 04-16-2023 05:00-0400 SaO2% (BldA) [Mass fraction] 97 % [facility] Work Phone: [facility] 04-16-2023 05:00-0400 Systolic blood pressure 100 mm[Hg] [facility] Work Phone: [facility] 04-15-2023 21:02-0400 Body height 175.26 cm [facility] Work Phone: [facility] 04-15-2023 21:02-0400 Body temperature 98.2 [degF] [facility] Work Phone: [facility] 04-15-2023 21:02-0400 Body weight 111.4 kg [facility] Work Phone: [facility] 07-10-2022 00:48-0500 Body height 175.26 cm [facility] Work Phone: [facility] 07-10-2022 00:48-0500 Body weight 120.2 kg [facility] Work Phone: [facility] 07-10-2022 00:47-0500 Body temperature 98.4 [degF] [facility] Work Phone: [facility] 07-10-2022 00:47-0500 Diastolic blood pressure 100 mm[Hg] [facility] Work Phone: [facility] 07-10-2022 00:47-0500 Heart rate 131 /min [facility] Work Phone: [facility] 07-10-2022 00:47-0500 Respiratory rate 20 /min [facility] Work Phone: [facility] 07-10-2022 00:47-0500 SaO2% (BldA) [Mass fraction] 99 % [facility] Work Phone: [facility] 07-10-2022 00:47-0500 Systolic blood pressure 138 mm[Hg] [facility] Work Phone: [facility] 05-26-2021 14:00-0400 Body height Ramone Franco Other [facility] Other 05-26-2021 14:00-0400 Body mass index (BMI) [Ratio] 42.17 kg/m2 Ramone Franco Other [facility] Other 05-26-2021 14:00-0400 Body weight 129.55 kg Ramone Franco Other [facility] Other 05-26-2021 14:00-0400 Diastolic blood pressure 64 mm[Hg] Ramone Franco Other [facility] Other 05-26-2021 14:00-0400 SaO2% (BldA) [Mass fraction] 98 % Ramone Franco Other [facility] Other 05-26-2021 14:00-0400 Systolic blood pressure 116 mm[Hg] Ramone Franco Other [facility] Other Encounters Encounter Date Encounter Type Care Provider Facility Start: 11-29-2024 End: 11-29-2024 Orders Only Ivy Valdez HEALTH AND WELLNESS MANAGER Work Phone: [facility] Comment on above: Acute non-recurrent pansinusitis (Primary Dx) Start: 06-06-2024 End: 06-06-2024 Emergency department patient visit [facility] Dept Work Phone: [facility]Emergency Room Work Phone: Start: 06-05-2024 End: 06-05-2024 Emergency department patient visit [facility] Work Phone: [facility] Work Phone: Start: 04-27-2024 End: 04-27-2024 Phys/qhp telephone evaluation 11-20 min Deng Malave MD Work Phone: [facility] Comment on above: Arrived Start: 04-20-2024 End: 04-20-2024 ambulatory [facility] Work Phone: [facility] Work Phone: Start: 04-20-2024 End: 04-20-2024 Patient encounter procedure [facility] Work Phone: [facility] Work Phone: Start: 03-23-2024 End: 03-23-2024 ambulatory [facility] Work Phone: [facility] Work Phone: Start: 03-23-2024 End: 03-23-2024 Patient encounter procedure [facility] Work Phone: [facility] Work Phone: Start: 02-16-2024 End: 02-16-2024 Patient encounter procedure [facility] Work Phone: [facility] [place] Work Phone: Start: 02-16-2024 End: 02-16-2024 ambulatory [facility] Work Phone: [facility] Work Phone: Start: 12-19-2023 End: 12-19-2023 Emergency department [facility] Work Phone: [facility] Work Phone: Start: 10-28-2023 End: 10-28-2023 Emergency department patient visit [facility] Dept Work Phone: [facility]Emer[facility] Work Phone: Start: 04-15-2023 End: 04-16-2023 Emergency department patient visit [facility] Work Phone: [facility]Emer[facility] Work Phone: Start: 12-05-2022 End: 12-05-[address] DOCTOR LOCKE Facility:[facility]1 Start: 09-21-2022 End: 09-21-2022 ambulatory DANIEL VILLAGOMEZ Facility:[facility] Start: 07-21-2022 End: 07-21-2022 ambulatory KEVIN MCLAUGHLIN Facility:[facility]1 Start: 07-10-2022 End: 07-10-[address] NADEEM THURMAN . Facility:[facility]1 Start: 07-10-2022 End: 07-10-2022 Emergency department patient visit [facility] Dept Work Phone: [facility]Emergency Room Start: 06-30-2022 End: 06-30-2022 ambulatory FRANK AMEZQUITA . Facility:[facility]1 Start: 02-16-2022 End: 02-16-2022 ambulatory DAVE ZENDEJAS . Facility:[facility]1 Start: 06-02-2021 Telephone encounter Ramone [facility] Registered Nurse Start: 05-26-2021 Office consultation new/estab patient 60 min Ramone Franco [facility] Start: 01-25-2004 Evaluation and management of inpatient [facility] Dept Work Phone: [facility] Procedures Date Procedure Procedure Detail Performing Clinician Start: 06-06-2024 SARS-CoV-2, Influenz a & RSV (PCR) [facility] Work Phone: Start: 02-16-2024 MR lumbar spine wo con [facility] Work Phone: Start: 10-28-2023 SARS-CoV-2, Influenz a & RSV (PCR) [facility] Work Phone: Start: 10-28-2023 Plain chest X-ray [facility] Work Phone: H/O: section Status pos t delivery [facility] Work Phone: Plan of Treatment Date Care Activity Detail Author Start: 2035 Zoster Vaccines (1 of 2) Zoste r Vaccines (1 of 2) [facility] Start: 04-30-2025 Influenza vaccination Influenz a Vaccine (Season Ended) [facility] Start: 06-05-2024 Bacteria identified in Urine by Culture Urine Culture [facility] Start: 06-05-2024 Urine culture [facility] Start: 04-30-2024 Influenza vaccination Influenza Vacc ine (#1) [facility] Start: 03-23-2024 Patient referral [facility] Work Phone: Start: 04-30-2023 COVID-19 Vaccine ( season) COVID-19 Vaccine ( season) [facility] Start: 04-15-2023 CT Lumbar spine WO contrast [facility] Start: 04-15-2023 CT of lumbar spine without contrast CT lumbar spine wo con [facility] Start: 07-10-2022 Plain X-ray of right hand XR hand RT 2V [facility] Start: 07-10-2022 XR Hand - right 2 Views [facility] Start: 2015 Screening for malign ant neoplasm of cervix [facility] Start: 2007 DTaP/Tdap/Td Vaccine s (1 - Tdap) DTaP/Tdap/Td Vaccines (1 - Tdap) [facility] Start: 2006 Screening for malign ant neoplasm of cervix [facility] Start: 01-16-2004 Hepatitis B Vaccines (1 of 3 - 19+ 3-dose series) Hepatitis B Vaccines (1 of 3 - 19+ 3-dose series) [facility] Start: 2003 Hepatitis C screening Hepatitis C Sc 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 [facility] Start: 1998 Varicella vaccination Varicell a Vaccines (1 of 2 - 13+ 2-dose series) [facility] Start: 1986 MMR Vaccines (1 of 1 - Standard series) MMR Vaccines (1 of 1 - Standard series) [facility] Start: 1985 HIV screening HIV Screening [facility] Start: 1985 Lipid panel Lipid Panel [facility] Start: 1985 Yearly Adult Physical Yearly Adult P hysical [facility] Bacteria identified in Urine by Culture Urine Culture [facility] Patient Education [facility] Work Phone: Patient referral [facility] Work Phone: XR Lumbar spine 4 Views [facility] Payers Date Payer Category Payer Unknown [id number] 2023 Private Health Insurance [employer] [place] [id number] 2023 Unknown GENERIC [employer]ERCI [place] GENERIC COMMERCIAL [id number] 2023-Present [phone] [address] [place] [id number] 1985 Unknown [id number] 1985 Unknown [id number] .[id number] 1985 Unknown [id number] .[id number] 1985 Unknown [id number] .[id number] 1985 Unknown [id number] .[id number] 1985 Unknown [id number] .[id number] 1959 Self-pay [id number] 1959 Self-pay [id number] Private Health Insurance [id number] Unknown [id number] Unknown [id number] .[id number] Unknown [id number] .[id number] Unknown [id number] .2.531 Unknown [id number] .2.531 Unknown [id number] .[id number] Social History Date Type Detail Facility Unknown if ever smoked [facility] Other Sex Assigned At [facility] Other Start: 07-10-2022 End: 06-06-2024 Tobacco smoking status KYIS Smoker (finding) [facility] Start: 1985 Sex Assigned At Female [facility] Start: 04-15-2023 Tobacco smoking status KYIS Ex-smoker (finding) [facility] Tobacco smoking status KYIS Tobacco smoking consumption unknown [facility] Work Phone: Start: 1985 Sex assigned at Not on file [facility] Work Phone: Start: 04-16-2024 End: 04-26-2024 Exposure to SARS-CoV-2 (event) Not sure [facility] NEGATED: Highlighted row [facility] Clinical Notes 05-26-2021 to 04-27-2024 Deng Malave [...] to call off of work as an [employer]. She has been treated with physical therapy, [...] or grammatical errors* documented in this encounter [facility] Work Phone: 05-26-2021 Evaluation note Encounter Date [...] negative findings were considered in medical decision-making. [facility] Other Evaluation noteNo [employer] Other Evaluation noteNo assessment information available [facility] Work Phone: Evaluation note* Diagnosis Onset Date Resolution Status Left lumbar radiculopathy ac soumya Degenerative disc disease, lumbar acute Low back pain acute [facility] Work Phone: Evaluation note* Diagnosis Acute non-recurrent pansinusitis- Primary documented in this encounter [facility] - [facility]orted* Type Description Date Medical History asthma Surgical History gall bladder removal 2010 Surgical History c Section 2008 Surgical History bellybutton 2001 [facility] Other Hospital Discharge instructions Additional Instructions Take Naprosyn as prescribed for mild to moderate pain. Take oxycodone as prescribed for severe pain. Take prednisone daily for your radiculopathy. Follow-up with the neurosurgeon listed below for ongoing management.[facility] Work Phone: Hospital Discharge instructions Additional Instructions As we discussed, Dr. Varner would like your primary care doctor to order a new MRI. He wants to make sure there is no new or worsening problem other than the known herniated disc. It may be sometime before he can see you, as he is the only neurosurgeon at [facility] right now. He would like to get [...] medicines like Percocet can be constipating.[facility] Work Phone: Hospital Discharge instructionsAmbulatory Orders* Referral to Speech/PT/OT (PT/OT/SP) Location: None Selected [facility] Work Phone: Hospital Discharge instructions Additional Instructions We evaluated you for your symptoms. Your workup here was unremarkable, you felt much improved. Please use the Zofran as needed for nausea. These follow closely with your primary doctor. Please return to the emergency department if you develop any worsening or concerning symptoms.[facility] Work Phone: Chief Complaint and [...] Status: Inactive Member Role Status Dates Jack [facility] Dept Primary Care Provider Active Diogenes Sanchez DO Family Provider Active Omar Pham DO Emergency Provider Active Team Status: Active Member Role Status Dates Blair Jordan Attending Provider Active Team Status: Active Member Role Status Dates Diogenes Sanchez DO Family Provider Active Jack [facility] Dept Primary Care Provider Active Team Status: Inactive Member Role Status Dates Jack [facility] Dept Primary Care Provider Active Diogenes Sanchez DO Family Provider Active Joao Montero PA-C Emergency Provider Active Team Status: Active Member Role Status Dates Blair Jordan Attending Provider Active Start : January 25, 2004 Team Status: Inactive Member Role Status Dates [facility] Primary Care Provider Active Start: October 28, 2023 End: October 28, 2023 Milana Gonzalez Jr, MD Emergency Provider Active Start: October 28, 2023 End: October 28, 2023 Team Status: Inactive Member Role Status Dates [facility] Primary Care Provider Active Start: December 19, 2023 End: December 19, 2023 Milana Gonzalez Jr, MD Emergency Provider Active Start: December 19, 2023 End: December 19, 2023 Team Status: Inactive Member Role Status Dates [facility] Primary Care Provider Active Start: February 16, 2024 End: February 16, 2024 Juan Angelo DO Attending Provider Active Sta rt: February 16, 2024 End: February 16, 2024 Team Status: Inactive Member Role Status Dates [facility] Primary Care Provider Active Start: March 23, 2024 End: March 23, 2024 Dolly Flowers APRN Attending Provider Active Start: March 23, 2024 End: March 23, 2024 Team Status: Inactive Member Role Status Dates [facility] Primary Care Provider Active Start: April 20, 2024 End: April 20, 2024 Rom Varner MD Attending Provider Active Star t: April 20, 2024 End: April 20, 2024 Team Status: Inactive Member Role Status Dates [facility] Primary Care Provider Active Start: June 05, 2024 End: June 05, 2024 Pinky Bocanegra DO Emergency Provider Active Start: June 05, 2024 End: June 05, 2024 Team Status: Inactive Member Role Status Dates [facility] Primary Care Provider Active Start: June [...] BE BASED ON THE PRIMARY CLINICAL RECORDS. [facility]. provides no warranty or guarantee of the accuracy or completeness of information in this document.
--- NOTE | 2025-03-21 20:58 | ED_ITS ---
HPI HPI - General Adult General Chief complaint: Urogenital-Female Stated complaint: UTI OR KIDNEY STONE?? Time Seen by Provider: 03/21/25 19:55 Source: patient Mode of arrival: walk-in History of Present Illness HPI narrative: This 40-year-old female presents for evaluation of urinary frequency urgency dysuria and hematuria that started several days ago. She denies the possibility of . She states she also had some flank pain on the left which has resolved. She has not had any fevers or chills. She has not had any nausea or vomiting. She does not have a history of kidney stones. She has been using [id number] urinary analgesics with clinical improvement. She states when her symptoms started several days ago she had blood in her urine but after taking the urinary analgesics this has resolved. She denies any chest pain or shortness of breath. At the time of my examination she is not having any pain. Related Data Home Medications ?Medication ?Instructions ?Recorded ?Confirmed No Known Home Medications 03/21/2502/28 Allergies Allergy/AdvReac Type Severity Reaction Status Date / Time methocarbamol (From Robaxin) Allergy Severe Swelling Verified 03/21/25 19:45 of Lip/Tongue/Throat Opioid HPI Opioid Management Most Recent Opioid Data: Last Pain Scale 2 Today, 19:46 Review of Systems ROS Status of ROS 10 or more systems reviewed and unremark able except as noted in history and below PFSH PFS Social History (System 04/21/23 @ 07:51 by Lynette Jaramillo) Smoking status: Former smoker Little interest or pleasure in doing things: not at all Feeling down, depressed, or hopeless: not at all Exam Narrative Exam Narrative: Vital signs and Nursing Notes reviewed: Patient is afebrile with a normal pulse, blood pressure is mildly elevated at 135/99, she is not hypoxic with pulse ox of 100% on room air General: Awake, alert, oriented, no acute distress, lying comfortably on the stretcher HEENT: Normocephalic atraumatic, mucous membranes are moist and pink, eyes are clear Chest: Lungs are clear to auscultation with good air entry, there is no wheezing rhonchi or rales appreciated no accessory muscle use, patient is speaking in complete sentences-no chest wall tenderness to palpation CVS: Regular rate and rhythm S1-S2, no murmurs rubs or gallops, pulses are brisk and equal bilaterally ABD: Soft, nondistended, nontender, no rebound guarding or rigidity, bowel sounds are normal, no reproducible tenderness in either flank or along the distribution of the ureters bilaterally, no tenderness over the urinary bladder Extremities: Moving all extremities, no lower extremity tenderness or swelling noted Skin: Normal in appearance without rash,pallor, petechiae or purpura Neuro: No focal deficits Constitutional Vital Signs, click to edit/add: Last Vital Signs Temp 98.2 F 03/21/25 19:46 Pulse 95 H 03/21/25 19:46 Resp 14 03/21/25 19:46 BP 135/99 H 03/21/25 19:46 Pulse Ox 100 03/21/25 19:46 O2 Del Method Room Air 03/21/25 19:46 Course Vital Signs Vital signs: Vital Signs Temperature 98.2 F 03/21/25 19:46 Pulse Rate 95 H 03/21/25 19:46 Respiratory Rate 14 03/21/25 19:46 Blood Pressure 135/99 H 03/21/25 19:46 Pulse Oximetry 100 03/21/25 19:46 Oxygen Delivery Method Room Air 03/21/25 19:46 Temperature 98.2 F 03/21/25 19:46 Pulse Rate 95 H 03/21/25 19:46 Respiratory Rate 14 03/21/25 19:46 Blood Pressure 135/99 H 03/21/25 19:46 Pulse Oximetry 100 03/21/25 19:46 Oxygen Delivery Method Room Air 03/21/25 19:46 Medical Decision Making MDM Narrative Medical decision making narrative: This 40-year-old female who states she had multiple urinary tract infections when she was younger but now rarely gets them presents for evaluation of urinary frequency urgency and hematuria that started several days ago. She bought [id number] urinary analgesics and the hematuria has resolved. At 1 point she had some left flank tenderness which has resolved. She is not having any fevers or chills. She has no nausea or vomiting. Her abdomen is soft. There is no flank tenderness. She denies the possibility of as she just finished having her period. Her urine is positive for 5-10 red blood cells per high-power field and 10-20 white blood cells per high-power field consistent with a UTI. She was medicated with a dose of Cipro in emergency department and will be discharged home with a prescription for Cipro to use over the next 7 days. She was encouraged to drink plenty of fluids and return the emergency department for fevers chills rigors severe flank pain or any concerns. Lab Data Lab results reviewed: Yes I reviewed the patient's lab results Labs: Lab Results 03/21/25 Range/Units 19:55 Urine Color Lt. yellow (YELLOW) Urine Clarity Clear (CLEAR) Urine pH 6.0 (5.0-9.0) Ur Specific [place] 1.020 (1.005-1.025) Urine Protein Negative (NEG/TRACE) mg/dL Urine Glucose (UA) Negative (NEGATIVE) mg/dL Urine Ketones Negative (NEGATIVE) mg/dL Urine Occult Blood Trace-i (NEGATIVE) Urine Nitrite Negative (NEGATIVE) Urine Bilirubin Negative (NEGATIVE) Urine Urobilinogen 2.0 A (0.2-1.0) EU/dL Ur Leukocyte Esterase Small A (NEGATIVE) Urine RBC 5-10 A (0-2) #/HPF Urine WBC 10-20 A (NONE SEEN) #/HPF Ur Squamous Epith Cells Rare (NONE/RARE) #/LPF Urine Crystals Seen A (None Seen) #/HPF Amorphous Sediment Few Urine Bacteria Trace A (NONE SEEN) #/HPF Urine Casts None seen (NONE SEEN) #/LPF Urine Mucus None seen (NONE SEEN) Ur Culture Indicated? [place] Discharge Chief Complaint: Urogenital-Female Clinical Impression: Urinary tract infection Patient Disposition: Home, Self-Care Time of Disposition Decision: 20:57 Condition: Good Prescriptions / Home Meds: No Action No Known Home Medications Print Language: Kiswahili Instructions: Urinary Tract Infection in Women (ED) Referrals: Physician,Non-Staff, MD [Primary Care Provider] - 1 week
[2025-03-21] MEDS: CIPROFLOXACIN HCL 500 MG TABLET PO (21:15)
== END 2025-03-21 21:27 | disposition home or self-care (01) ==
PROVIDERS: Emergency Provider Emergency Medicine
DX: N39.0 Urinary tract infection, site not specified (principal); Z87.440 Personal history of urinary (tract) infections; Z87.891 Personal history of nicotine dependence
CPT/HCPCS: 81001; 87086; 87088; 87186; 99285